=== PATIENT | female | born 1970 | race American Indian/Alaskan Native ===

== ENCOUNTER 2016-05-10 05:41 | Inpatient (IN) | payer BC ==
[2016-05-10 06:32] LABS: Basophils % (Auto) 1.1 % (0.0-1.8); Eosinophils % (Auto) 0.2 % (0.0-4.3); Hematocrit 36.2 % (30.3-42.9); Hemoglobin 11.8 gm/dl (10.1-14.3); Mean Corpuscular HGB Conc 33 % (30-34); Mean Corpuscular Hemoglobin 30 pg (28-32); Mean Corpuscular Volume 91 fl (79-97); Platelet Count 328 K/mm3 (140-440); Red Blood Count 3.96 M/mm3 (3.65-5.03); Red Cell Distribution Width 14.1 % (13.2-15.2); White Blood Count 15.3 K/mm3 (4.5-11.0)
[2016-05-10 06:40] LABS: Alanine Aminotransferase 16 units/L (7-56); Albumin 3.3 g/dL (3.9-5); Albumin/Globulin Ratio 0.8 %; Alkaline Phosphatase 87 units/L (35-129); Anion Gap 20 mmol/L; BUN/Creatinine Ratio 23.33; Bilirubin,Total 0.2 mg/dL (0.1-1.2); Blood Urea Nitrogen 21 mg/dL (7-17); Calcium 8.6 mg/dL (8.4-10.2); Carbon Dioxide 23 mmol/L (22-30); Chloride 92.2 mmol/L (98-107); Glucose 467 mg/dL (65-100); Lipase 83 units/L (13-60); Potassium 4.3 mmol/L (3.6-5.0); Sodium 131 mmol/L (137-145); Total Protein 7.2 g/dL (6.3-8.2)
[2016-05-10 07:43] LABS: Bilirubin,Urine NEG (Negative); Blood,Urine SM (Negative); Ketones,Urine NEG (Negative); Leukocyte Esterase,Urine TR (Negative); Nitrite,Urine NEG (Negative); Urobilinogen,Urine < 2.0 mg/dL (<2.0)
[2016-05-10 07:45] LABS: Protein,Urine >500 mg/dL (Negative)
[2016-05-10] MEDS ORDERED: ZOFRAN IV ONE ×2 (08:35→09:52)
[2016-05-10] MEDS ORDERED: NACL 0.9% 1000 ML 1,000 ML ONE (08:35)
[2016-05-10] MEDS ORDERED: NACL 0.9% 1000 ML 1,000 ML IV ONE ×2 (08:36→09:54)
[2016-05-10] MEDS ORDERED: ZOSYN/NS 3.375GM/50ML 3.375 GM/50 ML BAG IV ONE (09:52)
[2016-05-10] MEDS ORDERED: MORPHINE IV ONE ×2 (09:52→13:19)
[2016-05-10] MEDS ORDERED: FLAGYL 500 MG/100 ML 500 MG/100 ML BAG IV ONE (10:00)
[2016-05-10 10:13] LABS: Creatine Kinase MB 3.4 ng/mL (0.0-4.0)
[2016-05-10 10:14] LABS: Creatine Kinase 202 units/L (30-135); Magnesium 1.7 mg/dL (1.7-2.3)
[2016-05-10 10:16] LABS: INR 0.9 (0.87-1.13); Partial Thromboplastin Time 20.5 Sec. (24.2-36.6)
--- NOTE | 2016-05-10 10:41 | Cat Scan Report ---
CT OF THE ABDOMEN AND PELVIS WITHOUT CONTRAST HISTORY: Abdominal pain. TECHNIQUE: Helical CT without contrast. Sagittal and coronal reformatted images. FINDINGS: Compared to 06/30/12. The gallbladder has been surgically removed. No biliary dilatation. The liver, pancreas, spleen and adrenal glands are unremarkable. Mild bilateral perinephric stranding is identified. 3 mm calyceal stone in the mid left kidney is again noted. No right nephrolithiasis or ureteral stones identified. The bladder is unremarkable. There is a large simple appearing cyst in the left adnexa measuring up to 11.5 x 5.4 cm. This is presumably ovarian in origin. No inflammatory changes are appreciated. The uterus and adnexa are unremarkable. The bowel loops and appendix are within normal limits given no oral contrast was administered. The lung bases are clear. Normal heart size. No suspicious bony lesion. IMPRESSION: No acute inflammatory process. Left renal stone, nonobstructing. Large left adnexal cyst.
--- NOTE | 2016-05-10 11:58 | Emergency Department Report ---
ED General Adult HPI - General Chief complaint: Abdominal Pain Stated complaint: VOMITING,ABD PAIN, CHILLS Time Seen by Provider: 05/10/16 09:24 Source: patient Mode of arrival: Ambulatory Limitations: No Limitations - History of Present Illness Initial comments: The patient complained of frequent diarrhea for approximately one week. It's been watery and non-bloody. States he has no history of ongoing GI problems. She is status post cholecystectomy and . She states she is unaware of her fever today. She presented to the emergency department because of nausea and vomiting as well as diffuse abdominal discomfort this morning. He thinks he may have had some chills as well. The patient is compliant with her HIV regimen. She is recently started care with Dr. Garcia. She states her last 14 hours 800 and viral load 33. -: Gradual, week(s) Location: abdomen Radiation: non-radiation Quality: other (cramping) Consistency: intermittent Improves with: none Worsens with: none Associated Symptoms: denies other symptoms (except as above indicated) - Related Data Home Medications Medication Instructions Recorded Confirmed Last Taken Elviteg/Sumi/Emtric/Tenofo Ala 1 each PO QDAY 05/10/16 05/10/16 Unknown [Genvoya Tablet] Gabapentin [Neurontin] 800 mg PO TID 05/10/16 05/10/16 Unknown Hydrochlorothiazide [Hctz] 12.5 mg PO QDAY 05/10/16 05/10/16 Unknown Insulin Aspart Prot/Aspart 0 units SQ QACHS 05/10/16 05/10/16 Unknown [Novolog Mix 70/30] Insulin Glargine [Lantus] 30 units SQ QHS 05/10/16 05/10/16 Unknown metFORMIN [Glucophage] 500 mg PO BID 05/10/16 05/10/16 Unknown Allergies Allergy/AdvReac Type Severity Reaction Status Date / Time aspirin Allergy Swelling Verified 05/10/16 05:48 ED Review of Systems ROS: Stated complaint: VOMITING,ABD PAIN, CHILLS Other details as noted in HPI Constitutional: chills. denies: fever Eyes: denies: eye pain, eye discharge, vision change ENT: denies: ear pain, throat pain Respiratory: denies: cough, shortness of breath, wheezing Cardiovascular: denies: chest pain, palpitations Endocrine: no symptoms reported Gastrointestinal: abdominal pain, nausea, vomiting, diarrhea Genitourinary: denies: urgency, dysuria, discharge Musculoskeletal: denies: back pain, joint swelling, arthralgia Skin: denies: rash, lesions Neurological: denies: headache, weakness, paresthesias Psychiatric: denies: anxiety, depression Hematological/Lymphatic: denies: easy bleeding, easy bruising ED Past Medical Hx - Past Medical History Previous Medical History?: Yes Hx Hypertension: Yes Hx Diabetes: Yes Hx HIV: Yes - Surgical History Past Surgical History?: Yes Hx Cholecystectomy: Yes Additional Surgical History: C-Sec x 5 - Social History Smoking Status: Never Smoker Substance Use Type: None - Medications Home Medications: Home Medications Medication Instructions Recorded Confirmed Last Taken Type Elviteg/Sumi/Emtric/Tenofo Ala 1 each PO QDAY 05/10/16 05/10/16 Unknown History [Genvoya Tablet] Gabapentin [Neurontin] 800 mg PO TID 05/10/16 05/10/16 Unknown History Hydrochlorothiazide [Hctz] 12.5 mg PO QDAY 05/10/16 05/10/16 Unknown History Insulin Aspart Prot/Aspart 0 units SQ QACHS 05/10/16 05/10/16 Unknown History [Novolog Mix 70/30] Insulin Glargine [Lantus] 30 units SQ QHS 05/10/16 05/10/16 Unknown History metFORMIN [Glucophage] 500 mg PO BID 05/10/16 05/10/16 Unknown History ED Physical Exam - General Limitations: No Limitations General appearance: alert, in no apparent distress, other (appears dry) - Head Head exam: Present: atraumatic, normocephalic - Eye Eye exam: Present: normal appearance, PERRL, EOMI. Absent: scleral icterus - ENT ENT exam: Present: normal orophraynx, mucous membranes dry - Neck Neck exam: Present: normal inspection. Absent: tenderness, meningismus - Respiratory Respiratory exam: Present: normal lung sounds bilaterally. Absent: respiratory distress - Cardiovascular Cardiovascular Exam: Present: regular rate, normal rhythm. Absent: systolic murmur, diastolic murmur, rubs, gallop - GI/Abdominal GI/Abdominal exam: Present: soft, tenderness (mild diffuse tenderness but no guarding rebound or distention), normal bowel sounds. Absent: distended, guarding, rebound, rigid, organomegaly, mass, bruit, pulsatile mass, hernia - Extremities Exam Extremities exam: Present: normal inspection - Back Exam Back exam: Present: normal inspection - Neurological Exam Neurological exam: Present: alert, oriented X3, CN II-XII intact. Absent: motor sensory deficit - Psychiatric Psychiatric exam: Present: normal affect, normal mood - Skin Skin exam: Present: warm, dry, intact, normal color. Absent: rash ED Course Vital Signs 05/10/16 05/10/16 05/10/16 05:48 08:14 08:20 Temperature 101.1 F H Pulse Rate 124 H 111 H Respiratory 22 16 Rate Blood Pressure Blood Pressure 191/98 [Right] O2 Sat by Pulse 98 94 96 Oximetry 05/10/16 05/10/16 05/10/16 08:30 08:41 08:46 Temperature 99.1 F Pulse Rate 111 H 109 H 110 H Respiratory 17 16 17 Rate Blood Pressure 172/92 Blood Pressure 172/92 [Right] O2 Sat by Pulse 95 93 94 Oximetry 05/10/16 05/10/16 05/10/16 08:51 09:00 09:11 Temperature Pulse Rate 111 H 110 H 113 H Respiratory 15 13 16 Rate Blood Pressure 172/92 176/98 176/98 Blood Pressure [Right] O2 Sat by Pulse 90 94 97 Oximetry 05/10/16 05/10/16 05/10/16 09:26 09:31 09:35 Temperature Pulse Rate 115 H 111 H 113 H Respiratory 18 17 Rate Blood Pressure 176/98 164/92 Blood Pressure 164/82 [Right] O2 Sat by Pulse 97 96 96 Oximetry 05/10/16 05/10/16 05/10/16 09:41 09:51 10:00 Temperature Pulse Rate 113 H 116 H 112 H Respiratory 13 15 17 Rate Blood Pressure 164/92 164/92 170/98 Blood Pressure [Right] O2 Sat by Pulse 96 95 94 Oximetry 05/10/16 05/10/16 05/10/16 10:20 10:31 10:41 Temperature Pulse Rate 114 H 112 H 109 H Respiratory 15 14 Rate Blood Pressure 176/98 176/98 176/98 Blood Pressure [Right] O2 Sat by Pulse 96 96 96 Oximetry 05/10/16 05/10/16 05/10/16 10:51 11:00 11:11 Temperature Pulse Rate 107 H 113 H 110 H Respiratory 13 19 16 Rate Blood Pressure 176/98 138/84 170/98 Blood Pressure [Right] O2 Sat by Pulse 96 96 Oximetry - Reevaluation(s) Reevaluation #1: Patient's CT showed no acute inflammatory process. Her urine was negative. She had an incidental left adnexal cyst which was large and a left renal stone. She was given empiric antibiotics i.e. Zosyn and Flagyl. A C. difficile was sent. Report was given to Dr. Carmichael who has admitted the Patient further care and evaluation. 05/10/16 11:58 ED Medical Decision Making - Lab Data Result diagrams: 05/10/16 05:59 05/10/16 05:59 Laboratory Results - last 24 hr 05/10/16 05/10/16 05/10/16 05:59 05:59 05:59 WBC 15.3 H RBC 3.96 Hgb 11.8 Hct 36.2 MCV 91 MCH 30 MCHC 33 RDW 14.1 Plt Count 328 Lymph % (Auto) 11.5 L [place] % (Auto) 4.8 Eos % (Auto) 0.2 Baso % (Auto) 1.1 Lymph # 1.8 [place] # 0.7 Eos # 0.0 Baso # 0.2 H Seg Neutrophils % 82.4 H Seg Neutrophils # 12.6 H PT INR APTT VBG pH Sodium 131 L Potassium 4.3 Chloride 92.2 L Carbon Dioxide 23 Anion Gap 20 BUN 21 H Creatinine 0.9 Estimated GFR > 60 BUN/Creatinine Ratio 23.33 Glucose 467 H Lactic Acid Calcium 8.6 Magnesium Total Bilirubin 0.2 AST 15 ALT 16 Alkaline Phosphatase 87 Total Creatine Kinase CK-MB (CK-2) CK-MB (CK-2) Rel Index Troponin T Total Protein 7.2 Albumin 3.3 L Albumin/Globulin Ratio 0.8 Lipase 83 H HCG, Qual Negative Urine Color Urine Turbidity Urine pH Ur Specific [place] Urine Protein Urine Glucose (UA) Urine Ketones Urine Blood Urine Nitrite Urine Bilirubin Urine Urobilinogen Ur Leukocyte Esterase Urine WBC (Auto) Urine RBC (Auto) U Epithel Cells (Auto) Ketones 05/10/16 05/10/16 05/10/16 07:08 09:34 09:34 WBC RBC Hgb Hct MCV MCH MCHC RDW Plt Count Lymph % (Auto) [place] % (Auto) Eos % (Auto) Baso % (Auto) Lymph # [place] # Eos # Baso # Seg Neutrophils % Seg Neutrophils # PT 12.1 L INR 0.90 APTT 20.5 L VBG pH Sodium Potassium Chloride Carbon Dioxide Anion Gap BUN Creatinine Estimated GFR BUN/Creatinine Ratio Glucose Lactic Acid 1.4 Calcium Magnesium Total Bilirubin AST ALT Alkaline Phosphatase Total Creatine Kinase CK-MB (CK-2) CK-MB (CK-2) Rel Index Troponin T Total Protein Albumin Albumin/Globulin Ratio Lipase HCG, Qual Urine Color Yellow Urine Turbidity Slightly-cloudy Urine pH 5.0 Ur Specific [place] 1.026 Urine Protein >500 Urine Glucose (UA) >=500 Urine Ketones Neg Urine Blood Sm Urine Nitrite Neg Urine Bilirubin Neg Urine Urobilinogen < 2.0 Ur Leukocyte Esterase Tr Urine WBC (Auto) 7.0 H Urine RBC (Auto) 9.0 U Epithel Cells (Auto) 6.0 Ketones 05/10/16 05/10/16 05/10/16 09:34 09:34 09:34 WBC RBC Hgb Hct MCV MCH MCHC RDW Plt Count Lymph % (Auto) [place] % (Auto) Eos % (Auto) Baso % (Auto) Lymph # [place] # Eos # Baso # Seg Neutrophils % Seg Neutrophils # PT INR APTT VBG pH 7.367 Sodium Potassium Chloride Carbon Dioxide Anion Gap BUN Creatinine Estimated GFR BUN/Creatinine Ratio Glucose Lactic Acid Calcium Magnesium 1.7 Total Bilirubin AST ALT Alkaline Phosphatase Total Creatine Kinase 202 H CK-MB (CK-2) 3.4 CK-MB (CK-2) Rel Index 1.6 Troponin T < 0.010 Total Protein Albumin Albumin/Globulin Ratio Lipase HCG, Qual Urine Color Urine Turbidity Urine pH Ur Specific [place] Urine Protein Urine Glucose (UA) Urine Ketones Urine Blood Urine Nitrite Urine Bilirubin Urine Urobilinogen Ur Leukocyte Esterase Urine WBC (Auto) Urine RBC (Auto) U Epithel Cells (Auto) Ketones 11.1 H - EKG Data -: EKG Interpreted by Me EKG shows normal: sinus rhythm Rate: tachycardia - EKG Data Interpretation: other (diffuse but not deep T-wave inversions) - Radiology Data Radiology results: report reviewed Critical care attestation.: If time is entered above; I have spent that time in minutes in the direct care of this critically ill patient, excluding procedure time. ED Disposition Clinical Impression: Febrile illness, acute, Increased anion gap metabolic acidosis Diarrhea Qualifiers: Diarrhea type: infectious Qualified Code(s): A09 - Infectious gastroenteritis and colitis, unspecified Abdominal pain Qualifiers: Abdominal location: generalized Qualified Code(s): R10.84 - Generalized abdominal pain Uncontrolled diabetes mellitus with hyperglycemia Qualifiers: Diabetes mellitus type: type 2 Diabetes mellitus interactive art director insulin use: with usp use Qualified Code(s): E11.65 - Type 2 diabetes mellitus with hyperglycemia Disposition: OP ADMITTED IP TO THIS HOSP Is pt being admited?: Yes Does the pt Need Aspirin: No Condition: Stable Instructions: Diabetes Mellitus Type 2 in Adults (ED), Abdominal Pain (ED) Referrals: PRIMARY CARE, [Primary Care Provider] - 3-5 Days Time of Disposition: 12:02
[2016-05-10] MEDS ORDERED: MORPHINE ONE (13:01)
[2016-05-10] MEDS: DILAUDID IV PRN ×2 (14:36→20:30)
[2016-05-10] MEDS: ZOFRAN IV PRN (14:36)
--- NOTE | 2016-05-10 18:23 | History and Physical Report ---
History of Present Illness Date of examination: 05/10/16 Date of admission: 05/10/16 12:03 Chief complaint: Loose stools for one week.And fever off and one for one week. History of present illness: 46-year-old -[place] female comes in for fever and diarrhea for 1 week duration. Patient has history of HIV insulin-dependent diabetes peripheral neuropathy and hypertension. Patient had a cholecystectomy recently. The stools are watery 3-4 times a day. No nausea no vomiting. Slight periumbilical pain present. Pain is about 3 on a scale of 1-10. Nonradiating. Past History Past Medical History: No medical history, diabetes, HIV/AIDS (PN), hypertension , hyperlipidemia, other Past Surgical History: cholecystectomy, (x5) Social history: denies: smoking, alcohol abuse Family history: hypertension Medications and Allergies Allergies Allergy/AdvReac Type Severity Reaction Status Date / Time aspirin Allergy Swelling Verified 05/10/16 05:48 Home Medications Medication Instructions Recorded Confirmed Last Taken Type Elviteg/Sumi/Emtric/Tenofo Ala 1 each PO QDAY 05/10/16 05/10/16 Unknown History [Genvoya Tablet] Gabapentin [Neurontin] 800 mg PO TID 05/10/16 05/10/16 Unknown History Hydrochlorothiazide [Hctz] 12.5 mg PO QDAY 05/10/16 05/10/16 Unknown History Insulin Aspart Prot/Aspart 0 units SQ QACHS 05/10/16 05/10/16 Unknown History [Novolog Mix 70/30] Insulin Glargine [Lantus] 30 units SQ QHS 05/10/16 05/10/16 Unknown History metFORMIN [Glucophage] 500 mg PO BID 05/10/16 05/10/16 Unknown History Active Meds: Active Medications Hydromorphone HCl (Dilaudid) 1 mg IV Q3H PRN PRN Reason: Pain , Severe (7-10) Last Admin: 05/10/16 14:36 Dose: 1 mg Ondansetron HCl (Zofran) 4 mg IV Q3H PRN PRN Reason: Nausea And Vomiting Last Admin: 05/10/16 14:36 Dose: 4 mg Review of Systems All systems: negative Constitutional: fever, no weight loss, no weight gain Ears, nose, mouth and throat: sinus pain, no ear pain, no ear discharge, no epistaxis, no sore throat, no swelling in throat, no odynophagia, no voice changes, no post-nasal drip Breasts: deferred Cardiovascular: no chest pain, no orthopnea, no shortness of breath Respiratory: no cough, no cough with sputum, no dyspnea on exertion, no congestion, no wheezing Gastrointestinal: abdominal pain, diarrhea, no nausea, no vomiting, no constipation, no change in bowel habits Genitourinary Female: no flank pain, no dysuria, no urinary frequency Musculoskeletal: no neck pain, no shooting arm pain, no leg numbness/tingling, no redness of joints Integumentary: no rash, no pruritis, no redness, no sores Neurological: no seizures, no syncope Psychiatric: no anxiety, no paranoia, no depression Endocrine: no cold intolerance, no heat intolerance, no polydipsia, no polyuria , no nocturia Hematologic/Lymphatic: no easy bruising, no easy bleeding Allergic/Immunologic: no urticaria, no allergic rhinitis, no wheezing Exam - Constitutional Vitals: Temp Pulse Resp BP Pulse Ox 98.2 F 95 H 20 126/76 90 05/10/16 17:00 05/10/16 17:00 05/10/16 15:05 05/10/16 17:00 05/10/16 17:00 General appearance: Present: no acute distress, well-nourished - EENT Eyes: Present: PERRL ENT: hearing intact, clear oral mucosa - Neck Neck: Present: supple, normal ROM - Respiratory Respiratory effort: normal Respiratory: bilateral: CTA - Cardiovascular Heart Sounds: Present: S1 & S2. Absent: rub, click - Extremities Extremities: pulses symmetrical, No edema Peripheral Pulses: within normal limits - Abdominal General gastrointestinal: Present: soft, non-tender, non-distended, normal bowel sounds Female genitourinary: Present: normal - Integumentary Integumentary: Present: clear, warm, dry - Musculoskeletal Musculoskeletal: gait normal, strength equal bilaterally - Psychiatric Psychiatric: appropriate mood/affect, intact judgment & insight - Neurologic Neurologic: CNII-XII intact, moves all extremities Results - Labs CBC & Chem 7: 05/10/16 05:59 05/10/16 05:59 Labs: Laboratory Last Values WBC 15.3 K/mm3 (4.5-11.0) H 05/10/16 05:59 RBC 3.96 M/mm3 (3.65-5.03) 05/10/16 05:59 Hgb 11.8 gm/dl (10.1-14.3) 05/10/16 05:59 Hct 36.2 % (30.3-42.9) 05/10/16 05:59 MCV 91 fl (79-97) 05/10/16 05:59 MCH 30 pg (28-32) 05/10/16 05:59 MCHC 33 % (30-34) 05/10/16 05:59 RDW 14.1 % (13.2-15.2) 05/10/16 05:59 Plt Count 328 K/mm3 (140-440) 05/10/16 05:59 Lymph % (Auto) 11.5 % (13.4-35.0) L 05/10/16 05:59 [place] % (Auto) 4.8 % (0.0-7.3) 05/10/16 05:59 Eos % (Auto) 0.2 % (0.0-4.3) 05/10/16 05:59 Baso % (Auto) 1.1 % (0.0-1.8) 05/10/16 05:59 Lymph # 1.8 K/mm3 (1.2-5.4) 05/10/16 05:59 [place] # 0.7 K/mm3 (0.0-0.8) 05/10/16 05:59 Eos # 0.0 K/mm3 (0.0-0.4) 05/10/16 05:59 Baso # 0.2 K/mm3 (0.0-0.1) H 05/10/16 05:59 Seg Neutrophils % 82.4 % (40.0-70.0) H 05/10/16 05:59 Seg Neutrophils # 12.6 K/mm3 (1.8-7.7) H 05/10/16 05:59 PT 12.1 Sec. (12.2-14.9) L 05/10/16 09:34 INR 0.90 (0.87-1.13) 05/10/16 09:34 APTT 20.5 Sec. (24.2-36.6) L 05/10/16 09:34 VBG pH 7.367 (7.320-7.420) 05/10/16 09:34 Sodium 131 mmol/L (137-145) L 05/10/16 05:59 Potassium 4.3 mmol/L (3.6-5.0) 05/10/16 05:59 Chloride 92.2 mmol/L (98-107) L 05/10/16 05:59 Carbon Dioxide 23 mmol/L (22-30) 05/10/16 05:59 Anion Gap 20 mmol/L 05/10/16 05:59 BUN 21 mg/dL (7-17) H 05/10/16 05:59 Creatinine 0.9 mg/dL (0.7-1.2) 05/10/16 05:59 Estimated GFR > 60 ml/min 05/10/16 05:59 BUN/Creatinine Ratio 23.33 % 05/10/16 05:59 Glucose 467 mg/dL (65-100) H 05/10/16 05:59 Lactic Acid 1.4 mmol/L (0.7-2.0) 05/10/16 09:34 Calcium 8.6 mg/dL (8.4-10.2) 05/10/16 05:59 Magnesium 1.7 mg/dL (1.7-2.3) 05/10/16 09:34 Total Bilirubin 0.2 mg/dL (0.1-1.2) 05/10/16 05:59 AST 15 units/L (5-40) 05/10/16 05:59 ALT 16 units/L (7-56) 05/10/16 05:59 Alkaline Phosphatase 87 units/L (35-129) 05/10/16 05:59 Total Creatine Kinase 202 units/L (30-135) H 05/10/16 09:34 CK-MB (CK-2) 3.4 ng/mL (0.0-4.0) 05/10/16 09:34 CK-MB (CK-2) Rel Index 1.6 (0-4) 05/10/16 09:34 Troponin T < 0.010 ng/mL (0.00-0.029) 05/10/16 09:34 Total Protein 7.2 g/dL (6.3-8.2) 05/10/16 05:59 Albumin 3.3 g/dL (3.9-5) L 05/10/16 05:59 Albumin/Globulin Ratio 0.8 % 05/10/16 05:59 Lipase 83 units/L (13-60) H 05/10/16 05:59 HCG, Qual Negative (Negative) 05/10/16 05:59 Urine Color Yellow (Yellow) 05/10/16 07:08 Urine Turbidity Slightly-cloudy (Clear) 05/10/16 07:08 Urine pH 5.0 (5.0-7.0) 05/10/16 07:08 Ur Specific [place] 1.026 (1.003-1.030) 05/10/16 07:08 Urine Protein >500 mg/dL (Negative) 05/10/16 07:08 Urine Glucose (UA) >=500 mg/dL (Negative) 05/10/16 07:08 Urine Ketones Neg mg/dL (Negative) 05/10/16 07:08 Urine Blood Sm (Negative) 05/10/16 07:08 Urine Nitrite Neg (Negative) 05/10/16 07:08 Urine Bilirubin Neg (Negative) 05/10/16 07:08 Urine Urobilinogen < 2.0 mg/dL (<2.0) 05/10/16 07:08 Ur Leukocyte Esterase Tr (Negative) 05/10/16 07:08 Urine WBC (Auto) 7.0 /HPF (0.0-6.0) H 05/10/16 07:08 Urine RBC (Auto) 9.0 /HPF (0.0-6.0) 05/10/16 07:08 U Epithel Cells (Auto) 6.0 /HPF (0-13.0) 05/10/16 07:08 Ketones 11.1 mg/dL (0.2-2.8) H 05/10/16 09:34 Assessment and Plan Advance Directives: Yes (codeFull ) VTE prophylaxis?: Chemical Plan of care discussed with patient/family: Yes - Patient Problems (1) Febrile illness, acute Current Visit: Yes Status: Acute Plan to address problem: Zosyn for possible colitis No other source of infection seen (2) Uncontrolled diabetes mellitus with hyperglycemia Current Visit: Yes Status: Chronic Qualifiers: Diabetes mellitus type: type 2 Diabetes mellitus correction insulin use: with rodent exterminator use Qualified Code(s): E11.65 - Type 2 diabetes mellitus with hyperglycemia; Z79.4 - vermin exterminator (current) use of insulin Plan to address problem: Cont Insulin and coverage Check hemoglobin A1C moderate dose sliding scale protocol. (3) Diarrhea Current Visit: Yes Status: Acute Qualifiers: Diarrhea type: presumed infectious Qualified Code(s): A09 - Infectious gastroenteritis and colitis, unspecified Plan to address problem: Rule out clostridium difficile colitis. C. difficile assay ordered. Patient started on IV Flagyl 500 mg every 8 hours also patient started on IV Zosyn for possible colitis off infectious origin pending cultures stool. Stool cultures and C. difficile antigen ordered. (4) SIRS (systemic inflammatory response syndrome) Current Visit: Yes Status: Acute Plan to address problem: Patient qualifies for systemic inflammatory response syndrome. Patient has high white count and fever. Patient started on IV antibiotics Zosyn and IV Flagyl for possible C. difficile colitis (5) HTN (hypertension) Current Visit: Yes Status: Chronic Qualifiers: Hypertension type: essential hypertension Qualified Code(s): I10 - Essential (primary) hypertension Plan to address problem: Patient resume that on hydrochlorothiazide. Patient needs potassium along with hydrochlorothiazide. (6) DVT prophylaxis Current Visit: Yes Status: Acute Plan to address problem: Patient started on Lovenox 40 mg subcutaneous daily
[2016-05-10] MEDS ORDERED: NACL 0.9% 1000 ML 1,000 ML IV SCH (19:00)
[2016-05-10] MEDS: NOVOLOG SUB-Q SCH (22:23)
[2016-05-10] MEDS: FLAGYL 500 MG/100 ML 500 MG/100 ML BAG IV SCH (22:23)
[2016-05-11] MEDS: DILAUDID IV PRN ×7 (01:07→21:42)
[2016-05-11] MEDS: ZOFRAN IV PRN ×7 (01:08→21:47)
[2016-05-11 06:19] LABS: Basophils % (Auto) 1.3 % (0.0-1.8); Eosinophils % (Auto) 0.3 % (0.0-4.3); Hemoglobin 10.6 gm/dl (10.1-14.3); Mean Corpuscular HGB Conc 32 % (30-34); Mean Corpuscular Hemoglobin 30 pg (28-32); Mean Corpuscular Volume 94 fl (79-97); Red Blood Count 3.52 M/mm3 (3.65-5.03); Red Cell Distribution Width 14.2 % (13.2-15.2); White Blood Count 8.9 K/mm3 (4.5-11.0)
[2016-05-11 06:31] LABS: Alanine Aminotransferase 16 units/L (7-56); Alkaline Phosphatase 86 units/L (35-129); BUN/Creatinine Ratio 18.88; Bilirubin,Total 0.2 mg/dL (0.1-1.2); Blood Urea Nitrogen 17 mg/dL (7-17); Calcium 7.8 mg/dL (8.4-10.2); Carbon Dioxide 19 mmol/L (22-30); Glucose 380 mg/dL (65-100); Total Protein 6.9 g/dL (6.3-8.2)
[2016-05-11 06:32] LABS: Anion Gap 21 mmol/L; Chloride 100.2 mmol/L (98-107); Potassium 4.3 mmol/L (3.6-5.0); Sodium 136 mmol/L (137-145)
[2016-05-11] MEDS: FLAGYL 500 MG/100 ML 500 MG/100 ML BAG IV SCH (06:41)
[2016-05-11 06:44] LABS: Albumin 2.6 g/dL (3.9-5); Albumin/Globulin Ratio 0.6 %
[2016-05-11 07:01] LABS: Platelet Count 239 K/mm3 (140-440)
[2016-05-11] MEDS: APRESOLINE IV PRN (08:25)
[2016-05-11] MEDS: NOVOLOG SUB-Q SCH ×4 (08:31→23:54)
--- NOTE | 2016-05-11 10:11 | Admit Criteria Form ---
Admission Criteria Documentation: FEBRILE ILLNESS, WITHOUT FOCAL INFECTION Clinical Indications for Admission to Inpatient Care (Place 'X' for any and all applicable criteria): Admission is indicated for ANY ONE of the following (1)(2)(3): [ ] I. Bacteremia [ ]II. Suspected or identified specific infection requiring hospitalization (eg, meningitis, endocarditis) [ ]III. Hemodynamic instability [ ]IV. Altered mental status []V. Failure or unavailability of outpatient antimicrobial treatment [ ]. Hypoxemia [ ]VII. Seizures [ ]VIII. High-risk febrile neutropenia [ ]IX. Need for parenteral antibiotic in patient who is likely to abuse vascular access device (eg, injection drug user) [A](7) [ ]X. Temperature greater than 104.9 degrees F (40.5 degrees C) (oral) [X]XI. Inpatient admission required rather than observation care because of ANY ONE of the following: [ ]a) Specific infection identified that is too severe for outpatient treatment or observation care trial [X]b) Metabolic disorder (eg, hypoglycemia, hyperglycemia, metabolic acidosis) that is severe or persistent [ ]c) Temperature greater than 103.1 degrees F (39.5 degrees C) ( oral) that is not responsive to observation care treatment [ ]d) IV fluid to replace significant ongoing (eg, for over 24 hours) losses (> 3 L/m2 per day) [ ]e) Supplemental oxygen or respiratory treatments for over 24 hours that is performable only in acute inpatient setting [ ]f) Parenteral nutrition regimen need that must be implemented on inpatient basis [ ]g) Strict or protective (eg, laminar flow) isolation [ ]h) Other condition, treatment or monitoring requiring inpatient admission Extended stay beyond goal length of stay may be needed for(1)(3) [ ]a) Sepsis or septic shock(22) [ ]b) Positive blood cultures [ ]c) Insufficient oral intake [ ]d) High-risk febrile neutropenia(29)(30) [ ]e) Continued fever and clinical instability [ ]f) Clinically active comorbid illness (e.g,heart failure, renal failure , diabetes) The original [facility] content created by [facility] [employer] has been revised. The portions of the content which have been revised are identified through the use of italic text or in bold, and [facility] has neither reviewed nor approved the modified material. All other unmodified content is copyright [facility]. Please see references footnoted in the original [facility] edition 2016 Admission Criteria Met: Yes
[2016-05-11] MEDS: LOVENOX SUB-Q SCH (11:32)
[2016-05-11] MEDS: REGLAN IV PRN ×2 (11:33→18:28)
--- NOTE | 2016-05-11 20:14 | Progress Note ---
History Interval history: c/o nausea and vomiting; diarrhea has resolved Hospitalist Physical - Constitutional Vitals: Temp Pulse Resp BP Pulse Ox 98.3 F 100 H 20 150/89 98 05/11/16 15:00 05/11/16 15:00 05/11/16 15:00 05/11/16 15:00 05/11/16 07:07 General appearance: Present: no acute distress, well-nourished Results - Labs CBC & Chem 7: 05/11/16 05:29 05/11/16 05:29 Labs: Laboratory Last Values WBC 8.9 K/mm3 (4.5-11.0) 05/11/16 05:29 RBC 3.52 M/mm3 (3.65-5.03) L 05/11/16 05:29 Hgb 10.6 gm/dl (10.1-14.3) 05/11/16 05:29 Hct 33.0 % (30.3-42.9) 05/11/16 05:29 MCV 94 fl (79-97) D 05/11/16 05:29 MCH 30 pg (28-32) 05/11/16 05:29 MCHC 32 % (30-34) 05/11/16 05:29 RDW 14.2 % (13.2-15.2) 05/11/16 05:29 Plt Count 239 K/mm3 (140-440) 05/11/16 05:29 Lymph % (Auto) 23.3 % (13.4-35.0) 05/11/16 05:29 [place] % (Auto) 6.1 % (0.0-7.3) 05/11/16 05:29 Eos % (Auto) 0.3 % (0.0-4.3) 05/11/16 05:29 Baso % (Auto) 1.3 % (0.0-1.8) 05/11/16 05:29 Lymph # 2.1 K/mm3 (1.2-5.4) 05/11/16 05:29 [place] # 0.5 K/mm3 (0.0-0.8) 05/11/16 05:29 Eos # 0.0 K/mm3 (0.0-0.4) 05/11/16 05:29 Baso # 0.1 K/mm3 (0.0-0.1) 05/11/16 05:29 Seg Neutrophils % 69.0 % (40.0-70.0) 05/11/16 05:29 Seg Neutrophils # 6.1 K/mm3 (1.8-7.7) 05/11/16 05:29 PT 12.1 Sec. (12.2-14.9) L 05/10/16 09:34 INR 0.90 (0.87-1.13) 05/10/16 09:34 APTT 20.5 Sec. (24.2-36.6) L 05/10/16 09:34 VBG pH 7.367 (7.320-7.420) 05/10/16 09:34 Sodium 136 mmol/L (137-145) L 05/11/16 05:29 Potassium 4.3 mmol/L (3.6-5.0) 05/11/16 05:29 Chloride 100.2 mmol/L (98-107) 05/11/16 05:29 Carbon Dioxide 19 mmol/L (22-30) L 05/11/16 05:29 Anion Gap 21 mmol/L 05/11/16 05:29 BUN 17 mg/dL (7-17) 05/11/16 05:29 Creatinine 0.9 mg/dL (0.7-1.2) 05/11/16 05:29 Estimated GFR > 60 ml/min 05/11/16 05:29 BUN/Creatinine Ratio 18.88 % 05/11/16 05:29 Glucose 380 mg/dL (65-100) H 05/11/16 05:29 POC Glucose 242 (70-105) H 05/11/16 16:20 Hemoglobin A1c 13.3 % (4-6) H 05/11/16 05:29 Lactic Acid 1.4 mmol/L (0.7-2.0) 05/10/16 09:34 Calcium 7.8 mg/dL (8.4-10.2) L 05/11/16 05:29 Magnesium 1.7 mg/dL (1.7-2.3) 05/10/16 09:34 Total Bilirubin 0.2 mg/dL (0.1-1.2) 05/11/16 05:29 AST 18 units/L (5-40) 05/11/16 05:29 ALT 16 units/L (7-56) 05/11/16 05:29 Alkaline Phosphatase 86 units/L (35-129) 05/11/16 05:29 Total Creatine Kinase 202 units/L (30-135) H 05/10/16 09:34 CK-MB (CK-2) 3.4 ng/mL (0.0-4.0) 05/10/16 09:34 CK-MB (CK-2) Rel Index 1.6 (0-4) 05/10/16 09:34 Troponin T < 0.010 ng/mL (0.00-0.029) 05/10/16 09:34 Total Protein 6.9 g/dL (6.3-8.2) 05/11/16 05:29 Albumin 2.6 g/dL (3.9-5) L 05/11/16 05:29 Albumin/Globulin Ratio 0.6 % 05/11/16 05:29 Lipase 83 units/L (13-60) H 05/10/16 05:59 HCG, Qual Negative (Negative) 05/10/16 05:59 Urine Color Yellow (Yellow) 05/10/16 07:08 Urine Turbidity Slightly-cloudy (Clear) 05/10/16 07:08 Urine pH 5.0 (5.0-7.0) 05/10/16 07:08 Ur Specific [place] 1.026 (1.003-1.030) 05/10/16 07:08 Urine Protein >500 mg/dL (Negative) 05/10/16 07:08 Urine Glucose (UA) >=500 mg/dL (Negative) 05/10/16 07:08 Urine Ketones Neg mg/dL (Negative) 05/10/16 07:08 Urine Blood Sm (Negative) 05/10/16 07:08 Urine Nitrite Neg (Negative) 05/10/16 07:08 Urine Bilirubin Neg (Negative) 05/10/16 07:08 Urine Urobilinogen < 2.0 mg/dL (<2.0) 05/10/16 07:08 Ur Leukocyte Esterase Tr (Negative) 05/10/16 07:08 Urine WBC (Auto) 7.0 /HPF (0.0-6.0) H 05/10/16 07:08 Urine RBC (Auto) 9.0 /HPF (0.0-6.0) 05/10/16 07:08 U Epithel Cells (Auto) 6.0 /HPF (0-13.0) 05/10/16 07:08 Ketones 11.1 mg/dL (0.2-2.8) H 05/10/16 09:34
[2016-05-11] MEDS: LEVEMIR SUB-Q SCH (23:53)
[2016-05-12] MEDS: DILAUDID IV PRN ×7 (02:42→21:22)
[2016-05-12] MEDS: REGLAN IV PRN ×3 (02:43→17:16)
[2016-05-12] MEDS: ZOFRAN IV PRN ×7 (02:43→21:21)
[2016-05-12] MEDS: NOVOLOG SUB-Q SCH ×4 (08:17→22:52)
[2016-05-12] MEDS: LOVENOX SUB-Q SCH (09:22)
[2016-05-12] MEDS: APRESOLINE IV PRN (15:24)
[2016-05-12] MEDS ORDERED: PHENERGAN PR ONE (21:54)
--- NOTE | 2016-05-12 21:56 | Progress Note ---
History Interval history: c/o nausea and vomiting; no BM since admission, so stoool studies not obtained Hospitalist Physical - Constitutional Vitals: Temp Pulse Resp BP Pulse Ox 97.9 F 100 H 20 178/99 97 05/12/16 08:00 05/12/16 15:24 05/12/16 21:22 05/12/16 18:16 05/12/16 08:00 General appearance: Present: no acute distress, well-nourished Results - Labs CBC & Chem 7: 05/11/16 05:29 05/11/16 05:29 Labs: Laboratory Last Values WBC 8.9 K/mm3 (4.5-11.0) 05/11/16 05:29 RBC 3.52 M/mm3 (3.65-5.03) L 05/11/16 05:29 Hgb 10.6 gm/dl (10.1-14.3) 05/11/16 05:29 Hct 33.0 % (30.3-42.9) 05/11/16 05:29 MCV 94 fl (79-97) D 05/11/16 05:29 MCH 30 pg (28-32) 05/11/16 05:29 MCHC 32 % (30-34) 05/11/16 05:29 RDW 14.2 % (13.2-15.2) 05/11/16 05:29 Plt Count 239 K/mm3 (140-440) 05/11/16 05:29 Lymph % (Auto) 23.3 % (13.4-35.0) 05/11/16 05:29 [place] % (Auto) 6.1 % (0.0-7.3) 05/11/16 05:29 Eos % (Auto) 0.3 % (0.0-4.3) 05/11/16 05:29 Baso % (Auto) 1.3 % (0.0-1.8) 05/11/16 05:29 Lymph # 2.1 K/mm3 (1.2-5.4) 05/11/16 05:29 [place] # 0.5 K/mm3 (0.0-0.8) 05/11/16 05:29 Eos # 0.0 K/mm3 (0.0-0.4) 05/11/16 05:29 Baso # 0.1 K/mm3 (0.0-0.1) 05/11/16 05:29 Seg Neutrophils % 69.0 % (40.0-70.0) 05/11/16 05:29 Seg Neutrophils # 6.1 K/mm3 (1.8-7.7) 05/11/16 05:29 PT 12.1 Sec. (12.2-14.9) L 05/10/16 09:34 INR 0.90 (0.87-1.13) 05/10/16 09:34 APTT 20.5 Sec. (24.2-36.6) L 05/10/16 09:34 VBG pH 7.367 (7.320-7.420) 05/10/16 09:34 Sodium 136 mmol/L (137-145) L 05/11/16 05:29 Potassium 4.3 mmol/L (3.6-5.0) 05/11/16 05:29 Chloride 100.2 mmol/L (98-107) 05/11/16 05:29 Carbon Dioxide 19 mmol/L (22-30) L 05/11/16 05:29 Anion Gap 21 mmol/L 05/11/16 05:29 BUN 17 mg/dL (7-17) 05/11/16 05:29 Creatinine 0.9 mg/dL (0.7-1.2) 05/11/16 05:29 Estimated GFR > 60 ml/min 05/11/16 05:29 BUN/Creatinine Ratio 18.88 % 05/11/16 05:29 Glucose 380 mg/dL (65-100) H 05/11/16 05:29 POC Glucose 132 (70-105) H 05/12/16 17:09 Hemoglobin A1c 13.3 % (4-6) H 05/11/16 05:29 Lactic Acid 1.4 mmol/L (0.7-2.0) 05/10/16 09:34 Calcium 7.8 mg/dL (8.4-10.2) L 05/11/16 05:29 Magnesium 1.7 mg/dL (1.7-2.3) 05/10/16 09:34 Total Bilirubin 0.2 mg/dL (0.1-1.2) 05/11/16 05:29 AST 18 units/L (5-40) 05/11/16 05:29 ALT 16 units/L (7-56) 05/11/16 05:29 Alkaline Phosphatase 86 units/L (35-129) 05/11/16 05:29 Total Creatine Kinase 202 units/L (30-135) H 05/10/16 09:34 CK-MB (CK-2) 3.4 ng/mL (0.0-4.0) 05/10/16 09:34 CK-MB (CK-2) Rel Index 1.6 (0-4) 05/10/16 09:34 Troponin T < 0.010 ng/mL (0.00-0.029) 05/10/16 09:34 Total Protein 6.9 g/dL (6.3-8.2) 05/11/16 05:29 Albumin 2.6 g/dL (3.9-5) L 05/11/16 05:29 Albumin/Globulin Ratio 0.6 % 05/11/16 05:29 Lipase 83 units/L (13-60) H 05/10/16 05:59 HCG, Qual Negative (Negative) 05/10/16 05:59 Urine Color Yellow (Yellow) 05/10/16 07:08 Urine Turbidity Slightly-cloudy (Clear) 05/10/16 07:08 Urine pH 5.0 (5.0-7.0) 05/10/16 07:08 Ur Specific [place] 1.026 (1.003-1.030) 05/10/16 07:08 Urine Protein >500 mg/dL (Negative) 05/10/16 07:08 Urine Glucose (UA) >=500 mg/dL (Negative) 05/10/16 07:08 Urine Ketones Neg mg/dL (Negative) 05/10/16 07:08 Urine Blood Sm (Negative) 05/10/16 07:08 Urine Nitrite Neg (Negative) 05/10/16 07:08 Urine Bilirubin Neg (Negative) 05/10/16 07:08 Urine Urobilinogen < 2.0 mg/dL (<2.0) 05/10/16 07:08 Ur Leukocyte Esterase Tr (Negative) 05/10/16 07:08 Urine WBC (Auto) 7.0 /HPF (0.0-6.0) H 05/10/16 07:08 Urine RBC (Auto) 9.0 /HPF (0.0-6.0) 05/10/16 07:08 U Epithel Cells (Auto) 6.0 /HPF (0-13.0) 05/10/16 07:08 Ketones 11.1 mg/dL (0.2-2.8) H 05/10/16 09:34
[2016-05-12] MEDS: AMBIEN PO PRN (22:51)
[2016-05-12] MEDS: LEVEMIR SUB-Q SCH (22:52)
[2016-05-13] MEDS: APRESOLINE IV PRN ×3 (01:31→23:48)
[2016-05-13] MEDS: ZOFRAN IV PRN ×7 (01:31→23:44)
[2016-05-13] MEDS: DILAUDID IV PRN ×7 (01:32→23:44)
[2016-05-13 08:44] LABS: Anion Gap 17 mmol/L; Blood Urea Nitrogen 15 mg/dL (7-17); Calcium 8.5 mg/dL (8.4-10.2); Carbon Dioxide 24 mmol/L (22-30); Chloride 106.8 mmol/L (98-107); Glucose 106 mg/dL (65-100); Potassium 3.6 mmol/L (3.6-5.0); Sodium 144 mmol/L (137-145)
[2016-05-13] MEDS: NOVOLOG SUB-Q SCH ×3 (09:05→16:52)
[2016-05-13] MEDS: LOVENOX SUB-Q SCH (09:06)
[2016-05-13] MEDS: PHENERGAN PR SCH ×2 (17:02→23:48)
--- NOTE | 2016-05-13 19:21 | Progress Note ---
History Interval history: still trowing up, unable to eat or take any po medsications Hospitalist Physical - Constitutional Vitals: Temp Pulse Resp BP Pulse Ox 98.8 F 108 H 20 188/97 96 05/13/16 15:37 05/13/16 15:50 05/13/16 15:37 05/13/16 15:50 05/13/16 07:00 General appearance: Present: no acute distress, well-nourished Results - Labs CBC & Chem 7: 05/11/16 05:29 05/13/16 07:35 Labs: Laboratory Last Values WBC 8.9 K/mm3 (4.5-11.0) 05/11/16 05:29 RBC 3.52 M/mm3 (3.65-5.03) L 05/11/16 05:29 Hgb 10.6 gm/dl (10.1-14.3) 05/11/16 05:29 Hct 33.0 % (30.3-42.9) 05/11/16 05:29 MCV 94 fl (79-97) D 05/11/16 05:29 MCH 30 pg (28-32) 05/11/16 05:29 MCHC 32 % (30-34) 05/11/16 05:29 RDW 14.2 % (13.2-15.2) 05/11/16 05:29 Plt Count 239 K/mm3 (140-440) 05/11/16 05:29 Lymph % (Auto) 23.3 % (13.4-35.0) 05/11/16 05:29 [place] % (Auto) 6.1 % (0.0-7.3) 05/11/16 05:29 Eos % (Auto) 0.3 % (0.0-4.3) 05/11/16 05:29 Baso % (Auto) 1.3 % (0.0-1.8) 05/11/16 05:29 Lymph # 2.1 K/mm3 (1.2-5.4) 05/11/16 05:29 [place] # 0.5 K/mm3 (0.0-0.8) 05/11/16 05:29 Eos # 0.0 K/mm3 (0.0-0.4) 05/11/16 05:29 Baso # 0.1 K/mm3 (0.0-0.1) 05/11/16 05:29 Seg Neutrophils % 69.0 % (40.0-70.0) 05/11/16 05:29 Seg Neutrophils # 6.1 K/mm3 (1.8-7.7) 05/11/16 05:29 PT 12.1 Sec. (12.2-14.9) L 05/10/16 09:34 INR 0.90 (0.87-1.13) 05/10/16 09:34 APTT 20.5 Sec. (24.2-36.6) L 05/10/16 09:34 VBG pH 7.367 (7.320-7.420) 05/10/16 09:34 Sodium 144 mmol/L (137-145) D 05/13/16 07:35 Potassium 3.6 mmol/L (3.6-5.0) 05/13/16 07:35 Chloride 106.8 mmol/L (98-107) 05/13/16 07:35 Carbon Dioxide 24 mmol/L (22-30) 05/13/16 07:35 Anion Gap 17 mmol/L 05/13/16 07:35 BUN 15 mg/dL (7-17) 05/13/16 07:35 Creatinine 1.0 mg/dL (0.7-1.2) 05/13/16 07:35 Estimated GFR > 60 ml/min 05/13/16 07:35 BUN/Creatinine Ratio 15.00 % 05/13/16 07:35 Glucose 106 mg/dL (65-100) H 05/13/16 07:35 POC Glucose 187 (70-105) H 05/13/16 16:24 Hemoglobin A1c 13.3 % (4-6) H 05/11/16 05:29 Lactic Acid 1.4 mmol/L (0.7-2.0) 05/10/16 09:34 Calcium 8.5 mg/dL (8.4-10.2) 05/13/16 07:35 Magnesium 1.7 mg/dL (1.7-2.3) 05/10/16 09:34 Total Bilirubin 0.2 mg/dL (0.1-1.2) 05/11/16 05:29 AST 18 units/L (5-40) 05/11/16 05:29 ALT 16 units/L (7-56) 05/11/16 05:29 Alkaline Phosphatase 86 units/L (35-129) 05/11/16 05:29 Total Creatine Kinase 202 units/L (30-135) H 05/10/16 09:34 CK-MB (CK-2) 3.4 ng/mL (0.0-4.0) 05/10/16 09:34 CK-MB (CK-2) Rel Index 1.6 (0-4) 05/10/16 09:34 Troponin T < 0.010 ng/mL (0.00-0.029) 05/10/16 09:34 Total Protein 6.9 g/dL (6.3-8.2) 05/11/16 05:29 Albumin 2.6 g/dL (3.9-5) L 05/11/16 05:29 Albumin/Globulin Ratio 0.6 % 05/11/16 05:29 Lipase 83 units/L (13-60) H 05/10/16 05:59 HCG, Qual Negative (Negative) 05/10/16 05:59 Urine Color Yellow (Yellow) 05/10/16 07:08 Urine Turbidity Slightly-cloudy (Clear) 05/10/16 07:08 Urine pH 5.0 (5.0-7.0) 05/10/16 07:08 Ur Specific [place] 1.026 (1.003-1.030) 05/10/16 07:08 Urine Protein >500 mg/dL (Negative) 05/10/16 07:08 Urine Glucose (UA) >=500 mg/dL (Negative) 05/10/16 07:08 Urine Ketones Neg mg/dL (Negative) 05/10/16 07:08 Urine Blood Sm (Negative) 05/10/16 07:08 Urine Nitrite Neg (Negative) 05/10/16 07:08 Urine Bilirubin Neg (Negative) 05/10/16 07:08 Urine Urobilinogen < 2.0 mg/dL (<2.0) 05/10/16 07:08 Ur Leukocyte Esterase Tr (Negative) 05/10/16 07:08 Urine WBC (Auto) 7.0 /HPF (0.0-6.0) H 05/10/16 07:08 Urine RBC (Auto) 9.0 /HPF (0.0-6.0) 05/10/16 07:08 U Epithel Cells (Auto) 6.0 /HPF (0-13.0) 05/10/16 07:08 Ketones 11.1 mg/dL (0.2-2.8) H 05/10/16 09:34
[2016-05-13] MEDS: AMBIEN PO PRN (23:48)
[2016-05-14] MEDS: LEVEMIR SUB-Q SCH ×2 (00:08→22:27)
[2016-05-14] MEDS: NOVOLOG SUB-Q SCH ×5 (00:08→22:43)
[2016-05-14] MEDS: DILAUDID IV PRN ×5 (05:26→22:25)
[2016-05-14] MEDS: PHENERGAN PR SCH ×3 (05:26→18:10)
[2016-05-14] MEDS: LOVENOX SUB-Q SCH (09:39)
[2016-05-14] MEDS: ZOFRAN IV PRN ×2 (09:44→22:25)
[2016-05-14] MEDS: APRESOLINE IV PRN (13:27)
--- NOTE | 2016-05-14 20:19 | Progress Note ---
Assessment and Plan Assessment and plan: 1. Gastroparesis with nausea and vomiting 2. Uncontrolled DM 3. HTN 4. HIV History Interval history: still c/o nausea, retching, but no significant vomiting tearful, depressed Hospitalist Physical - Constitutional Vitals: Temp Pulse Resp BP Pulse Ox 98.7 F 125 H 18 187/99 98 05/14/16 16:30 05/14/16 16:30 05/14/16 16:30 05/14/16 16:30 05/14/16 16:30 General appearance: Present: no acute distress, well-nourished Results - Labs CBC & Chem 7: 05/11/16 05:29 05/13/16 07:35 Labs: Laboratory Last Values WBC 8.9 K/mm3 (4.5-11.0) 05/11/16 05:29 RBC 3.52 M/mm3 (3.65-5.03) L 05/11/16 05:29 Hgb 10.6 gm/dl (10.1-14.3) 05/11/16 05:29 Hct 33.0 % (30.3-42.9) 05/11/16 05:29 MCV 94 fl (79-97) D 05/11/16 05:29 MCH 30 pg (28-32) 05/11/16 05:29 MCHC 32 % (30-34) 05/11/16 05:29 RDW 14.2 % (13.2-15.2) 05/11/16 05:29 Plt Count 239 K/mm3 (140-440) 05/11/16 05:29 Lymph % (Auto) 23.3 % (13.4-35.0) 05/11/16 05:29 [place] % (Auto) 6.1 % (0.0-7.3) 05/11/16 05:29 Eos % (Auto) 0.3 % (0.0-4.3) 05/11/16 05:29 Baso % (Auto) 1.3 % (0.0-1.8) 05/11/16 05:29 Lymph # 2.1 K/mm3 (1.2-5.4) 05/11/16 05:29 [place] # 0.5 K/mm3 (0.0-0.8) 05/11/16 05:29 Eos # 0.0 K/mm3 (0.0-0.4) 05/11/16 05:29 Baso # 0.1 K/mm3 (0.0-0.1) 05/11/16 05:29 Seg Neutrophils % 69.0 % (40.0-70.0) 05/11/16 05:29 Seg Neutrophils # 6.1 K/mm3 (1.8-7.7) 05/11/16 05:29 PT 12.1 Sec. (12.2-14.9) L 05/10/16 09:34 INR 0.90 (0.87-1.13) 05/10/16 09:34 APTT 20.5 Sec. (24.2-36.6) L 05/10/16 09:34 VBG pH 7.367 (7.320-7.420) 05/10/16 09:34 Sodium 144 mmol/L (137-145) D 05/13/16 07:35 Potassium 3.6 mmol/L (3.6-5.0) 05/13/16 07:35 Chloride 106.8 mmol/L (98-107) 05/13/16 07:35 Carbon Dioxide 24 mmol/L (22-30) 05/13/16 07:35 Anion Gap 17 mmol/L 05/13/16 07:35 BUN 15 mg/dL (7-17) 05/13/16 07:35 Creatinine 1.0 mg/dL (0.7-1.2) 05/13/16 07:35 Estimated GFR > 60 ml/min 05/13/16 07:35 BUN/Creatinine Ratio 15.00 % 05/13/16 07:35 Glucose 106 mg/dL (65-100) H 05/13/16 07:35 POC Glucose 204 (70-105) H 05/14/16 16:56 Hemoglobin A1c 13.3 % (4-6) H 05/11/16 05:29 Lactic Acid 1.4 mmol/L (0.7-2.0) 05/10/16 09:34 Calcium 8.5 mg/dL (8.4-10.2) 05/13/16 07:35 Magnesium 1.7 mg/dL (1.7-2.3) 05/10/16 09:34 Total Bilirubin 0.2 mg/dL (0.1-1.2) 05/11/16 05:29 AST 18 units/L (5-40) 05/11/16 05:29 ALT 16 units/L (7-56) 05/11/16 05:29 Alkaline Phosphatase 86 units/L (35-129) 05/11/16 05:29 Total Creatine Kinase 202 units/L (30-135) H 05/10/16 09:34 CK-MB (CK-2) 3.4 ng/mL (0.0-4.0) 05/10/16 09:34 CK-MB (CK-2) Rel Index 1.6 (0-4) 05/10/16 09:34 Troponin T < 0.010 ng/mL (0.00-0.029) 05/10/16 09:34 Total Protein 6.9 g/dL (6.3-8.2) 05/11/16 05:29 Albumin 2.6 g/dL (3.9-5) L 05/11/16 05:29 Albumin/Globulin Ratio 0.6 % 05/11/16 05:29 Lipase 83 units/L (13-60) H 05/10/16 05:59 HCG, Qual Negative (Negative) 05/10/16 05:59 Urine Color Yellow (Yellow) 05/10/16 07:08 Urine Turbidity Slightly-cloudy (Clear) 05/10/16 07:08 Urine pH 5.0 (5.0-7.0) 05/10/16 07:08 Ur Specific [place] 1.026 (1.003-1.030) 05/10/16 07:08 Urine Protein >500 mg/dL (Negative) 05/10/16 07:08 Urine Glucose (UA) >=500 mg/dL (Negative) 05/10/16 07:08 Urine Ketones Neg mg/dL (Negative) 05/10/16 07:08 Urine Blood Sm (Negative) 05/10/16 07:08 Urine Nitrite Neg (Negative) 05/10/16 07:08 Urine Bilirubin Neg (Negative) 05/10/16 07:08 Urine Urobilinogen < 2.0 mg/dL (<2.0) 05/10/16 07:08 Ur Leukocyte Esterase Tr (Negative) 05/10/16 07:08 Urine WBC (Auto) 7.0 /HPF (0.0-6.0) H 05/10/16 07:08 Urine RBC (Auto) 9.0 /HPF (0.0-6.0) 05/10/16 07:08 U Epithel Cells (Auto) 6.0 /HPF (0-13.0) 05/10/16 07:08 Ketones 11.1 mg/dL (0.2-2.8) H 05/10/16 09:34
--- NOTE | 2016-05-14 23:59 | Consultation ---
History of Present Illness - Reason for Consult Consult date: 05/14/16 Reason for consult: depression - Chief Complaint Chief complaint: vomiting - History of Present Psychiatric Illness This is a 46 year-old, female with a prior diagnosis of: DM, HIV, Gastroparesis. There is no formal PPH noted by the patient. Today patient presents in the context of, nausea and vomiting related to gastroparesis. Psychiatry was consulted to comment on possibility of drug abuse and depression. Patient denies abusing substance outside of the hospital. Denies benzo, opiate or stimulant abuse. Denies etoh or tobacco product abuse. Recent reports an addiction to Xanax and opiates. Today patient reports mood is not good. Patient denies any suicidality or homicidality or further desire to harm him/herself or others. She does endorse an overdose on her medications about 1 montha ago. Patient reports sleep is, not good. Energy levels are, poor. Appetite is, poor. Some feelings of guilt and feelings of worthlessness. Some anhedonia. No psychomotor retardation or agitation. Patient does not report four days or longer of euphoric, expansive, elevated, irritable, hypomanic or manic episodes currently or in the past. Some anxiety is noted with panic attacks weekly. No auditory or visual hallucinations, including hearing things that others cannot hear and seeing things that others cannot see. Denies delusions and paranoia. Medications and Allergies Allergies Allergy/AdvReac Type Severity Reaction Status Date / Time aspirin Allergy Swelling Verified 05/10/16 05:48 Home Medications Medication Instructions Recorded Confirmed Last Taken Type Elviteg/Sumi/Emtric/Tenofo Ala 1 each PO QDAY 05/10/16 05/10/16 Unknown History [Genvoya Tablet] Gabapentin [Neurontin] 800 mg PO TID 05/10/16 05/10/16 Unknown History Hydrochlorothiazide [Hctz] 12.5 mg PO QDAY 05/10/16 05/10/16 Unknown History Insulin Aspart Prot/Aspart 0 units SQ QACHS 05/10/16 05/10/16 Unknown History [Novolog Mix 70/30] Insulin Glargine [Lantus] 30 units SQ QHS 05/10/16 05/10/16 Unknown History metFORMIN [Glucophage] 500 mg PO BID 05/10/16 05/10/16 Unknown History Active Meds: Active Medications Enoxaparin Sodium (Lovenox) 40 mg SUB-Q QDAY [facility] Last Admin: 05/14/16 09:39 Dose: 40 mg Hydralazine HCl (Apresoline) 10 mg IV Q4H PRN PRN Reason: Hypertension Last Admin: 05/14/16 13:27 Dose: 10 mg Hydromorphone HCl (Dilaudid) 1 mg IV Q3H PRN PRN Reason: Pain , Severe (7-10) Last Admin: 05/14/16 22:25 Dose: 1 mg Insulin Aspart (Novolog) 0 units SUB-Q ACHS [facility] PRN Reason: Protocol Last Admin: 05/14/16 22:43 Dose: 3 units Insulin Detemir (Levemir) 30 units SUB-Q QHS [facility] Last Admin: 05/14/16 22:27 Dose: 30 units Ondansetron HCl (Zofran) 4 mg IV Q3H PRN PRN Reason: Nausea And Vomiting Last Admin: 05/14/16 22:25 Dose: 4 mg Promethazine HCl (Phenergan) 25 mg [place] Q6HR [facility] Last Admin: 05/14/16 18:10 Dose: 25 mg Zolpidem Tartrate (Ambien) 5 mg PO QHS PRN PRN Reason: Sleep Last Admin: 05/13/16 23:48 Dose: 5 mg Mental Status Exam - Vital signs Last Vital Signs Temp 98.7 F 05/14/16 16:30 Pulse 72 05/14/16 22:00 Resp 20 05/14/16 22:25 BP 187/99 05/14/16 16:30 Pulse Ox 98 05/14/16 16:30 - Exam Narrative exam: Appearance: Patient appears older than stated age Behavior: +PMR Cooperation: fair Insight/Judgment: limited Level of cognition: reduced Level of consciousness: alert Knowledge: unable to assess Speech: soft and slow Thought processes: perseverative Thought content: obsessive thoughts about her illness Perceptions: denies Results Result Diagrams: 05/11/16 05:29 05/13/16 07:35 Abnormal lab results 05/14/16 05/14/16 05/14/16 Range/Units 05:50 11:31 16:56 POC Glucose 143 H 150 H 204 H (70-105) 05/14/16 Range/Units 22:09 POC Glucose 217 H (70-105) All other labs normal. Assessment and Plan Assessment and plan: This is a 46 year-old, female with a prior diagnosis of: DM, HIV, Gastroparesis. There is no formal PPH noted by the patient. Today patient presents in the context of, nausea and vomiting related to gastroparesis. Impression: Gastroparesis Depression 2/2 [facility] [place] (likely combination of DM, HIV and Gastroparesis) Anxiety Disorder Recommendations: - Engage patient in outpatient psychiatric services, ie Partial Hospitalization Program upon discharge - I would not start a SSRI at the current moment due to severe nausea and vomiting - If peripheral anti-emetics are not reducing the nausea and vomiting, consider using a medication that acts centrally on the D2 receptors in the chemoreceptor trigger zone, like haloperidol 0.5 - 1 mg po, IM or IV q8H
[2016-05-15] MEDS: PHENERGAN PR SCH ×5 (00:14→23:24)
[2016-05-15] MEDS: AMBIEN PO PRN ×2 (00:19→23:24)
[2016-05-15] MEDS: APRESOLINE IV PRN ×3 (01:04→19:55)
[2016-05-15] MEDS: DILAUDID IV PRN ×6 (04:54→21:20)
[2016-05-15] MEDS: ZOFRAN IV PRN ×3 (04:54→21:20)
[2016-05-15] MEDS: NOVOLOG SUB-Q SCH ×4 (07:52→23:24)
[2016-05-15] MEDS: LOVENOX SUB-Q SCH (10:58)
--- NOTE | 2016-05-15 19:29 | Progress Note ---
Assessment and Plan Assessment and plan: 1. Gastroparesis with nausea and vomiting 2. Uncontrolled DM 3. HTN 4. HIV Hospitalist Physical - Constitutional Vitals: Temp Pulse Resp BP Pulse Ox 99.1 F 111 H 20 191/100 98 05/15/16 15:41 05/15/16 15:41 05/15/16 15:41 05/15/16 15:41 05/15/16 07:30 General appearance: Present: no acute distress, well-nourished Results - Labs CBC & Chem 7: 05/11/16 05:29 05/13/16 07:35 Labs: Laboratory Last Values WBC 8.9 K/mm3 (4.5-11.0) 05/11/16 05:29 RBC 3.52 M/mm3 (3.65-5.03) L 05/11/16 05:29 Hgb 10.6 gm/dl (10.1-14.3) 05/11/16 05:29 Hct 33.0 % (30.3-42.9) 05/11/16 05:29 MCV 94 fl (79-97) D 05/11/16 05:29 MCH 30 pg (28-32) 05/11/16 05:29 MCHC 32 % (30-34) 05/11/16 05:29 RDW 14.2 % (13.2-15.2) 05/11/16 05:29 Plt Count 239 K/mm3 (140-440) 05/11/16 05:29 Lymph % (Auto) 23.3 % (13.4-35.0) 05/11/16 05:29 [place] % (Auto) 6.1 % (0.0-7.3) 05/11/16 05:29 Eos % (Auto) 0.3 % (0.0-4.3) 05/11/16 05:29 Baso % (Auto) 1.3 % (0.0-1.8) 05/11/16 05:29 Lymph # 2.1 K/mm3 (1.2-5.4) 05/11/16 05:29 [place] # 0.5 K/mm3 (0.0-0.8) 05/11/16 05:29 Eos # 0.0 K/mm3 (0.0-0.4) 05/11/16 05:29 Baso # 0.1 K/mm3 (0.0-0.1) 05/11/16 05:29 Seg Neutrophils % 69.0 % (40.0-70.0) 05/11/16 05:29 Seg Neutrophils # 6.1 K/mm3 (1.8-7.7) 05/11/16 05:29 PT 12.1 Sec. (12.2-14.9) L 05/10/16 09:34 INR 0.90 (0.87-1.13) 05/10/16 09:34 APTT 20.5 Sec. (24.2-36.6) L 05/10/16 09:34 VBG pH 7.367 (7.320-7.420) 05/10/16 09:34 Sodium 144 mmol/L (137-145) D 05/13/16 07:35 Potassium 3.6 mmol/L (3.6-5.0) 05/13/16 07:35 Chloride 106.8 mmol/L (98-107) 05/13/16 07:35 Carbon Dioxide 24 mmol/L (22-30) 05/13/16 07:35 Anion Gap 17 mmol/L 05/13/16 07:35 BUN 15 mg/dL (7-17) 05/13/16 07:35 Creatinine 1.0 mg/dL (0.7-1.2) 05/13/16 07:35 Estimated GFR > 60 ml/min 05/13/16 07:35 BUN/Creatinine Ratio 15.00 % 05/13/16 07:35 Glucose 106 mg/dL (65-100) H 05/13/16 07:35 POC Glucose 167 (70-105) H 05/15/16 18:29 Hemoglobin A1c 13.3 % (4-6) H 05/11/16 05:29 Lactic Acid 1.4 mmol/L (0.7-2.0) 05/10/16 09:34 Calcium 8.5 mg/dL (8.4-10.2) 05/13/16 07:35 Magnesium 1.7 mg/dL (1.7-2.3) 05/10/16 09:34 Total Bilirubin 0.2 mg/dL (0.1-1.2) 05/11/16 05:29 AST 18 units/L (5-40) 05/11/16 05:29 ALT 16 units/L (7-56) 05/11/16 05:29 Alkaline Phosphatase 86 units/L (35-129) 05/11/16 05:29 Total Creatine Kinase 202 units/L (30-135) H 05/10/16 09:34 CK-MB (CK-2) 3.4 ng/mL (0.0-4.0) 05/10/16 09:34 CK-MB (CK-2) Rel Index 1.6 (0-4) 05/10/16 09:34 Troponin T < 0.010 ng/mL (0.00-0.029) 05/10/16 09:34 Total Protein 6.9 g/dL (6.3-8.2) 05/11/16 05:29 Albumin 2.6 g/dL (3.9-5) L 05/11/16 05:29 Albumin/Globulin Ratio 0.6 % 05/11/16 05:29 Lipase 83 units/L (13-60) H 05/10/16 05:59 HCG, Qual Negative (Negative) 05/10/16 05:59 Urine Color Yellow (Yellow) 05/10/16 07:08 Urine Turbidity Slightly-cloudy (Clear) 05/10/16 07:08 Urine pH 5.0 (5.0-7.0) 05/10/16 07:08 Ur Specific [place] 1.026 (1.003-1.030) 05/10/16 07:08 Urine Protein >500 mg/dL (Negative) 05/10/16 07:08 Urine Glucose (UA) >=500 mg/dL (Negative) 05/10/16 07:08 Urine Ketones Neg mg/dL (Negative) 05/10/16 07:08 Urine Blood Sm (Negative) 05/10/16 07:08 Urine Nitrite Neg (Negative) 05/10/16 07:08 Urine Bilirubin Neg (Negative) 05/10/16 07:08 Urine Urobilinogen < 2.0 mg/dL (<2.0) 05/10/16 07:08 Ur Leukocyte Esterase Tr (Negative) 05/10/16 07:08 Urine WBC (Auto) 7.0 /HPF (0.0-6.0) H 05/10/16 07:08 Urine RBC (Auto) 9.0 /HPF (0.0-6.0) 05/10/16 07:08 U Epithel Cells (Auto) 6.0 /HPF (0-13.0) 05/10/16 07:08 Ketones 11.1 mg/dL (0.2-2.8) H 05/10/16 09:34
--- NOTE | 2016-05-15 21:11 | Progress Note ---
Subjective - Reason for Consult Consult date: 05/15/16 Reason for consult: nausea and depression - Chief Complaint Chief complaint: vomiting Mental Status Exam - Vital signs Last Vital Signs Temp 99.1 F 05/15/16 15:41 Pulse 111 H 05/15/16 15:41 Resp 20 05/15/16 15:41 BP 191/100 05/15/16 19:55 Pulse Ox 98 05/15/16 07:30 Assessment and Plan This is a 46 year-old, female with a prior diagnosis of: DM, HIV, Gastroparesis. There is no formal PPH noted by the patient. Today patient presents in the context of, nausea and vomiting related to gastroparesis. She was started on haloperidol 1 mg IM q8h to address nausea and vomiting. Impression: Gastroparesis Depression 2/2 [facility] (likely combination of DM, HIV and Gastroparesis) Anxiety Disorder Recommendations: - Engage patient in outpatient psychiatric services, ie Partial Hospitalization Program upon discharge - I would not start a SSRI at the current moment due to severe nausea and vomiting - If peripheral anti-emetics are not reducing the nausea and vomiting, consider using a medication that acts centrally on the D2 receptors in the chemoreceptor trigger zone, like haloperidol 0.5 - 1 mg po, IM or IV q8H
[2016-05-15] MEDS: HALDOL IM SCH (21:19)
[2016-05-15] MEDS: LEVEMIR SUB-Q SCH (23:25)
[2016-05-16] MEDS: HALDOL IM SCH ×3 (03:13→20:22)
[2016-05-16] MEDS: DILAUDID IV PRN (03:14)
[2016-05-16] MEDS: PHENERGAN PR SCH ×3 (06:59→17:46)
[2016-05-16] MEDS: NOVOLOG SUB-Q SCH ×4 (07:30→21:29)
[2016-05-16] MEDS: COZAAR PO SCH (10:12)
[2016-05-16] MEDS: LOVENOX SUB-Q SCH (10:12)
[2016-05-16] MEDS: HCTZ PO SCH (10:12)
--- NOTE | 2016-05-16 11:23 | Progress Note ---
Subjective - Reason for Consult Consult date: 05/16/16 Reason for consult: nausea, depression - Chief Complaint Chief complaint: vomiting Mental Status Exam - Vital signs Last Vital Signs Temp 98.1 F 05/16/16 08:20 Pulse 101 H 05/16/16 08:20 Resp 20 05/16/16 08:20 BP 166/86 05/16/16 08:20 Pulse Ox 98 05/16/16 08:20 Assessment and Plan This is a 46 year-old, female with a prior diagnosis of: DM, HIV, Gastroparesis. There is no formal PPH noted by the patient. Today patient presents in the context of, nausea and vomiting related to gastroparesis. She was started on haloperidol 1 mg IM q8h to address nausea and vomiting. The patient notes that their mood is: sad. Affect is labile. Patient relates sleep is: inconsistent. 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 If EPS present, reduce dose of haloperidol or start cogentin 1 mg PO or IM qhs
[2016-05-16] MEDS: PERCOCET 5/325 PO PRN ×2 (13:57→20:19)
--- NOTE | 2016-05-16 15:56 | Progress Note ---
Assessment and Plan Assessment and plan: 1. Gastroparesis with nausea and vomiting 2. Uncontrolled DM 3. HTN 4. HIV Hospitalist Physical - Constitutional Vitals: Temp Pulse Resp BP Pulse Ox 98.4 F 98 H 2 L 197/107 98 05/16/16 12:54 05/16/16 12:54 05/16/16 12:54 05/16/16 12:54 05/16/16 12:54 General appearance: Present: no acute distress, well-nourished Results - Labs CBC & Chem 7: 05/11/16 05:29 05/13/16 07:35 Labs: Laboratory Last Values WBC 8.9 K/mm3 (4.5-11.0) 05/11/16 05:29 RBC 3.52 M/mm3 (3.65-5.03) L 05/11/16 05:29 Hgb 10.6 gm/dl (10.1-14.3) 05/11/16 05:29 Hct 33.0 % (30.3-42.9) 05/11/16 05:29 MCV 94 fl (79-97) D 05/11/16 05:29 MCH 30 pg (28-32) 05/11/16 05:29 MCHC 32 % (30-34) 05/11/16 05:29 RDW 14.2 % (13.2-15.2) 05/11/16 05:29 Plt Count 239 K/mm3 (140-440) 05/11/16 05:29 Lymph % (Auto) 23.3 % (13.4-35.0) 05/11/16 05:29 [place] % (Auto) 6.1 % (0.0-7.3) 05/11/16 05:29 Eos % (Auto) 0.3 % (0.0-4.3) 05/11/16 05:29 Baso % (Auto) 1.3 % (0.0-1.8) 05/11/16 05:29 Lymph # 2.1 K/mm3 (1.2-5.4) 05/11/16 05:29 [place] # 0.5 K/mm3 (0.0-0.8) 05/11/16 05:29 Eos # 0.0 K/mm3 (0.0-0.4) 05/11/16 05:29 Baso # 0.1 K/mm3 (0.0-0.1) 05/11/16 05:29 Seg Neutrophils % 69.0 % (40.0-70.0) 05/11/16 05:29 Seg Neutrophils # 6.1 K/mm3 (1.8-7.7) 05/11/16 05:29 PT 12.1 Sec. (12.2-14.9) L 05/10/16 09:34 INR 0.90 (0.87-1.13) 05/10/16 09:34 APTT 20.5 Sec. (24.2-36.6) L 05/10/16 09:34 VBG pH 7.367 (7.320-7.420) 05/10/16 09:34 Sodium 144 mmol/L (137-145) D 05/13/16 07:35 Potassium 3.6 mmol/L (3.6-5.0) 05/13/16 07:35 Chloride 106.8 mmol/L (98-107) 05/13/16 07:35 Carbon Dioxide 24 mmol/L (22-30) 05/13/16 07:35 Anion Gap 17 mmol/L 05/13/16 07:35 BUN 15 mg/dL (7-17) 05/13/16 07:35 Creatinine 1.0 mg/dL (0.7-1.2) 05/13/16 07:35 Estimated GFR > 60 ml/min 05/13/16 07:35 BUN/Creatinine Ratio 15.00 % 05/13/16 07:35 Glucose 106 mg/dL (65-100) H 05/13/16 07:35 POC Glucose 159 (70-105) H 05/16/16 12:45 Hemoglobin A1c 13.3 % (4-6) H 05/11/16 05:29 Lactic Acid 1.4 mmol/L (0.7-2.0) 05/10/16 09:34 Calcium 8.5 mg/dL (8.4-10.2) 05/13/16 07:35 Magnesium 1.7 mg/dL (1.7-2.3) 05/10/16 09:34 Total Bilirubin 0.2 mg/dL (0.1-1.2) 05/11/16 05:29 AST 18 units/L (5-40) 05/11/16 05:29 ALT 16 units/L (7-56) 05/11/16 05:29 Alkaline Phosphatase 86 units/L (35-129) 05/11/16 05:29 Total Creatine Kinase 202 units/L (30-135) H 05/10/16 09:34 CK-MB (CK-2) 3.4 ng/mL (0.0-4.0) 05/10/16 09:34 CK-MB (CK-2) Rel Index 1.6 (0-4) 05/10/16 09:34 Troponin T < 0.010 ng/mL (0.00-0.029) 05/10/16 09:34 Total Protein 6.9 g/dL (6.3-8.2) 05/11/16 05:29 Albumin 2.6 g/dL (3.9-5) L 05/11/16 05:29 Albumin/Globulin Ratio 0.6 % 05/11/16 05:29 Lipase 83 units/L (13-60) H 05/10/16 05:59 HCG, Qual Negative (Negative) 05/10/16 05:59 Urine Color Yellow (Yellow) 05/10/16 07:08 Urine Turbidity Slightly-cloudy (Clear) 05/10/16 07:08 Urine pH 5.0 (5.0-7.0) 05/10/16 07:08 Ur Specific [place] 1.026 (1.003-1.030) 05/10/16 07:08 Urine Protein >500 mg/dL (Negative) 05/10/16 07:08 Urine Glucose (UA) >=500 mg/dL (Negative) 05/10/16 07:08 Urine Ketones Neg mg/dL (Negative) 05/10/16 07:08 Urine Blood Sm (Negative) 05/10/16 07:08 Urine Nitrite Neg (Negative) 05/10/16 07:08 Urine Bilirubin Neg (Negative) 05/10/16 07:08 Urine Urobilinogen < 2.0 mg/dL (<2.0) 05/10/16 07:08 Ur Leukocyte Esterase Tr (Negative) 05/10/16 07:08 Urine WBC (Auto) 7.0 /HPF (0.0-6.0) H 05/10/16 07:08 Urine RBC (Auto) 9.0 /HPF (0.0-6.0) 05/10/16 07:08 U Epithel Cells (Auto) 6.0 /HPF (0-13.0) 05/10/16 07:08 Ketones 11.1 mg/dL (0.2-2.8) H 05/10/16 09:34
[2016-05-16] MEDS: APRESOLINE IV PRN (17:45)
[2016-05-16] MEDS: AMBIEN PO PRN (21:29)
[2016-05-17] MEDS: PERCOCET 5/325 PO PRN ×2 (00:32→05:51)
[2016-05-17] MEDS: PHENERGAN PR SCH ×3 (00:32→12:21)
[2016-05-17] MEDS: LEVEMIR SUB-Q SCH (00:32)
[2016-05-17] MEDS: HALDOL IM SCH ×2 (04:29→13:32)
[2016-05-17] MEDS: APRESOLINE IV PRN (04:30)
[2016-05-17] MEDS: NOVOLOG SUB-Q SCH ×2 (08:33→12:18)
[2016-05-17] MEDS: LOVENOX SUB-Q SCH (09:45)
[2016-05-17] MEDS: HCTZ PO SCH (09:46)
[2016-05-17] MEDS: COZAAR PO SCH (09:46)
--- NOTE | 2016-05-17 12:34 | Discharge Summary ---
Providers - Providers Date of Admission: 05/10/16 12:03 Date of discharge: 05/17/16 Attending physician: BERNARDO CHILDERS CONSULTS: Psychiatry Primary care physician: CAR TOP BOLTER Hospitalization Condition: Stable Disposition: DISCHARGED TO HOME OR SELFCARE Time spent for discharge: 35 min Core Measure Documentation - Palliative Care Palliative Care/ Comfort Measures: Not Applicable - Core Measures Any of the following diagnoses?: none Exam - Constitutional Vitals: Temp Pulse Resp BP Pulse Ox 98.3 F 103 H 16 144/78 95 05/17/16 08:54 05/17/16 08:54 05/17/16 08:54 05/17/16 09:46 05/17/16 08:54 Plan Activity: advance as tolerated Diet: low cholesterol, low salt, diabetic Additional Instructions: Follow up with psychiatry (information for outpatient program given) Follow up with: PRIMARY CARE,MD [Primary Care Provider] - 3-5 Days Prescriptions: Insulin Glargine [Lantus VIAL] 30 units SQ QHS 30 Days Gabapentin [Neurontin] 800 mg PO TID #90 tablet Hydrochlorothiazide [HCTZ] 12.5 mg PO QDAY #30 capsule Insulin Aspart Prot/Aspart [NovoLOG Mix 70/30 VIAL] 0 units SQ QACHS #1 units Losartan [Cozaar] 25 mg PO QDAY #30 tablet metFORMIN [Glucophage] 500 mg PO BID #60 tablet oxyCODONE /ACETAMINOPHEN [Percocet 5/325 mg] 1 tab PO Q4H PRN #20 tablet PRN Reason: Pain, Moderate (4-6) Promethazine [Phenergan SUPPOS] 25 mg VA Q6HR PRN #30 supp.rect PRN Reason: Nausea And Vomiting
--- NOTE | 2016-05-17 13:55 | Progress Note ---
Subjective - Reason for Consult Reason for consult: psych management - Chief Complaint Chief complaint: 46 year old BF who presented to [facility] for episodes of vomiting. We have been asked to evaluate the patient's depression. Since last being seen the patient continues to note feeling depressed- however she attributes this to being in the hospital and wanting to go home. She denies any SI/HI/AH/VH. She denies any acute risk of harm to self or others. She denies any paranoia. she' s sleeping and eating fine. she notes that she has the support of her children and they can pick her up from the hospital. Mental Status Exam - Vital signs Last Vital Signs Temp 98.4 F 05/17/16 12:01 Pulse 106 H 05/17/16 12:01 Resp 16 05/17/16 12:01 BP 149/82 05/17/16 12:01 Pulse Ox 95 05/17/16 08:54 - Exam Orientation: time, place, person Affect: other (constricted) Mood: sad Thought Process: Intact Perceptions: none Speech: normal rate and pattern Concentration: focused Motor activity: normal Level of consciousness: alert Memory: Intact Interaction: cooperative Mini mental status exam(if necessary): 24-30 Assessment and Plan 46 year old BF who presented to [facility] for episodes of vomiting. We have been asked to evaluate the patient's depression. currently the patient does remain with some depression, much of it psychosocial in nature. She isn't to the point where she has any SI/HI. She's in no acute risk of harm to self or others. -depression- discontinue haldol as it serves minimal benefit at this time- follow up with outpatient care whether in [facility] or outpatient psychiatrist/ therapist. Depression meds can be discussed on outpatient basis. Discharge to care of children. No current further mental health follow up required by us.
[2016-05-17 14:19] VITALS: BP 153/78
== END 2016-05-17 15:05 | disposition home or self-care (01) | DRG 637 ==
LOC: ED 05:41 → 3A 12:03
PROVIDERS: ADMIT Internal Medicine; ATTEND Internal Medicine
DX: E11.65 Type 2 diabetes mellitus with hyperglycemia (principal); B20 Human immunodeficiency virus [HIV] disease; R65.10 Systemic inflammatory response syndrome (SIRS) of non-infectious origin without acute organ dysfunction; Z68.42 Body mass index [BMI] 45.0-49.9, adult; E11.43 Type 2 diabetes mellitus with diabetic autonomic (poly)neuropathy; K31.84 Gastroparesis; E66.01 Morbid (severe) obesity due to excess calories; I10 Essential (primary) hypertension; F32.9 Major depressive disorder, single episode, unspecified; F41.9 Anxiety disorder, unspecified; F19.10 Other psychoactive substance abuse, uncomplicated; Z90.49 Acquired absence of other specified parts of digestive tract; Z98.891 History of uterine scar from previous surgery; Z88.6 Allergy status to analgesic agent; Z82.49 Family history of ischemic heart disease and other diseases of the circulatory system; Z79.4 Long term (current) use of insulin
CPT/HCPCS: 36415; 74176; 80048; 80053; 81001; 82010; 82140; 82550; 82553; 82805; 82962; 83036; 83690; 83735; 84484; 84703; 85025; 85610; 85730; 87040; 87086; 93005; 93010; 96361; 96365; 96367; 96375; 96376; J0360; J1170; J1630; J1650; J1815; J1818; J2270; J2405; J2543; J2765; J7030

== ENCOUNTER 2016-06-02 00:47 | Inpatient (IN) | payer BC ==
[2016-06-02 03:21] LABS: Eosinophils % (Auto) 1.2 % (0.0-4.3); Hematocrit 34.8 % (30.3-42.9); Hemoglobin 11.2 gm/dl (10.1-14.3); Mean Corpuscular HGB Conc 32 % (30-34); Mean Corpuscular Hemoglobin 30 pg (28-32); Mean Corpuscular Volume 92 fl (79-97); Red Blood Count 3.78 M/mm3 (3.65-5.03); Red Cell Distribution Width 14.9 % (13.2-15.2); White Blood Count 13.3 K/mm3 (4.5-11.0)
[2016-06-02 03:23] LABS: Bilirubin,Urine NEG (Negative); Blood,Urine SM (Negative); Ketones,Urine NEG (Negative); Leukocyte Esterase,Urine NEG (Negative); Mucus,Urine FEW /HPF; Nitrite,Urine NEG (Negative); Urobilinogen,Urine < 2.0 mg/dL (<2.0)
[2016-06-02 03:24] LABS: Protein,Urine >500 mg/dL (Negative)
[2016-06-02 03:46] LABS: Alanine Aminotransferase 67 units/L (7-56); Albumin 2.8 g/dL (3.9-5); Albumin/Globulin Ratio 0.6 %; Alkaline Phosphatase 135 units/L (35-129); Anion Gap 18 mmol/L; BUN/Creatinine Ratio 22.22; Bilirubin,Total 0.2 mg/dL (0.1-1.2); Blood Urea Nitrogen 20 mg/dL (7-17); Calcium 9.1 mg/dL (8.4-10.2); Carbon Dioxide 21 mmol/L (22-30); Chloride 104.1 mmol/L (98-107); Glucose 170 mg/dL (65-100); Lipase 35 units/L (13-60); Potassium 4.6 mmol/L (3.6-5.0); Sodium 138 mmol/L (137-145); Total Protein 7.6 g/dL (6.3-8.2)
[2016-06-02 03:57] LABS: Platelet Count 275 K/mm3 (140-440)
[2016-06-02] MEDS ORDERED: MORPHINE IV ONE (06:56)
--- NOTE | 2016-06-02 06:56 | Emergency Department Report ---
<ERIKA OLIVO R - Last Filed: 06/02/16 10:26> ED General Adult HPI - General Chief complaint: Abdominal Pain Stated complaint: ABD PAIN/KYLEE Time Seen by Provider: 06/02/16 06:47 - Related Data Home Medications Medication Instructions Recorded Confirmed Last Taken Elviteg/Sumi/Emtric/Tenofo Ala 1 each PO QDAY 05/10/16 06/02/16 Unknown [Genvoally (Nf)] Previous Rx's Medication Instructions Recorded Last Taken Type Gabapentin [Neurontin] 800 mg PO TID #90 tablet 05/17/16 Unknown Rx Hydrochlorothiazide [HCTZ] 12.5 mg PO QDAY #30 capsule 05/17/16 Unknown Rx Insulin Aspart Prot/Aspart 0 units SQ QACHS #1 units 05/17/16 Unknown Rx [NovoLOG Mix 70/30 VIAL] Insulin Glargine [Lantus VIAL] 30 units SQ QHS 30 Days 05/17/16 Unknown Rx Losartan [Cozaar] 25 mg PO QDAY #30 tablet 05/17/16 Unknown Rx Promethazine [Phenergan SUPPOS] 25 mg HI Q6HR PRN #30 supp.rect 05/17/16 Unknown Rx metFORMIN [Glucophage] 500 mg PO BID #60 tablet 05/17/16 Unknown Rx oxyCODONE /ACETAMINOPHEN [Percocet 1 tab PO Q4H PRN #20 tablet 05/17/16 Unknown Rx 5/325 mg] Allergies Allergy/AdvReac Type Severity Reaction Status Date / Time aspirin Allergy Swelling Verified 05/10/16 05:48 ED Review of Systems ROS: Stated complaint: ABD PAIN/KYLEE Other details as noted in HPI ED Past Medical Hx - Medications Home Medications: Home Medications Medication Instructions Recorded Confirmed Last Taken Type Elviteg/Sumi/Emtric/Tenofo [place] 1 each PO QDAY 05/10/16 06/02/16 Unknown History [voally (Nf)] Gabapentin [Neurontin] 800 mg PO TID #90 tablet 05/17/16 06/02/16 Unknown Rx Hydrochlorothiazide [HCTZ] 12.5 mg PO QDAY #30 capsule 05/17/16 06/02/16 Unknown Rx Insulin Aspart Prot/Aspart 0 units SQ QACHS #1 units 05/17/16 06/02/16 Unknown Rx [NovoLOG Mix 70/30 VIAL] Insulin Glargine [Lantus VIAL] 30 units SQ QHS 30 Days 05/17/16 06/02/16 Unknown Rx Losartan [Cozaar] 25 mg PO QDAY #30 tablet 05/17/16 06/02/16 Unknown Rx Promethazine [Phenergan SUPPOS] 25 mg HI Q6HR PRN #30 supp.rect 05/17/16 Unknown Rx metFORMIN [Glucophage] 500 mg PO BID #60 tablet 05/17/16 06/02/16 Unknown Rx oxyCODONE /ACETAMINOPHEN [Percocet 1 tab PO Q4H PRN #20 tablet 05/17/16 Unknown Rx 5/325 mg] ED Course Vital Signs 06/02/16 06/02/16 06/02/16 01:40 07:00 07:28 Temperature 97.6 F Pulse Rate 108 H 104 H Respiratory 22 13 22 Rate Blood Pressure 174/104 174/99 [Right] O2 Sat by Pulse 95 96 100 Oximetry 06/02/16 06/02/16 06/02/16 08:42 11:55 13:34 Temperature 98.3 F Pulse Rate 107 H 94 H Respiratory 10 L 12 Rate Blood Pressure 148/86 141/85 [Right] O2 Sat by Pulse 97 96 99 Oximetry ED Medical Decision Making - Lab Data Result diagrams: 06/02/16 03:12 06/02/16 03:12 Critical care attestation.: If time is entered above; I have spent that time in minutes in the direct care of this critically ill patient, excluding procedure time. ED Disposition Clinical Impression: Acute CHF (congestive heart failure) Qualifiers: Congestive heart failure type: unspecified congestive heart failure type Qualified Code(s): I50.9 - Heart failure, unspecified Disposition: OP ADMITTED IP TO THIS HOSP Condition: Stable <BOUBACAR SHEETS - Last Filed: 06/05/16 09:46> ED General Adult HPI - General Source: patient, RN notes reviewed, old records reviewed Mode of arrival: Ambulatory Limitations: No Limitations - History of Present Illness Initial comments: This is a 46-year-old female. She is previously unknown to me. She has a past medical history of HIV, currently in highly active antiretroviral therapy. Also has a past medical history of neuropathic pain, diabetes. She reports her infectious disease doctors Dr. Garcia, and reports that her viral load is in the 30s, and has a CD4 count in the 700s. Surgical history includes cholecystectomy and 5. Past medical history also includes hypertension and high cholesterol. The patient presents to the ER complaining of abdominal pain, abdominal swelling , and bilateral swelling of the feet. These symptoms hemiarthroplasty days. She denies dietary indiscretions, and denies unintentional weight gain. The abdominal distention is also painful. The pain is sharp, and decreases when she lays on her right side. It is all over, and does not radiate anywhere. She does not have chest pain. She has chronic shortness of breath with exertion , she reports the abdominal distention has made her shortness of breath worse. No irritative or obstructive urinary symptoms. No nausea, vomiting or diarrhea. -: Gradual Location: abdomen, left, right, lower extremity Severity scale (0 -10): 10 Quality: aching Consistency: constant Improves with: rest Worsens with: movement Associated Symptoms: shortness of breath. denies: chest pain, cough ED Review of Systems Constitutional: no symptoms reported Eyes: as per HPI ENT: as per HPI Respiratory: see HPI Cardiovascular: as per HPI Gastrointestinal: abdominal pain Genitourinary: as per HPI Musculoskeletal: joint swelling, myalgia Skin: as per HPI Neurological: as per HPI Psychiatric: as per HPI Hematological/Lymphatic: as per HPI ED Past Medical Hx - Past Medical History Previous Medical History?: Yes Hx Hypertension: Yes Hx Diabetes: Yes Hx HIV: Yes - Surgical History Past Surgical History?: Yes Hx Cholecystectomy: Yes Additional Surgical History: C-Sec x 5 - Social History Smoking Status: Never Smoker Substance Use Type: None ED Physical Exam - General Limitations: No Limitations, Physical Limitation General appearance: alert, in distress, obese - Head Head exam: Present: atraumatic, normocephalic - Eye Eye exam: Present: normal appearance - ENT ENT exam: Present: normal exam, normal orophraynx, mucous membranes moist, normal external ear exam - Neck Neck exam: Present: normal inspection, full ROM. Absent: tenderness, meningismus - Respiratory Respiratory exam: Present: decreased breath sounds. Absent: respiratory distress, wheezes, rales, rhonchi - Cardiovascular Cardiovascular Exam: Present: normal rhythm, tachycardia, normal heart sounds. Absent: systolic murmur, diastolic murmur, rubs, gallop - GI/Abdominal GI/Abdominal exam: Present: soft, distended, tenderness, normal bowel sounds, other (there is mild diffuse abdominal tenderness. There is no rebound, guarding or peritoneal signs.). Absent: guarding, rebound, rigid, pulsatile mass - Extremities Exam Extremities exam: Present: normal inspection, full ROM, tenderness, normal capillary refill, pedal edema, calf tenderness - Back Exam Back exam: Present: normal inspection, full ROM. Absent: tenderness, CVA tenderness (R), CVA tenderness (L), muscle spasm, paraspinal tenderness, vertebral tenderness - Neurological Exam Neurological exam: Present: alert, oriented X3, other (Extraocular movements intact. Tongue midline. No facial droop. Facial sensation intact to light touch in the V1, V2, V3 distribution bilaterally. 5 and 5 strength in 4 extremities.. Sensation is intact to light touch in 4 extremities.). Absent: motor sensory deficit - Psychiatric Psychiatric exam: Present: normal affect, normal mood - Skin Skin exam: Present: warm, dry, intact, normal color. Absent: rash ED Course - Reevaluation(s) Reevaluation #1: 06/02/16 07:26 Differential diagnosis: Renal insufficiency, DVT, congestive heart failure, pulmonary embolus, IVC thrombosis, SVC thrombosis, iliac vein thrombosis, dependent edema, anasarca Assessment and plan: 46-year-old female with abdominal pain, abdominal distention, bilateral lower extremity swelling, 3+ edema in the lower extremities, all of which she reports is new. Appears to have a component of volume overload. We will change her pain aggressively. Not having chest pain. Bilateral lower extremity DVT study is ordered to exclude DVT, CT scan of the chest, abdomen and pelvis is ordered to exclude thromboembolic disease. Laboratory studies reviewed and are appreciated. not Consistent with renal insufficiency, or hepatic insufficiency. Reevaluation #2: 06/02/16 10:49 CT scan of the chest demonstrates no pulmonary embolus. Large bilateral pleural effusions are noted. Clinical picture consistent with congestive heart failure. Lasix ordered Case is discussed with cardiology on-call, Carina Ponce, who will see patient. Dr Olivo accepts patient to his service ED Medical Decision Making - Lab Data Result diagrams: 06/03/16 05:53 06/05/16 08:56 Vital Signs 06/02/16 01:40 Temperature 97.6 F Pulse Rate 108 H Respiratory 22 Rate Blood Pressure 174/104 [Right] O2 Sat by Pulse 95 Oximetry Labs 06/02/16 06/02/16 06/02/16 03:06 03:12 03:12 WBC 13.3 H RBC 3.78 Hgb 11.2 Hct 34.8 MCV 92 MCH 30 MCHC 32 RDW 14.9 Plt Count 275 Lymph % (Auto) 24.8 [place] % (Auto) 4.1 Eos % (Auto) 1.2 Baso % (Auto) 1.0 Lymph # 3.3 [place] # 0.5 Eos # 0.2 Baso # 0.1 Seg Neutrophils % 68.9 Seg Neutrophils # 9.1 H Sodium 138 Potassium 4.6 Chloride 104.1 Carbon Dioxide 21 L Anion Gap 18 BUN 20 H Creatinine 0.9 Estimated GFR > 60 BUN/Creatinine Ratio 22.22 Glucose 170 H Calcium 9.1 Total Bilirubin 0.2 AST 35 ALT 67 H Alkaline Phosphatase 135 H Troponin T 0.020 Total Protein 7.6 Albumin 2.8 L Albumin/Globulin Ratio 0.6 Lipase 35 HCG, Qual Negative Urine Color Urine Turbidity Urine pH Ur Specific [place] Urine Protein Urine Glucose (UA) Urine Ketones Urine Blood Urine Nitrite Urine Bilirubin Urine Urobilinogen Ur Leukocyte Esterase Urine WBC (Auto) Urine RBC (Auto) U Epithel Cells (Auto) Urine Mucus 06/02/16 Unknown WBC RBC Hgb Hct MCV MCH MCHC RDW Plt Count Lymph % (Auto) [place] % (Auto) Eos % (Auto) Baso % (Auto) Lymph # [place] # Eos # Baso # Seg Neutrophils % Seg Neutrophils # Sodium Potassium Chloride Carbon Dioxide Anion Gap BUN Creatinine Estimated GFR BUN/Creatinine Ratio Glucose Calcium Total Bilirubin AST ALT Alkaline Phosphatase Troponin T Total Protein Albumin Albumin/Globulin Ratio Lipase HCG, Qual Urine Color Straw Urine Turbidity Clear Urine pH 6.0 Ur Specific [place] 1.012 Urine Protein >500 Urine Glucose (UA) 50 Urine Ketones Neg Urine Blood Sm Urine Nitrite Neg Urine Bilirubin Neg Urine Urobilinogen < 2.0 Ur Leukocyte Esterase Neg Urine WBC (Auto) 1.0 Urine RBC (Auto) 3.0 U Epithel Cells (Auto) 3.0 Urine Mucus Few - EKG Data 06/02/16 07:28 Sinus tachycardia, 106 bpm, normal axis, prolonged QTC at 480 ms, poor R wave progression, nonspecific T-wave abnormality, morphologically consistent with STEMI, appears unchanged when compared to prior EKG from 05/10/2016. - Radiology Data Radiology results: report reviewed, image reviewed interpreted by me: X-ray of the chest negative for acute disease. LIVE [facility] DOMINIK STONER Female : 1970 [facility]# [id number] 06/02/16 08:39 - Radiology Dept. Note by LEXUS CORRIGAN [facility] Num: [id number] : 1970 Patient Age: 46 VASCULAR LAB.PRELIMINARYREPORT.BLE VENOUS DUPLEX DONE. NO EVIDENCE OF DVT/SVT IN VESSELS VISUALIZED.TECHNICALLY LIMITED DUE TO HABITUS. Initialized on 06/02/16 08:39 - END OF NOTE Critical Care Time: Yes Critical care time in (mins) excluding proc time.: 35 Critical Care Time: Critical care time includes multiple bedside evaluations, interpretation of laboratory studies, radiology studies, time spent managing a patient with new onset congestive heart failure, requiring high-dose Diuretics, consultation with hospital medicine and cardiology. This does not include procedure time. ED Disposition Is pt being admited?: Yes Does the pt Need Aspirin: Yes
[2016-06-02] MEDS ORDERED: NACL ONE (07:14)
--- NOTE | 2016-06-02 07:49 | XRay Report ---
ROUTINE CHEST, TWO VIEWS: HISTORY: Shortness of breath. Compared to 06/22/12. There is poor inspiration. Mild central pulmonary venous congestion and trace left pleural effusion are suspected. Heart size is within normal limits. There is minor segmental atelectasis or scarring at the left lung base. No convincing pneumonia or pneumothorax. IMPRESSION: Mild vascular congestion and trace left pleural effusion.
[2016-06-02 07:59] LABS: INR 0.96 (0.87-1.13); Partial Thromboplastin Time 25.6 Sec. (24.2-36.6)
--- NOTE | 2016-06-02 09:55 | Cat Scan Report ---
CTA CHEST CT ABDOMEN AND PELVIS WITH CONTRAST INDICATION: Abdominal swelling. CHF versus pulmonary embolism versus SVC thrombosis. COMPARISON: 06/22/2012 chest CTA and 05/10/[address] FINDINGS: Chest CTA performed following intravenous administration of 100 cc of Omnipaque 350. Rotational MIP's also obtained. Abdomen and pelvis CT also performed. CHEST: Stable, top normal heart size. No pericardial effusion. Patent SVC. No aortic aneurysm or dissection. Mild pulmonary arterial hypertension may again be present. No focal suspicious pulmonary arterial filling defects. Patent central airway. No size significant hilar lymphadenopathy. Few small superior mediastinal lymph nodes may again be present with the largest pretracheal/right paratracheal lymph node approximately 1 cm in the short axis, axial image 62, series 2. Few small bilateral axillary lymph nodes again noted, overall smaller/less prominent since June 2012 with the largest on the right now approximately 1.3 cm, axial image 83, series 2, previously 1.6 cm. Unremarkable partially imaged thyroid. Small to moderate bilateral pleural effusions, left greater than right and again reaching the apices, though overall smaller since June 2012 while new since 05/10/2016. Maximum AP pleural fluid thickness of approximately 1.7 cm on the right and 2.6 cm on the left, axial image 139, series 2. Mild underlying atelectasis within both lower lobes also noted. Mild interlobular septal thickening may be present towards the apices with subtle airspace opacities not excluded developing, more so in the right lung. Minimal fluid or thickening along the major fissures may also be present. Slight nonspecific distal esophageal prominence. Right hemidiaphragm slightly elevated. ABDOMEN: Stable cholecystectomy clips and mild bilateral perinephric stranding. Known 3 mm nonobstructing left renal calculus inferiorly may again be present, axial image 262, series 2. Left hepatic lobe tip again extends into the left upper quadrant. Right hepatic lobe also estimated at 20 cm in midclavicular length, previously approximately 23 cm. Otherwise grossly unremarkable liver, spleen, pancreas, adrenals, nonaneurysmal abdominal aorta, IVC and non-hydronephrotic kidneys. At least 2 left renal cortical hypodensities/cysts, the larger approximately 1.3 cm, axial image 27, series 4. Few small, subcentimeter mesenteric and retroperitoneal lymph nodes again noted. No ascites. Nonopacified GI tract evaluation limited, though grossly nonobstructive. Normal appendix. Mild colonic stool. PELVIS: Urinary bladder, uterus, right adnexa and the rectosigmoid again within normal limits. A large ovoid left adnexal/likely ovarian simple cyst again noted, approximately 10.5 x 6.2 x 8.3 cm in maximum dimensions with stable lobulated contour anterolaterally or a small peripheral septation/adjacent smaller cystic component as on axial image 372, series 2, amongst others. No free fluid or size significant adenopathy. Mild to moderate diffuse abdominal subcutaneous fat stranding may be noted, some extending into the pannus. Transitional lumbosacral vertebra. Multilevel thoracic spondylosis, including predominantly right-sided osteophytes along few mid to lower thoracic levels. CONCLUSION: 1. Small to moderate pleural effusions, left slightly greater than right, and new since 05/10/2016. Additional chest CT appearance also suggestive of developing congestion/CHF in an appropriate clinical setting with no definite CT evidence of pulmonary embolism. 2. Various other incidental findings, including mild increased diffuse abdominal subcutaneous stranding/edema, prominent/enlarged liver, bilateral perinephric stranding, stable cholecystectomy clips, small nonobstructing left renal calculus and a large left adnexal/ovarian cyst, amongst others, as described. Please correlate. Thank you for the opportunity to participate in this patient's care.
[2016-06-02] MEDS ORDERED: LASIX IV ONE (10:00)
[2016-06-02] MEDS ORDERED: TORADOL ONE (10:07)
[2016-06-02] MEDS ORDERED: TORADOL IV ONE (10:15)
--- NOTE | 2016-06-02 10:27 | History and Physical Report ---
History of Present Illness Date of examination: 06/02/16 Date of admission: 06/02/16 Chief complaint: sob History of present illness: 46-year-old female with past medical history of HIV, diabetes with neuropathy, hypertension and hypercholesterolemia who presents with complaints of abdominal pain, abdominal swelling, and bilateral swelling of the feet. The patient states the symptoms have lasted for a few days. The abdominal distention is also painful. The pain is sharp, and decreases when she lays on her right side. It is all over, and does not radiate anywhere. She does not have chest pain. She has chronic shortness of breath with exertion, she reports the abdominal distention has made her shortness of breath worse. No nausea, vomiting or diarrhea. Patient also reports PND and orthopnea. Past History Past Medical History: HIV/AIDS, hypertension, hyperlipidemia Past Surgical History: No surgical history Social history: no significant social history Family history: no significant family history Medications and Allergies Allergies Allergy/AdvReac Type Severity Reaction Status Date / Time aspirin Allergy Swelling Verified 05/10/16 05:48 Home Medications Medication Instructions Recorded Confirmed Last Taken Type Elviteg/Sumi/Emtric/Tenofo Ala 1 each PO QDAY 05/10/16 05/10/16 Unknown History [Genvoya Tablet] Gabapentin [Neurontin] 800 mg PO TID #90 tablet 05/17/16 Unknown Rx Hydrochlorothiazide [HCTZ] 12.5 mg PO QDAY #30 capsule 05/17/16 Unknown Rx Insulin Aspart Prot/Aspart 0 units SQ QACHS #1 units 05/17/16 Unknown Rx [NovoLOG Mix 70/30 VIAL] Insulin Glargine [Lantus VIAL] 30 units SQ QHS 30 Days 05/17/16 Unknown Rx Losartan [Cozaar] 25 mg PO QDAY #30 tablet 05/17/16 Unknown Rx Promethazine [Phenergan SUPPOS] 25 mg [place] Q6HR PRN #30 supp.rect 05/17/16 Unknown Rx metFORMIN [Glucophage] 500 mg PO BID #60 tablet 05/17/16 Unknown Rx oxyCODONE /ACETAMINOPHEN [Percocet 1 tab PO Q4H PRN #20 tablet 05/17/16 Unknown Rx 5/325 mg] Review of Systems All systems: negative Exam - Constitutional Vitals: Temp Pulse Resp BP Pulse Ox 97.6 F 107 H 10 L 148/86 97 03/28/17 01:40 06/02/16 08:42 06/02/16 08:42 06/02/16 08:42 06/02/16 08:42 General appearance: Present: no acute distress, well-nourished, obese - EENT Eyes: Present: PERRL ENT: hearing intact, clear oral mucosa - Neck Neck: Present: supple, normal ROM - Respiratory Respiratory effort: normal Respiratory: bilateral: diminished, rales - Cardiovascular Heart Sounds: Present: S1 & S2. Absent: rub, click - Extremities Extremities: pulses symmetrical Extremity abnormal: edema (2+) Peripheral Pulses: within normal limits - Abdominal General gastrointestinal: Present: soft, non-tender, non-distended, normal bowel sounds Female genitourinary: Present: normal - Integumentary Integumentary: Present: clear, warm, dry - Musculoskeletal Musculoskeletal: gait normal, strength equal bilaterally - Psychiatric Psychiatric: appropriate mood/affect, intact judgment & insight - Neurologic Neurologic: CNII-XII intact, moves all extremities Results - Labs CBC & Chem 7: 06/02/16 03:12 06/02/16 03:12 Labs: Laboratory Last Values WBC 13.3 K/mm3 (4.5-11.0) H 06/02/16 03:12 RBC 3.78 M/mm3 (3.65-5.03) 06/02/16 03:12 Hgb 11.2 gm/dl (10.1-14.3) 06/02/16 03:12 Hct 34.8 % (30.3-42.9) 06/02/16 03:12 MCV 92 fl (79-97) 06/02/16 03:12 MCH 30 pg (28-32) 06/02/16 03:12 MCHC 32 % (30-34) 06/02/16 03:12 RDW 14.9 % (13.2-15.2) 06/02/16 03:12 Plt Count 275 K/mm3 (140-440) 06/02/16 03:12 Lymph % (Auto) 24.8 % (13.4-35.0) 06/02/16 03:12 [place] % (Auto) 4.1 % (0.0-7.3) 06/02/16 03:12 Eos % (Auto) 1.2 % (0.0-4.3) 06/02/16 03:12 Baso % (Auto) 1.0 % (0.0-1.8) 06/02/16 03:12 Lymph # 3.3 K/mm3 (1.2-5.4) 06/02/16 03:12 [place] # 0.5 K/mm3 (0.0-0.8) 06/02/16 03:12 Eos # 0.2 K/mm3 (0.0-0.4) 06/02/16 03:12 Baso # 0.1 K/mm3 (0.0-0.1) 06/02/16 03:12 Seg Neutrophils % 68.9 % (40.0-70.0) 06/02/16 03:12 Seg Neutrophils # 9.1 K/mm3 (1.8-7.7) H 06/02/16 03:12 PT 12.7 Sec. (12.2-14.9) 06/02/16 07:07 INR 0.96 (0.87-1.13) 06/02/16 07:07 APTT 25.6 Sec. (24.2-36.6) 06/02/16 07:07 Sodium 138 mmol/L (137-145) 06/02/16 03:12 Potassium 4.6 mmol/L (3.6-5.0) 06/02/16 03:12 Chloride 104.1 mmol/L (98-107) 06/02/16 03:12 Carbon Dioxide 21 mmol/L (22-30) L 06/02/16 03:12 Anion Gap 18 mmol/L 06/02/16 03:12 BUN 20 mg/dL (7-17) H 06/02/16 03:12 Creatinine 0.9 mg/dL (0.7-1.2) 06/02/16 03:12 Estimated GFR > 60 ml/min 06/02/16 03:12 BUN/Creatinine Ratio 22.22 % 06/02/16 03:12 Glucose 170 mg/dL (65-100) H 06/02/16 03:12 Calcium 9.1 mg/dL (8.4-10.2) 06/02/16 03:12 Total Bilirubin 0.2 mg/dL (0.1-1.2) 06/02/16 03:12 AST 35 units/L (5-40) 06/02/16 03:12 ALT 67 units/L (7-56) H 06/02/16 03:12 Alkaline Phosphatase 135 units/L (35-129) H 06/02/16 03:12 Troponin T 0.020 ng/mL (0.00-0.029) 06/02/16 03:12 NT-Pro-B Natriuret Pep 716.6 pg/mL (0-450) H 06/02/16 07:07 Total Protein 7.6 g/dL (6.3-8.2) 06/02/16 03:12 Albumin 2.8 g/dL (3.9-5) L 06/02/16 03:12 Albumin/Globulin Ratio 0.6 % 06/02/16 03:12 Lipase 35 units/L (13-60) 06/02/16 03:12 HCG, Qual Negative (Negative) 06/02/16 03:06 Urine Color Straw (Yellow) 06/02/16 Unknown Urine Turbidity Clear (Clear) 06/02/16 Unknown Urine pH 6.0 (5.0-7.0) 06/02/16 Unknown Ur Specific [place] 1.012 (1.003-1.030) 06/02/16 Unknown Urine Protein >500 mg/dL (Negative) 06/02/16 Unknown Urine Glucose (UA) 50 mg/dL (Negative) 06/02/16 Unknown Urine Ketones Neg mg/dL (Negative) 06/02/16 Unknown Urine Blood Sm (Negative) 06/02/16 Unknown Urine Nitrite Neg (Negative) 06/02/16 Unknown Urine Bilirubin Neg (Negative) 06/02/16 Unknown Urine Urobilinogen < 2.0 mg/dL (<2.0) 06/02/16 Unknown Ur Leukocyte Esterase Neg (Negative) 06/02/16 Unknown Urine WBC (Auto) 1.0 /HPF (0.0-6.0) 06/02/16 Unknown Urine RBC (Auto) 3.0 /HPF (0.0-6.0) 06/02/16 Unknown U Epithel Cells (Auto) 3.0 /HPF (0-13.0) 06/02/16 Unknown Urine Mucus Few /HPF 06/02/16 Unknown Assessment and Plan Assessment and plan: 1. New onset CHF. Etiology of diastolic versus systolic unknown. Obtain echocardiogram. Cardiology consultation pending. Patient will be placed on CHF pathway and started on IV diuresis. 2. Hypertension. Resume antihypertensive medications. 3. Hyperlipidemia. Resume medications. 4. HIV. Continue medications. 5. Dm II. Continue Accu-Cheks, SSRI and lantus
[2016-06-02] MEDS ORDERED: D50W (25GM) IV PRN (10:32)
[2016-06-02] MEDS ORDERED: MILK OF MAGNESIA PO PRN (10:32)
[2016-06-02] MEDS ORDERED: TYLENOL PO PRN (10:32)
[2016-06-02] MEDS ORDERED: DULCOLAX PR PRN (10:32)
--- NOTE | 2016-06-02 10:40 | Admit Criteria Form ---
Admission Criteria Documentation: HEART FAILURE: COMMON COMPLICATIONS Clinical Indications for Inpatient Care (Place 'X' for any and all applicable criteria): Ongoing inpatient care may be indicated for heart failure with ANY ONE of the following (1)(2)(3)(4)(5): [ ]I. Ongoing need for care for primary condition requiring frequent therapy adjustments because of changes in cardiac function (eg, drug dosage changes for drugs that are renally metabolized) [X]II. New-onset heart failure [ ]III. Heart failure with decreased urine output not responsive to attempts to optimize volume status [ ]IV. Acute cardiac ischemia causing or associated with failure [ ]V. Complications of heart failure, including ANY ONE of the following: [ ]a) Pericardial effusion [ ]b) Symptomatic pleural effusion [ ]c) O2 saturation <90% or PO2 < 60 mm Hg (8.0 kPa) on room air or require baseline supplemental O2 [ ]d) Tachypnea [ ]e) Dyspnea [ ]f) Syncope [ ]g) Change in mental status [ ]h) Acute renal insufficiency that is severe (reduction of more than 50% in estimated glomerular filtration rate from baseline) or progressive reduction of more than 25% in estimated glomerular filtration rate from baseline, with creatinine continuing to rise) [ ]i) Hemodynamic instability [ ]j) Anasarca [ ]k) Clinically significant metabolic abnormalities due to heart failure (eg, new-onset metabolic acidosis) Extended stay beyond goal length of stay for primary condition may be needed until ALL of the following are present(1)(3): [ ]a) Stable and effective diuretic regimen established (or patient on stable dialysis regimen if in chronic renal failure) [ ]b) Breathing comfortably at rest [ ]c) Saturation of arterial oxygen greater than 90% or at acceptable baseline [ ]d) Pulmonary edema absent or improved [ ]e) Hemodynamic stability [ ]f) Volume status acceptable on oral medication [ ]g) Peripheral or sacral edema absent or improved [ ]h) Renal function stable and manageable at a lower level of care [ ]i) Complications (eg, pleural effusion) resolved or manageable at a lower level of care [ ]j) Patient or caregiver has received written discharge instructions or educational material addressing activity level, diet, discharge medications, follow-up appointment, weight monitoring, and what to do if symptoms worsen The original [employer] [facility] content created by [employer] has been revised. The portions of the content which have been revised are identified through the use of italic text or in bold, and [facility] has neither reviewed nor approved the modified material.All other unmodified content is copyright [facility]. Please see references footnoted in the original [facility] edition 2016 Admission Criteria Met: Yes
--- NOTE | 2016-06-02 11:45 | Consultation ---
History of Present Illness Consult date: 06/02/16 Consult reason: congestive heart failure History of present illness: This is a 46yr old woman who presents to the ED with complaints of abdominal pain, shortness of breath and bilateral lower extremity edema. Patient denies prior cardiac history. There is no prior cardiac workup. Her ECG shows a mild sinus tachycardia with nonspecific [place] abnormality. Chest x-ray reports mild pulmonary vascular congestion. Cardiac consultation requested for CHF evaluation. Past History Past Medical History: HIV/AIDS, hypertension, hyperlipidemia Past Surgical History: No surgical history Social history: no significant social history Family history: no significant family history Medications and Allergies Allergies Allergy/AdvReac Type Severity Reaction Status Date / Time aspirin Allergy Swelling Verified 05/10/16 05:48 Home Medications Medication Instructions Recorded Confirmed Last Taken Type Elviteg/Sumi/Emtric/Tenofo Ala 1 each PO QDAY 05/10/16 05/10/16 Unknown History [Genvoya Tablet] Gabapentin [Neurontin] 800 mg PO TID #90 tablet 05/17/16 Unknown Rx Hydrochlorothiazide [HCTZ] 12.5 mg PO QDAY #30 capsule 05/17/16 Unknown Rx Insulin Aspart Prot/Aspart 0 units SQ QACHS #1 units 05/17/16 Unknown Rx [NovoLOG Mix 70/30 VIAL] Insulin Glargine [Lantus VIAL] 30 units SQ QHS 30 Days 05/17/16 Unknown Rx Losartan [Cozaar] 25 mg PO QDAY #30 tablet 05/17/16 Unknown Rx Promethazine [Phenergan SUPPOS] 25 mg [place] Q6HR PRN #30 supp.rect 05/17/16 Unknown Rx metFORMIN [Glucophage] 500 mg PO BID #60 tablet 05/17/16 Unknown Rx oxyCODONE /ACETAMINOPHEN [Percocet 1 tab PO Q4H PRN #20 tablet 05/17/16 Unknown Rx 5/325 mg] Active Meds: Active Medications Acetaminophen (Tylenol) 650 mg PO Q4H PRN PRN Reason: Pain MILD(1-3)/Fever >100.5/EDWARD Bisacodyl (Dulcolax) 10 mg [place] QDAY PRN PRN Reason: Constipation unrelieved by MOM Dextrose (D50w (25gm)) 50 ml IV PRN PRN PRN Reason: Hypoglycemia Enoxaparin Sodium (Lovenox) 40 mg SUB-Q QDAY VINCENT Furosemide (Lasix) 40 mg IV QDAY VINCENT Hydrochlorothiazide (Hctz) 12.5 mg PO QDAY VINCENT Insulin Detemir (Levemir) 30 units SUB-Q QHS VINCENT Insulin Human Regular (Novolin R) 0 units SUB-Q ACHS VINCENT PRN Reason: Protocol Last Admin: 06/02/16 11:25 Dose: 4 units Losartan Potassium (Cozaar) 25 mg PO QDAY VINCENT Magnesium Hydroxide (Milk Of Magnesia) 30 ml PO Q4H PRN PRN Reason: Constipation Miscellaneous Medication (Elviteg/Sumi/Emtric/Tenofo Ala [Genvoya Tablet]) 1 each PO QDAY VINCENT Miscellaneous Medication (Gabapentin [Neurontin]) 800 mg PO TID VINCENT Ondansetron HCl (Zofran) 4 mg IV Q8H PRN PRN Reason: N/V unrelieved by Reglan Physical Examination Vital Signs Temp Pulse Resp BP Pulse Ox 97.6 F 108 H 22 174/104 95 06/02/16 01:40 06/02/16 01:40 06/02/16 01:40 06/02/16 01:40 06/02/16 01:40 General appearance: no acute distress HEENT: Positive: PERRL Neck: Positive: trachea midline Cardiac: Positive: Tachycardia Lungs: Positive: Decreased Breath Sounds Neuro: Positive: Grossly Intact Extremities: Present: +1 Edema Results 06/02/16 03:12 06/02/16 03:12 Assessment and Plan Abdominal pain CHF HIV disease Hypertension Diabetes Echocardiogram for LVEF assessment.
[2016-06-02] MEDS: ZOFRAN IV PRN (12:54)
[2016-06-02] MEDS: MORPHINE IV PRN ×3 (13:07→21:42)
[2016-06-02] MEDS ORDERED: NON-FORMULARY (Gabapentin [Neurontin] 800 MG) PO SCH (14:00)
[2016-06-02] MEDS: NEURONTIN PO SCH ×2 (14:21→21:42)
[2016-06-02] MEDS ORDERED: NON-FORMULARY (Insulin Glargine 30 UNITS) SQ SCH (22:00)
[2016-06-02] MEDS: LEVEMIR SUB-Q SCH (23:32)
[2016-06-03] MEDS: MORPHINE IV PRN ×4 (04:11→22:53)
[2016-06-03 07:06] LABS: Basophils % (Auto) 0.9 % (0.0-1.8); Eosinophils % (Auto) 1.9 % (0.0-4.3); Hematocrit 27.8 % (30.3-42.9); Mean Corpuscular HGB Conc 33 % (30-34); Mean Corpuscular Hemoglobin 30 pg (28-32); Mean Corpuscular Volume 94 fl (79-97); Platelet Count 348 K/mm3 (140-440); Red Blood Count 2.96 M/mm3 (3.65-5.03); Red Cell Distribution Width 14.7 % (13.2-15.2)
[2016-06-03 07:37] LABS: Blood Urea Nitrogen 22 mg/dL (7-17); Calcium 8.5 mg/dL (8.4-10.2); Carbon Dioxide 28 mmol/L (22-30); Chloride 103.7 mmol/L (98-107); Glucose 76 mg/dL (65-100); Potassium 4.2 mmol/L (3.6-5.0); Sodium 139 mmol/L (137-145)
[2016-06-03 07:38] LABS: Anion Gap 12 mmol/L
--- NOTE | 2016-06-03 08:00 | Vascular Lab Report ---
LOWER EXTREMITY VENOUS DUPLEX: REASON FOR EXAM: Swelling of the lower extremities. COMMENTS ON THE RIGHT: All veins visualized are freely compressible without evidence of internal echogenicity. Flow is spontaneous and phasic throughout. COMMENTS ON THE LEFT: All veins visualized are freely compressible without evidence of internal echogenicity. Flow is spontaneous and phasic throughout. IMPRESSION: No evidence of acute or chronic deep venous thrombosis in either lower extremity.
[2016-06-03] MEDS: NEURONTIN PO SCH ×3 (08:29→21:09)
[2016-06-03] MEDS: ZOFRAN IV PRN (08:53)
[2016-06-03] MEDS ORDERED: [UNRECOGNIZED DRUG - OTHER] PO SCH (10:00)
[2016-06-03] MEDS ORDERED: HCTZ PO SCH (10:00)
[2016-06-03] MEDS: COZAAR PO SCH (10:03)
[2016-06-03] MEDS: LASIX IV SCH (10:04)
[2016-06-03] MEDS: LOVENOX SUB-Q SCH (10:04)
--- NOTE | 2016-06-03 10:21 | Progress Note ---
Assessment and Plan Assessment and plan: 1. New onset CHF. Etiology is unknown. Patient will need further evaluation for obstructive sleep apnea and an ischemic cardiac workup with a Persantine thallium per cardiology. Echocardiogram reveals preserved ejection fraction of 55-60%. Cardiology following. Continue on CHF pathway and IV diuresis. 2. Hypertension. Continue antihypertensive medications. 3. Hyperlipidemia. 4. HIV. Continue medications. 5. DM II. Continue Accu-Cheks, SSRI and lantus History Interval history: Patient complains of 2 episodes of nausea and vomiting. Patient vomited last evening and this morning of gastric contents. No hematemesis Hospitalist Physical - Constitutional Vitals: Temp Pulse Resp BP Pulse Ox 97.8 F 90 20 118/78 98 06/03/16 07:35 06/03/16 07:35 06/03/16 07:35 06/03/16 07:35 06/03/16 07:35 General appearance: Present: no acute distress - EENT Eyes: Present: PERRL, EOM intact ENT: hearing intact, clear oral mucosa, dentition normal - Neck Neck: Present: supple, normal ROM - Respiratory Respiratory effort: normal Respiratory: bilateral: CTA - Cardiovascular Rhythm: regular Heart Sounds: Present: S1 & S2. Absent: gallop, rub - Extremities Extremities: no ischemia, No edema, Full ROM - Abdominal General gastrointestinal: soft, non-tender, non-distended, normal bowel sounds - Integumentary Integumentary: Present: clear, warm, dry - Neurologic Neurologic: CNII-XII intact, moves all extremities Results - Labs CBC & Chem 7: 06/03/16 05:53 06/03/16 05:53 Labs: Laboratory Last Values WBC 8.0 K/mm3 (4.5-11.0) 06/03/16 05:53 RBC 2.96 M/mm3 (3.65-5.03) L 06/03/16 05:53 Hgb 9.0 gm/dl (10.1-14.3) L 06/03/16 05:53 Hct 27.8 % (30.3-42.9) L D 06/03/16 05:53 MCV 94 fl (79-97) 06/03/16 05:53 MCH 30 pg (28-32) 06/03/16 05:53 MCHC 33 % (30-34) 06/03/16 05:53 RDW 14.7 % (13.2-15.2) 06/03/16 05:53 Plt Count 348 K/mm3 (140-440) 06/03/16 05:53 Lymph % (Auto) 25.8 % (13.4-35.0) 06/03/16 05:53 [place] % (Auto) 5.9 % (0.0-7.3) 06/03/16 05:53 Eos % (Auto) 1.9 % (0.0-4.3) 06/03/16 05:53 Baso % (Auto) 0.9 % (0.0-1.8) 06/03/16 05:53 Lymph # 2.1 K/mm3 (1.2-5.4) 06/03/16 05:53 [place] # 0.5 K/mm3 (0.0-0.8) 06/03/16 05:53 Eos # 0.2 K/mm3 (0.0-0.4) 06/03/16 05:53 Baso # 0.1 K/mm3 (0.0-0.1) 06/03/16 05:53 Seg Neutrophils % 65.5 % (40.0-70.0) 06/03/16 05:53 Seg Neutrophils # 5.2 K/mm3 (1.8-7.7) 06/03/16 05:53 PT 12.7 Sec. (12.2-14.9) 06/02/16 07:07 INR 0.96 (0.87-1.13) 06/02/16 07:07 APTT 25.6 Sec. (24.2-36.6) 06/02/16 07:07 Sodium 139 mmol/L (137-145) 06/03/16 05:53 Potassium 4.2 mmol/L (3.6-5.0) 06/03/16 05:53 Chloride 103.7 mmol/L (98-107) 06/03/16 05:53 Carbon Dioxide 28 mmol/L (22-30) D 06/03/16 05:53 Anion Gap 12 mmol/L 06/03/16 05:53 BUN 22 mg/dL (7-17) H 06/03/16 05:53 Creatinine 1.1 mg/dL (0.7-1.2) 06/03/16 05:53 Estimated GFR > 60 ml/min 06/03/16 05:53 BUN/Creatinine Ratio 20.00 % 06/03/16 05:53 Glucose 76 mg/dL (65-100) 06/03/16 05:53 POC Glucose 120 (70-105) H 06/03/16 09:01 Calcium 8.5 mg/dL (8.4-10.2) 06/03/16 05:53 Total Bilirubin 0.2 mg/dL (0.1-1.2) 06/02/16 03:12 AST 35 units/L (5-40) 06/02/16 03:12 ALT 67 units/L (7-56) H 06/02/16 03:12 Alkaline Phosphatase 135 units/L (35-129) H 06/02/16 03:12 Troponin T 0.020 ng/mL (0.00-0.029) 06/02/16 03:12 NT-Pro-B Natriuret Pep 716.6 pg/mL (0-450) H 06/02/16 07:07 Total Protein 7.6 g/dL (6.3-8.2) 06/02/16 03:12 Albumin 2.8 g/dL (3.9-5) L 06/02/16 03:12 Albumin/Globulin Ratio 0.6 % 06/02/16 03:12 Lipase 35 units/L (13-60) 06/02/16 03:12 HCG, Qual Negative (Negative) 06/02/16 03:06 Urine Color Straw (Yellow) 06/02/16 Unknown Urine Turbidity Clear (Clear) 06/02/16 Unknown Urine pH 6.0 (5.0-7.0) 06/02/16 Unknown Ur Specific [place] 1.012 (1.003-1.030) 06/02/16 Unknown Urine Protein >500 mg/dL (Negative) 06/02/16 Unknown Urine Glucose (UA) 50 mg/dL (Negative) 06/02/16 Unknown Urine Ketones Neg mg/dL (Negative) 06/02/16 Unknown Urine Blood Sm (Negative) 06/02/16 Unknown Urine Nitrite Neg (Negative) 06/02/16 Unknown Urine Bilirubin Neg (Negative) 06/02/16 Unknown Urine Urobilinogen < 2.0 mg/dL (<2.0) 06/02/16 Unknown Ur Leukocyte Esterase Neg (Negative) 06/02/16 Unknown Urine WBC (Auto) 1.0 /HPF (0.0-6.0) 06/02/16 Unknown Urine RBC (Auto) 3.0 /HPF (0.0-6.0) 06/02/16 Unknown U Epithel Cells (Auto) 3.0 /HPF (0-13.0) 06/02/16 Unknown Urine Mucus Few /HPF 06/02/16 Unknown
[2016-06-03] MEDS: GENVOYA (NF) PO SCH (10:51)
--- NOTE | 2016-06-03 10:59 | Progress Note ---
Assessment and Plan Abdominal pain CHF -diastolic etiology uncertain HIV disease Hypertension Diabetes Hx of Gastroparesis Obese An echocardiogram done reveals normal left ventricle systolic function with ejection fraction 55-60%. Recommendations: Continue medical therapy for heart failure with preserved ejection fraction. Etiology of the heart failure is uncertain, recommend further evaluation for obstructive sleep apnea. After optimal treatment of fluid overload, will consider ischemic cardiac workup with a Persantin thallium stress test. Subjective Date of service: 06/03/16 Interval history: Edema slowly improving. Objective Vital Signs Temp Pulse Pulse Pulse Resp BP BP 06/03/16 07:35 97.8 F 90 20 118/78 06/03/16 05:37 98.1 F 92 H 18 115/73 06/03/16 00:10 98.4 F 96 H 18 137/81 06/02/16 21:09 98.1 F 96 H 18 115/77 06/02/16 15:43 97.7 F 96 H 18 151/96 06/02/16 13:34 98.3 F 94 H 12 141/85 06/02/16 11:55 Pulse Ox 06/03/16 07:35 98 06/03/16 05:37 97 06/03/16 00:10 98 06/02/16 21:09 98 06/02/16 15:43 97 06/02/16 13:34 99 06/02/16 11:55 96 - Physical Examination General: No Apparent Distress HEENT: Positive: PERRL Neck: Positive: trachea midline Cardiac: Positive: Reg Rate and Rhythm Lungs: Positive: Decreased Breath Sounds Neuro: Positive: Grossly Intact Extremities: Present: +1 Edema - Labs and Meds CBC 06/03/16 Range/Units 05:53 WBC 8.0 (4.5-11.0) K/mm3 RBC 2.96 L (3.65-5.03) M/mm3 Hgb 9.0 L (10.1-14.3) gm/dl Hct 27.8 L D (30.3-42.9) % Plt Count 348 (140-440) K/mm3 Lymph # 2.1 (1.2-5.4) K/mm3 [place] # 0.5 (0.0-0.8) K/mm3 Eos # 0.2 (0.0-0.4) K/mm3 Baso # 0.1 (0.0-0.1) K/mm3 Comprehensive Metabolic Panel 06/03/16 Range/Units 05:53 Sodium 139 (137-145) mmol/L Potassium 4.2 (3.6-5.0) mmol/L Chloride 103.7 (98-107) mmol/L Carbon Dioxide 28 D (22-30) mmol/L BUN 22 H (7-17) mg/dL Creatinine 1.1 (0.7-1.2) mg/dL Glucose 76 (65-100) mg/dL Calcium 8.5 (8.4-10.2) mg/dL
[2016-06-03] MEDS ORDERED: REGLAN IV PRN (11:00)
[2016-06-03] MEDS: ZAROXOLYN PO SCH (13:39)
[2016-06-03] MEDS: K-DUR PO SCH (13:40)
[2016-06-03] MEDS: LEVEMIR SUB-Q SCH (23:15)
[2016-06-04] MEDS: MORPHINE IV PRN ×3 (07:20→21:36)
[2016-06-04] MEDS: GENVOYA (NF) PO SCH (10:20)
[2016-06-04] MEDS: COZAAR PO SCH (10:20)
[2016-06-04] MEDS: LASIX IV SCH (10:20)
[2016-06-04] MEDS: K-DUR PO SCH (10:20)
[2016-06-04] MEDS: ZAROXOLYN PO SCH (10:20)
[2016-06-04] MEDS: LOVENOX SUB-Q SCH (10:21)
[2016-06-04] MEDS: NEURONTIN PO SCH ×3 (10:23→21:37)
--- NOTE | 2016-06-04 11:25 | Progress Note ---
<ARNOLD MUJICA - Last Filed: 06/04/16 11:24> Assessment and Plan Abdominal pain with nausea vomiting Acute CHF -diastolic etiology uncertain HIV disease Hypertension Diabetes Hx of Gastroparesis Obese An echocardiogram done reveals normal left ventricle systolic function with ejection fraction 55-60%. Recommendations: Continue medical therapy for heart failure with preserved ejection fraction. After optimal treatment of fluid overload, will consider ischemic cardiac workup with a Persantine thallium stress test. Subjective Date of service: 06/04/16 Interval history: Abdominal pain with nausea vomiting overnight. Lower extremity edema slowly improving. Objective Vital Signs Temp Pulse Pulse Pulse Pulse Resp BP 06/04/16 08:53 98.6 F 102 H 12 134/82 06/04/16 08:00 99 H 06/04/16 05:37 97.6 F 93 H 20 96/57 06/04/16 00:34 98.2 F 68 18 101/63 06/03/16 20:51 98.2 F 98 H 18 146/91 06/03/16 16:40 98.6 F 92 H 20 117/71 06/03/16 11:55 98.0 F 92 H 18 118/80 Pulse Ox 06/04/16 08:53 96 06/04/16 08:00 06/04/16 05:37 94 06/04/16 00:34 98 06/03/16 20:51 99 06/03/16 16:40 99 06/03/16 11:55 98 - Physical Examination General: No Apparent Distress HEENT: Positive: PERRL Neck: Positive: trachea midline Cardiac: Positive: Reg Rate and Rhythm Lungs: Positive: Decreased Breath Sounds Neuro: Positive: Grossly Intact Extremities: Present: +2 Edema <JUAN MANUEL MCMILLAN - Last Filed: 06/04/16 14:52> Assessment and Plan - Patient Problems (1) Fluid overload Current Visit: Yes Status: Acute Qualifiers: Hypervolemia type: H Plan to address problem: The patient has fluid overload and heart failure with preserved ejection fraction. There is evidence of significant proteinuria, suggesting a noncardiac etiology for fluid overload. Recommend further evaluation with nephrology consultation. Objective Vital Signs Temp Pulse Pulse Pulse Pulse Resp BP 06/04/16 08:53 98.6 F 102 H 12 134/82 06/04/16 08:00 99 H 06/04/16 05:37 97.6 F 93 H 20 96/57 06/04/16 00:34 98.2 F 68 18 101/63 06/03/16 20:51 98.2 F 98 H 18 146/91 06/03/16 16:40 98.6 F 92 H 20 117/71 Pulse Ox 06/04/16 08:53 96 06/04/16 08:00 06/04/16 05:37 94 06/04/16 00:34 98 06/03/16 20:51 99 06/03/16 16:40 99
--- NOTE | 2016-06-04 15:44 | Progress Note ---
Assessment and Plan Assessment and plan: 46-year-old female with past medical history of HIV, diabetes with neuropathy, hypertension and hypercholesterolemia who presents with complaints of abdominal pain, abdominal swelling, and bilateral swelling of the feet. The patient states the symptoms have lasted for a few days. The abdominal distention is also painful. The pain is sharp, and decreases when she lays on her right side. It is all over, and does not radiate anywhere. She does not have chest pain. She has chronic shortness of breath with exertion, she reports the abdominal distention has made her shortness of breath worse. No nausea, vomiting or diarrhea. Patient also reports PND and orthopnea. * New-onset congestive heart failure likely diastolic * Abdominal pain with nausea and vomiting * HIV * Hypertension * Diabetes mellitus * Hyperlipidemia * Diabetic gastroparesis * Morbid obesity with BMI of 48.4 Plan * Continue IV diuresis, continue CHF pathway, cardiology input appreciated plan for stress test was improved. * Patient was started on metolazone for better diuresis. * We'll follow O's inserted. 24-hour urine collection should DC the Nunez catheter in a.m. once completed * Continue diabetic control with Lantus and Accu-Cheks * Continue HAART * Ejection fraction is 55-60% * Patient started on Reglan and will continue * No further evidence of nausea with vomiting. We'll continue to monitor * DVT GI prophylaxis * Plan of care discussed with the patient in detail History Interval history: Follow up shortness of breath Patient seen and examined this morning sitting up oxygen in place no overt distress. But reports orthopnea. Denies any chest pain, nausea, vomiting, diarrhea No fever noted blood pressure controlled No adverse events reported to me by nursing staff Hospitalist Physical - Physical exam Narrative exam: VITAL SIGNS: Reviewed. GENERAL: The patient appeared well nourished and normally developed, obese. Vital signs as documented. HEAD: No signs of head trauma. EYES: Pupils are equal. Extraocular motions intact. EARS: Hearing grossly intact. MOUTH: Oropharynx is normal. NECK: No adenopathy, no JVD. CHEST: Chest with clear breath sounds bilaterally. No wheezes, rales, or rhonchi. CARDIAC: Regular rate and rhythm. S1 and S2, without murmurs, gallops, or rubs. VASCULAR: Plus pitting Edema. Peripheral pulses normal and equal in all extremities. ABDOMEN: Soft, without detectable tenderness. No sign of distention. No rebound or guarding, and no masses palpated. Bowel Sounds normal. MUSCULOSKELETAL: Good range of motion of all major joints. Extremities without clubbing, cyanosis and 1+ pitting edema. NEUROLOGIC EXAM: Alert and oriented x 3. No focal sensory or strength deficits. Speech normal. Follows commands. PSYCHIATRIC: Mood normal. SKIN: No rash or lesions. - Constitutional Vitals: Temp Pulse Resp BP Pulse Ox 98.6 F 103 H 22 105/67 96 06/04/16 15:34 06/04/16 15:34 06/04/16 15:34 06/04/16 15:34 06/04/16 15:34 General appearance: Present: no acute distress Results - Labs CBC & Chem 7: 06/03/16 05:53 06/03/16 05:53 Labs: Laboratory Last Values WBC 8.0 K/mm3 (4.5-11.0) 06/03/16 05:53 RBC 2.96 M/mm3 (3.65-5.03) L 06/03/16 05:53 Hgb 9.0 gm/dl (10.1-14.3) L 06/03/16 05:53 Hct 27.8 % (30.3-42.9) L D 06/03/16 05:53 MCV 94 fl (79-97) 06/03/16 05:53 MCH 30 pg (28-32) 06/03/16 05:53 MCHC 33 % (30-34) 06/03/16 05:53 RDW 14.7 % (13.2-15.2) 06/03/16 05:53 Plt Count 348 K/mm3 (140-440) 06/03/16 05:53 Lymph % (Auto) 25.8 % (13.4-35.0) 06/03/16 05:53 [place] % (Auto) 5.9 % (0.0-7.3) 06/03/16 05:53 Eos % (Auto) 1.9 % (0.0-4.3) 06/03/16 05:53 Baso % (Auto) 0.9 % (0.0-1.8) 06/03/16 05:53 Lymph # 2.1 K/mm3 (1.2-5.4) 06/03/16 05:53 [place] # 0.5 K/mm3 (0.0-0.8) 06/03/16 05:53 Eos # 0.2 K/mm3 (0.0-0.4) 06/03/16 05:53 Baso # 0.1 K/mm3 (0.0-0.1) 06/03/16 05:53 Seg Neutrophils % 65.5 % (40.0-70.0) 06/03/16 05:53 Seg Neutrophils # 5.2 K/mm3 (1.8-7.7) 06/03/16 05:53 PT 12.7 Sec. (12.2-14.9) 06/02/16 07:07 INR 0.96 (0.87-1.13) 06/02/16 07:07 APTT 25.6 Sec. (24.2-36.6) 06/02/16 07:07 Sodium 139 mmol/L (137-145) 06/03/16 05:53 Potassium 4.2 mmol/L (3.6-5.0) 06/03/16 05:53 Chloride 103.7 mmol/L (98-107) 06/03/16 05:53 Carbon Dioxide 28 mmol/L (22-30) D 06/03/16 05:53 Anion Gap 12 mmol/L 06/03/16 05:53 BUN 22 mg/dL (7-17) H 06/03/16 05:53 Creatinine 1.1 mg/dL (0.7-1.2) 06/03/16 05:53 Estimated GFR > 60 ml/min 06/03/16 05:53 BUN/Creatinine Ratio 20.00 % 06/03/16 05:53 Glucose 76 mg/dL (65-100) 06/03/16 05:53 POC Glucose 168 (70-105) H 06/04/16 07:19 Calcium 8.5 mg/dL (8.4-10.2) 06/03/16 05:53 Total Bilirubin 0.2 mg/dL (0.1-1.2) 06/02/16 03:12 AST 35 units/L (5-40) 06/02/16 03:12 ALT 67 units/L (7-56) H 06/02/16 03:12 Alkaline Phosphatase 135 units/L (35-129) H 06/02/16 03:12 Troponin T 0.020 ng/mL (0.00-0.029) 06/02/16 03:12 NT-Pro-B Natriuret Pep 716.6 pg/mL (0-450) H 06/02/16 07:07 Total Protein 7.6 g/dL (6.3-8.2) 06/02/16 03:12 Albumin 2.8 g/dL (3.9-5) L 06/02/16 03:12 Albumin/Globulin Ratio 0.6 % 06/02/16 03:12 Lipase 35 units/L (13-60) 06/02/16 03:12 HCG, Qual Negative (Negative) 06/02/16 03:06 Urine Color Straw (Yellow) 06/02/16 Unknown Urine Turbidity Clear (Clear) 06/02/16 Unknown Urine pH 6.0 (5.0-7.0) 06/02/16 Unknown Ur Specific [place] 1.012 (1.003-1.030) 06/02/16 Unknown Urine Protein >500 mg/dL (Negative) 06/02/16 Unknown Urine Glucose (UA) 50 mg/dL (Negative) 06/02/16 Unknown Urine Ketones Neg mg/dL (Negative) 06/02/16 Unknown Urine Blood Sm (Negative) 06/02/16 Unknown Urine Nitrite Neg (Negative) 06/02/16 Unknown Urine Bilirubin Neg (Negative) 06/02/16 Unknown Urine Urobilinogen < 2.0 mg/dL (<2.0) 06/02/16 Unknown Ur Leukocyte Esterase Neg (Negative) 06/02/16 Unknown Urine WBC (Auto) 1.0 /HPF (0.0-6.0) 06/02/16 Unknown Urine RBC (Auto) 3.0 /HPF (0.0-6.0) 06/02/16 Unknown U Epithel Cells (Auto) 3.0 /HPF (0-13.0) 06/02/16 Unknown Urine Mucus Few /HPF 06/02/16 Unknown Urine Total Volume 1600 06/04/16 12:27 Ur Total Protein 24 Hr 1888.00 (2-200) H 06/04/16 12:27 Urine Total Protein 118 mg/dL (5-11.8) H 06/04/16 12:27 - Imaging and Cardiology Chest x-ray: image reviewed (vascular congestion)
[2016-06-04] MEDS: LEVEMIR SUB-Q SCH (21:37)
[2016-06-05] MEDS: MORPHINE IV PRN ×3 (04:14→20:30)
--- NOTE | 2016-06-05 08:02 | Progress Note ---
Assessment and Plan Assessment and plan: 46-year-old female with past medical history of HIV, diabetes with neuropathy, hypertension and hypercholesterolemia who presents with complaints of abdominal pain, abdominal swelling, and bilateral swelling of the feet. The patient states the symptoms have lasted for a few days. The abdominal distention is also painful. The pain is sharp, and decreases when she lays on her right side. It is all over, and does not radiate anywhere. She does not have chest pain. She has chronic shortness of breath with exertion, she reports the abdominal distention has made her shortness of breath worse. No nausea, vomiting or diarrhea. Patient also reports PND and orthopnea. * New-onset congestive heart failure likely diastolic * Abdominal pain with nausea and vomiting * HIV * Hypertension * Diabetes mellitus * Hyperlipidemia * Diabetic gastroparesis * Morbid obesity with BMI of 48.4 Plan * Continue IV diuresis, continue CHF pathway, cardiology input appreciated plan for stress test was improved. * Intermittent labs * increase levemir to 35 units * Patient was started on metolazone for better diuresis. * We'll follow O's inserted. 24-hour urine collection should DC the Nunez catheter in a.m. once completed * Continue diabetic control Accu-Cheks * Continue HAART * Ejection fraction is 55-60% * Patient started on Reglan and will continue * No further evidence of nausea with vomiting. We'll continue to monitor * DVT GI prophylaxis * Plan of care discussed with the patient in detail Hospitalist Physical - Constitutional Vitals: Temp Pulse Resp BP Pulse Ox 98.6 F 97 H 18 115/68 99 06/05/16 05:22 06/05/16 05:22 06/05/16 05:22 06/05/16 05:22 06/05/16 05:22 General appearance: Present: no acute distress Results - Labs CBC & Chem 7: 06/03/16 05:53 06/03/16 05:53 Labs: Laboratory Last Values WBC 8.0 K/mm3 (4.5-11.0) 06/03/16 05:53 RBC 2.96 M/mm3 (3.65-5.03) L 06/03/16 05:53 Hgb 9.0 gm/dl (10.1-14.3) L 06/03/16 05:53 Hct 27.8 % (30.3-42.9) L D 06/03/16 05:53 MCV 94 fl (79-97) 06/03/16 05:53 MCH 30 pg (28-32) 06/03/16 05:53 MCHC 33 % (30-34) 06/03/16 05:53 RDW 14.7 % (13.2-15.2) 06/03/16 05:53 Plt Count 348 K/mm3 (140-440) 06/03/16 05:53 Lymph % (Auto) 25.8 % (13.4-35.0) 06/03/16 05:53 [place] % (Auto) 5.9 % (0.0-7.3) 06/03/16 05:53 Eos % (Auto) 1.9 % (0.0-4.3) 06/03/16 05:53 Baso % (Auto) 0.9 % (0.0-1.8) 06/03/16 05:53 Lymph # 2.1 K/mm3 (1.2-5.4) 06/03/16 05:53 [place] # 0.5 K/mm3 (0.0-0.8) 06/03/16 05:53 Eos # 0.2 K/mm3 (0.0-0.4) 06/03/16 05:53 Baso # 0.1 K/mm3 (0.0-0.1) 06/03/16 05:53 Seg Neutrophils % 65.5 % (40.0-70.0) 06/03/16 05:53 Seg Neutrophils # 5.2 K/mm3 (1.8-7.7) 06/03/16 05:53 PT 12.7 Sec. (12.2-14.9) 06/02/16 07:07 INR 0.96 (0.87-1.13) 06/02/16 07:07 APTT 25.6 Sec. (24.2-36.6) 06/02/16 07:07 Sodium 139 mmol/L (137-145) 06/03/16 05:53 Potassium 4.2 mmol/L (3.6-5.0) 06/03/16 05:53 Chloride 103.7 mmol/L (98-107) 06/03/16 05:53 Carbon Dioxide 28 mmol/L (22-30) D 06/03/16 05:53 Anion Gap 12 mmol/L 06/03/16 05:53 BUN 22 mg/dL (7-17) H 06/03/16 05:53 Creatinine 1.1 mg/dL (0.7-1.2) 06/03/16 05:53 Estimated GFR > 60 ml/min 06/03/16 05:53 BUN/Creatinine Ratio 20.00 % 06/03/16 05:53 Glucose 76 mg/dL (65-100) 06/03/16 05:53 POC Glucose 229 (70-105) H 06/04/16 22:33 Calcium 8.5 mg/dL (8.4-10.2) 06/03/16 05:53 Total Bilirubin 0.2 mg/dL (0.1-1.2) 06/02/16 03:12 AST 35 units/L (5-40) 06/02/16 03:12 ALT 67 units/L (7-56) H 06/02/16 03:12 Alkaline Phosphatase 135 units/L (35-129) H 06/02/16 03:12 Troponin T 0.020 ng/mL (0.00-0.029) 06/02/16 03:12 NT-Pro-B Natriuret Pep 716.6 pg/mL (0-450) H 06/02/16 07:07 Total Protein 7.6 g/dL (6.3-8.2) 06/02/16 03:12 Albumin 2.8 g/dL (3.9-5) L 06/02/16 03:12 Albumin/Globulin Ratio 0.6 % 06/02/16 03:12 Lipase 35 units/L (13-60) 06/02/16 03:12 HCG, Qual Negative (Negative) 06/02/16 03:06 Urine Color Straw (Yellow) 06/02/16 Unknown Urine Turbidity Clear (Clear) 06/02/16 Unknown Urine pH 6.0 (5.0-7.0) 06/02/16 Unknown Ur Specific [place] 1.012 (1.003-1.030) 06/02/16 Unknown Urine Protein >500 mg/dL (Negative) 06/02/16 Unknown Urine Glucose (UA) 50 mg/dL (Negative) 06/02/16 Unknown Urine Ketones Neg mg/dL (Negative) 06/02/16 Unknown Urine Blood Sm (Negative) 06/02/16 Unknown Urine Nitrite Neg (Negative) 06/02/16 Unknown Urine Bilirubin Neg (Negative) 06/02/16 Unknown Urine Urobilinogen < 2.0 mg/dL (<2.0) 06/02/16 Unknown Ur Leukocyte Esterase Neg (Negative) 06/02/16 Unknown Urine WBC (Auto) 1.0 /HPF (0.0-6.0) 06/02/16 Unknown Urine RBC (Auto) 3.0 /HPF (0.0-6.0) 06/02/16 Unknown U Epithel Cells (Auto) 3.0 /HPF (0-13.0) 06/02/16 Unknown Urine Mucus Few /HPF 06/02/16 Unknown Urine Total Volume 1600 06/04/16 12:27 Ur Total Protein 24 Hr 1888.00 (2-200) H 06/04/16 12:27 Urine Total Protein 118 mg/dL (5-11.8) H 06/04/16 12:27
--- NOTE | 2016-06-05 08:32 | Progress Note ---
Assessment and Plan Abdominal pain - resolved Acute diastolic heart failure Proteinuria with a 24 hour urine protein 1.8 g HIV disease Hypertension Diabetes - uncontrolled Hx of Gastroparesis Obese An echocardiogram done reveals normal left ventricle systolic function with ejection fraction 55-60%. Recommendations: Continue IV diuresis and afterload reduction Patient needs aggressive renal management for her proteinuria also Her anasarca is not solely due to diastolic heart failure. 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 Continue losartan Start aldactone 25 mg po daily Discontinue potassium Check labs Ischemic evaluation with a lexiscan MPI in am tomorrow Subjective Date of service: 06/05/16 Principal diagnosis: CHF Interval history: No cardiac events overnight Objective Vital Signs Temp Pulse Pulse Pulse Pulse Resp BP 06/05/16 05:22 98.6 F 97 H 18 06/04/16 23:58 98.9 F 104 H 18 06/04/16 20:00 98.1 F 96 H 105 H 20 06/04/16 15:34 98.6 F 103 H 22 06/04/16 08:53 98.6 F 102 H 12 134/82 BP Pulse Ox 06/05/16 05:22 115/68 99 06/04/16 23:58 133/71 97 06/04/16 20:00 166/90 96 06/04/16 15:34 105/67 96 06/04/16 08:53 96 - Physical Examination General: No Apparent Distress HEENT: Positive: PERRL Neck: Positive: trachea midline Cardiac: Positive: Reg Rate and Rhythm Lungs: Positive: Normal Exam Neuro: Positive: Grossly Intact Extremities: Present: +2 Edema
[2016-06-05 09:45] LABS: Albumin 2.7 g/dL (3.9-5); Albumin/Globulin Ratio 0.7 %; BUN/Creatinine Ratio 23.84; Bilirubin,Total 0.2 mg/dL (0.1-1.2); Calcium 8.7 mg/dL (8.4-10.2); Chloride 101.8 mmol/L (98-107); Potassium 5.4 mmol/L (3.6-5.0); Total Protein 6.7 g/dL (6.3-8.2)
[2016-06-05] MEDS ORDERED: ALDACTONE PO SCH (10:00)
[2016-06-05] MEDS: COZAAR PO SCH (10:55)
[2016-06-05] MEDS: LOVENOX SUB-Q SCH (10:55)
[2016-06-05] MEDS: NEURONTIN PO SCH ×4 (10:55→23:12)
[2016-06-05] MEDS: LASIX IV SCH (10:55)
[2016-06-05] MEDS: GENVOYA (NF) PO SCH (10:56)
[2016-06-05] MEDS ORDERED: KIONEX PO ONE (16:00)
--- NOTE | 2016-06-05 16:02 | Progress Note ---
Assessment and Plan Assessment and plan: 46-year-old female with past medical history of HIV, diabetes with neuropathy, hypertension and hypercholesterolemia who presents with complaints of abdominal pain, abdominal swelling, and bilateral swelling of the feet. The patient states the symptoms have lasted for a few days. The abdominal distention is also painful. The pain is sharp, and decreases when she lays on her right side. It is all over, and does not radiate anywhere. She does not have chest pain. She has chronic shortness of breath with exertion, she reports the abdominal distention has made her shortness of breath worse. No nausea, vomiting or diarrhea. Patient also reports PND and orthopnea. * New-onset congestive heart failure likely diastolic * Abdominal pain with nausea and vomiting-resolved * HIV * Hypertension * Anemia * Bacteremia * Moderate proteinuria * Diabetes mellitus * Hyperlipidemia * Diabetic gastroparesis * Morbid obesity with BMI of 48.4 Plan * Continue IV diuresis, continue CHF pathway, cardiology input appreciated plan for stress test was improved. * Intermittent labs * We'll give a dose of Kayexalate * Obtain nephrology consultation for proteinuria * increase levemir to 35 units * Potassium discontinued but she started ductal * Patient was started on metolazone for better diuresis. * Levemir increased to 35 units * Continue HAART * Ejection fraction is 55-60% * Patient started on Reglan and will continue * No further evidence of nausea with vomiting. We'll continue to monitor * DVT GI prophylaxis * Plan of care discussed with the patient in detail History Interval history: Follow up shortness of breath Patient seen and examined this morning sitting up oxygen in place no overt distress. Still with orthopnea Denies any chest pain, nausea, vomiting, diarrhea No fever noted blood pressure controlled No adverse events reported to me by nursing staff Hospitalist Physical - Physical exam Narrative exam: VITAL SIGNS: Reviewed. GENERAL: The patient appeared well nourished and normally developed, obese. Vital signs as documented. HEAD: No signs of head trauma. EYES: Pupils are equal. Extraocular motions intact. EARS: Hearing grossly intact. MOUTH: Oropharynx is normal. NECK: No adenopathy, no JVD. CHEST: Chest with clear breath sounds bilaterally. No wheezes, rales, or rhonchi. CARDIAC: Regular rate and rhythm. S1 and S2, without murmurs, gallops, or rubs. VASCULAR: +1pitting Edema. Peripheral pulses normal and equal in all extremities. ABDOMEN: Soft, without detectable tenderness. No sign of distention. No rebound or guarding, and no masses palpated. Bowel Sounds normal. MUSCULOSKELETAL: Good range of motion of all major joints. Extremities without clubbing, cyanosis and 1+ pitting edema. NEUROLOGIC EXAM: Alert and oriented x 3. No focal sensory or strength deficits. Speech normal. Follows commands. PSYCHIATRIC: Mood normal. SKIN: No rash or lesions. - Constitutional Vitals: Temp Pulse Resp BP Pulse Ox 98 F 94 H 22 149/94 94 06/05/16 12:00 06/05/16 12:00 06/05/16 12:32 06/05/16 12:00 06/05/16 12:00 General appearance: Present: no acute distress Results - Labs CBC & Chem 7: 06/03/16 05:53 06/05/16 08:56 Labs: Laboratory Last Values WBC 8.0 K/mm3 (4.5-11.0) 06/03/16 05:53 RBC 2.96 M/mm3 (3.65-5.03) L 06/03/16 05:53 Hgb 9.0 gm/dl (10.1-14.3) L 06/03/16 05:53 Hct 27.8 % (30.3-42.9) L D 06/03/16 05:53 MCV 94 fl (79-97) 06/03/16 05:53 MCH 30 pg (28-32) 06/03/16 05:53 MCHC 33 % (30-34) 06/03/16 05:53 RDW 14.7 % (13.2-15.2) 06/03/16 05:53 Plt Count 348 K/mm3 (140-440) 06/03/16 05:53 Lymph % (Auto) 25.8 % (13.4-35.0) 06/03/16 05:53 [place] % (Auto) 5.9 % (0.0-7.3) 06/03/16 05:53 Eos % (Auto) 1.9 % (0.0-4.3) 06/03/16 05:53 Baso % (Auto) 0.9 % (0.0-1.8) 06/03/16 05:53 Lymph # 2.1 K/mm3 (1.2-5.4) 06/03/16 05:53 [place] # 0.5 K/mm3 (0.0-0.8) 06/03/16 05:53 Eos # 0.2 K/mm3 (0.0-0.4) 06/03/16 05:53 Baso # 0.1 K/mm3 (0.0-0.1) 06/03/16 05:53 Seg Neutrophils % 65.5 % (40.0-70.0) 06/03/16 05:53 Seg Neutrophils # 5.2 K/mm3 (1.8-7.7) 06/03/16 05:53 PT 12.7 Sec. (12.2-14.9) 06/02/16 07:07 INR 0.96 (0.87-1.13) 06/02/16 07:07 APTT 25.6 Sec. (24.2-36.6) 06/02/16 07:07 Sodium 138 mmol/L (137-145) 06/05/16 08:56 Potassium 5.4 mmol/L (3.6-5.0) H D 06/05/16 08:56 Chloride 101.8 mmol/L (98-107) 06/05/16 08:56 Carbon Dioxide 26 mmol/L (22-30) 06/05/16 08:56 Anion Gap 16 mmol/L 06/05/16 08:56 BUN 31 mg/dL (7-17) H 06/05/16 08:56 Creatinine 1.3 mg/dL (0.7-1.2) H 06/05/16 08:56 Estimated GFR 53 ml/min 06/05/16 08:56 BUN/Creatinine Ratio 23.84 % 06/05/16 08:56 Glucose 192 mg/dL (65-100) H 06/05/16 08:56 POC Glucose 229 (70-105) H 06/04/16 22:33 Calcium 8.7 mg/dL (8.4-10.2) 06/05/16 08:56 Total Bilirubin 0.2 mg/dL (0.1-1.2) 06/05/16 08:56 AST 14 units/L (5-40) 06/05/16 08:56 ALT 25 units/L (7-56) 06/05/16 08:56 Alkaline Phosphatase 99 units/L (35-129) 06/05/16 08:56 Troponin T 0.020 ng/mL (0.00-0.029) 06/02/16 03:12 NT-Pro-B Natriuret Pep 716.6 pg/mL (0-450) H 06/02/16 07:07 Total Protein 6.7 g/dL (6.3-8.2) 06/05/16 08:56 Albumin 2.7 g/dL (3.9-5) L 06/05/16 08:56 Albumin/Globulin Ratio 0.7 % 06/05/16 08:56 Lipase 35 units/L (13-60) 06/02/16 03:12 HCG, Qual Negative (Negative) 06/02/16 03:06 Urine Color Straw (Yellow) 06/02/16 Unknown Urine Turbidity Clear (Clear) 06/02/16 Unknown Urine pH 6.0 (5.0-7.0) 06/02/16 Unknown Ur Specific [place] 1.012 (1.003-1.030) 06/02/16 Unknown Urine Protein >500 mg/dL (Negative) 06/02/16 Unknown Urine Glucose (UA) 50 mg/dL (Negative) 06/02/16 Unknown Urine Ketones Neg mg/dL (Negative) 06/02/16 Unknown Urine Blood Sm (Negative) 06/02/16 Unknown Urine Nitrite Neg (Negative) 06/02/16 Unknown Urine Bilirubin Neg (Negative) 06/02/16 Unknown Urine Urobilinogen < 2.0 mg/dL (<2.0) 06/02/16 Unknown Ur Leukocyte Esterase Neg (Negative) 06/02/16 Unknown Urine WBC (Auto) 1.0 /HPF (0.0-6.0) 06/02/16 Unknown Urine RBC (Auto) 3.0 /HPF (0.0-6.0) 06/02/16 Unknown U Epithel Cells (Auto) 3.0 /HPF (0-13.0) 06/02/16 Unknown Urine Mucus Few /HPF 06/02/16 Unknown Urine Total Volume 1600 06/04/16 12:27 Ur Total Protein 24 Hr 1888.00 (2-200) H 06/04/16 12:27 Urine Total Protein 118 mg/dL (5-11.8) H 06/04/16 12:27
[2016-06-05] MEDS: LEVEMIR SUB-Q SCH (23:15)
[2016-06-06] MEDS: MORPHINE IV PRN ×3 (03:42→19:56)
[2016-06-06 05:07] LABS: Hematocrit 28.9 % (30.3-42.9); Hemoglobin 9.4 gm/dl (10.1-14.3); Mean Corpuscular HGB Conc 33 % (30-34); Mean Corpuscular Hemoglobin 31 pg (28-32); Mean Corpuscular Volume 94 fl (79-97); Platelet Count 325 K/mm3 (140-440); Red Blood Count 3.07 M/mm3 (3.65-5.03); Red Cell Distribution Width 14.6 % (13.2-15.2); White Blood Count 6.7 K/mm3 (4.5-11.0)
[2016-06-06 05:32] LABS: Anion Gap 17 mmol/L; Blood Urea Nitrogen 27 mg/dL (7-17); Calcium 8.5 mg/dL (8.4-10.2); Carbon Dioxide 27 mmol/L (22-30); Chloride 99.8 mmol/L (98-107); Glucose 216 mg/dL (65-100); Potassium 4.9 mmol/L (3.6-5.0); Sodium 139 mmol/L (137-145)
--- NOTE | 2016-06-06 07:02 | Consultation ---
History of Present Illness - Reason for Consult Consult date: 06/06/16 acute renal failure, hyperkalemia, other (proteinuria) - History of Present Illness Patient is a 46-year-old AAF with history significant for HIV, Type Diabetes mellitus with neuropathy, Hypertension, Hypercholesterolemia and morbid obesity who presents with complaints of abdominal pain, abdominal distention and swelling of both legs. The patient states the symptoms started about 2 weeks ago and progressively getting worse. The abd. pain is diffuse, sharp, decreases when she lays on her right side and does not radiate. Patient has chronic exertional shortness of breath, that has gotten worse with abdominal distention. Her symptoms are much better since she came to the hospital. Her creatinine was 1.3 with potassium of 5.4, improved to 1 and 4.9 respectively today. Patient denies any prior kidney problem, kidney stone or recurrent UTIs. Her echo showed normal EF. Past History Past Medical History: diabetes, HIV/AIDS, hypertension, hyperlipidemia Past Surgical History: No surgical history Social history: no significant social history Family history: no significant family history Medications and Allergies Allergies Allergy/AdvReac Type Severity Reaction Status Date / Time aspirin Allergy Swelling Verified 05/10/16 05:48 Home Medications Medication Instructions Recorded Confirmed Last Taken Type Elviteg/Sumi/Emtric/Tenofo Ala 1 each PO QDAY 05/10/16 06/02/16 Unknown History [Genvoya (Nf)] Gabapentin [Neurontin] 800 mg PO TID #90 tablet 05/17/16 06/02/16 Unknown Rx Insulin Aspart Prot/Aspart 0 units SQ QACHS #1 units 05/17/16 06/02/16 Unknown Rx [NovoLOG Mix 70/30 VIAL] Insulin Glargine [Lantus VIAL] 30 units SQ QHS 30 Days 05/17/16 06/02/16 Unknown Rx Promethazine [Phenergan SUPPOS] 25 mg RI Q6HR PRN #30 supp.rect 05/17/16 Unknown Rx metFORMIN [Glucophage] 500 mg PO BID #60 tablet 05/17/16 06/02/16 Unknown Rx Furosemide [Lasix TAB] 40 mg PO QDAY #30 tablet 06/07/16 Unknown Rx Losartan [Cozaar] 25 mg PO QDAY #30 tablet 06/07/16 Unknown Rx oxyCODONE /ACETAMINOPHEN [Percocet 1 tab PO Q6HR PRN #14 tablet 06/07/16 Unknown Rx 5/325 mg] Active Meds: Active Medications Acetaminophen (Tylenol) 650 mg PO Q4H PRN PRN Reason: Pain MILD(1-3)/Fever >100.5/EDWARD Bisacodyl (Dulcolax) 10 mg RI QDAY PRN PRN Reason: Constipation unrelieved by MOM Dextrose (D50w (25gm)) 50 ml IV PRN PRN PRN Reason: Hypoglycemia Enoxaparin Sodium (Lovenox) 40 mg SUB-Q QDAY [facility] Last Admin: 06/05/16 10:55 Dose: 40 mg Furosemide (Lasix) 40 mg IV QDAY [facility] Last Admin: 06/05/16 10:55 Dose: 40 mg Gabapentin (Neurontin) 800 mg PO TID [facility] Last Admin: 06/05/16 23:12 Dose: 800 mg Insulin Detemir (Levemir) 35 units SUB-Q QHS [facility] Last Admin: 06/05/16 23:15 Dose: 35 units Insulin Human Regular (Novolin R) 0 units SUB-Q ACHS [facility] PRN Reason: Protocol Last Admin: 06/05/16 23:13 Dose: 4 units Losartan Potassium (Cozaar) 25 mg PO QDAY [facility] Last Admin: 06/05/16 10:55 Dose: 25 mg Magnesium Hydroxide (Milk Of Magnesia) 30 ml PO Q4H PRN PRN Reason: Constipation Metoclopramide HCl (Reglan) 10 mg IV Q6H PRN PRN Reason: Nausea And Vomiting Morphine Sulfate (Morphine) 1 mg IV Q4H PRN PRN Reason: Pain, Moderate (4-6) Last Admin: 06/06/16 03:42 Dose: 1 mg Ondansetron HCl (Zofran) 4 mg IV Q8H PRN PRN Reason: N/V unrelieved by Reglan Last Admin: 06/03/16 08:53 Dose: 4 mg Review of Systems Constitutional: weight gain, no weight loss, no fever, no chills, no anorexia, no weakness Ears, nose, mouth and throat: no sinus pressure, no sinus pain, no epistaxis Breasts: deferred Cardiovascular: orthopnea, edema, shortness of breath, dyspnea on exertion, high blood pressure, leg edema, decreased exercise tolerance, no chest pain, no syncope, no lightheadedness Respiratory: shortness of breath, dyspnea on exertion, no cough, no hemoptysis Gastrointestinal: abdominal pain, no nausea, no vomiting, no diarrhea, no melena Genitourinary Female: no dysuria, no hematuria Rectal: no bleeding Musculoskeletal: no neck pain Integumentary: no rash, no jaundice Neurological: no paralysis, no weakness, no seizures, no syncope, no vertigo Psychiatric: no anxiety Endocrine: weight change Hematologic/Lymphatic: no easy bleeding Allergic/Immunologic: no anaphylaxis, no angioedema Exam - Vital Signs Vital signs: Vital Signs Temp Pulse Resp BP Pulse Ox 97.6 F 108 H 22 174/104 95 06/02/16 01:40 06/02/16 01:40 06/02/16 01:40 06/02/16 01:40 06/02/16 01:40 - General Appearance General appearance: well-developed, well-nourished, appears stated age, obese, other (no distress) EENT: PERRL, mucous membranes moist, hearing intact, vision intact Neck: Absent: neck supple, trachea midline Respiratory: Clear to Ascultation Heart: regular, S1S2, no murmurs Gastrointestinal: Present: normoactive bowel sounds. Absent: distended Integumentary: no rash, warm and dry Neurologic: no focal deficit, no asterixis, alert and oriented x3, CN 3-12 intact Musculoskeletal: Present: other (1+ pitting edema of both LEs noted) Psychiatric: mood/affect appropriate, cooperative Results - Lab Results 06/06/16 04:07 06/07/16 07:34 Most recent lab results Calcium 8.5 mg/dL (8.4-10.2) 06/06/16 04:07 Ur Total Protein 24 Hr 1888.00 (2-200) H 06/04/16 12:27 Urine Total Protein 118 mg/dL (5-11.8) H 06/04/16 12:27 Assessment and Plan - Patient Problems (1) ANDREWS (acute kidney injury) Status: Acute Plan to address problem: Acute kidney Injury likely secondary to fluctution in the BP. Renal function has improved. (2) Hyperkalemia Status: Acute Plan to address problem: Likely secondary to ANDREWS. Improved now. Will hold Spironolactone. (3) Proteinuria Status: Chronic Plan to address problem: Likely secondary to Diabetic Nephropathy with or without HIV associated Nephropathy. Patient is on ARB. (4) Acute CHF (congestive heart failure) Status: Acute Qualifiers: Congestive heart failure type: unspecified congestive heart failure type Qualified Code(s): I50.9 - Heart failure, unspecified Plan to address problem: Diastolic CHF. Followed by Cards. (5) HTN (hypertension) Status: Chronic Qualifiers: Hypertension type: essential hypertension Qualified Code(s): I10 - Essential (primary) hypertension Plan to address problem: BP well controlled. (6) Fluid overload Status: Acute Qualifiers: Hypervolemia type: H Plan to address problem: Improving with lasix. Counseled to reduce salt intake.
[2016-06-06] MEDS ORDERED: LEXISCAN IV ONE ×2 (08:00→08:58)
[2016-06-06] MEDS: COZAAR PO SCH (10:02)
[2016-06-06] MEDS: LASIX IV SCH (10:02)
[2016-06-06] MEDS: NEURONTIN PO SCH ×3 (10:02→19:56)
[2016-06-06] MEDS: LOVENOX SUB-Q SCH (10:02)
[2016-06-06] MEDS: GENVOYA (NF) PO SCH (10:02)
--- NOTE | 2016-06-06 12:00 | Progress Note ---
Subjective Date of service: 06/06/16 Principal diagnosis: CHF Interval history: Abdominal pain - resolved Acute diastolic heart failure Proteinuria with a 24 hour urine protein 1.8 g HIV disease Hypertension Diabetes - uncontrolled Hx of Gastroparesis Obese An echocardiogram done reveals normal left ventricle systolic function with ejection fraction 55-60%. Recommendations: Continue IV diuresis and afterload reduction Patient needs aggressive renal management for her proteinuria also Her anasarca is not solely due to diastolic heart failure. 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 Ischemic evaluation with a lexiscan MPI today Objective Vital Signs Temp Pulse Pulse Pulse Resp BP BP 06/06/16 11:34 87 06/06/16 09:19 107 H 152/84 06/06/16 09:18 106 H 150/77 06/06/16 09:17 107 H 136/77 06/06/16 09:16 106 H 110/86 06/06/16 09:15 106 H 154/97 06/06/16 08:38 89 161/101 06/06/16 05:34 98.3 F 89 18 116/63 06/06/16 03:42 18 06/06/16 00:00 98.1 F 104 H 18 119/73 06/05/16 20:45 98 H 06/05/16 20:00 98.3 F 98 H 18 131/74 06/05/16 16:00 98.2 F 91 H 20 139/84 06/05/16 12:32 22 06/05/16 12:00 98 F 94 H 20 149/94 Pulse Ox 06/06/16 11:34 06/06/16 09:19 06/06/16 09:18 06/06/16 09:17 06/06/16 09:16 06/06/16 09:15 06/06/16 08:38 06/06/16 05:34 98 06/06/16 03:42 06/06/16 00:00 98 06/05/16 20:45 06/05/16 20:00 97 06/05/16 16:00 06/05/16 12:32 06/05/16 12:00 94 - Physical Examination General: No Apparent Distress HEENT: Positive: PERRL Neck: Positive: trachea midline Cardiac: Positive: Reg Rate and Rhythm, S1/S2 Lungs: Positive: Normal Exam Neuro: Positive: Grossly Intact Extremities: Present: +2 Edema - Labs and Meds CBC 06/06/16 Range/Units 04:07 WBC 6.7 (4.5-11.0) K/mm3 RBC 3.07 L (3.65-5.03) M/mm3 Hgb 9.4 L (10.1-14.3) gm/dl Hct 28.9 L (30.3-42.9) % Plt Count 325 (140-440) K/mm3 Comprehensive Metabolic Panel 06/06/16 Range/Units 04:07 Sodium 139 (137-145) mmol/L Potassium 4.9 (3.6-5.0) mmol/L Chloride 99.8 (98-107) mmol/L Carbon Dioxide 27 (22-30) mmol/L BUN 27 H (7-17) mg/dL Creatinine 1.0 (0.7-1.2) mg/dL Glucose 216 H (65-100) mg/dL Calcium 8.5 (8.4-10.2) mg/dL
--- NOTE | 2016-06-06 16:19 | Progress Note ---
Assessment and Plan Assessment and plan: 46-year-old female with past medical history of HIV, diabetes with neuropathy, hypertension and hypercholesterolemia who presents with complaints of abdominal pain, abdominal swelling, and bilateral swelling of the feet. The patient states the symptoms have lasted for a few days. The abdominal distention is also painful. The pain is sharp, and decreases when she lays on her right side. It is all over, and does not radiate anywhere. She does not have chest pain. She has chronic shortness of breath with exertion, she reports the abdominal distention has made her shortness of breath worse. No nausea, vomiting or diarrhea. Patient also reports PND and orthopnea. * New-onset congestive heart failure likely diastolic * Abdominal pain with nausea and vomiting-resolved * HIV * Hypertension * Anemia * Bacteremia * Moderate proteinuria * Diabetes mellitus * Hyperlipidemia * Diabetic gastroparesis * Morbid obesity with BMI of 48.4 Plan * Continue IV diuresis, continue CHF pathway, cardiology input appreciated plan for stress test was improved. * Intermittent labs * Potassium improved * Obtain nephrology consultation for proteinuria * Continue levemir at 35 units * Potassium discontinued but she started ductal * Patient was started on metolazone for better diuresis. * Levemir increased to 35 units * Continue HAART * Ejection fraction is 55-60% * Patient started on Reglan and will continue * No further evidence of nausea with vomiting. We'll continue to monitor * Anticipate discharge in a day or 2 if okay with cardiology and nephrology * DVT GI prophylaxis * Plan of care discussed with the patient in detail History Interval history: Follow up shortness of breath Patient seen and examined this morning sitting up oxygen in place no overt distress. reports improvement in orthopnea Denies any chest pain, nausea, vomiting, diarrhea No fever noted blood pressure controlled No adverse events reported to me by nursing staff Hospitalist Physical - Physical exam Narrative exam: VITAL SIGNS: Reviewed. GENERAL: The patient appeared well nourished and normally developed, obese.lying in bed with oxygen in place. Vital signs as documented. HEAD: No signs of head trauma. EYES: Pupils are equal. Extraocular motions intact. EARS: Hearing grossly intact. MOUTH: Oropharynx is normal. NECK: No adenopathy, no JVD. CHEST: Chest with clear breath sounds bilaterally. No wheezes, rales, or rhonchi. CARDIAC: Regular rate and rhythm. S1 and S2, without murmurs, gallops, or rubs. VASCULAR: +1pitting Edema. Peripheral pulses normal and equal in all extremities. ABDOMEN: Soft, without detectable tenderness. No sign of distention. No rebound or guarding, and no masses palpated. Bowel Sounds normal. MUSCULOSKELETAL: Good range of motion of all major joints. Extremities without clubbing, cyanosis and 1+ pitting edema. NEUROLOGIC EXAM: Alert and oriented x 3. No focal sensory or strength deficits. Speech normal. Follows commands. PSYCHIATRIC: Mood normal. SKIN: No rash or lesions. - Constitutional Vitals: Temp Pulse Resp BP Pulse Ox 98.3 F 87 18 152/84 98 06/06/16 05:34 06/06/16 11:34 06/06/16 05:34 06/06/16 09:19 06/06/16 05:34 General appearance: Present: no acute distress Results - Labs CBC & Chem 7: 06/06/16 04:07 06/06/16 04:07 Labs: Laboratory Last Values WBC 6.7 K/mm3 (4.5-11.0) 06/06/16 04:07 RBC 3.07 M/mm3 (3.65-5.03) L 06/06/16 04:07 Hgb 9.4 gm/dl (10.1-14.3) L 06/06/16 04:07 Hct 28.9 % (30.3-42.9) L 06/06/16 04:07 MCV 94 fl (79-97) 06/06/16 04:07 MCH 31 pg (28-32) 06/06/16 04:07 MCHC 33 % (30-34) 06/06/16 04:07 RDW 14.6 % (13.2-15.2) 06/06/16 04:07 Plt Count 325 K/mm3 (140-440) 06/06/16 04:07 Lymph % (Auto) 25.8 % (13.4-35.0) 06/03/16 05:53 [place] % (Auto) 5.9 % (0.0-7.3) 06/03/16 05:53 Eos % (Auto) 1.9 % (0.0-4.3) 06/03/16 05:53 Baso % (Auto) 0.9 % (0.0-1.8) 06/03/16 05:53 Lymph # 2.1 K/mm3 (1.2-5.4) 06/03/16 05:53 [place] # 0.5 K/mm3 (0.0-0.8) 06/03/16 05:53 Eos # 0.2 K/mm3 (0.0-0.4) 06/03/16 05:53 Baso # 0.1 K/mm3 (0.0-0.1) 06/03/16 05:53 Seg Neutrophils % 65.5 % (40.0-70.0) 06/03/16 05:53 Seg Neutrophils # 5.2 K/mm3 (1.8-7.7) 06/03/16 05:53 PT 12.7 Sec. (12.2-14.9) 06/02/16 07:07 INR 0.96 (0.87-1.13) 06/02/16 07:07 APTT 25.6 Sec. (24.2-36.6) 06/02/16 07:07 Sodium 139 mmol/L (137-145) 06/06/16 04:07 Potassium 4.9 mmol/L (3.6-5.0) 06/06/16 04:07 Chloride 99.8 mmol/L (98-107) 06/06/16 04:07 Carbon Dioxide 27 mmol/L (22-30) 06/06/16 04:07 Anion Gap 17 mmol/L 06/06/16 04:07 BUN 27 mg/dL (7-17) H 06/06/16 04:07 Creatinine 1.0 mg/dL (0.7-1.2) 06/06/16 04:07 Estimated GFR > 60 ml/min 06/06/16 04:07 BUN/Creatinine Ratio 27.00 % 06/06/16 04:07 Glucose 216 mg/dL (65-100) H 06/06/16 04:07 POC Glucose 144 (70-105) H 06/06/16 11:38 Calcium 8.5 mg/dL (8.4-10.2) 06/06/16 04:07 Total Bilirubin 0.2 mg/dL (0.1-1.2) 06/05/16 08:56 AST 14 units/L (5-40) 06/05/16 08:56 ALT 25 units/L (7-56) 06/05/16 08:56 Alkaline Phosphatase 99 units/L (35-129) 06/05/16 08:56 Troponin T 0.020 ng/mL (0.00-0.029) 06/02/16 03:12 NT-Pro-B Natriuret Pep 716.6 pg/mL (0-450) H 06/02/16 07:07 Total Protein 6.7 g/dL (6.3-8.2) 06/05/16 08:56 Albumin 2.7 g/dL (3.9-5) L 06/05/16 08:56 Albumin/Globulin Ratio 0.7 % 06/05/16 08:56 Lipase 35 units/L (13-60) 06/02/16 03:12 HCG, Qual Negative (Negative) 06/02/16 03:06 Urine Color Straw (Yellow) 06/02/16 Unknown Urine Turbidity Clear (Clear) 06/02/16 Unknown Urine pH 6.0 (5.0-7.0) 06/02/16 Unknown Ur Specific [place] 1.012 (1.003-1.030) 06/02/16 Unknown Urine Protein >500 mg/dL (Negative) 06/02/16 Unknown Urine Glucose (UA) 50 mg/dL (Negative) 06/02/16 Unknown Urine Ketones Neg mg/dL (Negative) 06/02/16 Unknown Urine Blood Sm (Negative) 06/02/16 Unknown Urine Nitrite Neg (Negative) 06/02/16 Unknown Urine Bilirubin Neg (Negative) 06/02/16 Unknown Urine Urobilinogen < 2.0 mg/dL (<2.0) 06/02/16 Unknown Ur Leukocyte Esterase Neg (Negative) 06/02/16 Unknown Urine WBC (Auto) 1.0 /HPF (0.0-6.0) 06/02/16 Unknown Urine RBC (Auto) 3.0 /HPF (0.0-6.0) 06/02/16 Unknown U Epithel Cells (Auto) 3.0 /HPF (0-13.0) 06/02/16 Unknown Urine Mucus Few /HPF 06/02/16 Unknown Urine Total Volume 1600 06/04/16 12:27 Ur Total Protein 24 Hr 1888.00 (2-200) H 06/04/16 12:27 Urine Total Protein 118 mg/dL (5-11.8) H 06/04/16 12:27
[2016-06-06] MEDS: LEVEMIR SUB-Q SCH (22:28)
[2016-06-07] MEDS: MORPHINE IV PRN (07:51)
[2016-06-07] MEDS: NEURONTIN PO SCH (07:51)
[2016-06-07 08:57] LABS: Anion Gap 17 mmol/L; Blood Urea Nitrogen 24 mg/dL (7-17); Calcium 8.8 mg/dL (8.4-10.2); Carbon Dioxide 28 mmol/L (22-30); Chloride 98.7 mmol/L (98-107); Glucose 130 mg/dL (65-100); Potassium 4.5 mmol/L (3.6-5.0); Sodium 139 mmol/L (137-145)
[2016-06-07] MEDS: LASIX IV SCH (09:37)
[2016-06-07] MEDS: COZAAR PO SCH (09:37)
[2016-06-07] MEDS: GENVOYA (NF) PO SCH (09:37)
[2016-06-07] MEDS: LOVENOX SUB-Q SCH (09:37)
--- NOTE | 2016-06-07 10:06 | Progress Note ---
Assessment and Plan - Patient Problems (1) ANDREWS (acute kidney injury) Status: Acute Plan to address problem: Acute kidney Injury likely secondary to fluctution in the BP. Renal function has improved. (2) Hyperkalemia Status: Acute Plan to address problem: Likely secondary to ANDREWS. Improved now. Will hold Spironolactone. (3) Proteinuria Status: Chronic Plan to address problem: Likely secondary to Diabetic Nephropathy with or without HIV associated Nephropathy. Patient is on ARB. (4) Acute CHF (congestive heart failure) Status: Acute Qualifiers: Congestive heart failure type: unspecified congestive heart failure type Qualified Code(s): I50.9 - Heart failure, unspecified Plan to address problem: Diastolic CHF. Followed by Cards. (5) Fluid overload Status: Acute Qualifiers: Hypervolemia type: H Plan to address problem: Improving with lasix. Counseled to reduce salt intake. Subjective Date of service: 06/07/16 Principal diagnosis: CHF Interval history: Patient is feeling better. Objective - Vital Signs Vital signs: Vital Signs - 12hr 06/07/16 06/07/16 06/07/16 00:00 05:56 07:38 Temperature 98.1 F 98.1 F Pulse Rate 85 Pulse Rate [ 89 85 Right Radial] Respiratory 20 19 Rate Blood Pressure 129/81 128/67 [Right Arm] O2 Sat by Pulse 97 95 Oximetry - General Appearance General appearance: well-developed, well-nourished, appears stated age, obese, other (no distress) EENT: PERRL, mucous membranes moist, hearing intact, vision intact Neck: no carotid bruit, supple Respiratory: Present: Clear to Ascultation Cardiology: regular, S1S2, no murmurs Gastrointestinal: normoactive bowel sounds, no tenderness, no distended, obese Integumentary: no rash, warm and dry Neurologic: no focal deficit, no asterixis, alert and oriented x3, CN 3-12 intact Musculoskeletal: other (1+ pitting edema of both LEs noted) Psychiatric: mood/affect appropriate, cooperative - Lab 06/06/16 04:07 06/07/16 07:34 Most recent lab results Calcium 8.8 mg/dL (8.4-10.2) 06/07/16 07:34 Ur Total Protein 24 Hr 1888.00 (2-200) H 06/04/16 12:27 Urine Total Protein 118 mg/dL (5-11.8) H 06/04/16 12:27
[2016-06-07 10:57] VITALS: BP 127/77
--- NOTE | 2016-06-07 11:06 | Progress Note ---
Subjective Date of service: 06/07/16 Principal diagnosis: CHF Interval history: Abdominal pain - resolved Acute diastolic heart failure Proteinuria with a 24 hour urine protein 1.8 g HIV disease Hypertension Diabetes - uncontrolled Hx of Gastroparesis Obese An echocardiogram done reveals normal left ventricle systolic function with ejection fraction 55-60%. Lexiscan MPI normal no ischemia EF 58%. Recommendations: continue diuretics as tolerated Patient needs aggressive renal management for her proteinuria also Her anasarca is not solely due to diastolic heart failure. 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 Objective Vital Signs Temp Pulse Pulse Resp BP Pulse Ox 06/07/16 08:45 98.0 F 86 18 127/77 98 06/07/16 07:38 85 06/07/16 05:56 98.1 F 85 19 128/67 95 06/07/16 00:00 98.1 F 89 20 129/81 97 06/06/16 20:15 82 06/06/16 19:56 18 06/06/16 19:55 98.4 F 95 H 20 136/87 97 06/06/16 16:50 97.9 F 90 20 123/81 99 06/06/16 11:34 87 - Physical Examination General: No Apparent Distress HEENT: Positive: PERRL Neck: Negative: neck supple, trachea midline Cardiac: Positive: Reg Rate and Rhythm, S1/S2 Lungs: Positive: Normal Exam Neuro: Positive: Grossly Intact Extremities: Present: +2 Edema - Labs and Meds Comprehensive Metabolic Panel 06/07/16 Range/Units 07:34 Sodium 139 (137-145) mmol/L Potassium 4.5 (3.6-5.0) mmol/L Chloride 98.7 (98-107) mmol/L Carbon Dioxide 28 (22-30) mmol/L BUN 24 H (7-17) mg/dL Creatinine 1.0 (0.7-1.2) mg/dL Glucose 130 H (65-100) mg/dL Calcium 8.8 (8.4-10.2) mg/dL
--- NOTE | 2016-06-07 11:59 | Discharge Summary ---
Providers - Providers Date of Admission: 06/02/16 10:32 Date of discharge: 06/07/16 Attending physician: MARILU BEATTY MD 06/05/16 15:58 Consult to Physician [CONS] Routine Consulting Provider: HAJA LOW Reason For Exam: protinuria Place consult to:: HAJA LOW Notified:: Bela from answering service Phone number called:: [phone] Was contact made?: Yes Time called:: 20:45 Primary care physician: SENIOR WATER/WASTEWATER ENGINEER Hospitalization Reason for admission: anascar Condition: Stable Hospital course: 46-year-old female with past medical history of HIV, diabetes with neuropathy, hypertension and hypercholesterolemia who presents with complaints of abdominal pain, abdominal swelling, and bilateral swelling of the feet. The patient states the symptoms have lasted for a few days. The abdominal distention is also painful. The pain is sharp, and decreases when she lays on her right side. It is all over, and does not radiate anywhere. She does not have chest pain. She has chronic shortness of breath with exertion, she reports the abdominal distention has made her shortness of breath worse. No nausea, vomiting or diarrhea. Patient also reports PND and orthopnea. She proceeded to have stress test which was negative. Echocardiogram did reveal ejection fraction of 55-60%. Patient was treated with IV Lasix and subsequently changed to by mouth. She did have a urinalysis which shows significant proteinuria for which nephrology was consulted. Her renal function remained stable. She is to follow with supply chain technician and coagulator outpatient. She was examined for home O2 but was satting 93% on room air and is clinically stable at this point for discharge. I did discuss the Lasix on treatments with her side effects discussed patient verbalized understanding. Consider initial tachycardia with a discuss initiation of beta barb but patient refused this point states that she would like to reevaluate this after visiting with her primary care doctor. She understands the risk associated. * acute diastolic congestive heart failure * Abdominal pain with nausea and vomiting-resolved * HIV * Hypertension * Anemia * Bacteremia * Moderate proteinuria * Diabetes mellitus * Hyperlipidemia * Diabetic gastroparesis * Morbid obesity with BMI of 48.4 Disposition: DISCHARGED TO HOME OR SELFCARE Time spent for discharge: 35 mins Core Measure Documentation - Palliative Care Palliative Care/ Comfort Measures: Not Applicable - Core Measures Any of the following diagnoses?: heart failure - VTE Discharge Requirements Deep Vein Thrombosis/Pulmonary Embolism Present on Admission: No - Heart Failure Discharge Requirements MATEO/ARB for LVSD if EF <40%: Yes Beta barb at discharge: No Reason for no beta barb on DC: Patient refusal Exam - Physical Exam Narrative exam: VITAL SIGNS: Reviewed. GENERAL: The patient appeared well nourished and normally developed, obese.lying in bed with oxygen in place. Vital signs as documented. HEAD: No signs of head trauma. EYES: Pupils are equal. Extraocular motions intact. EARS: Hearing grossly intact. MOUTH: Oropharynx is normal. NECK: No adenopathy, no JVD. CHEST: Chest with clear breath sounds bilaterally. No wheezes, rales, or rhonchi. CARDIAC: Regular rate and rhythm. S1 and S2, without murmurs, gallops, or rubs. VASCULAR: trace pitting Edema. Peripheral pulses normal and equal in all extremities. ABDOMEN: Soft, without detectable tenderness. No sign of distention. No rebound or guarding, and no masses palpated. Bowel Sounds normal. MUSCULOSKELETAL: Good range of motion of all major joints. Extremities without clubbing, cyanosis and trace pitting edema. NEUROLOGIC EXAM: Alert and oriented x 3. No focal sensory or strength deficits. Speech normal. Follows commands. PSYCHIATRIC: Mood normal. SKIN: No rash or lesions. - Constitutional Vitals: Temp Pulse Resp BP Pulse Ox 98.0 F 86 18 127/77 98 06/07/16 08:45 06/07/16 08:45 06/07/16 08:45 06/07/16 08:45 06/07/16 08:45 Plan Activity: advance as tolerated, fall precautions Diet: low salt Special Instructions: restrict fluid intake to (1500cc/day), record daily weights, record daily BP diary, record blood sugar diary Follow up with: PRIMARY CAREMD [Primary Care Provider] - 3-5 Days CORA BANERJEE MD [Staff Physician] - 7 Days DEON RIVERA MD [Staff Physician] - 14 Days Forms: Work/School Release Form Prescriptions: Furosemide [Lasix TAB] 40 mg PO QDAY #30 tablet Losartan [Cozaar] 25 mg PO QDAY #30 tablet oxyCODONE /ACETAMINOPHEN [Percocet 5/325 mg] 1 tab PO Q6HR PRN #14 tablet PRN Reason: Pain, Moderate (4-6)
== END 2016-06-07 13:14 | disposition home or self-care (01) | DRG 291 ==
LOC: ED 00:47 → 4A 10:32
PROVIDERS: ADMIT Hospitalist; ATTEND Internal Medicine
DX: I11.0 Hypertensive heart disease with heart failure (principal); B20 Human immunodeficiency virus [HIV] disease; Z68.42 Body mass index [BMI] 45.0-49.9, adult; R78.81 Bacteremia; N17.9 Acute kidney failure, unspecified; E11.40 Type 2 diabetes mellitus with diabetic neuropathy, unspecified; I50.31 Acute diastolic (congestive) heart failure; K31.84 Gastroparesis; E11.43 Type 2 diabetes mellitus with diabetic autonomic (poly)neuropathy; E78.5 Hyperlipidemia, unspecified; F41.9 Anxiety disorder, unspecified; F32.9 Major depressive disorder, single episode, unspecified; I08.0 Rheumatic disorders of both mitral and aortic valves; R11.2 Nausea with vomiting, unspecified; E66.01 Morbid (severe) obesity due to excess calories; E11.65 Type 2 diabetes mellitus with hyperglycemia; E11.21 Type 2 diabetes mellitus with diabetic nephropathy; D64.9 Anemia, unspecified; E87.5 Hyperkalemia; Z79.4 Long term (current) use of insulin; Z88.6 Allergy status to analgesic agent; Z90.49 Acquired absence of other specified parts of digestive tract
CPT/HCPCS: 36415; 71020; 71275; 74177; 78452; 80048; 80053; 81001; 82962; 83690; 83880; 84156; 84484; 84703; 85025; 85027; 85610; 85730; 93005; 93010; 93017; 93306; 93970; 96374; 96375; A9502; J1650; J1815; J1818; J1885; J1940; J2270; J2405; J2785; Q9967

== ENCOUNTER 2016-11-03 15:34 | Emergency (ER) | payer BC, OTHER ==
[2016-11-03 16:38] LABS: Basophils % (Auto) 0.9 % (0.0-1.8); Eosinophils % (Auto) 1.5 % (0.0-4.3); Hematocrit 33.2 % (30.3-42.9); Hemoglobin 10.8 gm/dl (10.1-14.3); Mean Corpuscular HGB Conc 33 % (30-34); Mean Corpuscular Hemoglobin 29 pg (28-32); Mean Corpuscular Volume 90 fl (79-97); Platelet Count 385 K/mm3 (140-440); Red Blood Count 3.68 M/mm3 (3.65-5.03); Red Cell Distribution Width 15.4 % (13.2-15.2); White Blood Count 9.9 K/mm3 (4.5-11.0)
[2016-11-03 16:47] LABS: INR 0.85 (0.87-1.13)
[2016-11-03 16:48] LABS: Partial Thromboplastin Time 25.9 Sec. (24.2-36.6)
[2016-11-03 17:03] LABS: Alanine Aminotransferase 28 units/L (7-56); Albumin 3.7 g/dL (3.9-5); Albumin/Globulin Ratio 0.9 %; Alkaline Phosphatase 125 units/L (35-129); Anion Gap 22 mmol/L; Bilirubin,Total < 0.20 mg/dL (0.1-1.2); Blood Urea Nitrogen 27 mg/dL (7-17); Calcium 9.3 mg/dL (8.4-10.2); Carbon Dioxide 22 mmol/L (22-30); Chloride 90.9 mmol/L (98-107); Glucose 353 mg/dL (65-100); Lipase 33 units/L (13-60); Potassium 5.1 mmol/L (3.6-5.0); Sodium 130 mmol/L (137-145); Total Protein 7.9 g/dL (6.3-8.2)
[2016-11-03 17:08] LABS: Bilirubin,Direct < 0.2 mg/dL (0-0.2)
[2016-11-03] MEDS ORDERED: ZOFRAN IV ONE (17:25)
[2016-11-03] MEDS ORDERED: MORPHINE IV ONE ×2 (17:25→20:27)
--- NOTE | 2016-11-03 17:30 | Emergency Department Report ---
ED Abdominal Pain HPI - General Chief Complaint: Abdominal Pain Stated Complaint: ABD SWELLING Time Seen by Provider: 11/03/16 17:20 Source: patient, EMS Mode of arrival: Stretcher Limitations: No Limitations - History of Present Illness Initial Comments: 46-year-old history of congestive heart failure presented today with left flank pain that started yesterday associated with nausea and vomiting denied any diarrhea denied any urinary symptoms or fever. Patient does have history of gastroparesis stated that her symptom is different this time from previous. MD Complaint: abdominal pain -: days(s) (two) Location: L flank Quality: stabbing Associated Symptoms: nausea, vomiting. denies: diarrhea, fever - Related Data Home Medications Medication Instructions Recorded Confirmed Last Taken Elviteg/Sumi/Emtric/Tenofo Ala 1 each PO QDAY 05/10/16 11/03/16 11/03/16 [Genvoya (Nf)] Bumetanide [Bumex 1 mg tab] 1 mg PO BID 11/03/16 11/03/16 11/03/16 Dicyclomine [Bentyl] 20 mg PO QID 11/03/16 11/03/16 11/03/16 Duloxetine HCl [Irenka] 40 mg PO DAILY 11/03/16 11/03/16 11/03/16 Gabapentin [Neurontin] 600 mg PO Q8H 11/03/16 11/03/16 11/03/16 Insulin Detemir [Levemir] 40 unit SQ QHS 11/03/16 11/03/16 11/02/16 Insulin Lispro [Humalog 100 15 units SQ AC 11/03/16 11/03/16 11/03/16 UNITS/ML Kwikpen] Metoclopramide [Reglan] 10 mg PO TID 11/03/16 11/03/16 11/03/16 Previous Rx's Medication Instructions Recorded Last Taken Type Ondansetron [Zofran Odt] 4 mg PO Q8HR PRN #14 tab.rapdis 11/04/16 Unknown Rx oxyCODONE /ACETAMINOPHEN [Percocet 1 tab PO Q6HR PRN #14 tablet 11/04/16 Unknown Rx 5/325] Allergies Allergy/AdvReac Type Severity Reaction Status Date / Time aspirin Allergy Swelling Verified 05/10/16 05:48 ED Review of Systems ROS: Stated complaint: ABD SWELLING Other details as noted in HPI Comment: All other systems reviewed and negative Constitutional: denies: chills, fever Respiratory: denies: cough, orthopnea, shortness of breath Cardiovascular: orthopnea. denies: chest pain, palpitations Gastrointestinal: abdominal pain, nausea, vomiting Genitourinary: denies: urgency, dysuria Musculoskeletal: back pain ED Past Medical Hx - Past Medical History Previous Medical History?: Yes Hx Hypertension: Yes Hx Congestive Heart Failure: Yes Hx Diabetes: Yes Hx HIV: Yes - Surgical History Hx Cholecystectomy: Yes Additional Surgical History: C-Sec x 5 - Social History Smoking Status: Never Smoker Substance Use Type: None - Medications Home Medications: Home Medications Medication Instructions Recorded Confirmed Last Taken Type Elviteg/Sumi/Emtric/Tenofo Ala 1 each PO QDAY 05/10/16 11/03/16 11/03/16 History [Genvoya (Nf)] Bumetanide [Bumex 1 mg tab] 1 mg PO BID 11/03/16 11/03/16 11/03/16 History Dicyclomine [Bentyl] 20 mg PO QID 11/03/16 11/03/16 11/03/16 History Duloxetine HCl [Irenka] 40 mg PO DAILY 11/03/16 11/03/16 11/03/16 History Gabapentin [Neurontin] 600 mg PO Q8H 11/03/16 11/03/16 11/03/16 History Insulin Detemir [Levemir] 40 unit SQ QHS 11/03/16 11/03/16 11/02/16 History Insulin Lispro [Humalog 100 15 units SQ AC 11/03/16 11/03/16 11/03/16 History UNITS/ML Kwikpen] Metoclopramide [Reglan] 10 mg PO TID 11/03/16 11/03/16 11/03/16 History Ondansetron [Zofran Odt] 4 mg PO Q8HR PRN #14 tab.rapdis 11/04/16 Unknown Rx oxyCODONE /ACETAMINOPHEN [Percocet 1 tab PO Q6HR PRN #14 tablet 11/04/16 Unknown Rx 5/325] ED Physical Exam - General Limitations: No Limitations General appearance: alert, in no apparent distress - Head Head exam: Present: normocephalic - Eye Eye exam: Present: normal appearance - ENT ENT exam: Present: normal exam - Neck Neck exam: Present: normal inspection, full ROM. Absent: tenderness, meningismus - Respiratory Respiratory exam: Present: normal lung sounds bilaterally. Absent: wheezes, rales, rhonchi - Cardiovascular Cardiovascular Exam: Present: regular rate, normal rhythm, normal heart sounds - GI/Abdominal GI/Abdominal exam: Present: soft. Absent: tenderness, guarding, rebound, normal bowel sounds, mass, bruit, pulsatile mass - Extremities Exam Extremities exam: Present: normal inspection - Back Exam Back exam: Present: normal inspection, CVA tenderness (L). Absent: tenderness, CVA tenderness (R), muscle spasm, paraspinal tenderness - Neurological Exam Neurological exam: Present: alert, oriented X3, CN II-XII intact - Skin Skin exam: Present: warm, normal color ED Course Vital Signs 11/03/16 11/03/16 11/03/16 15:46 16:02 16:30 Temperature 98.7 F Pulse Rate 97 H Respiratory 18 Rate Blood Pressure 152/89 O2 Sat by Pulse 98 98 97 Oximetry 11/03/16 11/03/16 11/03/16 17:21 17:31 18:01 Temperature Pulse Rate 92 H 93 H 93 H Respiratory 18 17 14 Rate Blood Pressure 167/100 167/100 O2 Sat by Pulse 97 97 97 Oximetry 11/03/16 11/03/16 11/03/16 18:31 19:00 19:20 Temperature Pulse Rate 92 H 93 H Respiratory 12 12 Rate Blood Pressure 157/91 155/91 O2 Sat by Pulse 99 98 99 Oximetry 11/03/16 11/03/16 11/03/16 19:31 20:00 20:31 Temperature Pulse Rate 93 H 88 87 Respiratory 12 11 L 10 L Rate Blood Pressure 155/91 141/83 141/83 O2 Sat by Pulse 100 98 99 Oximetry 11/03/16 11/03/16 11/03/16 21:00 22:45 23:00 Temperature Pulse Rate 93 H 85 88 Respiratory 12 12 10 L Rate Blood Pressure 136/89 136/89 147/87 O2 Sat by Pulse 98 99 100 Oximetry 11/03/16 23:31 Temperature Pulse Rate 85 Respiratory 10 L Rate Blood Pressure 136/89 O2 Sat by Pulse 100 Oximetry - Reevaluation(s) Reevaluation #1: 11/03/16 20:04 Patient stated that she is feeling better. The CT results and I ordered an ultrasound as directed by the radiologist Reevaluation #2: 11/03/16 23:51 Patient stated that she is feeling better her pain is subsided, informed about her CT abdomen and pelvis results also her ultrasound in the fighting off a large ovarian cystic mass. I discuss her with Dr. Ruby who stated that the patient can be discharged home and to follow-up with her in the office tomorrow at 2:15 PM for further management. 11/04/16 00:00 11/04/16 00:07 ED Medical Decision Making - Lab Data Result diagrams: 11/03/16 16:19 11/03/16 16:19 Critical care attestation.: If time is entered above; I have spent that time in minutes in the direct care of this critically ill patient, excluding procedure time. ED Disposition Clinical Impression: Abdominal pain, Ovarian cyst Disposition: DC-01 TO HOME OR SELFCARE Is pt being admited?: No Does the pt Need Aspirin: No Condition: Stable Instructions: Abdominal Pain (ED), Ovarian Cyst (ED) Additional Instructions: Follow-up with Dr. Ruby at 2:15 PM Referrals: PRIMARY CAREMD [Primary Care Provider] - 3-5 Days TRESSA RUBY MD [Staff Physician] - 3-5 Days
[2016-11-03] MEDS ORDERED: NACL ONE (17:35)
[2016-11-03 17:53] LABS: Bilirubin,Urine NEG (Negative); Blood,Urine SM (Negative); Ketones,Urine NEG (Negative); Leukocyte Esterase,Urine NEG (Negative); Nitrite,Urine NEG (Negative); Urobilinogen,Urine < 2.0 mg/dL (<2.0); WBC,Urine < 1.0 /HPF (0.0-6.0)
--- NOTE | 2016-11-03 19:54 | Cat Scan Report ---
FINAL REPORT PROCEDURE: CT ABDOMEN PELVIS W CON TECHNIQUE: Computerized axial tomography of the abdomen and pelvis was performed after the IV injection of iodinated nonionic contrast. HISTORY: abdominal pain COMPARISON: No prior studies are available for comparison. FINDINGS: Probable CHF is seen and there may be mild pulmonary edema. Mild ground-glass lung densities may just be hypoventilatory changes, though. Spleen appears normal. There is a hepatomegaly without focal hepatic abnormality. Patient has had prior cholecystectomy. Pancreas appears normal. The adrenal glands and abdominal aorta are normal in size. There is likely a 1.2 cm cyst in the lower pole of the left kidney. Increased perinephric streaky densities are seen bilaterally which could be due to poor renal function. No obvious changes of pyelonephritis are seen. 5 millimeter hypodensity in the superior pole of the right kidney may be a cyst but is too small to characterize. No hydronephrosis or ureterectasis is seen. Bladder appears normal. 11.9 x 6.3 cm cyst is seen in the left adnexal region. This is probably of ovarian origin. Confirmation with ultrasound is recommended given its large size. Right ovary appears normal. Normal appendix is seen. No free pelvic fluid is seen. Shotty lymph nodes are seen in the abdomen, pelvis, and groins. There may be mild constipation. IMPRESSION: 11.9 x 6.3 cm cyst in the left adnexa is probably of ovarian origin. Confirmation with ultrasound is recommended. There are increased perinephric streaky densities that may be from poor renal function. Correlation with serum labs is recommended. Probable small cysts are seen in the kidneys. There is CHF and possible mild pulmonary edema.
--- NOTE | 2016-11-03 23:36 | Ultrasound Report ---
FINAL REPORT PROCEDURE: US TRANSVAGINAL TECHNIQUE: Real-time transabdominal sonography in multiple planes of the pelvis was performed. The pelvic structures, especially the ovaries were not optimally visualized. Transvaginal sonography was then performed to better evaluate the structures and/or abnormalities described below with image documentation. CPT 33958 and 29681 HISTORY: ABDOMINAL PAIN COMPARISON: CT exam from same day FINDINGS: Uterus measures 11.2 cm in length. Endometrial thickness is 1 cm. No uterine mass is identified. Ovaries cannot be identified due to patient body habitus and bowel gas. There is a large cystic structure in the left adnexa measuring 11.2 x 5.8 x 6.6 cm. It may be an ovarian cyst but cannot be confirmed on this study. No associated soft tissue mass is identified. No free pelvic fluid is seen. IMPRESSION: Large cyst is seen in the left adnexa and appears to be a simple cyst. Ovaries cannot be identified to confirm origin of the cyst or assess for ovarian torsion. No free pelvic fluid is seen.
--- NOTE | 2016-11-03 23:37 | Ultrasound Report ---
FINAL REPORT PROCEDURE: US PELVIC COMPLETE TECHNIQUE: Real-time transabdominal sonography in multiple planes of the pelvis was performed. The pelvic structures, especially the ovaries were not optimally visualized. Transvaginal sonography was then performed to better evaluate the structures and/or abnormalities described below with image documentation. CPT 16074 and 70081 HISTORY: abdominal pain, r/o Ovarian torsion COMPARISON: No prior studies are available for comparison. FINDINGS: Uterus measures 11.2 cm in length. Endometrial thickness is 1 cm. No uterine mass is identified. Ovaries cannot be identified due to patient body habitus and bowel gas. There is a large cystic structure in the left adnexa measuring 11.2 x 5.8 x 6.6 cm. It may be an ovarian cyst but cannot be confirmed on this study. No associated soft tissue mass is identified. No free pelvic fluid is seen. IMPRESSION: Large cyst is seen in the left adnexa and appears to be a simple cyst. Ovaries cannot be identified to confirm origin of the cyst or assess for ovarian torsion. No free pelvic fluid is seen.
[2016-11-04 00:29] VITALS: BP 142/80
== END 2016-11-04 00:29 | disposition home or self-care (01) ==
LOC: ED 15:34
DX: N83.202 Unspecified ovarian cyst, left side (principal); I10 Essential (primary) hypertension; I50.9 Heart failure, unspecified; E11.9 Type 2 diabetes mellitus without complications; Z90.49 Acquired absence of other specified parts of digestive tract; Z88.6 Allergy status to analgesic agent
CPT/HCPCS: 36415; 74177; 76830; 76856; 80048; 80074; 81001; 82962; 83690; 83880; 84484; 85025; 85610; 85730; 93005; 93010; 96374; 96375; 96376; 99285; J2270; J2405; Q9967; J1815

== ENCOUNTER 2016-11-14 10:27 | Emergency (ER) | payer SELFPAY ==
[2016-11-14 11:12] VITALS: BP 160/96
[2016-11-14 12:18] LABS: Bilirubin,Urine NEG (Negative); Blood,Urine SM (Negative); Ketones,Urine NEG (Negative); Leukocyte Esterase,Urine NEG (Negative); Mucus,Urine FEW /HPF; Nitrite,Urine NEG (Negative); Urobilinogen,Urine < 2.0 mg/dL (<2.0)
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
== END 2016-11-14 13:38 | disposition home or self-care (01) ==
LOC: ED 10:27
DX: Z11.3 Encounter for screening for infections with a predominantly sexual mode of transmission (principal)
CPT/HCPCS: 81001; 81025; 99282

== ENCOUNTER 2017-02-14 12:02 | Emergency (ER) | payer MEDICAID ==
[2017-02-14 12:43] VITALS: BP 176/102
--- NOTE | 2017-02-14 13:23 | XRay Report ---
ROUTINE CHEST, TWO VIEWS: HISTORY: Shortness of breath. The trachea, heart, mediastinal contour, lung regan and bony thorax are unremarkable. IMPRESSION: Unremarkable chest x-ray.
[2017-02-14 14:13] LABS: Basophils % (Auto) 0.9 % (0.0-1.8); Eosinophils % (Auto) 0.7 % (0.0-4.3); Hematocrit 34.5 % (30.3-42.9); Hemoglobin 11.5 gm/dl (10.1-14.3); Mean Corpuscular HGB Conc 33 % (30-34); Mean Corpuscular Hemoglobin 32 pg (28-32); Mean Corpuscular Volume 96 fl (79-97); Platelet Count 330 K/mm3 (140-440); Red Cell Distribution Width 14.5 % (13.2-15.2)
[2017-02-14 14:32] LABS: BUN/Creatinine Ratio 33; Blood Urea Nitrogen 36 mg/dL (7-17); Calcium 9.1 mg/dL (8.4-10.2); Carbon Dioxide 20 mmol/L (22-30); Chloride 89.2 mmol/L (98-107); Sodium 125 mmol/L (137-145)
[2017-02-14 14:33] LABS: Glucose 520 mg/dL (65-100)
[2017-02-14 14:35] LABS: Anion Gap 21 mmol/L; Potassium 5.4 mmol/L (3.6-5.0)
== END 2017-02-14 14:00 | disposition left against medical advice (07) ==
LOC: ED 12:02
DX: R19.00 Intra-abdominal and pelvic swelling, mass and lump, unspecified site (principal); Z53.21 Procedure and treatment not carried out due to patient leaving prior to being seen by health care provider
CPT/HCPCS: 36415; 71020; 80048; 82805; 82962; 83880; 84484; 85025; 93005; 93010

== ENCOUNTER 2017-11-27 16:51 | Inpatient (IN) | payer MEDICAID ==
[2017-11-27] MEDS ORDERED: NITRO-BID 2% TP ONE (18:02)
[2017-11-27] MEDS ORDERED: LASIX IV ONE (18:02)
[2017-11-27] MEDS ORDERED: SUBLIMAZE IV ONE (18:02)
[2017-11-27] MEDS ORDERED: ZOFRAN IV ONE (18:02)
--- NOTE | 2017-11-27 18:08 | Emergency Department Report ---
HPI - General Chief Complaint: Dyspnea/Respdistress Time Seen by Provider: 11/27/17 17:52 - HPI HPI: Room 24 The patient is a 47-year-old female presenting with a chief complaint of edema and chest pain. The patient states for the past 4 days she has noticed diffuse edema. The patient states she is also exhibited dyspnea on exertion for the past 4 days. The patient has a history of CHF and states she's been taking her diuretic as prescribed. The patient states she developed substernal chest pain described as a pressure this morning and it has been constant associated with shortness of breath and nausea. Patient denies vomiting or diaphoresis. The patient states she's never had a cardiac catheterization her last stress test occurred last year Location: [See above] Duration: 4 days Quality: Pain, pressure Severity: Moderate Modifying factors: [see above] Context: [see above] Mode of transportation: [not driving] ED Past Medical Hx - Past Medical History Hx Hypertension: Yes Hx Congestive Heart Failure: Yes Hx Diabetes: Yes Hx Renal Disease: Yes (chronic renal insufficiency) Hx HIV: Yes Additional medical history: Gastroparesis, neuropathy - Surgical History Hx Cholecystectomy: Yes Additional Surgical History: C-Sec x 5 - Family History Family history: no significant - Social History Smoking Status: Never Smoker Substance Use Type: None (denies illicit drug use) - Medications Home Medications: Home Medications Medication Instructions Recorded Confirmed Last Taken Type Elviteg/Sumi/Emtric/Tenofo Ala 1 each PO QDAY 05/10/16 11/03/16 11/03/16 History [Genvoya (Nf)] Bumetanide [Bumex 1 mg tab] 1 mg PO BID 11/03/16 11/03/16 11/03/16 History Detemir (Nf) [Levemir] 40 unit SQ QHS 11/03/16 11/03/16 11/02/16 History Dicyclomine [Bentyl] 20 mg PO QID 11/03/16 11/03/16 11/03/16 History Duloxetine HCl [Irenka] 40 mg PO DAILY 11/03/16 11/03/16 11/03/16 History Gabapentin [Neurontin] 600 mg PO Q8H 11/03/16 11/03/16 11/03/16 History Insulin Lispro [Humalog 100 15 units SQ AC 11/03/16 11/03/16 11/03/16 History UNITS/ML Kwikpen] Metoclopramide [Reglan] 10 mg PO TID 11/03/16 11/03/16 11/03/16 History Ondansetron [Zofran Odt] 4 mg PO Q8HR PRN #14 tab.rapdis 11/04/16 Unknown Rx oxyCODONE /ACETAMINOPHEN [Percocet 1 tab PO Q6HR PRN #14 tablet 11/04/16 Unknown Rx 5/325] ED Review of Systems ROS: Stated complaint: KYLEE EDEMA Other details as noted in HPI Constitutional: denies: diaphoresis Eyes: denies: eye pain ENT: denies: throat pain Respiratory: shortness of breath Cardiovascular: chest pain, dyspnea on exertion Endocrine: no symptoms reported Gastrointestinal: nausea. denies: abdominal pain, vomiting Genitourinary: denies: dysuria Musculoskeletal: denies: back pain Neurological: denies: headache Physical Exam - Physical Exam Vital Signs: Vital Signs 11/27/17 17:52 Pulse Rate 88 Respiratory 24 Rate Blood Pressure 150/83 O2 Sat by Pulse 94 Oximetry Physical Exam: GENERAL: The patient is well-developed well-nourished female lying in stretcher not appearing to be in acute distress. [] HEENT: Normocephalic. Atraumatic. Extraocular motions are intact. Patient has moist mucous membranes. NECK: Supple. Trachea midline CHEST/LUNGS: Trace crackles left base. There is no respiratory distress noted. HEART/CARDIOVASCULAR: Regular. There is no tachycardia. There is no gallop rub or murmur. ABDOMEN: Abdomen is soft, nontender. Patient has normal bowel sounds. There is no abdominal distention. SKIN: There is no rash. There is 2+ bilateral lower extremity pitting edema. There is no diaphoresis. NEURO: The patient is awake, alert, and oriented. The patient is cooperative. The patient has normal speech MUSCULOSKELETAL: There is no evidence of acute injury. ED Course Vital Signs 11/27/17 17:52 Pulse Rate 88 Respiratory 24 Rate Blood Pressure 150/83 O2 Sat by Pulse 94 Oximetry ED Medical Decision Making - Lab Data Result diagrams: 11/27/17 18:07 11/27/17 18:07 Laboratory Tests 11/27/17 11/27/17 11/27/17 18:07 18:07 18:07 WBC 14.9 H RBC 3.59 L Hgb 11.8 Hct 35.3 MCV 99 H MCH 33 H MCHC 34 RDW 14.8 Plt Count 318 Lymph % (Auto) 11.6 L [place] % (Auto) 4.0 Eos % (Auto) 0.6 Baso % (Auto) 1.0 Lymph # 1.7 [place] # 0.6 Eos # 0.1 Baso # 0.1 Seg Neutrophils % 82.8 H Seg Neutrophils # 12.4 H PT 12.4 INR 0.88 APTT < 20.0 L Sodium 130 L Potassium 4.5 Chloride 96.5 L Carbon Dioxide 20 L Anion Gap 18 BUN 43 H Creatinine 1.9 H Estimated GFR 34 BUN/Creatinine Ratio 23 Glucose 432 H Calcium 9.1 Total Bilirubin 0.40 AST 23 ALT 16 Alkaline Phosphatase 116 Total Creatine Kinase 112 CK-MB (CK-2) 3.2 CK-MB (CK-2) Rel Index 2.8 Troponin T 0.040 H NT-Pro-B Natriuret Pep 3782 H Total Protein 8.0 Albumin 3.3 L Albumin/Globulin Ratio 0.7 Triglycerides 429 H Cholesterol 257 H LDL Cholesterol Direct TNR HDL Cholesterol 50 Cholesterol/HDL Ratio 5.14 - EKG Data -: EKG Interpreted by Me EKG shows normal: sinus rhythm Rate: normal - EKG Data When compared to previous EKG there are: previous EKG unavailable Interpretation: nonspecific ST-T wave jessica (T-wave inversion in leads 1, aVL) - Radiology Data Radiology results: image reviewed (chest x-ray) interpreted by me: Chest x-ray-CHF. No pneumothorax - Differential Diagnosis CHF exacerbation, ACS, pericarditis, GERD Critical care attestation.: If time is entered above; I have spent that time in minutes in the direct care of this critically ill patient, excluding procedure time. ED Disposition Clinical Impression: Chest pain, CHF exacerbation, Shortness of breath Disposition: OP ADMIT IP TO THIS HOSP Is pt being admited?: Yes Condition: Fair Instructions: Chest Pain (ED) Time of Disposition: 19:44
[2017-11-27 18:13] LABS: Basophils # (Auto) 0.1 K/mm3 (0.0-0.1); Eosinophils # (Auto) 0.1 K/mm3 (0.0-0.4); Eosinophils % (Auto) 0.6 % (0.0-4.3); Hematocrit 35.3 % (30.3-42.9); Hemoglobin 11.8 gm/dl (10.1-14.3); Lymphocytes # (Auto) 1.7 K/mm3 (1.2-5.4); Lymphocytes % (Auto) 11.6 % (13.4-35.0); Mean Corpuscular HGB Conc 34 % (30-34); Mean Corpuscular Hemoglobin 33 pg (28-32); Mean Corpuscular Volume 99 fl (79-97); Monocytes # (Auto) 0.6 K/mm3 (0.0-0.8); Platelet Count 318 K/mm3 (140-440); Red Blood Count 3.59 M/mm3 (3.65-5.03); Red Cell Distribution Width 14.8 % (13.2-15.2)
[2017-11-27 18:29] LABS: INR 0.88 (0.87-1.13)
[2017-11-27 18:40] LABS: Creatine Kinase MB 3.2 ng/mL (0.0-4.0)
[2017-11-27 18:42] LABS: Alanine Aminotransferase 16 units/L (7-56); Albumin 3.3 g/dL (3.9-5); BUN/Creatinine Ratio 23; Blood Urea Nitrogen 43 mg/dL (7-17); Calcium 9.1 mg/dL (8.4-10.2); Hemolysis Index 36
[2017-11-27 18:55] LABS: Chol/HDL Ratio 5.14 %; HDL Cholesterol 50 mg/dL (40-59); LDL Cholesterol,Direct TNR mg/dL (50-130)
[2017-11-27 18:56] LABS: Partial Thromboplastin Time < 20.0 Sec. (24.2-36.6)
[2017-11-27] MEDS ORDERED: MORPHINE ONE ×2 (18:56)
[2017-11-27] MEDS ORDERED: PLAVIX PO ONE (18:58)
[2017-11-27] MEDS ORDERED: MORPHINE IV ONE (19:17)
--- NOTE | 2017-11-27 19:34 | History and Physical Report ---
History of Present Illness Chief complaint: My chest hurts, and its hard to breathe, and i feel swollen History of present illness: 47 YO Female with HTN, CHF, DM complicated by Gastroparesis and Neuropathy, HIV , CKD presents to ED for evaluation. Pt states that she has experienced pain in her chest over the past 4 days with worsening symptoms over the same time frame. Pt states that pain is 5/10, substernal, nonradiating, substernal, constant, associated with shortness of breath, Orthopnea/PND, Bilateral leg swelling, nausea. Pt denies fever, medication noncompliance, chills, productive cough, hemoptysis, BRBPR, skin rash, diaphoresis, unilateral leg swelling, calf pain, recent ill contacts. EMS notified, and upon arrival the patient was found to bed in respiratory failure. Pt transported to [facility] for further care and evaluation. Pt seen and evaluated in ED and found to have ACS, CHF Decompensation, Respiratory Failure, SIRS, Acidosis. Pt admitted to telemetry. Cardiology team consulted in ED. Past History Past Medical History: diabetes, heart failure, HIV/AIDS, hypertension, renal failure Past Surgical History: cholecystectomy, Social history: single, lives with family. denies: smoking, alcohol abuse, prescription drug abuse Family history: hypertension Medications and Allergies Allergies Allergy/AdvReac Type Severity Reaction Status Date / Time aspirin Allergy Swelling Verified 05/10/16 05:48 Home Medications Medication Instructions Recorded Confirmed Last Taken Type Elviteg/Sumi/Emtric/Tenofo Ala 1 each PO QDAY 05/10/16 11/03/16 11/03/16 History [Genvoya (Nf)] Bumetanide [Bumex 1 mg tab] 1 mg PO BID 11/03/16 11/03/16 11/03/16 History Detemir (Nf) [Levemir] 40 unit SQ QHS 11/03/16 11/03/16 11/02/16 History Dicyclomine [Bentyl] 20 mg PO QID 11/03/16 11/03/16 11/03/16 History Duloxetine HCl [Irenka] 40 mg PO DAILY 11/03/16 11/03/16 11/03/16 History Gabapentin [Neurontin] 600 mg PO Q8H 11/03/16 11/03/16 11/03/16 History Insulin Lispro [Humalog 100 15 units SQ AC 11/03/16 11/03/16 11/03/16 History UNITS/ML Kwikpen] Metoclopramide [Reglan] 10 mg PO TID 11/03/16 11/03/16 11/03/16 History Ondansetron [Zofran Odt] 4 mg PO Q8HR PRN #14 tab.rapdis 11/04/16 Unknown Rx oxyCODONE /ACETAMINOPHEN [Percocet 1 tab PO Q6HR PRN #14 tablet 11/04/16 Unknown Rx 5/325] Review of Systems Constitutional: no weight loss, no weight gain, no fever, no chills Ears, nose, mouth and throat: no ear pain, no ear discharge, no tinnitis, no decreased hearing, no nose pain Breasts: no change in shape, no swelling, no mass Cardiovascular: chest pain, orthopnea, shortness of breath, dyspnea on exertion , paroxysmal nocturnal dyspnea, decreased exercise tolerance Respiratory: no excessive sputum, no hemoptysis Gastrointestinal: no nausea, no vomiting, no diarrhea, no constipation Genitourinary Female: no pelvic pain, no flank pain, no menorrhagia, no dysuria , no urinary frequency, no urgency Rectal: no pain, no incontinence, no bleeding Musculoskeletal: no neck stiffness, no neck pain, no shooting arm pain, no arm numbness/tingling, no low back pain, no shooting leg pain Integumentary: no rash, no pruritis, no redness, no sores, no wounds Neurological: no head injury, no transient paralysis, no paralysis, no weakness , no parathesias, no numbness, no tingling Psychiatric: no anxiety, no memory loss, no change in sleep habits, no sleep disturbances, no insomnia, no hypersomnia, no change in appetite Endocrine: no cold intolerance, no heat intolerance, no polyphagia, no excessive thirst, no polydipsia, no polyuria, no nocturia Hematologic/Lymphatic: no easy bruising, no easy bleeding, no lymphadenopathy, no lymphedema Allergic/Immunologic: no urticaria, no allergic rhinitis, no wheezing, no persistent infections, no anaphylaxis, no angioedema Exam - Constitutional Vitals: Temp Pulse Resp BP Pulse Ox 88 24 150/83 94 11/27/17 17:52 11/27/17 17:52 11/27/17 17:52 11/27/17 17:52 General appearance: Present: mild distress - EENT Eyes: Present: PERRL ENT: hearing intact, clear oral mucosa - Neck Neck: Present: supple, normal ROM - Respiratory Respiratory effort: normal Respiratory: bilateral: diminished, rhonchi - Cardiovascular Heart Sounds: Present: S1 & S2. Absent: rub, click - Extremities Extremities: pulses symmetrical, No edema Extremity abnormal: edema Peripheral Pulses: within normal limits - Abdominal General gastrointestinal: Present: soft, non-tender, non-distended, normal bowel sounds Female genitourinary: Present: normal - Integumentary Integumentary: Present: clear, warm, dry - Musculoskeletal Musculoskeletal: gait normal, strength equal bilaterally - Psychiatric Psychiatric: appropriate mood/affect, intact judgment & insight - Neurologic Neurologic: CNII-XII intact, moves all extremities Results - Labs CBC & Chem 7: 11/27/17 18:07 11/27/17 18:07 Labs: Abnormal lab results 11/27/17 11/27/17 11/27/17 Range/Units 18:07 18:07 18:07 WBC 14.9 H (4.5-11.0) K/mm3 RBC 3.59 L (3.65-5.03) M/mm3 MCV 99 H (79-97) fl MCH 33 H (28-32) pg Lymph % (Auto) 11.6 L (13.4-35.0) % Seg Neutrophils % 82.8 H (40.0-70.0) % Seg Neutrophils # 12.4 H (1.8-7.7) K/mm3 APTT < 20.0 L (24.2-36.6) Sec. Sodium 130 L (137-145) mmol/L Chloride 96.5 L (98-107) mmol/L Carbon Dioxide 20 L (22-30) mmol/L BUN 43 H (7-17) mg/dL Creatinine 1.9 H (0.7-1.2) mg/dL Glucose 432 H (65-100) mg/dL Troponin T 0.040 H (0.00-0.029) ng/mL NT-Pro-B Natriuret Pep 3782 H (0-450) pg/mL Albumin 3.3 L (3.9-5) g/dL Triglycerides 429 H (2-149) mg/dL Cholesterol 257 H (50-199) mg/dL Assessment and Plan - Patient Problems (1) ACS (acute coronary syndrome) Current Visit: Yes Status: Acute Plan to address problem: Admit to telemetry, cardiology consulted, serial cardiac enzymes, ekg,telemetry , supportive care, morphine, supplemental oxygen, nitro, aspirin, (2) Acute CHF (congestive heart failure) Current Visit: No Status: Acute Plan to address problem: Cardiology consulted in ED, Echo, afterload reduction, strict I/O, monitor uop q shift, daily weight, chest x ray, bnp, d dimer (3) ANDREWS (acute kidney injury) Current Visit: No Status: Acute Plan to address problem: monitor uop q shift, avoid nephrotoxic agents, urine electrolytes. (4) SIRS (systemic inflammatory response syndrome) Current Visit: No Status: Acute Plan to address problem: Empiric IV antibiotic therapy, lactic acid level, cbc, urinalysis, chest x ray (5) HTN (hypertension) Current Visit: No Status: Chronic Qualifiers: Hypertension type: essential hypertension Qualified Code(s): I10 - Essential (primary) hypertension Plan to address problem: Monitor bp q shift, resume prehospital medication. (6) Acidosis Current Visit: Yes Status: Acute Plan to address problem: IVF resuscitation therapy, lactic acid level, (7) Hyponatremia syndrome Current Visit: Yes Status: Acute Plan to address problem: IVF resuscitation therapy, repeat bmp, (8) HIV (human immunodeficiency virus infection) Current Visit: Yes Status: Acute Plan to address problem: Continue antiretroviral therapy, outpatient ID f/u care. (9) Respiratory failure Current Visit: Yes Status: Acute Qualifiers: Chronicity: acute Respiratory failure complication: hypoxia Qualified Code(s): J96.01 - Acute respiratory failure with hypoxia Plan to address problem: Supplemental oxygen, nebulizer therapy, chest x ray, NIPPV as clinically indicated. (10) DVT prophylaxis Current Visit: No Status: Acute Plan to address problem: SCD to BLE while in bed.
[2017-11-27] MEDS ORDERED: BABY ASPIRIN PO STA (19:50)
[2017-11-27] MEDS ORDERED: NITROSTAT SL PRN (19:50)
[2017-11-27] MEDS ORDERED: SODIUM CHLORIDE FLUSH SYRINGE 10 ML IV PRN ×2 (19:50)
[2017-11-27] MEDS ORDERED: ZOFRAN IV PRN (19:50)
[2017-11-27] MEDS ORDERED: PROVENTIL IH PRN (19:50)
[2017-11-27] MEDS ORDERED: TYLENOL PO PRN (19:50)
[2017-11-27] MEDS ORDERED: ZOFRAN ODT PO PRN (19:54)
[2017-11-27] MEDS ORDERED: NON-FORMULARY (Gabapentin [Neurontin] 600 MG) PO SCH (20:00)
--- NOTE | 2017-11-27 20:16 | XRay Report ---
FINAL REPORT PROCEDURE: XR CHEST 1V AP TECHNIQUE: Chest radiograph anteroposterior view. CPT 76481 HISTORY: chest pain COMPARISON: No prior studies are available for comparison. FINDINGS: The heart is magnified due to portable AP projection although I suspect is mildly enlarged. The pulmonary vasculature is significantly distended. There is mild peribronchial cuffing. There patchy alveolar densities in both bases. There is mild blunting of the left lateral costophrenic angle suggesting small left effusion. No acute bony abnormalities are seen per IMPRESSION: Cardiomegaly with pulmonary venous hypertension changes. I cannot exclude mild pulmonary edema and possibly small left effusion. No other abnormalities are identified..
[2017-11-27] MEDS ORDERED: DILAUDID IV ONE (21:07)
[2017-11-27 21:19] LABS: Bilirubin,Urine NEG (Negative); Blood,Urine SM (Negative); Color,Urine Yellow (Yellow); Mucus,Urine FEW /HPF; Urobilinogen,Urine < 2.0 mg/dL (<2.0)
[2017-11-27] MEDS ORDERED: DILAUDID ONE (21:22)
[2017-11-27] MEDS ORDERED: BABY ASPIRIN ONE (21:24)
[2017-11-27] MEDS ORDERED: PLAVIX ONE (21:24)
[2017-11-27] MEDS ORDERED: NEURONTIN ONE (21:24)
[2017-11-27] MEDS ORDERED: REGLAN ONE (21:24)
[2017-11-27] MEDS: REGLAN PO SCH (21:30)
[2017-11-27] MEDS ORDERED: BUMEX PO SCH (22:00)
[2017-11-27] MEDS ORDERED: DETEMIR SQ SCH (22:00)
[2017-11-27 22:47] LABS: Creatinine,Urine 40.6 mg/dL (0.1-20.0)
[2017-11-27] MEDS: SODIUM CHLORIDE FLUSH SYRINGE 10 ML IV SCH (22:59)
[2017-11-27] MEDS: NEURONTIN PO SCH (22:59)
[2017-11-27] MEDS ORDERED: PERCOCET 5/325 ONE (23:29)
[2017-11-27] MEDS: LANTUS SUB-Q SCH (23:39)
[2017-11-27] MEDS: BENTYL PO SCH (23:39)
[2017-11-28] MEDS: NEURONTIN PO SCH ×3 (05:23→21:02)
[2017-11-28] MEDS: PERCOCET 5/325 PO PRN ×3 (05:23→18:10)
[2017-11-28] MEDS ORDERED: INSULIN LISPRO 15 UNIT SQ SCH (07:30)
--- NOTE | 2017-11-28 07:47 | Progress Note ---
Assessment and Plan Assessment and plan: My chest hurts, and its hard to breathe, and i feel swollen History of present illness: 47 YO Female with HTN, CHF, DM complicated by Gastroparesis and Neuropathy, HIV , CKD presents with CP Past History Past Medical History: diabetes, heart failure, HIV/AIDS, hypertension, renal failure (1) ACS (acute coronary syndrome) Current Visit: Yes Status: Acute Plan to address problem: Admit to telemetry, cardiology consulted, serial cardiac enzymes, ekg,telemetry , supportive care, morphine, supplemental oxygen, nitro, aspirin, (2) Acute CHF (congestive heart failure) Current Visit: No Status: Acute Plan to address problem: Cardiology consulted in ED, Echo, afterload reduction, strict I/O, monitor uop q shift, daily weight, chest x ray, bnp, d dimer (3) ANDREWS (acute kidney injury) Current Visit: No Status: Acute Plan to address problem: monitor uop q shift, avoid nephrotoxic agents, urine electrolytes. (4) SIRS (systemic inflammatory response syndrome) Current Visit: No Status: Acute Plan to address problem: Empiric IV antibiotic therapy, lactic acid level, cbc, urinalysis, chest x ray (5) HTN (hypertension) Current Visit: No Status: Chronic Qualifiers: Hypertension type: essential hypertension Qualified Code(s): I10 - Essential (primary) hypertension Plan to address problem: Monitor bp q shift, resume prehospital medication. (6) Acidosis Current Visit: Yes Status: Acute Plan to address problem: IVF resuscitation therapy, lactic acid level, (7) Hyponatremia syndrome Current Visit: Yes Status: Acute Plan to address problem: IVF resuscitation therapy, repeat bmp, (8) HIV (human immunodeficiency virus infection) Current Visit: Yes Status: Acute Plan to address problem: Continue antiretroviral therapy, outpatient ID f/u care. (9) Respiratory failure Current Visit: Yes Status: Acute Qualifiers: Chronicity: acute Respiratory failure complication: hypoxia Qualified Code(s): J96.01 - Acute respiratory failure with hypoxia Plan to address problem: Supplemental oxygen, nebulizer therapy, chest x ray, NIPPV as clinically indicated. (10) DVT prophylaxis Current Visit: No Status: Acute Plan to address problem: SCD to BLE while in bed. Hospitalist Physical - Constitutional Vitals: Temp Pulse Resp BP Pulse Ox 98.3 F 77 17 105/61 96 11/28/17 04:56 11/28/17 04:56 11/28/17 04:56 11/28/17 04:56 11/28/17 04:56 General appearance: Present: mild distress Results - Labs CBC & Chem 7: 11/27/17 18:07 11/27/17 18:07 Labs: Laboratory Last Values WBC 14.9 K/mm3 (4.5-11.0) H 11/27/17 18:07 RBC 3.59 M/mm3 (3.65-5.03) L 11/27/17 18:07 Hgb 11.8 gm/dl (10.1-14.3) 11/27/17 18:07 Hct 35.3 % (30.3-42.9) 11/27/17 18:07 MCV 99 fl (79-97) H 11/27/17 18:07 MCH 33 pg (28-32) H 11/27/17 18:07 MCHC 34 % (30-34) 11/27/17 18:07 RDW 14.8 % (13.2-15.2) 11/27/17 18:07 Plt Count 318 K/mm3 (140-440) 11/27/17 18:07 Lymph % (Auto) 11.6 % (13.4-35.0) L 11/27/17 18:07 Amador % (Auto) 4.0 % (0.0-7.3) 11/27/17 18:07 Eos % (Auto) 0.6 % (0.0-4.3) 11/27/17 18:07 Baso % (Auto) 1.0 % (0.0-1.8) 11/27/17 18:07 Lymph # 1.7 K/mm3 (1.2-5.4) 11/27/17 18:07 Amador # 0.6 K/mm3 (0.0-0.8) 11/27/17 18:07 Eos # 0.1 K/mm3 (0.0-0.4) 11/27/17 18:07 Baso # 0.1 K/mm3 (0.0-0.1) 11/27/17 18:07 Seg Neutrophils % 82.8 % (40.0-70.0) H 11/27/17 18:07 Seg Neutrophils # 12.4 K/mm3 (1.8-7.7) H 11/27/17 18:07 PT 12.4 Sec. (12.2-14.9) 11/27/17 18:07 INR 0.88 (0.87-1.13) 11/27/17 18:07 APTT < 20.0 Sec. (24.2-36.6) L 11/27/17 18:07 D-Dimer 2773.38 ng/mlDDU (0-234) H 11/27/17 18:07 Sodium 130 mmol/L (137-145) L 11/27/17 18:07 Potassium 4.5 mmol/L (3.6-5.0) 11/27/17 18:07 Chloride 96.5 mmol/L (98-107) L 11/27/17 18:07 Carbon Dioxide 20 mmol/L (22-30) L 11/27/17 18:07 Anion Gap 18 mmol/L 11/27/17 18:07 BUN 43 mg/dL (7-17) H 11/27/17 18:07 Creatinine 1.9 mg/dL (0.7-1.2) H 11/27/17 18:07 Estimated GFR 34 ml/min 11/27/17 18:07 BUN/Creatinine Ratio 23 % 11/27/17 18:07 Glucose 432 mg/dL (65-100) H 11/27/17 18:07 POC Glucose 413 (70-105) H 11/28/17 06:23 Lactic Acid 1.80 mmol/L (0.7-2.0) 11/28/17 01:17 Calcium 9.1 mg/dL (8.4-10.2) 11/27/17 18:07 Total Bilirubin 0.40 mg/dL (0.1-1.2) 11/27/17 18:07 AST 23 units/L (5-40) 11/27/17 18:07 ALT 16 units/L (7-56) 11/27/17 18:07 Alkaline Phosphatase 116 units/L (35-129) 11/27/17 18:07 Total Creatine Kinase 112 units/L (30-135) 11/27/17 18:07 CK-MB (CK-2) 3.2 ng/mL (0.0-4.0) 11/27/17 18:07 CK-MB (CK-2) Rel Index 2.8 (0-4) 11/27/17 18:07 Troponin T 0.043 ng/mL (0.00-0.029) H 11/28/17 01:17 NT-Pro-B Natriuret Pep 3782 pg/mL (0-450) H 11/27/17 18:07 Total Protein 8.0 g/dL (6.3-8.2) 11/27/17 18:07 Albumin 3.3 g/dL (3.9-5) L 11/27/17 18:07 Albumin/Globulin Ratio 0.7 % 11/27/17 18:07 Triglycerides 429 mg/dL (2-149) H 11/27/17 18:07 Cholesterol 257 mg/dL (50-199) H 11/27/17 18:07 LDL Cholesterol Direct TNR 11/27/17 18:07 HDL Cholesterol 50 mg/dL (40-59) 11/27/17 18:07 Cholesterol/HDL Ratio 5.14 % 11/27/17 18:07 Urine Color Yellow (Yellow) 11/27/17 21:05 Urine Turbidity Slightly-cloudy (Clear) 11/27/17 21:05 Urine pH 5.0 (5.0-7.0) 11/27/17 21:05 Ur Specific [place] 1.012 (1.003-1.030) 11/27/17 21:05 Urine Protein 100 mg/dl mg/dL (Negative) 11/27/17 21:05 Urine Glucose (UA) >=500 mg/dL (Negative) 11/27/17 21:05 Urine Ketones Neg mg/dL (Negative) 11/27/17 21:05 Urine Blood Sm (Negative) 11/27/17 21:05 Urine Nitrite Neg (Negative) 11/27/17 21:05 Urine Bilirubin Neg (Negative) 11/27/17 21:05 Urine Urobilinogen < 2.0 mg/dL (<2.0) 11/27/17 21:05 Ur Leukocyte Esterase Sm (Negative) 11/27/17 21:05 Urine WBC (Auto) 16.0 /HPF (0.0-6.0) H 11/27/17 21:05 Urine RBC (Auto) 2.0 /HPF (0.0-6.0) 11/27/17 21:05 U Epithel Cells (Auto) 2.0 /HPF (0-13.0) 11/27/17 21:05 Urine Mucus Few /HPF 11/27/17 21:05 Urine Creatinine 40.6 mg/dL (0.1-20.0) H 11/27/17 21:14 Urine Sodium 51 mmol/L 11/27/17 21:14
[2017-11-28] MEDS: REGLAN PO SCH ×3 (07:52→20:22)
[2017-11-28] MEDS: HumaLOG SUB-Q SCH ×3 (07:53→17:48)
[2017-11-28] MEDS ORDERED: LEXISCAN IV ONE (08:16)
--- NOTE | 2017-11-28 09:14 | Consultation ---
History of Present Illness - Reason for Consult acute renal failure - History of Present Illness Pleasant 47 y/o [place] female with h/o CHF, DM, HTN, HIV, and morbid obesity , who presented to the ER secondary worsening edema/anasarca and dyspnea which per patient has been going on since the past 2 weeks. She states that she has been compliant with her torsemide 20 mg daily, and has been compliant with her low salt diet and fluid restrictions. She was shown to have an ANDREWS during initial lab studies prompting a nephrology consult. She states that she does also take occasional NSAID for chronic low back pain. She has never been told of any history or renal disease. She is not well aware of her family PMHx in regards to renal disease. She denies any h/o nephrolithiasis. To note she did have a NM stress test last year, and she is not aware of abnormalities. Past History Past Medical History: diabetes, heart failure, HIV/AIDS, hypertension, renal failure Past Surgical History: cholecystectomy, Social history: single, lives with family. denies: smoking, alcohol abuse, prescription drug abuse Family history: hypertension Medications and Allergies Allergies Allergy/AdvReac Type Severity Reaction Status Date / Time aspirin Allergy Swelling Verified 05/10/16 05:48 Home Medications Medication Instructions Recorded Confirmed Last Taken Type Abacavir [Ziagen TAB] 600 mg PO DAILY 11/28/17 11/28/17 11/27/17 History Gabapentin [Neurontin] 600 mg PO Q8H 11/28/17 11/28/17 11/27/17 History Insulin Detemir [Levemir VIAL] 45 unit SQ QHS 11/28/17 11/28/17 Unknown History Metoprolol [Lopressor] 100 mg PO DAILY 11/28/17 11/28/17 11/27/17 History Sertraline [Zoloft] 100 mg PO QDAY 11/28/17 11/28/17 11/27/17 History Torsemide [Demadex] 20 mg PO DAILY 11/28/17 11/28/17 11/26/17 History amLODIPine [Norvasc] 10 mg PO DAILY 11/28/17 11/28/17 11/26/17 History hydrALAZINE [Apresoline] 50 mg PO Q8HR 11/28/17 11/28/17 Unknown History lamiVUDine [Lamivudine] 150 mg PO DAILY 11/28/17 11/28/17 11/27/17 History traZODone [Desyrel] 150 mg PO QHS 11/28/17 11/28/17 11/27/17 History Active Meds: Active Medications Acetaminophen (Tylenol) 650 mg PO Q4H PRN PRN Reason: Pain MILD(1-3)/Fever >100.5/EDWARD Albuterol (Proventil) 2.5 mg IH Q4HRT PRN PRN Reason: Shortness Of Breath Bumetanide (Bumex) 1 mg PO BID [facility] Last Admin: 11/27/17 23:39 Dose: 1 mg Dicyclomine HCl (Bentyl) 20 mg PO QID [facility] Last Admin: 11/27/17 23:39 Dose: 20 mg Gabapentin (Neurontin) 600 mg PO Q8HR [facility] Last Admin: 11/28/17 05:23 Dose: 600 mg Ceftriaxone Sodium (Rocephin/Ns 1 Gm/50 Ml) 1 gm in 50 mls @ 100 mls/hr IV Q24HR [facility]; Protocol Insulin Glargine (Lantus) 40 units SUB-Q QHS [facility] Last Admin: 11/27/17 23:39 Dose: 40 units Insulin Human Lispro (Humalog) 15 unit SUB-Q AC [facility] Last Admin: 11/28/17 07:53 Dose: 15 unit Metoclopramide HCl (Reglan) 10 mg PO TID [facility] Last Admin: 11/28/17 07:52 Dose: 10 mg Miscellaneous Medication (Duloxetine Hcl [Irenka]) 40 mg PO DAILY [facility] Miscellaneous Medication (Elviteg/Sumi/Emtric/Tenofo Ala) 1 each PO QDAY [facility] Nitroglycerin (Nitrostat) 0.4 mg SL Q5M PRN PRN Reason: Chest Pain Ondansetron HCl (Zofran) 4 mg IV Q8H PRN PRN Reason: Nausea And Vomiting Ondansetron HCl (Zofran Odt) 4 mg PO Q8HR PRN PRN Reason: Nausea And Vomiting Oxycodone/Acetaminophen (Percocet 5/325) 1 tab PO Q6HR PRN PRN Reason: Pain Last Admin: 11/28/17 05:23 Dose: 1 tab Sodium Chloride (Sodium Chloride Flush Syringe 10 Ml) 10 ml IV BID [facility] Last Admin: 11/27/17 22:59 Dose: 10 ml Sodium Chloride (Sodium Chloride Flush Syringe 10 Ml) 10 ml IV PRN PRN PRN Reason: LINE FLUSH Sodium Chloride (Sodium Chloride Flush Syringe 10 Ml) 10 ml IV PRN PRN PRN Reason: LINE FLUSH Review of Systems All systems: negative Constitutional: weight gain, weakness Cardiovascular: edema, dyspnea on exertion Respiratory: shortness of breath Exam - Vital Signs Vital signs: Vital Signs Pulse Resp BP Pulse Ox 88 24 150/83 94 11/27/17 17:52 11/27/17 17:52 11/27/17 17:52 11/27/17 17:52 - General Appearance General appearance: well-developed, well-nourished, obese EENT: ATNC, PERRL Neck: Present: neck supple, trachea midline Respiratory: Decreased Breath Sounds Heart: regular, S1S2 Gastrointestinal: Present: normal, normoactive bowel sounds, obese Integumentary: no rash, warm and dry Neurologic: no focal deficit, no asterixis Musculoskeletal: Present: other (+edema ) Psychiatric: mood/affect appropriate, cooperative Results - Lab Results 11/27/17 18:07 11/27/17 18:07 Most recent lab results Calcium 9.1 mg/dL (8.4-10.2) 11/27/17 18:07 Urine Creatinine 40.6 mg/dL (0.1-20.0) H 11/27/17 21:14 Urine Sodium 51 mmol/L 11/27/17 21:14 Assessment and Plan - Patient Problems (1) ANDREWS (acute kidney injury) Current Visit: No Status: Acute Plan to address problem: Likely in the setting of acute cardiorenal syndrome and CHF exacerbation. Would continue with current diureis. She is actually on torsemide 20 mg daily at home and will switch her to this regimen and monitor. Needs to be on strict I/O, appropriate fluid restrictions, and she should have daily weights. Please avoid any nephrotoxins, maintain MAP > 65 mmHg Will obtain renal US. (2) Acute CHF (congestive heart failure) Current Visit: No Status: Acute Plan to address problem: Would favor to diurese patient. Will switch to torsemide 20 mg daily. Strict I/O, daily weights. Appreciate cardiology recommendations. (3) Hyponatremia syndrome Current Visit: Yes Status: Acute Plan to address problem: Hypervolemic Hyponatremia. Would avoid IVF hydration, continue with diuretic regimen. Would obtain urine electrolytes, urine osmolarity and serum osmolarity. (4) Proteinuria Current Visit: No Status: Chronic Plan to address problem: Raises concern that patient likely has baseline CKD, in the setting of uncontrolled diabetes, HTN, and HIV, UPC is pending at present time. Will monitor. (5) Uncontrolled diabetes mellitus with hyperglycemia Current Visit: No Status: Chronic Qualifiers: Diabetes mellitus type: type 2 Qualified Code(s): E11.65 - Type 2 diabetes mellitus with hyperglycemia; Z79.4 - emt intermediate (current) use of insulin Plan to address problem: Diabetes management per primary team. (6) HIV (human immunodeficiency virus infection) Current Visit: Yes Status: Acute
[2017-11-28] MEDS ORDERED: DULOXETINE HCL 40 MG PO SCH (10:00)
[2017-11-28] MEDS ORDERED: NON-FORMULARY (Elviteg/Cobi/Emtric/Tenofo Ala 1 EACH) PO SCH (10:00)
--- NOTE | 2017-11-28 10:29 | Consultation ---
History of Present Illness Consult date: 11/28/17 Consult reason: congestive heart failure History of present illness: 47 year old female presenting with shortness of breath, edema. She has a history of HFpEF and is compliant with diuretics at home (torsemide 20 mg po daily). She describes early satiety. She has a history of CKD, proteinuria, HTN, uncontrolled DM and HIV. She was hospitalized at [place] for 2 and a half month earlier this year. Troponin is non-specific and CXR is showing cardiomegaly. Past History Past Medical History: diabetes, heart failure, HIV/AIDS, hypertension, renal failure Past Surgical History: cholecystectomy, Social history: single, lives with family. denies: smoking, alcohol abuse, prescription drug abuse Family history: hypertension Medications and Allergies Allergies Allergy/AdvReac Type Severity Reaction Status Date / Time aspirin Allergy Swelling Verified 05/10/16 05:48 Home Medications Medication Instructions Recorded Confirmed Last Taken Type Abacavir [Ziagen TAB] 600 mg PO DAILY 11/28/17 11/28/17 11/27/17 History Gabapentin [Neurontin] 600 mg PO Q8H 11/28/17 11/28/17 11/27/17 History Insulin Detemir [Levemir VIAL] 45 unit SQ QHS 11/28/17 11/28/17 Unknown History Metoprolol [Lopressor] 100 mg PO DAILY 11/28/17 11/28/17 11/27/17 History Sertraline [Zoloft] 100 mg PO QDAY 11/28/17 11/28/17 11/27/17 History Torsemide [Demadex] 20 mg PO DAILY 11/28/17 11/28/17 11/26/17 History amLODIPine [Norvasc] 10 mg PO DAILY 11/28/17 11/28/17 11/26/17 History hydrALAZINE [Apresoline] 50 mg PO Q8HR 11/28/17 11/28/17 Unknown History lamiVUDine [Lamivudine] 150 mg PO DAILY 11/28/17 11/28/17 11/27/17 History traZODone [Desyrel] 150 mg PO QHS 11/28/17 11/28/17 11/27/17 History Active Meds: Active Medications Acetaminophen (Tylenol) 650 mg PO Q4H PRN PRN Reason: Pain MILD(1-3)/Fever >100.5/EDWARD Albuterol (Proventil) 2.5 mg IH Q4HRT PRN PRN Reason: Shortness Of Breath Dicyclomine HCl (Bentyl) 20 mg PO QID [facility] Last Admin: 11/27/17 23:39 Dose: 20 mg Gabapentin (Neurontin) 600 mg PO Q8HR [facility] Last Admin: 11/28/17 05:23 Dose: 600 mg Ceftriaxone Sodium (Rocephin/Ns 1 Gm/50 Ml) 1 gm in 50 mls @ 100 mls/hr IV Q24HR [facility]; Protocol Insulin Glargine (Lantus) 40 units SUB-Q QHS [facility] Last Admin: 11/27/17 23:39 Dose: 40 units Insulin Human Lispro (Humalog) 15 unit SUB-Q AC [facility] Last Admin: 11/28/17 07:53 Dose: 15 unit Metoclopramide HCl (Reglan) 10 mg PO TID [facility] Last Admin: 11/28/17 07:52 Dose: 10 mg Miscellaneous Medication (Duloxetine Hcl [Irenka]) 40 mg PO DAILY [facility] Miscellaneous Medication (Elviteg/Sumi/Emtric/Tenofo Ala) 1 each PO QDAY [facility] Nitroglycerin (Nitrostat) 0.4 mg SL Q5M PRN PRN Reason: Chest Pain Ondansetron HCl (Zofran) 4 mg IV Q8H PRN PRN Reason: Nausea And Vomiting Ondansetron HCl (Zofran Odt) 4 mg PO Q8HR PRN PRN Reason: Nausea And Vomiting Oxycodone/Acetaminophen (Percocet 5/325) 1 tab PO Q6HR PRN PRN Reason: Pain Last Admin: 11/28/17 05:23 Dose: 1 tab Sodium Chloride (Sodium Chloride Flush Syringe 10 Ml) 10 ml IV BID [facility] Last Admin: 11/27/17 22:59 Dose: 10 ml Sodium Chloride (Sodium Chloride Flush Syringe 10 Ml) 10 ml IV PRN PRN PRN Reason: LINE FLUSH Sodium Chloride (Sodium Chloride Flush Syringe 10 Ml) 10 ml IV PRN PRN PRN Reason: LINE FLUSH Review of Systems All systems: negative Physical Examination Vital Signs Pulse Resp BP Pulse Ox 88 24 150/83 94 11/27/17 17:52 11/27/17 17:52 11/27/17 17:52 11/27/17 17:52 General appearance: mild distress Neck: Positive: neck supple Cardiac: Positive: Reg Rate and Rhythm Lungs: Positive: Normal Breath Sounds Abdomen: Positive: Soft Extremities: Present: +2 Edema Results 11/27/17 18:07 11/27/17 18:07 Cardiac Enzymes 11/27/17 11/27/17 11/27/17 Range/Units 18:07 18:07 18:07 WBC 14.9 H (4.5-11.0) K/mm3 RBC 3.59 L (3.65-5.03) M/mm3 Hgb 11.8 (10.1-14.3) gm/dl Hct 35.3 (30.3-42.9) % MCV 99 H (79-97) fl MCH 33 H (28-32) pg MCHC 34 (30-34) % RDW 14.8 (13.2-15.2) % Plt Count 318 (140-440) K/mm3 Lymph % (Auto) 11.6 L (13.4-35.0) % [place] % (Auto) 4.0 (0.0-7.3) % Eos % (Auto) 0.6 (0.0-4.3) % Baso % (Auto) 1.0 (0.0-1.8) % Lymph # 1.7 (1.2-5.4) K/mm3 [place] # 0.6 (0.0-0.8) K/mm3 Eos # 0.1 (0.0-0.4) K/mm3 Baso # 0.1 (0.0-0.1) K/mm3 Seg Neutrophils % 82.8 H (40.0-70.0) % Seg Neutrophils # 12.4 H (1.8-7.7) K/mm3 PT 12.4 (12.2-14.9) Sec. INR 0.88 (0.87-1.13) APTT < 20.0 L (24.2-36.6) Sec. D-Dimer (0-234) ng/mlDDU Sodium 130 L (137-145) mmol/L Potassium 4.5 (3.6-5.0) mmol/L Chloride 96.5 L (98-107) mmol/L Carbon Dioxide 20 L (22-30) mmol/L Anion Gap 18 mmol/L BUN 43 H (7-17) mg/dL Creatinine 1.9 H (0.7-1.2) mg/dL Estimated GFR 34 ml/min BUN/Creatinine Ratio 23 % Glucose 432 H (65-100) mg/dL POC Glucose (70-105) Lactic Acid (0.7-2.0) mmol/L Calcium 9.1 (8.4-10.2) mg/dL Total Bilirubin 0.40 (0.1-1.2) mg/dL AST 23 (5-40) units/L ALT 16 (7-56) units/L Alkaline Phosphatase 116 (35-129) units/L Total Creatine Kinase 112 (30-135) units/L CK-MB (CK-2) 3.2 (0.0-4.0) ng/mL CK-MB (CK-2) Rel Index 2.8 (0-4) Troponin T 0.040 H (0.00-0.029) ng/mL NT-Pro-B Natriuret Pep 3782 H (0-450) pg/mL Total Protein 8.0 (6.3-8.2) g/dL Albumin 3.3 L (3.9-5) g/dL Albumin/Globulin Ratio 0.7 % Triglycerides 429 H (2-149) mg/dL Cholesterol 257 H (50-199) mg/dL LDL Cholesterol Direct TNR HDL Cholesterol 50 (40-59) mg/dL Cholesterol/HDL Ratio 5.14 % Urine Color (Yellow) Urine Turbidity (Clear) Urine pH (5.0-7.0) Ur Specific [place] (1.003-1.030) Urine Protein (Negative) mg/dL Urine Glucose (UA) (Negative) mg/dL Urine Ketones (Negative) mg/dL Urine Blood (Negative) Urine Nitrite (Negative) Urine Bilirubin (Negative) Urine Urobilinogen (<2.0) mg/dL Ur Leukocyte Esterase (Negative) Urine WBC (Auto) (0.0-6.0) /HPF Urine RBC (Auto) (0.0-6.0) /HPF U Epithel Cells (Auto) (0-13.0) /HPF Urine Mucus /HPF Urine Creatinine (0.1-20.0) mg/dL Urine Sodium mmol/L 11/27/17 11/27/1718 Range/Units 18:07 20:32 21:05 WBC (4.5-11.0) K/mm3 RBC (3.65-5.03) M/mm3 Hgb (10.1-14.3) gm/dl Hct (30.3-42.9) % MCV (79-97) fl MCH (28-32) pg MCHC (30-34) % RDW (13.2-15.2) % Plt Count (140-440) K/mm3 Lymph % (Auto) (13.4-35.0) % [place] % (Auto) (0.0-7.3) % Eos % (Auto) (0.0-4.3) % Baso % (Auto) (0.0-1.8) % Lymph # (1.2-5.4) K/mm3 [place] # (0.0-0.8) K/mm3 Eos # (0.0-0.4) K/mm3 Baso # (0.0-0.1) K/mm3 Seg Neutrophils % (40.0-70.0) % Seg Neutrophils # (1.8-7.7) K/mm3 PT (12.2-14.9) Sec. INR (0.87-1.13) APTT (24.2-36.6) Sec. D-Dimer 2773.38 H (0-234) ng/mlDDU Sodium (137-145) mmol/L Potassium (3.6-5.0) mmol/L Chloride (98-107) mmol/L Carbon Dioxide (22-30) mmol/L Anion Gap mmol/L BUN (7-17) mg/dL Creatinine (0.7-1.2) mg/dL Estimated GFR ml/min BUN/Creatinine Ratio % Glucose (65-100) mg/dL POC Glucose (70-105) Lactic Acid 2.10 H* (0.7-2.0) mmol/L Calcium (8.4-10.2) mg/dL Total Bilirubin (0.1-1.2) mg/dL AST (5-40) units/L ALT (7-56) units/L Alkaline Phosphatase (35-129) units/L Total Creatine Kinase (30-135) units/L CK-MB (CK-2) (0.0-4.0) ng/mL CK-MB (CK-2) Rel Index (0-4) Troponin T (0.00-0.029) ng/mL NT-Pro-B Natriuret Pep (0-450) pg/mL Total Protein (6.3-8.2) g/dL Albumin (3.9-5) g/dL Albumin/Globulin Ratio % Triglycerides (2-149) mg/dL Cholesterol (50-199) mg/dL LDL Cholesterol Direct HDL Cholesterol (40-59) mg/dL Cholesterol/HDL Ratio % Urine Color Yellow (Yellow) Urine Turbidity Slightly-cloudy (Clear) Urine pH 5.0 (5.0-7.0) Ur Specific [place] 1.012 (1.003-1.030) Urine Protein 100 mg/dl (Negative) mg/dL Urine Glucose (UA) >=500 (Negative) mg/dL Urine Ketones Neg (Negative) mg/dL Urine Blood Sm (Negative) Urine Nitrite Neg (Negative) Urine Bilirubin Neg (Negative) Urine Urobilinogen < 2.0 (<2.0) mg/dL Ur Leukocyte Esterase Sm (Negative) Urine WBC (Auto) 16.0 H (0.0-6.0) /HPF Urine RBC (Auto) 2.0 (0.0-6.0) /HPF U Epithel Cells (Auto) 2.0 (0-13.0) /HPF Urine Mucus Few /HPF Urine Creatinine (0.1-20.0) mg/dL Urine Sodium mmol/L 11/27/17 11/28/17 11/28/17 Range/Units 21:14 01:17 01:17 WBC (4.5-11.0) K/mm3 RBC (3.65-5.03) M/mm3 Hgb (10.1-14.3) gm/dl Hct (30.3-42.9) % MCV (79-97) fl MCH (28-32) pg MCHC (30-34) % RDW (13.2-15.2) % Plt Count (140-440) K/mm3 Lymph % (Auto) (13.4-35.0) % [place] % (Auto) (0.0-7.3) % Eos % (Auto) (0.0-4.3) % Baso % (Auto) (0.0-1.8) % Lymph # (1.2-5.4) K/mm3 [place] # (0.0-0.8) K/mm3 Eos # (0.0-0.4) K/mm3 Baso # (0.0-0.1) K/mm3 Seg Neutrophils % (40.0-70.0) % Seg Neutrophils # (1.8-7.7) K/mm3 PT (12.2-14.9) Sec. INR (0.87-1.13) APTT (24.2-36.6) Sec. D-Dimer (0-234) ng/mlDDU Sodium (137-145) mmol/L Potassium (3.6-5.0) mmol/L Chloride (98-107) mmol/L Carbon Dioxide (22-30) mmol/L Anion Gap mmol/L BUN (7-17) mg/dL Creatinine (0.7-1.2) mg/dL Estimated GFR ml/min BUN/Creatinine Ratio % Glucose (65-100) mg/dL POC Glucose (70-105) Lactic Acid 1.80 (0.7-2.0) mmol/L Calcium (8.4-10.2) mg/dL Total Bilirubin (0.1-1.2) mg/dL AST (5-40) units/L ALT (7-56) units/L Alkaline Phosphatase (35-129) units/L Total Creatine Kinase (30-135) units/L CK-MB (CK-2) (0.0-4.0) ng/mL CK-MB (CK-2) Rel Index (0-4) Troponin T 0.043 H (0.00-0.029) ng/mL NT-Pro-B Natriuret Pep (0-450) pg/mL Total Protein (6.3-8.2) g/dL Albumin (3.9-5) g/dL Albumin/Globulin Ratio % Triglycerides (2-149) mg/dL Cholesterol (50-199) mg/dL LDL Cholesterol Direct HDL Cholesterol (40-59) mg/dL Cholesterol/HDL Ratio % Urine Color (Yellow) Urine Turbidity (Clear) Urine pH (5.0-7.0) Ur Specific [place] (1.003-1.030) Urine Protein (Negative) mg/dL Urine Glucose (UA) (Negative) mg/dL Urine Ketones (Negative) mg/dL Urine Blood (Negative) Urine Nitrite (Negative) Urine Bilirubin (Negative) Urine Urobilinogen (<2.0) mg/dL Ur Leukocyte Esterase (Negative) Urine WBC (Auto) (0.0-6.0) /HPF Urine RBC (Auto) (0.0-6.0) /HPF U Epithel Cells (Auto) (0-13.0) /HPF Urine Mucus /HPF Urine Creatinine 40.6 H (0.1-20.0) mg/dL Urine Sodium 51 mmol/L 11/28/17 Range/Units 06:23 WBC (4.5-11.0) K/mm3 RBC (3.65-5.03) M/mm3 Hgb (10.1-14.3) gm/dl Hct (30.3-42.9) % MCV (79-97) fl MCH (28-32) pg MCHC (30-34) % RDW (13.2-15.2) % Plt Count (140-440) K/mm3 Lymph % (Auto) (13.4-35.0) % [place] % (Auto) (0.0-7.3) % Eos % (Auto) (0.0-4.3) % Baso % (Auto) (0.0-1.8) % Lymph # (1.2-5.4) K/mm3 [place] # (0.0-0.8) K/mm3 Eos # (0.0-0.4) K/mm3 Baso # (0.0-0.1) K/mm3 Seg Neutrophils % (40.0-70.0) % Seg Neutrophils # (1.8-7.7) K/mm3 PT (12.2-14.9) Sec. INR (0.87-1.13) APTT (24.2-36.6) Sec. D-Dimer (0-234) ng/mlDDU Sodium (137-145) mmol/L Potassium (3.6-5.0) mmol/L Chloride (98-107) mmol/L Carbon Dioxide (22-30) mmol/L Anion Gap mmol/L BUN (7-17) mg/dL Creatinine (0.7-1.2) mg/dL Estimated GFR ml/min BUN/Creatinine Ratio % Glucose (65-100) mg/dL POC Glucose 413 H (70-105) Lactic Acid (0.7-2.0) mmol/L Calcium (8.4-10.2) mg/dL Total Bilirubin (0.1-1.2) mg/dL AST (5-40) units/L ALT (7-56) units/L Alkaline Phosphatase (35-129) units/L Total Creatine Kinase (30-135) units/L CK-MB (CK-2) (0.0-4.0) ng/mL CK-MB (CK-2) Rel Index (0-4) Troponin T (0.00-0.029) ng/mL NT-Pro-B Natriuret Pep (0-450) pg/mL Total Protein (6.3-8.2) g/dL Albumin (3.9-5) g/dL Albumin/Globulin Ratio % Triglycerides (2-149) mg/dL Cholesterol (50-199) mg/dL LDL Cholesterol Direct HDL Cholesterol (40-59) mg/dL Cholesterol/HDL Ratio % Urine Color (Yellow) Urine Turbidity (Clear) Urine pH (5.0-7.0) Ur Specific [place] (1.003-1.030) Urine Protein (Negative) mg/dL Urine Glucose (UA) (Negative) mg/dL Urine Ketones (Negative) mg/dL Urine Blood (Negative) Urine Nitrite (Negative) Urine Bilirubin (Negative) Urine Urobilinogen (<2.0) mg/dL Ur Leukocyte Esterase (Negative) Urine WBC (Auto) (0.0-6.0) /HPF Urine RBC (Auto) (0.0-6.0) /HPF U Epithel Cells (Auto) (0-13.0) /HPF Urine Mucus /HPF Urine Creatinine (0.1-20.0) mg/dL Urine Sodium mmol/L Coagulation 11/27/17 Range/Units 18:07 PT 12.4 (12.2-14.9) Sec. INR 0.88 (0.87-1.13) APTT < 20.0 L (24.2-36.6) Sec. Lipids 11/27/17 Range/Units 18:07 Triglycerides 429 H (2-149) mg/dL Cholesterol 257 H (50-199) mg/dL HDL Cholesterol 50 (40-59) mg/dL Cholesterol/HDL Ratio 5.14 % CBC 11/27/17 Range/Units 18:07 WBC 14.9 H (4.5-11.0) K/mm3 RBC 3.59 L (3.65-5.03) M/mm3 Hgb 11.8 (10.1-14.3) gm/dl Hct 35.3 (30.3-42.9) % Plt Count 318 (140-440) K/mm3 Lymph # 1.7 (1.2-5.4) K/mm3 [place] # 0.6 (0.0-0.8) K/mm3 Eos # 0.1 (0.0-0.4) K/mm3 Baso # 0.1 (0.0-0.1) K/mm3 Comprehensive Metabolic Panel 11/27/17 Range/Units 18:07 Sodium 130 L (137-145) mmol/L Potassium 4.5 (3.6-5.0) mmol/L Chloride 96.5 L (98-107) mmol/L Carbon Dioxide 20 L (22-30) mmol/L BUN 43 H (7-17) mg/dL Creatinine 1.9 H (0.7-1.2) mg/dL Glucose 432 H (65-100) mg/dL Calcium 9.1 (8.4-10.2) mg/dL AST 23 (5-40) units/L ALT 16 (7-56) units/L Alkaline Phosphatase 116 (35-129) units/L Total Protein 8.0 (6.3-8.2) g/dL Albumin 3.3 L (3.9-5) g/dL EKG interpretations - Telemetry EKG Rhythm: Sinus Rhythm Assessment and Plan Acute on chronic diastolic heart failure Mild pulmonary edema on CXR Normal LVEF 06/2016 Normal MPI 06/2016 Acute renal failure History of proteinuria HIV Systemic Hypertension Uncontrolled type II DM Non-specific troponin Hyperlipidemia Recommendations: Resume afterload reducing agents Patient is allergic to asa Renal on board in terms of acute renal failure and proteinuria Obtain records from [facility]
[2017-11-28] MEDS: BENTYL PO SCH ×4 (10:58→21:02)
[2017-11-28] MEDS: SODIUM CHLORIDE FLUSH SYRINGE 10 ML IV SCH ×2 (10:59→21:02)
[2017-11-28 11:02] LABS: Hematocrit 30.1 % (30.3-42.9); Hemoglobin 9.8 gm/dl (10.1-14.3); Mean Corpuscular HGB Conc 33 % (30-34); Mean Corpuscular Hemoglobin 32 pg (28-32); Mean Corpuscular Volume 98 fl (79-97); Red Blood Count 3.08 M/mm3 (3.65-5.03); Red Cell Distribution Width 14.7 % (13.2-15.2)
[2017-11-28] MEDS: DEMADEX PO SCH (11:02)
[2017-11-28 11:34] LABS: Calcium 8.4 mg/dL (8.4-10.2)
[2017-11-28 11:54] LABS: Anisocytosis 1+; Basophils % (Manual) 0 % (0.0-1.8); Macrocytosis 1+; Platelet Estimate Cons; Total Cells Counted 100
[2017-11-28 11:56] LABS: Platelet Count 223 K/mm3 (140-440)
--- NOTE | 2017-11-28 14:46 | Nuclear Medicine Report ---
FINAL REPORT EXAM: NM LUNG SCAN PERF/VENT HISTORY: Chest Pain TECHNIQUE: 30.3 mCi Xenon-133 was used for ventilation. 4.77 mCi of technetium 99m MAA was used for perfusion. Multiple planar images were obtained. PRIORS: Chest x-ray November 27, 2017. FINDINGS: Ventilation: Uniform. Perfusion: No perfusion defects. Prominent cardiac silhouette. IMPRESSION: Based on the PIOPED study, findings represent normal study for PE. Cardiomegaly.
--- NOTE | 2017-11-28 15:26 | Ultrasound Report ---
FINAL REPORT EXAM: US RENAL BILAT HISTORY: acute kidney injury TECHNIQUE: Longitudinal and transverse grayscale sonographic images were performed Comparison: CT 11/03/2016 FINDINGS: Right kidney measures 12.4 centimeters. There is a right midpole 1.1 centimeter cyst. Left kidney measures 11.8 centimeters. There is a left midpole 1.8 centimeter echogenic cortical focus. Incidentally identified 14.6 x 6.1 x 11.5 centimeter left adnexal mass. IMPRESSION: Left renal cortical non obstructive stone. Right upper pole simple intra cortical cyst. Otherwise, normal sonographic appearance of the kidneys. Incidental identified large left adnexal mass which is not simple cystic.
[2017-11-28] MEDS: ROCEPHIN/NS 1 GM/50 ML 1 GM/50 ML BAG IV SCH (20:22)
[2017-11-28] MEDS: LANTUS SUB-Q SCH (21:02)
[2017-11-29] MEDS: PERCOCET 5/325 PO PRN ×4 (02:53→23:48)
[2017-11-29] MEDS: NEURONTIN PO SCH ×3 (06:38→23:47)
--- NOTE | 2017-11-29 07:08 | Progress Note ---
Assessment and Plan - Patient Problems (1) ANDREWS (acute kidney injury) Current Visit: No Status: Acute Plan to address problem: Likely in the setting of acute cardiorenal syndrome and CHF exacerbation. Would continue with current diureis. Was restarted on torsemide 20 mg daily per her outpatient regimen. Needs to be on strict I/O, appropriate fluid restrictions, and she should have daily weights. Please avoid any nephrotoxins, maintain MAP > 65 mmHg Labs pending this am. (2) Acute CHF (congestive heart failure) Current Visit: No Status: Acute Plan to address problem: Plan to diurese with torsemide 20 mg daily. Strict I/O, daily weights. Appreciate further cardiology recommendations. (3) Hyponatremia syndrome Current Visit: Yes Status: Acute Plan to address problem: Hypervolemic Hyponatremia. Would avoid IVF hydration, continue with diuretic regimen. Improving with diuresis. Will continue to monitor. (4) Proteinuria Current Visit: No Status: Chronic Plan to address problem: Raises concern that patient likely has baseline CKD, in the setting of uncontrolled diabetes, HTN, and HIV, UPC is pending at present time. Will monitor. (5) Uncontrolled diabetes mellitus with hyperglycemia Current Visit: No Status: Chronic Qualifiers: Diabetes mellitus type: type 2 Qualified Code(s): E11.65 - Type 2 diabetes mellitus with hyperglycemia; Z79.4 - nursing home (current) use of insulin Plan to address problem: Diabetes management per primary team. Subjective Date of service: 11/29/17 Interval history: Her I/O and UO have not been monitored. Discussed with the nurse that this needs to be carefully documented as we are diuresing this patient. Her am labs are pending. She has been restarted on her home regimen of the torsemide. Her renal US did not show acute abnormalities in the kidneys but did incidentally show an adnexal mass. Will defer this to the primary team. Objective - Vital Signs Vital signs: Vital Signs - 12hr 11/28/17 11/28/17 11/29/17 19:44 22:00 01:45 Temperature 97.8 F Pulse Rate 90 79 Respiratory 18 Rate Blood Pressure 129/71 [Left] O2 Sat by Pulse 92 98 Oximetry 11/29/17 06:16 Temperature 98.6 F Pulse Rate 81 Respiratory 18 Rate Blood Pressure 125/74 [Left] O2 Sat by Pulse 96 Oximetry - General Appearance General appearance: well-developed, appears stated age, obese EENT: ATNC, PERRL Neck: no JVD, supple Cardiology: irregularly irregular Gastrointestinal: normal Integumentary: no rash, warm and dry Neurologic: no focal deficit, no asterixis Musculoskeletal: other (+edema in B/L LE ) Psychiatric: cooperative - Lab 11/28/17 09:48 11/28/17 09:48 Most recent lab results Calcium 8.4 mg/dL (8.4-10.2) 11/28/17 09:48 Urine Creatinine 40.6 mg/dL (0.1-20.0) H 11/27/17 21:14 Urine Sodium 51 mmol/L 11/27/17 21:14 - Allied health notes Allied health notes reviewed: nursing
[2017-11-29] MEDS: REGLAN PO SCH ×3 (08:19→23:47)
[2017-11-29] MEDS: HumaLOG SUB-Q SCH ×3 (08:26→18:26)
[2017-11-29] MEDS: DEMADEX PO SCH (10:41)
[2017-11-29] MEDS: BENTYL PO SCH ×4 (10:41→23:50)
[2017-11-29] MEDS: ROCEPHIN/NS 1 GM/50 ML 1 GM/50 ML BAG IV SCH (10:42)
--- NOTE | 2017-11-29 13:42 | Progress Note ---
Assessment and Plan Acute on chronic diastolic heart failure Mild pulmonary edema on CXR Normal LVEF 06/2016 Normal MPI 06/2016 Acute renal failure History of proteinuria HIV Hypertension Uncontrolled type II DM Non-specific troponin Hyperlipidemia Recommend: Resume afterload reducing agents. Subjective Date of service: 11/29/17 Interval history: Patient reports her shortness of breath is less. Objective Vital Signs Temp Pulse Resp BP Pulse Ox 11/29/17 06:16 98.6 F 81 18 125/74 96 11/29/17 01:45 79 11/28/17 22:00 98 11/28/17 19:44 97.8 F 90 18 129/71 92 11/28/17 17:55 98.8 F 84 20 125/67 98 11/28/17 17:14 98 - Physical Examination General: No Apparent Distress HEENT: Positive: PERRL Cardiac: Positive: Reg Rate and Rhythm Neuro: Positive: Grossly Intact Extremities: Present: +1 Edema - Allied health notes Allied health notes reviewed: nursing
[2017-11-29] MEDS ORDERED: LASIX IV ONE (16:24)
[2017-11-29] MEDS: COZAAR PO SCH (17:30)
[2017-11-29 21:49] LABS: Protein/Creatinine Ratio,Urine 4.33
[2017-11-29] MEDS ORDERED: DESYREL PO SCH ×2 (22:00)
[2017-11-29] MEDS: SODIUM CHLORIDE FLUSH SYRINGE 10 ML IV SCH (22:08)
[2017-11-29] MEDS: LANTUS SUB-Q SCH (23:52)
[2017-11-30] MEDS: SODIUM CHLORIDE FLUSH SYRINGE 10 ML IV SCH ×2 (04:38→09:56)
[2017-11-30] MEDS: NEURONTIN PO SCH ×2 (06:43→14:18)
--- NOTE | 2017-11-30 08:03 | Progress Note ---
Assessment and Plan - Patient Problems (1) ANDREWS (acute kidney injury) Current Visit: No Status: Acute Plan to address problem: Likely in the setting of acute cardiorenal syndrome and CHF exacerbation. Would continue with current diureis. Was restarted on torsemide 20 mg daily per her outpatient regimen. Needs to be on strict I/O, appropriate fluid restrictions, and she should have daily weights. Please avoid any nephrotoxins, maintain MAP > 65 mmHg Labs pending this am. (2) Acute CHF (congestive heart failure) Current Visit: No Status: Acute Plan to address problem: Plan to diurese with torsemide 20 mg daily. Strict I/O, daily weights. Plan for stress test this am. (3) Hyponatremia syndrome Current Visit: Yes Status: Acute Plan to address problem: Hypervolemic Hyponatremia. Would avoid IVF hydration, continue with diuretic regimen. Improving with diuresis. Will continue to monitor. (4) Proteinuria Current Visit: No Status: Chronic Plan to address problem: Raises concern that patient likely has baseline CKD, in the setting of uncontrolled diabetes, HTN, and HIV, UPC noted indicating 4 g of protein. May be secondary to her underlying diabetes. Will need close workup of nephrotic syndrome as she is also hypoalbuminemic and edematous. Will order repeat renal function panel this am as well as studies for evaluation of proteinuria. 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 Subjective Date of service: 11/30/17 Interval history: Patient is currently NPO at present time, pending a stress test this am. Objective - Vital Signs Vital signs: Vital Signs - 12hr 11/29/17 11/29/17 11/30/17 21:59 23:55 00:30 Temperature 97.9 F Pulse Rate 98 H Pulse Rate [ 70 Left Radial] Pulse Rate [ 70 Right Radial] Respiratory 18 Rate Blood Pressure 134/75 O2 Sat by Pulse 99 100 Oximetry 11/30/17 11/30/17 01:00 05:47 Temperature 98.4 F Pulse Rate 90 88 Pulse Rate [ Left Radial] Pulse Rate [ Right Radial] Respiratory 18 Rate Blood Pressure 113/69 O2 Sat by Pulse 99 Oximetry - General Appearance General appearance: well-developed EENT: ATNC, PERRL Neck: no JVD, no thyromegaly, supple Respiratory: Present: Decreased Breath Sounds Cardiology: regular Gastrointestinal: normal, normoactive bowel sounds Integumentary: no rash, warm and dry Neurologic: no focal deficit, no asterixis Musculoskeletal: other (-edema) Psychiatric: cooperative - Lab 11/28/17 09:48 11/28/17 09:48 Most recent lab results Calcium 8.4 mg/dL (8.4-10.2) 11/28/17 09:48 Urine Creatinine 40.6 mg/dL (0.1-20.0) H 11/27/17 21:14 Urine Sodium 51 mmol/L 11/27/17 21:14 Urine Total Protein 175.82 mg/dL (5-11.8) H 11/27/17 21:14 - Allied health notes Allied health notes reviewed: nursing
[2017-11-30 09:45] LABS: Alanine Aminotransferase 18 units/L (7-56); Albumin 2.6 g/dL (3.9-5); BUN/Creatinine Ratio 22; Blood Urea Nitrogen 59 mg/dL (7-17); Calcium 8.5 mg/dL (8.4-10.2); Hemolysis Index 38
[2017-11-30] MEDS: PERCOCET 5/325 PO PRN (09:54)
[2017-11-30] MEDS: BENTYL PO SCH ×3 (09:54→17:38)
[2017-11-30] MEDS: COZAAR PO SCH (09:54)
[2017-11-30] MEDS: DEMADEX PO SCH (09:55)
[2017-11-30] MEDS: REGLAN PO SCH ×2 (09:55→14:18)
[2017-11-30] MEDS: HumaLOG SUB-Q SCH ×3 (09:55→17:37)
[2017-11-30] MEDS: ROCEPHIN/NS 1 GM/50 ML 1 GM/50 ML BAG IV SCH (09:56)
[2017-11-30] MEDS ORDERED: ZOLOFT PO SCH (10:00)
[2017-11-30] MEDS ORDERED: ZIAGEN PO SCH (10:00)
[2017-11-30] MEDS ORDERED: CYMBALTA PO SCH (10:00)
[2017-11-30] MEDS ORDERED: EPIVIR PO SCH (10:00)
--- NOTE | 2017-11-30 10:39 | Progress Note ---
Assessment and Plan Acute on chronic diastolic heart failure Mild pulmonary edema on CXR Normal LVEF 06/2016 Normal MPI 06/2016 Acute renal failure HIV Hypertension DM -uncontrolled Non-specific troponin Hyperlipidemia Conservative cardiac management. Subjective Date of service: 11/30/17 Interval history: No reported cardiac events overnight. Objective Vital Signs Temp Pulse Pulse Pulse Resp BP Pulse Ox 11/30/17 08:59 98.0 F 96 H 20 122/70 100 11/30/17 05:47 98.4 F 88 18 113/69 99 11/30/17 01:00 90 11/30/17 00:30 70 70 11/29/17 23:55 97.9 F 98 H 18 134/75 100 11/29/17 21:59 99 11/29/17 19:48 98.1 F 90 18 144/72 99 11/29/17 17:30 20 11/29/17 17:00 83 11/29/17 12:23 97.9 F 83 20 101/62 99 - Physical Examination General: No Apparent Distress HEENT: Positive: PERRL Cardiac: Positive: Reg Rate and Rhythm Neuro: Positive: Grossly Intact - Labs and Meds Cardiac Enzymes 11/30/17 Range/Units 08:59 AST 17 (5-40) units/L Comprehensive Metabolic Panel 11/30/17 Range/Units 08:59 Sodium 134 L (137-145) mmol/L Potassium 4.5 (3.6-5.0) mmol/L Chloride 100.8 (98-107) mmol/L Carbon Dioxide 20 L (22-30) mmol/L BUN 59 H (7-17) mg/dL Creatinine 2.7 H (0.7-1.2) mg/dL Glucose 240 H (65-100) mg/dL Calcium 8.5 (8.4-10.2) mg/dL AST 17 (5-40) units/L ALT 18 (7-56) units/L Alkaline Phosphatase 121 (35-129) units/L Total Protein 7.3 (6.3-8.2) g/dL Albumin 2.6 L (3.9-5) g/dL - Allied health notes Allied health notes reviewed: nursing
[2017-11-30 17:15] VITALS: BP 123/65
[2017-12-02 21:54] LABS: ANA Screen, IFA Positive (Negative)
[2017-12-02 23:00] LABS: Albumin 2.5 g/dL (3.8-4.8); Gamma Globulin 1.2 g/dL (0.8-1.7)
== END 2017-11-30 18:40 | disposition home or self-care (01) | DRG 682 ==
LOC: ED 16:51 → 4A 19:50
PROVIDERS: ADMIT Internal Medicine; ATTEND Internal Medicine
DX: N17.9 Acute kidney failure, unspecified (principal); I50.33 Acute on chronic diastolic (congestive) heart failure; J96.01 Acute respiratory failure with hypoxia; B20 Human immunodeficiency virus [HIV] disease; I24.9 Acute ischemic heart disease, unspecified; E87.1 Hypo-osmolality and hyponatremia; R65.10 Systemic inflammatory response syndrome (SIRS) of non-infectious origin without acute organ dysfunction; E87.2 Acidosis; E66.01 Morbid (severe) obesity due to excess calories; E11.43 Type 2 diabetes mellitus with diabetic autonomic (poly)neuropathy; G89.29 Other chronic pain; M54.5 Low back pain; E11.65 Type 2 diabetes mellitus with hyperglycemia; R80.9 Proteinuria, unspecified; K31.84 Gastroparesis; E11.40 Type 2 diabetes mellitus with diabetic neuropathy, unspecified; I13.0 Hypertensive heart and chronic kidney disease with heart failure and stage 1 through stage 4 chronic kidney disease, or unspecified chronic kidney disease; N18.9 Chronic kidney disease, unspecified; Z90.49 Acquired absence of other specified parts of digestive tract; Z82.49 Family history of ischemic heart disease and other diseases of the circulatory system; Z88.6 Allergy status to analgesic agent; Z79.899 Other long term (current) drug therapy; Z79.4 Long term (current) use of insulin; Z68.43 Body mass index [BMI] 50.0-59.9, adult
CPT/HCPCS: 36415; 71045; 76770; 78582; 80048; 80053; 80061; 81001; 82140; 82550; 82553; 82570; 82962; 83880; 84156; 84165; 84300; 84484; 85007; 85025; 85379; 85610; 85730; 86038; 86160; 86225; 86706; 86803; 93005; 93010; 93306; 94760; A9540; A9558; J0696; J1170; J1815; J1940; J2270; J2405; J2785; J3010

== ENCOUNTER 2018-04-21 21:33 | Inpatient (IN) | payer MEDICAID, OTHER ==
--- NOTE | 2018-04-21 23:09 | XRay Report ---
FINAL REPORT PROCEDURE: XR CHEST 1V AP TECHNIQUE: Chest radiograph anteroposterior view. CPT 13955 HISTORY: Shortness of breath COMPARISON: November 27, 2017 FINDINGS: Heart: Normal. Mediastinum/Vessels: Normal. Lungs/Pleural space: Normal. Bony thorax: No acute osseous abnormality. Life support devices: There are monitoring devices. There is artifact from clothing. IMPRESSION: No acute cardiopulmonary abnormality.
[2018-04-21 23:10] LABS: Hemoglobin 11.3 gm/dl (10.1-14.3); Mean Corpuscular HGB Conc 32 % (30-34); Mean Corpuscular Volume 99 fl (79-97); Platelet Count 306 K/mm3 (140-440); Red Blood Count 3.53 M/mm3 (3.65-5.03); Red Cell Distribution Width 13.9 % (13.2-15.2)
[2018-04-21 23:15] LABS: Basophils # (Auto) 0.1 K/mm3 (0.0-0.1); Eosinophils # (Auto) 0.2 K/mm3 (0.0-0.4); Eosinophils % (Auto) 1.8 % (0.0-4.3); Lymphocytes # (Auto) 2.6 K/mm3 (1.2-5.4); Lymphocytes % (Auto) 28.7 % (13.4-35.0); Monocytes # (Auto) 0.6 K/mm3 (0.0-0.8); Monocytes % (Auto) 6.3 % (0.0-7.3)
[2018-04-21 23:21] LABS: INR 0.87 (0.87-1.13)
[2018-04-21 23:23] LABS: Alanine Aminotransferase 14 units/L (7-56); Albumin 2.8 g/dL (3.9-5); BUN/Creatinine Ratio 15; Blood Urea Nitrogen 22 mg/dL (7-17); Hemolysis Index 21
[2018-04-21 23:35] LABS: Chol/HDL Ratio 7.42 %; HDL Cholesterol 35 mg/dL (40-59); LDL Cholesterol,Direct TNR mg/dL (50-130)
[2018-04-21] MEDS ORDERED: HumuLIN R IV ONE (23:42)
--- NOTE | 2018-04-21 23:48 | Emergency Department Report ---
ED General Adult HPI - General Chief complaint: Dyspnea/Respdistress Stated complaint: KYLEE Time Seen by Provider: 04/21/18 22:16 Source: patient, RN notes reviewed, old records reviewed Mode of arrival: Stretcher Limitations: Physical Limitation - History of Present Illness Initial comments: This is a 48-year-old female. The patient is not known to this provider previously. Patient has a history of HIV, undetectable viral load, CD4 count in the 800s. Also has a history of obesity, congestive heart failure, renal insufficiency, cardial renal syndrome Patient presents to the emergency room today with a complaint of nontraumatic abdominal wall swelling, lower extremity swelling, shortness of breath, generalized weakness. Patient reports falling onto her left side last week and has achy crampy pain there, which increases with palpation and decreases with rest. Subjective fevers at home. Symptoms cost, present for the past few days, getting worse, or sweats physical exertion, decreased with rest. Abdominal pain does not radiate anywhere. The patient reports that she is not . -: Gradual Location: back, abdomen, left, right, lower extremity Radiation: non-radiation Consistency: constant Improves with: rest Worsens with: movement Associated Symptoms: cough, fever/chills, loss of appetite, malaise, shortness of breath, weakness. denies: confusion, chest pain, diaphoresis, headaches, nausea/vomiting, rash, seizure, syncope - Related Data Home Medications Medication Instructions Recorded Confirmed Last Taken Abacavir [Ziagen TAB] 600 mg PO DAILY 11/28/17 11/28/17 11/27/17 Gabapentin [Neurontin] 600 mg PO Q8H 11/28/17 11/28/17 11/27/17 Insulin Detemir [Levemir VIAL] 45 unit SQ QHS 11/28/17 11/28/17 Unknown Metoprolol [Lopressor TAB] 100 mg PO DAILY 11/28/17 11/28/17 11/27/17 Sertraline [Zoloft] 100 mg PO QDAY 11/28/17 11/28/17 11/27/17 hydrALAZINE [Apresoline TAB] 50 mg PO Q8HR 11/28/17 11/28/17 Unknown lamiVUDine [Lamivudine] 150 mg PO DAILY 11/28/17 11/28/17 11/27/17 traZODone [Desyrel] 150 mg PO QHS 11/28/17 11/28/17 11/27/17 Previous Rx's Medication Instructions Recorded Last Taken Type Losartan [Cozaar] 12.5 mg PO QDAY #30 tablet 11/30/17 Unknown Rx Torsemide [Demadex] 20 mg PO DAILY #30 tablet 11/30/17 Unknown Rx oxyCODONE /ACETAMINOPHEN [Percocet 1 tab PO Q6HR PRN #20 tablet 11/30/17 Unknown Rx 5/325 mg] Allergies Allergy/AdvReac Type Severity Reaction Status Date / Time aspirin Allergy Swelling Verified 05/10/16 05:48 ED Review of Systems ROS: Stated complaint: KYLEE Other details as noted in HPI Constitutional: fever, malaise Eyes: denies: vision change ENT: congestion. denies: epistaxis Respiratory: cough, shortness of breath, wheezing Cardiovascular: dyspnea on exertion, orthopnea. denies: chest pain Gastrointestinal: abdominal pain Genitourinary: denies: dysuria Musculoskeletal: back pain, arthralgia, myalgia Skin: denies: lesions Neurological: weakness Psychiatric: anxiety ED Past Medical Hx - Past Medical History Previous Medical History?: Yes Hx Hypertension: Yes Hx Congestive Heart Failure: Yes Hx Diabetes: Yes Hx Renal Disease: Yes (chronic renal insufficiency/renal failure) Hx HIV: Yes Additional medical history: Gastroparesis, neuropathy. dialysis d/c'd x1 yr- "numbers got better" - Surgical History Past Surgical History?: Yes Hx Cholecystectomy: Yes Additional Surgical History: C-Sec x 5 - Social History Smoking Status: Never Smoker Substance Use Type: None - Medications Home Medications: Home Medications Medication Instructions Recorded Confirmed Last Taken Type Abacavir [Ziagen TAB] 600 mg PO DAILY 11/28/17 11/28/17 11/27/17 History Gabapentin [Neurontin] 600 mg PO Q8H 11/28/17 11/28/17 11/27/17 History Insulin Detemir [Levemir VIAL] 45 unit SQ QHS 11/28/17 11/28/17 Unknown History Metoprolol [Lopressor TAB] 100 mg PO DAILY 11/28/17 11/28/17 11/27/17 History Sertraline [Zoloft] 100 mg PO QDAY 11/28/17 11/28/17 11/27/17 History hydrALAZINE [Apresoline TAB] 50 mg PO Q8HR 11/28/17 11/28/17 Unknown History lamiVUDine [Lamivudine] 150 mg PO DAILY 11/28/17 11/28/17 11/27/17 History traZODone [Desyrel] 150 mg PO QHS 11/28/17 11/28/17 11/27/17 History Losartan [Cozaar] 12.5 mg PO QDAY #30 tablet 11/30/17 Unknown Rx Torsemide [Demadex] 20 mg PO DAILY #30 tablet 11/30/17 Unknown Rx oxyCODONE /ACETAMINOPHEN [Percocet 1 tab PO Q6HR PRN #20 tablet 11/30/17 Unknown Rx 5/325 mg] ED Physical Exam - General Limitations: No Limitations General appearance: alert, in distress, obese - Head Head exam: Present: atraumatic, normocephalic - Eye Eye exam: Present: normal appearance, EOMI. Absent: nystagmus - ENT ENT exam: Present: normal exam, normal orophraynx, mucous membranes moist, normal external ear exam - Neck Neck exam: Present: normal inspection, full ROM. Absent: tenderness, meningismus - Respiratory Respiratory exam: Present: respiratory distress, rales, rhonchi, chest wall tenderness - Cardiovascular Cardiovascular Exam: Present: regular rate, normal rhythm, normal heart sounds. Absent: bradycardia, tachycardia, irregular rhythm, systolic murmur, diastolic murmur, rubs, gallop - GI/Abdominal GI/Abdominal exam: Present: soft, distended (anasarca is appreciated), tenderness (there is left flank tenderness.). Absent: guarding, rebound, rigid - Extremities Exam Extremities exam: Present: normal inspection, full ROM, pedal edema (2+ edema in the lower extremities.), other (2+ pulses noted in the bilateral upper, lower extremities. Compartments soft. No long bony tenderness. The pelvis is stable.). Absent: calf tenderness - Back Exam Back exam: Present: normal inspection, full ROM. Absent: tenderness, CVA tende rness (R), paraspinal tenderness, vertebral tenderness - Neurological Exam Neurological exam: Present: alert, other (Extraocular movements intact. Tongue midline. No facial droop. Facial sensation intact to light touch in the V1, V2, V3 distribution bilaterally. 5 and 5 strength in 4 extremities.. Sensation is intact to light touch in 4 extremities.). Absent: motor sensory deficit - Psychiatric Psychiatric exam: Present: normal affect, normal mood, anxious - Skin Skin exam: Present: warm. Absent: rash ED Course Vital Signs 04/21/18 04/21/18 04/21/18 21:48 21:54 22:00 Temperature 99 F Pulse Rate 104 H Respiratory 24 15 Rate Blood Pressure O2 Sat by Pulse 100 100 100 Oximetry 04/21/18 04/21/18 04/21/18 22:12 22:16 22:30 Temperature Pulse Rate 96 H 97 H Respiratory 18 15 21 Rate Blood Pressure 192/104 206/107 O2 Sat by Pulse 100 100 100 Oximetry 04/21/18 04/21/18 22:46 23:00 Temperature 98.2 F Pulse Rate 94 H 95 H Respiratory 17 18 Rate Blood Pressure 170/91 170/91 O2 Sat by Pulse 100 100 Oximetry - Reevaluation(s) Reevaluation #1: 04/21/18 23:46 Differential diagnosis, including not limited to: Abdominal contusion, cardiorenal syndrome, high output heart failure, hypervolemic hyponatremia Assessment and plan: 48-year-old female well-known history of high output heart failure, renal insufficiency, with hypertension, crackles, rales on chest x-ray, abdominal wall distention, lower extremity edema, most likely manifesting symptoms of high output heart failure. Patient appears to be volume overloaded, up. Simultaneously found to have hyperglycemia without significant anion gap, and hyponatremia, which I most likely suspect is a hypervolemic hyponatremia. We will treat the patient's pain. A CT scan of the abdomen and pelvis without IV contrast will be obtained given her history of fall one week ago. Appreciate x-ray of the chest pain interpreted as negative, but her history and physical, clinical exam suggests high-output heart failure, cardiorenal syndrome. We will discuss with nephrology on-call to determine optimal diuresis and fluid management strategy. ProBNP pending. Elevated troponin reviewed and appreciated, likely secondary to renal insufficiency, and underlying cardiac demand. Elevated lactic acid reviewed and appreciated, at this point in time, based off of the objective information, do not suspect bacteremia, or invasive bacterial infection, but rather decompensated cardiorenal syndrome. Currently, it is my opinion that the patient does not require systemic antibiotic therapy, unless she spikes a fever, or advanced imaging demonstrates infectious etiology. 04/21/18 23:53 Reevaluation #2: 04/21/18 23:52 Discussed with nephrology, Dr. Nunez, recommends 80 mg of Lasix, urinalysis, urine sodium, uric acid, and serum, urine osmolality. Indicates his group can follow in consultation. Reevaluation #3: 04/21/18 23:55 Dr. Nunez specifically recommended against Kayexalate Reevaluation #4: 04/22/18 02:14 Lactic acid improving. Albuterol, Atrovent ordered. CT scan of the abdomen and pelvis negative for acute disease. Hospital physician has accepted the patient to the medical service. Dr. Leon to the patient to the medical service. ED Medical Decision Making - Lab Data Result diagrams: 04/21/18 22:37 04/21/18 22:37 Vital Signs 04/21/18 04/21/18 04/21/18 21:48 21:54 22:00 Temperature 99 F Pulse Rate 104 H Respiratory 24 15 Rate Blood Pressure O2 Sat by Pulse 100 100 100 Oximetry 04/21/18 04/21/18 04/21/18 22:12 22:16 22:30 Temperature Pulse Rate 96 H 97 H Respiratory 18 15 21 Rate Blood Pressure 192/104 206/107 O2 Sat by Pulse 100 100 100 Oximetry 04/21/18 04/21/18 22:46 23:00 Temperature 98.2 F Pulse Rate 94 H 95 H Respiratory 17 18 Rate Blood Pressure 170/91 170/91 O2 Sat by Pulse 100 100 Oximetry Lab Results 04/21/18 04/21/18 04/21/18 Range/Units 22:05 22:37 22:37 WBC 8.7 (4.5-11.0) K/mm3 RBC 3.53 L (3.65-5.03) M/mm3 Hgb 11.3 (10.1-14.3) gm/dl Hct 35.0 (30.3-42.9) % MCV 99 H (79-97) fl MCH 32 (28-32) pg MCHC 32 (30-34) % RDW 13.9 (13.2-15.2) % Plt Count 306 (140-440) K/mm3 Lymph % (Auto) 28.7 (13.4-35.0) % [place] % (Auto) 6.3 (0.0-7.3) % Eos % (Auto) 1.8 (0.0-4.3) % Baso % (Auto) 1.0 (0.0-1.8) % Lymph # 2.6 (1.2-5.4) K/mm3 [place] # 0.6 (0.0-0.8) K/mm3 Eos # 0.2 (0.0-0.4) K/mm3 Baso # 0.1 (0.0-0.1) K/mm3 Total Counted Cancelled Seg Neutrophils % 62.2 (40.0-70.0) % Seg Neuts % (Manual) Cancelled Band Neutrophils % Cancelled Lymphocytes % (Manual) Cancelled Reactive Lymphs % (Man) Cancelled Monocytes % (Manual) Cancelled Eosinophils % (Manual) Cancelled Basophils % (Manual) Cancelled Metamyelocytes % Cancelled Myelocytes % Cancelled Promyelocytes % Cancelled Blast Cells % Cancelled Nucleated RBC % Cancelled Seg Neutrophils # 5.6 (1.8-7.7) K/mm3 Seg Neutrophils # Man Cancelled Band Neutrophils # Cancelled Lymphocytes # (Manual) Cancelled Abs React Lymphs (Man) Cancelled Monocytes # (Manual) Cancelled Eosinophils # (Manual) Cancelled Basophils # (Manual) Cancelled Metamyelocytes # Cancelled Myelocytes # Cancelled Promyelocytes # Cancelled Blast Cells # Cancelled WBC Morphology Cancelled Hypersegmented Neuts Cancelled Hyposegmented Neuts Cancelled Hypogranular Neuts Cancelled Hypersegmented Polys Cancelled Smudge Cells Cancelled Toxic Granulation Cancelled Toxic Vacuolation Cancelled Dohle Bodies Cancelled Pelger-Huet Anomaly Cancelled Kennedi Rods Cancelled Platelet Estimate Cancelled Clumped Platelets Cancelled Plt Clumps, EDTA Cancelled Large Platelets Cancelled Giant Platelets Cancelled Platelet Satelliting Cancelled Plt Morphology Comment Cancelled RBC Morphology Cancelled Dimorphic RBCs Cancelled Polychromasia Cancelled Hypochromasia Cancelled Poikilocytosis Cancelled Basophilic Stippling Cancelled Anisocytosis Cancelled Microcytosis Cancelled Macrocytosis Cancelled Spherocytes Cancelled Pappenheimer Bodies Cancelled Sickle Cells Cancelled Target Cells Cancelled Tear Drop Cells Cancelled Ovalocytes Cancelled Stomatocytes Cancelled Helmet Cells Cancelled [place]man-[place] Bodies Cancelled [place] Rings Cancelled Jamie Cells Cancelled Bite Cells Cancelled Crenated Cell Cancelled Elliptocytes Cancelled Acanthocytes (Spur) Cancelled Rouleaux Cancelled Hemoglobin C Crystals Cancelled Schistocytes Cancelled Malaria parasites Cancelled Ezequiel Bodies Cancelled Hem Pathologist Commnt Cancelled PT (12.2-14.9) Sec. INR (0.87-1.13) VBG pH (7.320-7.420) Sodium (137-145) mmol/L Potassium (3.6-5.0) mmol/L Chloride (98-107) mmol/L Carbon Dioxide (22-30) mmol/L Anion Gap mmol/L BUN (7-17) mg/dL Creatinine (0.7-1.2) mg/dL Estimated GFR ml/min BUN/Creatinine Ratio % Glucose (65-100) mg/dL POC Glucose 403 H (70-105) Lactic Acid (0.7-2.0) mmol/L Calcium (8.4-10.2) mg/dL Magnesium (1.7-2.3) mg/dL Total Bilirubin (0.1-1.2) mg/dL AST (5-40) units/L ALT (7-56) units/L Alkaline Phosphatase (35-129) units/L Lactate Dehydrogenase (91-180) units/L Troponin T (0.00-0.029) ng/mL Total Protein (6.3-8.2) g/dL Albumin (3.9-5) g/dL Albumin/Globulin Ratio % Triglycerides (2-149) mg/dL Cholesterol (50-199) mg/dL LDL Cholesterol Direct HDL Cholesterol (40-59) mg/dL Cholesterol/HDL Ratio % HCG, Qual Negative (Negative) 04/21/18 04/21/18 04/21/18 Range/Units 22:37 22:37 22:37 WBC (4.5-11.0) K/mm3 RBC (3.65-5.03) M/mm3 Hgb (10.1-14.3) gm/dl Hct (30.3-42.9) % MCV (79-97) fl MCH (28-32) pg MCHC (30-34) % RDW (13.2-15.2) % Plt Count (140-440) K/mm3 Lymph % (Auto) (13.4-35.0) % [place] % (Auto) (0.0-7.3) % Eos % (Auto) (0.0-4.3) % Baso % (Auto) (0.0-1.8) % Lymph # (1.2-5.4) K/mm3 [place] # (0.0-0.8) K/mm3 Eos # (0.0-0.4) K/mm3 Baso # (0.0-0.1) K/mm3 Total Counted Seg Neutrophils % (40.0-70.0) % Seg Neuts % (Manual) Band Neutrophils % Lymphocytes % (Manual) Reactive Lymphs % (Man) Monocytes % (Manual) Eosinophils % (Manual) Basophils % (Manual) Metamyelocytes % Myelocytes % Promyelocytes % Blast Cells % Nucleated RBC % Seg Neutrophils # (1.8-7.7) K/mm3 Seg Neutrophils # Man Band Neutrophils # Lymphocytes # (Manual) Abs React Lymphs (Man) Monocytes # (Manual) Eosinophils # (Manual) Basophils # (Manual) Metamyelocytes # Myelocytes # Promyelocytes # Blast Cells # WBC Morphology Hypersegmented Neuts Hyposegmented Neuts Hypogranular Neuts Hypersegmented Polys Smudge Cells Toxic Granulation Toxic Vacuolation Dohle Bodies Pelger-Huet Anomaly Kenn[place] Rods Platelet Estimate Clumped Platelets Plt Clumps, EDTA Large Platelets Giant Platelets Platelet Satelliting Plt Morphology Comment RBC Morphology Dimorphic RBCs Polychromasia Hypochromasia Poikilocytosis Basophilic Stippling Anisocytosis Microcytosis Macrocytosis Spherocytes Pappenheimer Bodies Sickle Cells Target Cells Tear Drop Cells Ovalocytes Stomatocytes Helmet Cells Grossman-[place] Bodies [place] Rings Bangs Cells Bite Cells Crenated Cell Elliptocytes Acanthocytes (Spur) Rouleaux Hemoglobin C Crystals Schistocytes Malaria parasites Ezequiel Bodies Hem Pathologist Commnt PT 12.4 (12.2-14.9) Sec. INR 0.87 (0.87-1.13) VBG pH (7.320-7.420) Sodium 125 L (137-145) mmol/L Potassium 5.5 H (3.6-5.0) mmol/L Chloride 89.9 L (98-107) mmol/L Carbon Dioxide 25 (22-30) mmol/L Anion Gap 16 mmol/L BUN 22 H (7-17) mg/dL Creatinine 1.5 H (0.7-1.2) mg/dL Estimated GFR 45 ml/min BUN/Creatinine Ratio 15 % Glucose 530 H* (65-100) mg/dL POC Glucose (70-105) Lactic Acid 2.10 H* (0.7-2.0) mmol/L Calcium 9.0 (8.4-10.2) mg/dL Magnesium 2.20 (1.7-2.3) mg/dL Total Bilirubin < 0.20 (0.1-1.2) mg/dL AST 11 (5-40) units/L ALT 14 (7-56) units/L Alkaline Phosphatase 128 (35-129) units/L Lactate Dehydrogenase 238 H (91-180) units/L Troponin T 0.032 H (0.00-0.029) ng/mL Total Protein 7.2 (6.3-8.2) g/dL Albumin 2.8 L (3.9-5) g/dL Albumin/Globulin Ratio 0.6 % Triglycerides 637 H (2-149) mg/dL Cholesterol 260 H (50-199) mg/dL LDL Cholesterol Direct TNR HDL Cholesterol 35 L (40-59) mg/dL Cholesterol/HDL Ratio 7.42 % HCG, Qual (Negative) 04/21/18 Range/Units 22:37 WBC (4.5-11.0) K/mm3 RBC (3.65-5.03) M/mm3 Hgb (10.1-14.3) gm/dl Hct (30.3-42.9) % MCV (79-97) fl MCH (28-32) pg MCHC (30-34) % RDW (13.2-15.2) % Plt Count (140-440) K/mm3 Lymph % (Auto) (13.4-35.0) % [place] % (Auto) (0.0-7.3) % Eos % (Auto) (0.0-4.3) % Baso % (Auto) (0.0-1.8) % Lymph # (1.2-5.4) K/mm3 [place] # (0.0-0.8) K/mm3 Eos # (0.0-0.4) K/mm3 Baso # (0.0-0.1) K/mm3 Total Counted Seg Neutrophils % (40.0-70.0) % Seg Neuts % (Manual) Band Neutrophils % Lymphocytes % (Manual) Reactive Lymphs % (Man) Monocytes % (Manual) Eosinophils % (Manual) Basophils % (Manual) Metamyelocytes % Myelocytes % Promyelocytes % Blast Cells % Nucleated RBC % Seg Neutrophils # (1.8-7.7) K/mm3 Seg Neutrophils # Man Band Neutrophils # Lymphocytes # (Manual) Abs React Lymphs (Man) Monocytes # (Manual) Eosinophils # (Manual) Basophils # (Manual) Metamyelocytes # Myelocytes # Promyelocytes # Blast Cells # WBC Morphology Hypersegmented Neuts Hyposegmented Neuts Hypogranular Neuts Hypersegmented Polys Smudge Cells Toxic Granulation Toxic Vacuolation Dohle Bodies Pelger-Huet Anomaly Kennedi Rods Platelet Estimate Clumped Platelets Plt Clumps, EDTA Large Platelets Giant Platelets Platelet Satelliting Plt Morphology Comment RBC Morphology Dimorphic RBCs Polychromasia Hypochromasia Poikilocytosis Basophilic Stippling Anisocytosis Microcytosis Macrocytosis Spherocytes Pappenheimer Bodies Sickle Cells Target Cells Tear Drop Cells Ovalocytes Stomatocytes Helmet Cells Grossman-[place] Bodies [place] Rings Jamie Cells Bite Cells Crenated Cell Elliptocytes Acanthocytes (Spur) Rouleaux Hemoglobin C Crystals Schistocytes Malaria parasites Ezequiel Bodies Hem Pathologist Commnt PT (12.2-14.9) Sec. INR (0.87-1.13) VBG pH 7.361 (7.320-7.420) Sodium (137-145) mmol/L Potassium (3.6-5.0) mmol/L Chloride (98-107) mmol/L Carbon Dioxide (22-30) mmol/L Anion Gap mmol/L BUN (7-17) mg/dL Creatinine (0.7-1.2) mg/dL Estimated GFR ml/min BUN/Creatinine Ratio % Glucose (65-100) mg/dL POC Glucose (70-105) Lactic Acid (0.7-2.0) mmol/L Calcium (8.4-10.2) mg/dL Magnesium (1.7-2.3) mg/dL Total Bilirubin (0.1-1.2) mg/dL AST (5-40) units/L ALT (7-56) units/L Alkaline Phosphatase (35-129) units/L Lactate Dehydrogenase (91-180) units/L Troponin T (0.00-0.029) ng/mL Total Protein (6.3-8.2) g/dL Albumin (3.9-5) g/dL Albumin/Globulin Ratio % Triglycerides (2-149) mg/dL Cholesterol (50-199) mg/dL LDL Cholesterol Direct HDL Cholesterol (40-59) mg/dL Cholesterol/HDL Ratio % HCG, Qual (Negative) - EKG Data 04/21/18 23:54 Sinus, 94 bpm, left axis deviation, QTC prolonged, poor R wave progression, Q waves noted in the inferior leads, borderline left ventricular hypertrophy, abnormal EKG, not an ST elevation myocardial infarction, appears to have no nspecific changes with comparison to prior EKG. - Radiology Data Radiology results: report reviewed, image reviewed X-ray of the chest is negative for acute disease. Critical Care Time: Yes Critical care time in (mins) excluding proc time.: 45 Critical care attestation.: If time is entered above; I have spent that time in minutes in the direct care of this critically ill patient, excluding procedure time. ED Disposition Clinical Impression: Abdominal pain, Hyponatremia syndrome, Cardiorenal syndrome with renal failure, Hyperglycemia Disposition: [id number] OP ADMIT IP TO THIS HOSP Is pt being admited?: Yes Condition: Fair Referrals: ALEXANDER MACKEY MD [Primary Care Provider] - 3-5 Days
[2018-04-21] MEDS ORDERED: LASIX 80 MG in NACL 0.9% 50 ML IV ONE (23:52)
[2018-04-21] MEDS ORDERED: TYLENOL PO ONE (23:56)
--- NOTE | 2018-04-22 01:01 | Cat Scan Report ---
FINAL REPORT EXAM: CT ABDOMEN PELVIS WO CON HISTORY: left flank pain fall TECHNIQUE: Routine axial imaging was obtained of the abdomen and pelvis without oral or IV contrast. Sagittal and coronal reconstructions were reviewed. Comparison is made to the study of 11/03/2016. FINDINGS: The lung bases are negative for infiltrates or effusions. There is no evidence of rib fracture. The gallbladder has been removed. The liver and biliary tree appear normal. The pancreas, spleen, and adrenal glands appear normal. The kidneys reveal stable perinephric stranding bilaterally possibly r elated to remote infection. There are nonobstructing punctate calcifications in left kidney with kaley ral cortical cysts. There is no evidence of hydronephrosis. The bowel loops are normal in caliber and course. The appendix appears normal. There is no evidence of free fluid or adenopathy. In the pelvis there is a stable left adnexal cyst measuring 11.1 cm x 6.7 cm x 6.5 cm. This may be ov ida in origin. The uterus and bladder appear normal. There no evidence of adenopathy. The bones and soft tissues otherwise reveal obesity along with mild arthritic changes lumbar spine. IMPRESSION: Cholecystectomy. No acute process in the abdomen and pelvis. Bilateral perinephric stranding unchanged from the previous study. This may be related to remote infl ammatory process. Several punctate nonobstructing calcifications and cortical cyst in left kidney. No evidence of hydro nephrosis. Stable left adnexal cyst with measurements. This may be ovarian in origin. Normal appendix.
[2018-04-22 01:26] LABS: Uric Acid 7.1 mg/dL (3.5-7.6)
[2018-04-22] MEDS ORDERED: HumuLIN R ONE (02:01)
[2018-04-22] MEDS ORDERED: ATROVENT IH ONE (02:14)
[2018-04-22] MEDS ORDERED: PROVENTIL IH ONE (02:14)
[2018-04-22] MEDS ORDERED: PLAVIX PO ONE (02:14)
--- NOTE | 2018-04-22 04:41 | History and Physical Report ---
History of Present Illness Date of examination: 04/22/18 History of present illness: 48-year-old woman with a history of hypertension, chronic kidney disease, diabetes, HIV with CD4 count over 800, CHF comes emergency room with swelling all over as started yesterday. She has difficulty walking because her legs are still swollen. Status post fall, no injury to the head. Complains of cough productive of dark phlegm, fever, chills shortness of breath. Also complaining of chest pain in the epigastric area which she described as a pressure currently intermittent every 10 minutes, intensity 5/10, no radiation, cannot identify exacerbating factors Review of systems Constitutional: no weight loss, chills, fever Ears, eyes, nose, mouth and throat: no nasal congestion, no nasal discharge, no sinus pressure, no vision change, no red eye. Neck: No neck pain or rigidity. Cardiovascular: no palpitations, chest pain Respiratory:+ cough, shortness of breath Gastrointestinal: no hematochezia, abdominal pain Genitourinary : no frequency , no hematuria Musculoskeletal: no joint swelling or muscle ache Integumentary: no rash, no pruritis Neurological: no parathesias, no focal weakness Endocrine: no cold or heat intolerance, no polyuria or polydipsia Hematologic/Lymphatic: no easy bruising, no easy bleeding, no gland swelling Allergic/Immunologic: no urticaria, no angioedema. PAST MEDICAL HISTORY: hypertension, chronic kidney disease, diabetes, HIV, CHF PAST SURGICAL HISTORY: Cholecystectomy, SOCIAL HISTORY: Denies alcohol, drugs, tobacco FAMILY HISTORY: Hypertension Medications and Allergies Allergies Allergy/AdvReac Type Severity Reaction Status Date / Time aspirin Allergy Swelling Verified 05/10/16 05:48 Home Medications Medication Instructions Recorded Confirmed Last Taken Type Abacavir [Ziagen TAB] 600 mg PO DAILY 11/28/17 11/28/17 11/27/17 History Gabapentin [Neurontin] 600 mg PO Q8H 11/28/17 11/28/17 11/27/17 History Insulin Detemir [Levemir VIAL] 45 unit SQ QHS 11/28/17 11/28/17 Unknown History Metoprolol [Lopressor TAB] 100 mg PO DAILY 11/28/17 11/28/17 11/27/17 History Sertraline [Zoloft] 100 mg PO QDAY 11/28/17 11/28/17 11/27/17 History hydrALAZINE [Apresoline TAB] 50 mg PO Q8HR 11/28/17 11/28/17 Unknown History lamiVUDine [Lamivudine] 150 mg PO DAILY 11/28/17 11/28/17 11/27/17 History traZODone [Desyrel] 150 mg PO QHS 11/28/17 11/28/17 11/27/17 History Losartan [Cozaar] 12.5 mg PO QDAY #30 tablet 11/30/17 Unknown Rx Torsemide [Demadex] 20 mg PO DAILY #30 tablet 11/30/17 Unknown Rx oxyCODONE /ACETAMINOPHEN [Percocet 1 tab PO Q6HR PRN #20 tablet 11/30/17 Unknown Rx 5/325 mg] Exam - Physical Exam Narrative exam: General Apperance: The patient lying in bed, breathing comfortable HEENT: Normocephalic, atraumatic. Pupils equally round and reactive to light, EOMI, no sclericterus or JVD or thyromegaly or nodule. , no carotid bruit, mucous membranes moist, no exudate or erythema Heart: S1-S2, regular is rhythm Lungs: Decreased breath sounds bilaterally, breathing comfortable Abdomen: Positive bowel sounds, soft, nontender, nondistended, no organomegaly Extremities:+ edema cyanosis clubbing Skin: no rash, nodule, warm and dry Neuro: cranial nerves 2-12 intact, speech is fluent, motor/sensory intact - Constitutional Vitals: Temp Pulse Resp BP Pulse Ox 98.2 F 110 H 15 145/77 98 04/21/18 23:00 04/22/18 03:15 04/22/18 03:15 04/22/18 03:15 04/22/18 03:15 Results - Labs CBC & Chem 7: 04/21/18 22:37 04/21/18 22:37 Labs: Abnormal lab results 04/21/18 04/21/18 04/21/18 Range/Units 22:05 22:37 22:37 RBC 3.53 L (3.65-5.03) M/mm3 MCV 99 H (79-97) fl Sodium 125 L (137-145) mmol/L Potassium 5.5 H (3.6-5.0) mmol/L Chloride 89.9 L (98-107) mmol/L BUN 22 H (7-17) mg/dL Creatinine 1.5 H (0.7-1.2) mg/dL Glucose 530 H* (65-100) mg/dL POC Glucose 403 H (70-105) Lactic Acid (0.7-2.0) mmol/L Lactate Dehydrogenase 238 H (91-180) units/L Troponin T 0.032 H (0.00-0.029) ng/mL NT-Pro-B Natriuret Pep (0-450) pg/mL Albumin 2.8 L (3.9-5) g/dL Triglycerides 637 H (2-149) mg/dL Cholesterol 260 H (50-199) mg/dL HDL Cholesterol 35 L (40-59) mg/dL 04/21/18 04/22/18 Range/Units 22:37 00:03 RBC (3.65-5.03) M/mm3 MCV (79-97) fl Sodium (137-145) mmol/L Potassium (3.6-5.0) mmol/L Chloride (98-107) mmol/L BUN (7-17) mg/dL Creatinine (0.7-1.2) mg/dL Glucose (65-100) mg/dL POC Glucose (70-105) Lactic Acid 2.10 H* (0.7-2.0) mmol/L Lactate Dehydrogenase (91-180) units/L Troponin T (0.00-0.029) ng/mL NT-Pro-B Natriuret Pep 3037 H (0-450) pg/mL Albumin (3.9-5) g/dL Triglycerides (2-149) mg/dL Cholesterol (50-199) mg/dL HDL Cholesterol (40-59) mg/dL - Imaging and Cardiology EKG: image reviewed Chest x-ray: report reviewed CT scan - abdomen: report reviewed CT scan - pelvis: report reviewed Assessment and Plan Assessment Fluid overload/CHF Hyponatremia Chest pain hypertension chronic kidney disease diabetes, uncontrolled HIV Plan Admit medicine Continue IV Lasix Monitor I's and O's, daily weights, consult cardiology Renal was consulted to see the patient [place] 6 initiate insulin sliding scale DVT prophylaxis
[2018-04-22] MEDS ORDERED: PLAVIX ONE (04:52)
[2018-04-22] MEDS ORDERED: SODIUM CHLORIDE FLUSH SYRINGE 10 ML IV PRN (05:06)
[2018-04-22] MEDS ORDERED: TYLENOL PO PRN (05:06)
[2018-04-22] MEDS ORDERED: D50W (25GM) Syringe IV PRN (05:07)
[2018-04-22] MEDS: HumaLOG SUB-Q SCH ×6 (07:40→22:26)
[2018-04-22] MEDS: ZOFRAN IV PRN (08:20)
[2018-04-22] MEDS: PERCOCET 5/325 PO PRN ×2 (08:20→16:37)
[2018-04-22] MEDS ORDERED: TORADOL IV SCH (09:00)
[2018-04-22 09:26] LABS: Calcium 8.9 mg/dL (8.4-10.2)
[2018-04-22] MEDS ORDERED: COZAAR PO SCH (10:00)
--- NOTE | 2018-04-22 10:13 | Consultation ---
Addendum entered and electronically signed by CORA BANERJEE MD 04/22/18 11:58: Shortness of breath - reason for admission and consultation CXR - NAP Anasarca secondary to renal failure and nephrotic range proteinuria (documented by 24 hour urine protein 05/2016) Acute in chronic renal failure Creatinine was 1.0 in 2017 Chronically elevated non-specific troponin Chronic diastolic heart failure with no evidence of acute exacerbation Hyperkalemia Hypertriglyceridemia Uncontrolled blood sugar Lactic acidosis on admisison Hyponatremia History of HIV Recommendations: Obtain renal consultation for acute on chronic renal failure, hyperkalemia and proteinuria Given risk factors, coronary angiography is warranted once renal function has recovered and electrolyte abnormalities have been corrected Will continue to follow Original Note: History of Present Illness Consult date: 04/22/18 Consult reason: congestive heart failure History of present illness: Patient was brought in with abdominal pain and uncontrolled diabetes. In addition, she complained of shortness of breath and lower extremity edema thus this cardiac consultation. Patient has a history of heart failure with a preserved ejection fraction. She also has CKD, proteinuria HTN, DM and HIV. Chest x-ray reports no acute cardiopulmonary process. Labs noted with multiple metabolic abnormalities including a sodium of 125, potassium of 5.5 and glucose greater than 500. ECG is sinus rhythm, no acute ischemic changes. Medications and Allergies Allergies Allergy/AdvReac Type Severity Reaction Status Date / Time aspirin Allergy Swelling Verified 05/10/16 05:48 Home Medications Medication Instructions Recorded Confirmed Last Taken Type Abacavir [Ziagen TAB] 600 mg PO DAILY 11/28/17 04/22/18 11/27/17 History Gabapentin [Neurontin] 600 mg PO Q8H 11/28/17 04/22/18 11/27/17 History Insulin Detemir [Levemir VIAL] 45 unit SQ QHS 11/28/17 11/28/17 Unknown History Metoprolol [Lopressor TAB] 100 mg PO DAILY 11/28/17 11/28/17 11/27/17 History Sertraline [Zoloft] 100 mg PO QDAY 11/28/17 04/22/18 11/27/17 History hydrALAZINE [Apresoline TAB] 50 mg PO Q8HR 11/28/17 11/28/17 Unknown History lamiVUDine [Lamivudine] 150 mg PO DAILY 11/28/17 04/22/18 11/27/17 History traZODone [Desyrel] 150 mg PO QHS 11/28/17 04/22/18 11/27/17 History Losartan [Cozaar] 12.5 mg PO QDAY #30 tablet 11/30/17 Unknown Rx Torsemide [Demadex] 20 mg PO DAILY #30 tablet 11/30/17 Unknown Rx oxyCODONE /ACETAMINOPHEN [Percocet 1 tab PO Q6HR PRN #20 tablet 11/30/17 9 Unknown Rx 5/325 mg] Active Meds: Active Medications Abacavir Sulfate (Ziagen) 600 mg PO DAILY [facility] Acetaminophen (Tylenol) 650 mg PO Q4H PRN PRN Reason: Pain MILD(1-3)/Fever >100.5/EDWARD Dextrose (D50w (25gm) Syringe) 50 ml IV PRN PRN PRN Reason: Hypoglycemia Furosemide (Lasix) 40 mg IV BID@0600,1800 [facility] Gabapentin (Neurontin) 600 mg PO Q8HR [facility] Hydralazine HCl (Apresoline) 50 mg PO Q8HR [facility] Insulin Glargine (Lantus) 45 units SUB-Q QHS [facility] Insulin Human Lispro (Humalog) 0 unit SUB-Q ACHS [facility]; Protocol Insulin Human Lispro (Humalog) 10 unit SUB-Q AC [facility] Ketorolac Tromethamine (Toradol) 15 mg IV Q8H [facility] Stop: 04/27/18 08:59 Lamivudine (Epivir) 150 mg PO DAILY [facility] Losartan Potassium (Cozaar) 12.5 mg PO QDAY [facility] Metoprolol Tartrate (Lopressor) 100 mg PO DAILY [facility] Ondansetron HCl (Zofran) 4 mg IV Q8H PRN PRN Reason: Nausea And Vomiting Last Admin: 04/22/18 08:20 Dose: 4 mg Documented by: Oxycodone/Acetaminophen (Percocet 5/325) 1 tab PO Q6HR PRN PRN Reason: Pain, Moderate (4-6) Last Admin: 04/22/18 08:20 Dose: 1 tab Documented by: Sertraline HCl (Zoloft) 100 mg PO QDAY [facility] Sodium Chloride (Sodium Chloride Flush Syringe 10 Ml) 10 ml IV BID [facility] Sodium Chloride (Sodium Chloride Flush Syringe 10 Ml) 10 ml IV PRN PRN PRN Reason: LINE FLUSH Trazodone HCl (Desyrel) 150 mg PO QHS [facility] Physical Examination Vital Signs Pulse Ox 100 04/21/18 21:48 General appearance: no acute distress HEENT: Positive: PERRL Cardiac: Positive: Reg Rate and Rhythm Lungs: Positive: Decreased Breath Sounds Neuro: Positive: Grossly Intact Extremities: Absent: edema Results 04/21/18 22:37 04/22/18 08:51 Cardiac Enzymes 04/21/18 04/22/18 Range/Units 22:37 05:22 AST 11 (5-40) units/L Lactate Dehydrogenase 238 H (91-180) units/L CK-MB (CK-2) 3.0 (0.0-4.0) ng/mL Coagulation 04/21/18 Range/Units 22:37 PT 12.4 (12.2-14.9) Sec. INR 0.87 (0.87-1.13) Lipids 04/21/18 Range/Units 22:37 Triglycerides 637 H (2-149) mg/dL Cholesterol 260 H (50-199) mg/dL HDL Cholesterol 35 L (40-59) mg/dL Cholesterol/HDL Ratio 7.42 % CBC 04/21/18 Range/Units 22:37 WBC 8.7 (4.5-11.0) K/mm3 RBC 3.53 L (3.65-5.03) M/mm3 Hgb 11.3 (10.1-14.3) gm/dl Hct 35.0 (30.3-42.9) % Plt Count 306 (140-440) K/mm3 Lymph # 2.6 (1.2-5.4) K/mm3 [place] # 0.6 (0.0-0.8) K/mm3 Eos # 0.2 (0.0-0.4) K/mm3 Baso # 0.1 (0.0-0.1) K/mm3 Comprehensive Metabolic Panel 04/21/18 04/22/18 Range/Units 22:37 08:51 Sodium 125 L 127 L (137-145) mmol/L Potassium 5.5 H 6.1 H* (3.6-5.0) mmol/L Chloride 89.9 L 90.9 L (98-107) mmol/L Carbon Dioxide 25 23 (22-30) mmol/L BUN 22 H 21 H (7-17) mg/dL Creatinine 1.5 H 1.7 H (0.7-1.2) mg/dL Glucose 530 H* 543 H* (65-100) mg/dL Calcium 9.0 8.9 (8.4-10.2) mg/dL AST 11 (5-40) units/L ALT 14 (7-56) units/L Alkaline Phosphatase 128 (35-129) units/L Total Protein 7.2 (6.3-8.2) g/dL Albumin 2.8 L (3.9-5) g/dL Assessment and Plan Shortness of breath Diabetes, uncontrolled Abdominal pain Hyperkalemia Hyponatremia Lactic acidosis CKD HIV Hypertension Normal MPI 06/2016 Normal LVEF 55-60% by echo 11/2017
[2018-04-22] MEDS ORDERED: CALCIUM GLUCONATE 1,000 MG in NACL 0.9% 100 ML IV ONE (10:23)
[2018-04-22] MEDS ORDERED: KIONEX PO ONE (10:23)
[2018-04-22] MEDS: LOPRESSOR PO SCH (10:51)
--- NOTE | 2018-04-22 11:07 | Event Note ---
Date: 04/22/18 48-year-old female patient with multiple medical problems including HIV Was admitted through emergency room with worsening shortness of breath and generalized weakness productive cough as well as chest pain, Medical records reviewed, agree with the current plan Follow cardiology evaluation and recommendations --Atypical chest pain --Positive cardiac enzymes/non-ST elevation [place] --Hyperkalemia --Acute kidney injury --Uncontrolled diabetes mellitus --Dyslipidemia --Hyponatremia --Hypertension --Neuropathy --Depression Continue current management Follow-up cardiology evaluation and recommendations
[2018-04-22 11:11] LABS: Creatine Kinase MB 2.9 ng/mL (0.0-4.0)
[2018-04-22] MEDS: APRESOLINE PO SCH ×3 (14:00→21:18)
[2018-04-22] MEDS: MORPHINE IV SCH ×2 (14:09→19:45)
[2018-04-22] MEDS: NEURONTIN PO SCH ×3 (14:09→21:18)
[2018-04-22] MEDS: LASIX IV SCH ×2 (16:36→19:35)
[2018-04-22] MEDS: ZIAGEN PO SCH (18:50)
[2018-04-22] MEDS: EPIVIR PO SCH (18:50)
[2018-04-22] MEDS: SODIUM CHLORIDE FLUSH SYRINGE 10 ML IV SCH ×2 (18:51→23:05)
[2018-04-22] MEDS: ZOLOFT PO SCH (18:55)
[2018-04-22] MEDS ORDERED: HumaLOG SUB-Q ONE (20:35)
[2018-04-22] MEDS: DESYREL PO SCH (21:17)
[2018-04-22] MEDS: MORPHINE IV PRN (21:19)
[2018-04-22] MEDS ORDERED: INSULIN DETEMIR 45 UNIT SQ SCH (22:00)
[2018-04-22] MEDS ORDERED: LANTUS SUB-Q SCH (22:00)
[2018-04-23] MEDS: NEURONTIN PO SCH ×3 (05:43→22:00)
[2018-04-23] MEDS: APRESOLINE PO SCH ×3 (05:43→21:59)
[2018-04-23] MEDS: LASIX IV SCH ×2 (05:43→21:55)
--- NOTE | 2018-04-23 08:40 | Progress Note ---
Assessment and Plan Assessment and plan: 48-year-old female patient morbidly obese with history of HIV who was admitted through emergency room with worsening shortness of breath Generalized weakness productive cough as well as chest pain , patient was evaluated by cardiology medications were optimized Today patient's blood sugars are uncontrolled as patient refused her medications Lantus last night --Uncontrolled diabetes mellitus; secondary to noncompliance Change regimen to Lantus 20 subcutaneous twice a day, Accu-Chek sliding scale coverage [place] diet diabetic education and nutrition consult Patient is counseled on the importance of adhering to this treatment plan --Atypical chest pain; probably noncardiac [employer] following, possible stress test to rule out reversible ischemia --Non-ST elevation [place]; possible stress test versus, cardiology following --Hyperkalemia; managed with calcium gluconate and Kayexalate Potassium levels normal range today --Acute kidney injury; vasomotor nephropathy, worsening renal function Nephrology following, avoid nephrotoxins and closely monitor renal function --History of cyst; has been having this for the last 4 years, patient advised to see DRYERMAN/WOMAN as an outpatient For further evaluation and management --hypertension; moderate control, continue current antihypertensives and when n ecessary medications --Dyslipidemia; stable on statin --Hyponatremia; probably pseudohyponatremia due to elevated sugars Closely monitor electrolytes --History of diabetic neuropathy; continue gabapentin --History of depression; on antidepression medications Consider psych evaluation if no improvement --DVT prophylaxis; Lovenox History Interval history: Patient seen and examined medical records reviewed Patient's blood sugars are uncontrolled as patient refused her 45 units of Lantus last night However patient reports that she did not refuse the medication, she only said that the dose was very high Patient complains of mild nausea Alert awake oriented 3 vital signs noted Hospitalist Physical - Constitutional Vitals: Temp Pulse Resp BP Pulse Ox 97.6 F 91 H 17 116/63 98 04/23/18 05:30 04/23/18 05:30 04/23/18 05:30 04/23/18 05:30 04/23/18 05:30 General appearance: Present: no acute distress, well-nourished, obese (morbidly obese) - EENT Eyes: Present: PERRL, EOM intact - Neck Neck: Present: supple, normal ROM - Respiratory Respiratory effort: normal Respiratory: bilateral: diminished, negative: rales, rhonchi, wheezing - Cardiovascular Rhythm: regular Heart Sounds: Present: S1 & S2 - Extremities Extremities: no ischemia, No edema - Abdominal General gastrointestinal: soft, non-tender, non-distended, normal bowel sounds - Integumentary Integumentary: Present: clear, warm - Psychiatric Psychiatric: appropriate mood/affect, cooperative - Neurologic Neurologic: CNII-XII intact, moves all extremities Results - Labs CBC & Chem 7: 04/21/18 22:37 04/23/18 08:59 Labs: Laboratory Last Values WBC 8.7 K/mm3 (4.5-11.0) 04/21/18 22:37 RBC 3.53 M/mm3 (3.65-5.03) L 04/21/18 22:37 Hgb 11.3 gm/dl (10.1-14.3) 04/21/18 22:37 Hct 35.0 % (30.3-42.9) 04/21/18 22:37 MCV 99 fl (79-97) H 04/21/18 22:37 MCH 32 pg (28-32) 04/21/18 22:37 MCHC 32 % (30-34) 04/21/18 22:37 RDW 13.9 % (13.2-15.2) 04/21/18 22:37 Plt Count 306 K/mm3 (140-440) 04/21/18 22:37 Lymph % (Auto) 28.7 % (13.4-35.0) 04/21/18 22:37 [place] % (Auto) 6.3 % (0.0-7.3) 04/21/18 22:37 Eos % (Auto) 1.8 % (0.0-4.3) 04/21/18 22:37 Baso % (Auto) 1.0 % (0.0-1.8) 04/21/18 22:37 Lymph # 2.6 K/mm3 (1.2-5.4) 04/21/18 22:37 [place] # 0.6 K/mm3 (0.0-0.8) 04/21/18 22:37 Eos # 0.2 K/mm3 (0.0-0.4) 04/21/18 22:37 Baso # 0.1 K/mm3 (0.0-0.1) 04/21/18 22:37 Total Counted Cancelled 04/21/18 22:37 Seg Neutrophils % 62.2 % (40.0-70.0) 04/21/18 22:37 Seg Neuts % (Manual) Cancelled 04/21/18 22:37 Band Neutrophils % Cancelled 04/21/18 22:37 Lymphocytes % (Manual) Cancelled 04/21/18 22:37 Reactive Lymphs % (Man) Cancelled 04/21/18 22:37 Monocytes % (Manual) Cancelled 04/21/18 22:37 Eosinophils % (Manual) Cancelled 04/21/18 22:37 Basophils % (Manual) Cancelled 04/21/18 22:37 Metamyelocytes % Cancelled 04/21/18 22:37 Myelocytes % Cancelled 04/21/18 22:37 Promyelocytes % Cancelled 04/21/18 22:37 Blast Cells % Cancelled 04/21/18 22:37 Nucleated RBC % Cancelled 04/21/18 22:37 Seg Neutrophils # 5.6 K/mm3 (1.8-7.7) 04/21/18 22:37 Seg Neutrophils # Man Cancelled 04/21/18 22:37 Band Neutrophils # Cancelled 04/21/18 22:37 Lymphocytes # (Manual) Cancelled 04/21/18 22:37 Abs React Lymphs (Man) Cancelled 04/21/18 22:37 Monocytes # (Manual) Cancelled 04/21/18 22:37 Eosinophils # (Manual) Cancelled 04/21/18 22:37 Basophils # (Manual) Cancelled 04/21/18 22:37 Metamyelocytes # Cancelled 04/21/18 22:37 Myelocytes # Cancelled 04/21/18 22:37 Promyelocytes # Cancelled 04/21/18 22:37 Blast Cells # Cancelled 04/21/18 22:37 WBC Morphology Cancelled 04/21/18 22:37 Hypersegmented Neuts Cancelled 04/21/18 22:37 Hyposegmented Neuts Cancelled 04/21/18 22:37 Hypogranular Neuts Cancelled 04/21/18 22:37 Hypersegmented Polys Cancelled 04/21/18 22:37 Smudge Cells Cancelled 04/21/18 22:37 Toxic Granulation Cancelled 04/21/18 22:37 Toxic Vacuolation Cancelled 04/21/18 22:37 Dohle Bodies Cancelled 04/21/18 22:37 Pelger-Huet Anomaly Cancelled 04/21/18 22:37 Kennedi Rods Cancelled 04/21/18 22:37 Platelet Estimate Cancelled 04/21/18 22:37 Clumped Platelets Cancelled 04/21/18 22:37 Plt Clumps, EDTA Cancelled 04/21/18 22:37 Large Platelets Cancelled 04/21/18 22:37 Giant Platelets Cancelled 04/21/18 22:37 Platelet Satelliting Cancelled 04/21/18 22:37 Plt Morphology Comment Cancelled 04/21/18 22:37 RBC Morphology Cancelled 04/21/18 22:37 Dimorphic RBCs Cancelled 04/21/18 22:37 Polychromasia Cancelled 04/21/18 22:37 Hypochromasia Cancelled 04/21/18 22:37 Poikilocytosis Cancelled 04/21/18 22:37 Basophilic Stippling Cancelled 04/21/18 22:37 Anisocytosis Cancelled 04/21/18 22:37 Microcytosis Cancelled 04/21/18 22:37 Macrocytosis Cancelled 04/21/18 22:37 Spherocytes Cancelled 04/21/18 22:37 Pappenheimer Bodies Cancelled 04/21/18 22:37 Sickle Cells Cancelled 04/21/18 22:37 Target Cells Cancelled 04/21/18 22:37 Tear Drop Cells Cancelled 04/21/18 22:37 Ovalocytes Cancelled 04/21/18 22:37 Stomatocytes Cancelled 04/21/18 22:37 Helmet Cells Cancelled 04/21/18 22:37 [place] Bodies Cancelled 04/21/18 22:37 [place] Rings Cancelled 04/21/18 22:37 Jamie Cells Cancelled 04/21/18 22:37 Bite Cells Cancelled 04/21/18 22:37 Crenated Cell Cancelled 04/21/18 22:37 Elliptocytes Cancelled 04/21/18 22:37 Acanthocytes (Spur) Cancelled 04/21/18 22:37 Rouleaux Cancelled 04/21/18 22:37 Hemoglobin C Crystals Cancelled 04/21/18 22:37 Schistocytes Cancelled 04/21/18 22:37 Malaria parasites Cancelled 04/21/18 22:37 Ezequiel Bodies Cancelled 04/21/18 22:37 Hem Pathologist Commnt Cancelled 04/21/18 22:37 PT 12.4 Sec. (12.2-14.9) 04/21/18 22:37 INR 0.87 (0.87-1.13) 04/21/18 22:37 VBG pH 7.361 (7.320-7.420) 04/21/18 22:37 Sodium 131 mmol/L (137-145) L 04/22/18 19:32 Potassium 5.0 mmol/L (3.6-5.0) 04/22/18 19:32 Chloride 94.1 mmol/L (98-107) L 04/22/18 19:32 Carbon Dioxide 25 mmol/L (22-30) 04/22/18 19:32 Anion Gap 17 mmol/L 04/22/18 19:32 BUN 21 mg/dL (7-17) H 04/22/18 19:32 Creatinine 1.8 mg/dL (0.7-1.2) H 04/22/18 19:32 Estimated GFR 36 ml/min 04/22/18 19:32 BUN/Creatinine Ratio 12 % 04/22/18 19:32 Glucose 503 mg/dL (65-100) H* 04/22/18 19:32 POC Glucose 365 (70-105) H 04/23/18 08:10 Osmolality 309 Mosm/kg 04/22/18 00:03 Lactic Acid 1.80 mmol/L (0.7-2.0) 04/22/18 00:03 Uric Acid 7.1 mg/dL (3.5-7.6) 04/22/18 00:03 Calcium 9.0 mg/dL (8.4-10.2) 04/22/18 19:32 Magnesium 2.20 mg/dL (1.7-2.3) 04/21/18 22:37 Total Bilirubin < 0.20 mg/dL (0.1-1.2) 04/21/18 22:37 AST 11 units/L (5-40) 04/21/18 22:37 ALT 14 units/L (7-56) 04/21/18 22:37 Alkaline Phosphatase 128 units/L (35-129) 04/21/18 22:37 Lactate Dehydrogenase 238 units/L (91-180) H 04/21/18 22:37 Total Creatine Kinase 134 units/L (30-135) 04/22/18 10:41 CK-MB (CK-2) 2.9 ng/mL (0.0-4.0) 04/22/18 10:41 CK-MB (CK-2) Rel Index 2.1 (0-4) 04/22/18 10:41 Troponin T 0.034 ng/mL (0.00-0.029) H 04/22/18 10:41 NT-Pro-B Natriuret Pep 3037 pg/mL (0-450) H 04/22/18 00:03 Total Protein 7.2 g/dL (6.3-8.2) 04/21/18 22:37 Albumin 2.8 g/dL (3.9-5) L 04/21/18 22:37 Albumin/Globulin Ratio 0.6 % 04/21/18 22:37 Triglycerides 637 mg/dL (2-149) H 04/21/18 22:37 Cholesterol 260 mg/dL (50-199) H 04/21/18 22:37 LDL Cholesterol Direct TNR 04/21/18 22:37 HDL Cholesterol 35 mg/dL (40-59) L 04/21/18 22:37 Cholesterol/HDL Ratio 7.42 % 04/21/18 22:37 HCG, Qual Negative (Negative) 04/21/18 22:37
[2018-04-23 10:13] LABS: Calcium 8.8 mg/dL (8.4-10.2)
[2018-04-23] MEDS: ZOLOFT PO SCH (10:34)
[2018-04-23] MEDS: LOPRESSOR PO SCH (10:34)
[2018-04-23] MEDS: EPIVIR PO SCH (10:35)
[2018-04-23] MEDS: ZIAGEN PO SCH (10:35)
[2018-04-23] MEDS: HumaLOG SUB-Q SCH ×7 (10:36→22:01)
[2018-04-23] MEDS: SODIUM CHLORIDE FLUSH SYRINGE 10 ML IV SCH ×2 (10:37→22:01)
[2018-04-23] MEDS: MORPHINE IV PRN ×2 (10:40→19:52)
--- NOTE | 2018-04-23 10:45 | Progress Note ---
Assessment and Plan Shortness of breath - reason for admission and consultation CXR - NAP Anasarca secondary to renal failure and nephrotic range proteinuria (documented by 24 hour urine protein 05/2016) Acute on chronic renal failure Creatinine was 1.0 in 2017 Chronically elevated non-specific troponin Chronic diastolic heart failure with no evidence of acute exacerbation Hyperkalemia Hypertriglyceridemia Uncontrolled blood sugar Lactic acidosis on admisison Hyponatremia History of HIV Recommendations: Obtain renal consultation for acute on chronic renal failure, hyperkalemia and proteinuria Given risk factors, coronary angiography is warranted once renal function has recovered and electrolyte abnormalities have been corrected. This is not urgent and can be performed electively as outpatient Will continue to follow Subjective Date of service: 04/23/18 Principal diagnosis: Shortness of breath Interval history: Patient is feeling better this morning Shortness of breath has improved Objective Vital Signs Temp Pulse Resp BP Pulse Ox 04/23/18 09:24 97.8 F 94 H 16 152/77 97 04/23/18 05:30 97.6 F 91 H 17 116/63 98 04/23/18 05:00 88 04/22/18 23:12 98.6 F 92 H 18 109/70 98 04/22/18 22:00 20 04/22/18 21:00 103 H 04/22/18 20:16 98.0 F 102 H 17 167/100 96 04/22/18 20:02 98 04/22/18 19:11 98.5 F 80 20 128/79 95 04/22/18 19:05 98.5 F 102 H 20 144/93 98 - Physical Examination HEENT: Positive: PERRL Neck: Positive: neck supple Cardiac: Positive: Reg Rate and Rhythm Lungs: Positive: Normal Exam Neuro: Positive: Grossly Intact Extremities: Absent: edema - Labs and Meds Cardiac Enzymes 04/22/18 Range/Units 10:41 CK-MB (CK-2) 2.9 (0.0-4.0) ng/mL Comprehensive Metabolic Panel 04/22/18 04/23/18 Range/Units 19:32 08:59 Sodium 131 L 133 L (137-145) mmol/L Potassium 5.0 4.7 (3.6-5.0) mmol/L Chloride 94.1 L 93.7 L (98-107) mmol/L Carbon Dioxide 25 26 (22-30) mmol/L BUN 21 H 22 H (7-17) mg/dL Creatinine 1.8 H 2.1 H (0.7-1.2) mg/dL Glucose 503 H* 414 H (65-100) mg/dL Calcium 9.0 8.8 (8.4-10.2) mg/dL - Imaging and Cardiology EKG: image reviewed
[2018-04-23] MEDS: PERCOCET 5/325 PO PRN (10:52)
--- NOTE | 2018-04-23 11:27 | Consultation ---
History of Present Illness - Reason for Consult Consult date: 04/23/18 - History of Present Illness Very pleasant 48-year-old obese female with a past medical history significant for chronic kidney disease stage III in the setting of poorly controlled diabetes, hypertension, and HIV disease, presents to the emergency department with worsening shortness of breath and lower extremity edema and anasarca. She does have a history of chronic diastolic heart failure and has been evaluated by cardiology during this admission. Nephrology is being consulted for an acute elevation in creatinine above her baseline. Per patient she had a recent extensive hospitalization at [facility] secondary to a pneumonia and what seems like a complication of acute renal failure likely secondary to acute tubular necrosis. She did end up requiring renal replacement therapy in the hospital and apparently was dialyzed for 1-1/2 months. She was eventually weaned off dialysis and was discharged from [facility] in early April without any more chronic dialysis needs. She states that over the past 2-3 weeks she has noticed progressive decrease in urine output along with the aforementioned lower extremity edema. She is on torsemide at home and states that she has been compliant with her medications. Her blood sugars have been significantly elevated here in the hospital and she states that overall her diabetic control has been suboptimal. She unfortunately does not check her blood sugars at home on a regular basis. She is also been complaining of increased fatigue, weakness, nausea and vomiting, along with decreased by mouth intake. She has a Nunez catheter in place and is receiving Lasix 40 mg IV twice a day. She is nonoliguric and responding well to the current diuretic regimen. Serum creatin ine is slightly elevated today from her baseline since admission. Past History Past Medical History: diabetes, heart failure, HIV/AIDS, hypertension, hyperlipidemia Past Surgical History: cholecystectomy, Social history: no significant social history, lives with family Family history: diabetes, hypertension Medications and Allergies Allergies Allergy/AdvReac Type Severity Reaction Status Date / Time aspirin Allergy Swelling Verified 05/10/16 05:48 lisinopril AdvReac Angioedema Verified 04/23/18 03:38 Home Medications Medication Instructions Recorded Confirmed Last Taken Type Abacavir [Ziagen TAB] 600 mg PO DAILY 11/28/17 04/22/18 11/27/17 History Gabapentin [Neurontin] 600 mg PO Q8H 11/28/17 04/22/18 11/27/17 History Insulin Detemir [Levemir VIAL] 45 unit SQ QHS 11/28/17 04/23/18 Unknown History Metoprolol [Lopressor TAB] 100 mg PO DAILY 11/28/17 04/23/18 11/27/17 History Sertraline [Zoloft] 100 mg PO QDAY 11/28/17 04/22/18 11/27/17 History hydrALAZINE [Apresoline TAB] 50 mg PO Q8HR 11/28/17 04/23/18 Unknown History lamiVUDine [Lamivudine] 150 mg PO DAILY 11/28/17 04/22/18 11/27/17 History traZODone [Desyrel] 150 mg PO QHS 11/28/17 04/22/18 11/27/17 History Losartan [Cozaar] 12.5 mg PO QDAY #30 tablet 11/30/17 04/23/18 Unknown Rx Torsemide [Demadex] 20 mg PO DAILY #30 tablet 11/30/17 04/23/18 Unknown Rx oxyCODONE /ACETAMINOPHEN [Percocet 1 tab PO Q6HR PRN #20 tablet 11/30/17 04/22/18 Unknown Rx 5/325 mg] Active Meds: Active Medications Abacavir Sulfate (Ziagen) 600 mg PO DAILY [facility] Last Admin: 04/23/18 10:35 Dose: 600 mg Documented by: Acetaminophen (Tylenol) 650 mg PO Q4H PRN PRN Reason: Pain MILD(1-3)/Fever >100.5/EDWARD Dextrose (D50w (25gm) Syringe) 50 ml IV PRN PRN PRN Reason: Hypoglycemia Furosemide (Lasix) 40 mg IV BID@0600,1800 [facility] Last Admin: 04/23/18 05:43 Dose: 40 mg Documented by: Gabapentin (Neurontin) 600 mg PO Q8HR [facility] Last Admin: 04/23/18 05:43 Dose: 600 mg Documented by: Hydralazine HCl (Apresoline) 50 mg PO Q8HR [facility] Last Admin: 04/23/18 05:43 Dose: Not Given Documented by: Insulin Glargine (Lantus) 45 units SUB-Q QHS [facility] Last Admin: 04/22/18 23:20 Dose: Not Given Documented by: Insulin Glargine (Lantus) 20 units SUB-Q ONCE ONE Stop: 04/24/18 09:31 Insulin Human Lispro (Humalog) 0 unit SUB-Q ACHS [facility]; Protocol Last Admin: 04/23/18 10:36 Dose: 10 unit Documented by: Insulin Human Lispro (Humalog) 10 unit SUB-Q AC [facility] Last Admin: 04/23/18 10:36 Dose: 10 unit Documented by: Lamivudine (Epivir) 150 mg PO DAILY [facility] Last Admin: 04/23/18 10:35 Dose: 150 mg Documented by: Metoprolol Tartrate (Lopressor) 100 mg PO DAILY [facility] Last Admin: 04/23/18 10:34 Dose: 100 mg Documented by: Morphine Sulfate (Morphine) 1 mg IV Q4H PRN PRN Reason: Pain , Severe (7-10) Stop: 05/02/18 13:51 Last Admin: 04/23/18 10:40 Dose: 1 mg Documented by: Ondansetron HCl (Zofran) 4 mg IV Q8H PRN PRN Reason: Nausea And Vomiting Last Admin: 04/22/18 08:20 Dose: 4 mg Documented by: Oxycodone/Acetaminophen (Percocet 5/325) 1 tab PO Q6HR PRN PRN Reason: Pain, Moderate (4-6) Last Admin: 04/23/18 10:52 Dose: 1 tab Documented by: Sertraline HCl (Zoloft) 100 mg PO QDAY [facility] Last Admin: 04/23/18 10:34 Dose: 100 mg Documented by: Sodium Chloride (Sodium Chloride Flush Syringe 10 Ml) 10 ml IV BID [facility] Last Admin: 04/23/18 10:37 Dose: 10 ml Documented by: Sodium Chloride (Sodium Chloride Flush Syringe 10 Ml) 10 ml IV PRN PRN PRN Reason: LINE FLUSH Trazodone HCl (Desyrel) 150 mg PO QHS [facility] Last Admin: 04/22/18 21:17 Dose: 150 mg Documented by: Review of Systems All systems: negative Constitutional: fatigue, weakness, malaise, poor appetite Cardiovascular: edema, shortness of breath Gastrointestinal: nausea, vomiting Exam - Vital Signs Vital signs: Vital Signs Pulse Ox 100 04/21/18 21:48 - General Appearance General appearance: well-nourished, appears stated age, obese, fatigue, other (ill-appearing) EENT: ATNC, PERRL Neck: Present: neck supple, trachea midline Respiratory: Clear to Ascultation, Normal Exam Heart: regular, normal heart rate, S1S2 Gastrointestinal: Present: normal, normoactive bowel sounds Integumentary: no rash, warm and dry Neurologic: no focal deficit, no asterixis, alert and oriented x3 Musculoskeletal: Present: other (edema in lower extremities, mild pitting) Psychiatric: mood/affect appropriate, cooperative Results - Lab Results 04/21/18 22:37 04/23/18 08:59 Most recent lab results Calcium 8.8 mg/dL (8.4-10.2) 04/23/18 08:59 Magnesium 2.20 mg/dL (1.7-2.3) 04/21/18 22:37 Assessment and Plan - Patient Problems (1) Gwkul-kh-kogfcuc kidney injury Current Visit: Yes Status: Acute Qualifiers: Chronic kidney disease stage: stage 3 (moderate) Plan to address problem: Likely multifactorial in regards to the etiology of her acute kidney injury. May be secondary to element of fluid overload and cardiorenal syndrome. But also patient has significantly elevated blood sugars and likely evidence of osmotic diuresis leading to prerenal injury on top of her significant chronic k idney disease. I discussed with patient at length the importance of getting her blood sugar and diabetic management under control as I believe this is the primary reason why she has had nephrotic range proteinuria in the past along with the aforementioned edema and hypoalbuminemia. Careful avoidance of nephrotoxins needed at this time. Agree with Nunez catheter for careful fluid monitoring to ensure that she remains nonoliguric. We'll continue to trend her renal function daily. We'll also obtain a urinalysis and repeat a urine protein to creatinine ratio. She had a previous renal ultrasound done from her previous admission. 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 She needs adequate control of her diabetes at this time. We will defer management of diabetes to her primary attending. (3) Fluid overload Current Visit: No Status: Acute Plan to address problem: Patient being diuresed adequately with Lasix 40 mg IV twice a day. We'll have to closely monitor patient's urine output. Ensure that she remains nonoliguric. Have to monitor her overall hemodynamics given that she has significant risk for prerenal injury due to osmotic diuresis from uncontrolled blood sugars, hyperglycemia. (4) Hypertensive chronic kidney disease with stage 1 through stage 4 chronic kidney disease, or unspecified chronic kidney disease Current Visit: Yes Status: Acute Plan to address problem: Continue current regimen at this time. We'll closely monitor. (5) HIV (human immunodeficiency virus infection) Current Visit: No Status: Acute Plan to address problem: Management per ID recommendations. (6) Hyperkalemia Current Visit: No Status: Acute Plan to address problem: Potassium levels are better controlled this morning. May also be secondary to her overall uncontrolled diabetes with hyperglycemia. We need to ensure that the patient is on low potassium diet. (7) Proteinuria Current Visit: No Status: Chronic Plan to address problem: We'll assess urine analysis as well as a urine protein to creatinine ratio at this time. (8) Chronic diastolic (congestive) heart failure Current Visit: Yes Status: Chronic Plan to address problem: Cardiology note reviewed and per cardiology note evidence of acute exacerbation of her chronic diastolic heart failure. Chest x-ray also reviewed without any acute cardiopulmonary process. Patient being diuresed adequately with Lasix 40 mg IV twice a day. We'll have to closely monitor patient's urine output. Ensure that she remains nonoliguric. Have to monitor her overall hemodynamics given that she has significant risk for prerenal injury due to osmotic diuresis from uncontrolled blood sugars, hyperglycemia. We'll need to monitor volume status very carefully.
[2018-04-23] MEDS ORDERED: LANTUS SUB-Q ONE (13:00)
[2018-04-23] MEDS: ZOFRAN IV PRN (13:16)
[2018-04-23] MEDS ORDERED: ALUM-MAG HYDROX-SIMETH 200-200-20MG/5ML PO PRN (14:01)
[2018-04-23] MEDS: REGLAN IV PRN (14:40)
[2018-04-23] MEDS: DESYREL PO SCH (21:59)
[2018-04-23] MEDS: LANTUS SUB-Q SCH (22:00)
[2018-04-24] MEDS: NEURONTIN PO SCH ×3 (05:19→23:11)
[2018-04-24] MEDS: APRESOLINE PO SCH ×3 (05:19→23:13)
[2018-04-24] MEDS: MORPHINE IV PRN ×3 (05:21→23:12)
[2018-04-24] MEDS: LASIX IV SCH (05:21)
[2018-04-24 06:17] LABS: Calcium 8.5 mg/dL (8.4-10.2)
--- NOTE | 2018-04-24 09:19 | Progress Note ---
Assessment and Plan Shortness of breath - reason for admission and consultation CXR - [facility] Anasarca secondary to renal failure and nephrotic range proteinuria (documented by 24 hour urine protein 05/2016) Acute on chronic renal failure Creatinine was 1.0 in 2017 Chronically elevated non-specific troponin Chronic diastolic heart failure with no evidence of acute exacerbation Hyperkalemia Hypertriglyceridemia Uncontrolled blood sugar Lactic acidosis on admisison Hyponatremia History of HIV Recommendations: Given risk factors, coronary angiography is warranted once renal function has recovered and electrolyte abnormalities have been corrected. This is not urgent and can be performed electively as outpatient Renal follow-up for worsening renal function Subjective Date of service: 04/24/18 Principal diagnosis: Shortness of breath Interval history: Patient denies chest pain or shortness of breath this morning Objective Vital Signs Temp Pulse Resp BP Pulse Ox 04/24/18 08:09 98.1 F 81 16 97/51 97 04/24/18 05:14 87 18 131/69 97 04/24/18 05:00 78 04/24/18 00:11 98.4 F 83 20 112/61 98 04/23/18 22:00 18 04/23/18 21:13 97 04/23/18 20:23 98.3 F 82 20 148/77 97 04/23/18 17:26 98.3 F 77 16 151/85 96 04/23/18 13:15 79 124/71 04/23/18 13:11 98.1 F 79 16 124/71 98 04/23/18 11:44 97 04/23/18 10:40 20 04/23/18 10:00 20 04/23/18 09:24 97.8 F 94 H 16 152/77 97 - Physical Examination HEENT: Positive: PERRL Neck: Positive: neck supple, trachea midline Cardiac: Positive: Reg Rate and Rhythm Lungs: Positive: Normal Exam Neuro: Positive: Grossly Intact Extremities: Absent: edema - Labs and Meds Comprehensive Metabolic Panel 04/23/18 04/24/18 Range/Units 08:59 05:08 Sodium 133 L 137 (137-145) mmol/L Potassium 4.7 3.7 D (3.6-5.0) mmol/L Chloride 93.7 L 96.3 L (98-107) mmol/L Carbon Dioxide 26 30 (22-30) mmol/L BUN 22 H 30 H (7-17) mg/dL Creatinine 2.1 H 2.9 H (0.7-1.2) mg/dL Glucose 414 H 166 H (65-100) mg/dL Calcium 8.8 8.5 (8.4-10.2) mg/dL - Imaging and Cardiology EKG: image reviewed
[2018-04-24] MEDS ORDERED: LANTUS SUB-Q ONE (09:30)
[2018-04-24] MEDS: HumaLOG SUB-Q SCH ×6 (09:35→23:22)
[2018-04-24] MEDS: LANTUS SUB-Q SCH ×2 (09:37→23:18)
[2018-04-24] MEDS: ZIAGEN PO SCH (09:44)
[2018-04-24] MEDS: EPIVIR PO SCH (09:44)
[2018-04-24] MEDS: ZOLOFT PO SCH (09:45)
[2018-04-24] MEDS: SODIUM CHLORIDE FLUSH SYRINGE 10 ML IV SCH ×2 (09:45→23:23)
[2018-04-24] MEDS: LOPRESSOR PO SCH (09:51)
--- NOTE | 2018-04-24 11:38 | Progress Note ---
Assessment and Plan - Patient Problems (1) Ziydk-ja-ukxmegy kidney injury Current Visit: Yes Status: Acute Qualifiers: Chronic kidney disease stage: stage 3 (moderate) Plan to address problem: Likely multifactorial in regards to the etiology of her acute kidney injury. May be secondary to element of fluid overload and cardiorenal syndrome. But also patient has significantly elevated blood sugars and likely evidence of osmotic diuresis leading to prerenal injury on top of her significant chronic kidney disease. I discussed with patient at length the importance of getting her blood sugar and diabetic management under control as I believe this is the primary reason why she has had nephrotic range proteinuria in the past along with the aforementioned edema and hypoalbuminemia. Careful avoidance of nephrotoxins needed at this time. Given her worsening renal function, will favor to hold off on second dose of lasix and start patient on gentle IVF with NS @ 50cc/hr. Patient likely has significant baseline CKD that will make patient prone to acute kidney injuries in future. In regards to recent episode, there may be element of pre-renal injury given her poor oral intake/nausea in the setting of uncontrolled diabetes with hyperglycemia with concomitant IV diuresis. Will monitor closely. 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 She needs adequate control of her diabetes at this time. We will defer management of diabetes to her primary attending. (3) Fluid overload Current Visit: No Status: Acute Plan to address problem: Patient being diuresed adequately with Lasix 40 mg IV twice a day. Edema has improved since admission. In the setting of her worsening renal function, will hold second dose of lasix and add her on gently IVF at 50cc/hr. (4) Hypertensive chronic kidney disease with stage 1 through stage 4 chronic kidney disease, or unspecified chronic kidney disease Current Visit: Yes Status: Acute Plan to address problem: Continue current regimen at this time. We'll closely monitor. (5) HIV (human immunodeficiency virus infection) Current Visit: No Status: Acute Plan to address problem: Management per ID recommendations. (6) Hyperkalemia Current Visit: No Status: Acute Plan to address problem: Potassium levels are better controlled this morning. May also be secondary to her overall uncontrolled diabetes with hyperglycemia. We need to ensure that the patient is on low potassium diet. (7) Proteinuria Current Visit: No Status: Chronic Plan to address problem: We'll assess urine analysis as well as a urine protein to creatinine ratio at this time. (8) Chronic diastolic (congestive) heart failure Current Visit: Yes Status: Chronic Plan to address problem: Cardiology note reviewed and per cardiology note evidence of acute exacerbation of her chronic diastolic heart failure. Chest x-ray also reviewed without any acute cardiopulmonary process. Patient being diuresed adequately with Lasix 40 mg IV twice a day. We'll have to closely monitor patient's urine output. Ensure that she remains nonoliguric. Have to monitor her overall hemodynamics given that she has significant risk for prerenal injury due to osmotic diuresis from uncontrolled blood sugars, hyperglycemia. We'll need to monitor volume status very carefully. Will hold second dose of lasix and add on gently IVF hydration at 50 cc/hr as her overall PO intake slowly improves. Subjective Date of service: 04/24/18 Principal diagnosis: Shortness of breath Interval history: No acute changes overnight. Labs noted with worsening of renal function noted. She has been diuresed with lasix 40 mg IV BID and her swelling and edema have improved since admission. She had been nauseous yesterday with oral intake that is slowly improving at this time, which does prone patient to have acute kidney injury secondary to pre-renal azotemia. Discussed with patient and primary attending, and would recommend that we hold off on second dose of lasix today and start her on gentle IVF hydration with NS @ 50 cc/hr. Objective - Vital Signs Vital signs: Vital Signs - 12hr 04/24/18 04/24/18 04/24/18 00:11 05:00 05:14 Temperature 98.4 F Pulse Rate 83 78 87 Respiratory 20 18 Rate Blood Pressure 112/61 131/69 O2 Sat by Pulse 98 97 Oximetry 04/24/18 04/24/18 04/24/18 08:09 09:51 10:00 Temperature 98.1 F Pulse Rate 81 89 Respiratory 16 Rate Blood Pressure 97/51 97/51 O2 Sat by Pulse 97 97 Oximetry - General Appearance General appearance: appears stated age, obese, chronically ill EENT: ATNC, PERRL Neck: no JVD, no thyromegaly Respiratory: Present: Clear to Ascultation Cardiology: regular, S1S2 Gastrointestinal: normal, normoactive bowel sounds Integumentary: no rash, warm and dry Neurologic: no focal deficit, no asterixis, alert and oriented x3 Musculoskeletal: other (edema, mild, improving since admission ) Psychiatric: mood/affect appropriate, cooperative - Lab 04/21/18 22:37 04/24/18 05:08 Most recent lab results Calcium 8.5 mg/dL (8.4-10.2) 04/24/18 05:08 Phosphorus 3.90 mg/dL (2.5-4.5) 04/24/18 05:08 Magnesium 2.30 mg/dL (1.7-2.3) 04/24/18 05:08 - Allied health notes Allied health notes reviewed: nursing Medications & Allergies - Medications Allergies/Adverse Reactions: Allergies aspirin Allergy (Verified 05/10/16 05:48) Swelling lisinopril Adverse Reaction (Verified 04/23/18 03:38) Angioedema Home Medications: Home Medications Medication Instructions Recorded Confirmed Last Taken Type Abacavir [Ziagen TAB] 600 mg PO DAILY 11/28/17 04/22/18 11/27/17 History Gabapentin [Neurontin] 600 mg PO Q8H 11/28/17 04/22/18 11/27/17 History Insulin Detemir [Levemir VIAL] 45 unit SQ QHS 11/28/17 04/23/18 Unknown History Metoprolol [Lopressor TAB] 100 mg PO DAILY 11/28/17 04/23/18 11/27/17 History Sertraline [Zoloft] 100 mg PO QDAY 11/28/17 04/22/18 11/27/17 History hydrALAZINE [Apresoline TAB] 50 mg PO Q8HR 11/28/17 04/23/18 Unknown History lamiVUDine [Lamivudine] 150 mg PO DAILY 11/28/17 04/22/18 11/27/17 History traZODone [Desyrel] 150 mg PO QHS 11/28/17 04/22/18 11/27/17 History Losartan [Cozaar] 12.5 mg PO QDAY #30 tablet 11/30/17 04/23/18 Unknown Rx Torsemide [Demadex] 20 mg PO DAILY #30 tablet 11/30/17 04/23/18 Unknown Rx oxyCODONE /ACETAMINOPHEN [Percocet 1 tab PO Q6HR PRN #20 tablet 11/30/17 04/22/18 Unknown Rx 5/325 mg] Active Medications: Generic Name Dose Route Start Last Admin Trade Name Freq PRN Reason Stop Dose Admin Abacavir Sulfate 600 mg 04/22/18 10:00 04/24/18 09:44 Ziagen PO 600 mg DAILY [facility]ENT Administration Acetaminophen 650 mg 04/22/18 05:06 Tylenol PO Q4H PRN Pain MILD(1-3)/Fever >100.5/EDWARD Al Hydrox/Mg Hydrox/Simethicone 15 ml 04/23/18 14:01 04/23/18 14:36 Alum-Mag Hydrox-Simeth [id number]/5ml PO 15 ml Q4H PRN Administration Indigestion Dextrose 50 ml 04/22/18 05:07 D50w (25gm) Syringe IV PRN PRN Hypoglycemia Furosemide 40 mg 04/24/18 18:00 Lasix IV 0600,1800 V[facility]ENT Gabapentin 600 mg 04/22/18 06:00 04/24/18 05:19 Neurontin PO 600 mg Q8HR [facility]ENT Administration Hydralazine HCl 50 mg 04/22/18 06:00 04/24/18 05:19 Apresoline PO 50 mg Q8HR [facility]ENT Administration Insulin Glargine 20 units 04/23/18 22:00 04/24/18 09:37 Lantus SUB-Q 20 units BID [facility] Administration Insulin Human Lispro 0 unit 04/22/18 07:30 04/24/18 09:35 Humalog SUB-Q 4 unit ACHS [facility] Administration Protocol Insulin Human Lispro 10 unit 04/22/18 11:30 04/24/18 09:35 Humalog SUB-Q 10 unit AC VINECNT Administration Lamivudine 150 mg 04/22/18 10:00 04/24/18 09:44 Epivir PO 150 mg DAILY [facility] Administration Metoclopramide HCl 5 mg 04/23/18 13:59 04/23/18 14:40 Reglan IV 5 mg Q6H PRN Administration Vomiting Metoprolol Tartrate 100 mg 04/22/18 10:00 04/24/18 09:51 Lopressor PO Not Given DAILY [facility] Morphine Sulfate 1 mg 04/23/18 12:23 04/24/18 05:21 Morphine IV 05/02/18 13:51 1 mg Q8H PRN Administration Pain , Severe (7-10) Ondansetron HCl 4 mg 04/22/18 05:06 04/23/18 13:16 Zofran IV 4 mg Q8H PRN Administration Nausea And Vomiting Oxycodone/Acetaminophen 1 tab 04/22/18 04:48 04/23/18 10:52 Percocet 5/325 PO 1 tab Q6HR PRN Administration Pain, Moderate (4-6) Sertraline HCl 100 mg 04/22/18 10:00 04/24/18 09:45 Zoloft PO 100 mg QDAY [facility] Administration Sodium Chloride 10 ml 04/22/18 10:00 04/24/18 09:45 Sodium Chloride Flush Syringe 10 Ml IV 10 ml BID [facility]ENT Administration Sodium Chloride 10 ml 04/22/18 05:06 Sodium Chloride Flush Syringe 10 Ml IV PRN PRN LINE FLUSH Trazodone HCl 150 mg 04/22/18 22:00 04/23/18 21:59 Desyrel PO 150 mg QHS [facility] Administration
[2018-04-24] MEDS: NACL 0.9% 1000 ML 1,000 ML IV SCH (12:57)
[2018-04-24] MEDS ORDERED: LASIX IV SCH (18:00)
[2018-04-24] MEDS ORDERED: CHLORASEPTIC MM PRN (18:03)
[2018-04-24] MEDS ORDERED: CEPACOL X STRENGTH MM PRN (18:03)
[2018-04-24 18:18] LABS: Bacteria,Urine 3+ /HPF (Negative); Bilirubin,Urine NEG (Negative); Blood,Urine NEG (Negative); Color,Urine Amber (Yellow); Mucus,Urine FEW /HPF; Protein,Urine >500 mg/dL (Negative); Urobilinogen,Urine < 2.0 mg/dL (<2.0)
[2018-04-24 18:26] LABS: Chloride, Urine 13.5 mmolL (110-250); Creatinine,Urine 263.2 mg/dL (0.1-20.0)
[2018-04-24 18:39] LABS: Protein/Creatinine Ratio,Urine 1.89
--- NOTE | 2018-04-24 19:00 | Progress Note ---
Assessment and Plan Assessment and plan: 48-year-old female patient morbidly obese with history of HIV who was admitted through emergency room with worsening shortness of breath Generalized weakness productive cough as well as chest pain , patient was evaluated by cardiology medications were optimized Today patient's blood sugars are uncontrolled as patient refused her medications Lantus last night --Acute kidney injury; vasomotor nephropathy, worsening renal function Nephrology following, avoid nephrotoxins and closely monitor renal function --Uncontrolled diabetes mellitus; secondary to noncompliance Change regimen to Lantus 20 subcutaneous twice a day, Accu-Chek sliding scale coverage [place] diet diabetic education and nutrition consult Patient is counseled on the importance of adhering to this treatment plan --Atypical chest pain; probably noncardiac Air Pollution Engineer following, possible stress test to rule out reversible ischemia --Non-ST elevation ME; possible stress test versus, cardiology following --Hyperkalemia; managed with calcium gluconate and Kayexalate Potassium levels normal range today --History of cyst; has been having this for the last 4 years, patient advised to see SQL APPLICATION DEVELOPER as an outpatient For further evaluation and management --hypertension; moderate control, continue current antihypertensives and when necessary medications --Dyslipidemia; stable on statin --Hyponatremia; probably pseudohyponatremia due to elevated sugars Closely monitor electrolytes --History of diabetic neuropathy; continue gabapentin --History of depression; on antidepression medications Consider psych evaluation if no improvement --DVT prophylaxis; Lovenox History Interval history: Patient seen and examined medical records reviewed No new events reported by the nursing Alert awake oriented 3 Vital signs noted Worsening renal function Hospitalist Physical - Constitutional Vitals: Temp Pulse Resp BP Pulse Ox 98.1 F 89 15 122/70 96 04/24/18 08:09 04/24/18 13:23 04/24/18 13:58 04/24/18 13:23 04/24/18 13:20 General appearance: Present: no acute distress, well-nourished, obese (morbidly obese) - EENT Eyes: Present: PERRL, EOM intact - Neck Neck: Present: supple, normal ROM - Respiratory Respiratory effort: normal Respiratory: bilateral: diminished, rales, negative: rhonchi, wheezing - Cardiovascular Rhythm: regular Heart Sounds: Present: S1 & S2 - Extremities Extremities: no ischemia Extremity abnormal: edema - Abdominal General gastrointestinal: soft, non-tender, non-distended, normal bowel sounds - Integumentary Integumentary: Present: clear, warm - Psychiatric Psychiatric: appropriate mood/affect, cooperative - Neurologic Neurologic: moves all extremities Results - Labs CBC & Chem 7: 04/21/18 22:37 04/24/18 05:08 Labs: Laboratory Last Values WBC 8.7 K/mm3 (4.5-11.0) 04/21/18 22:37 RBC 3.53 M/mm3 (3.65-5.03) L 04/21/18 22:37 Hgb 11.3 gm/dl (10.1-14.3) 04/21/18 22:37 Hct 35.0 % (30.3-42.9) 04/21/18 22:37 MCV 99 fl (79-97) H 04/21/18 22:37 MCH 32 pg (28-32) 04/21/18 22:37 MCHC 32 % (30-34) 04/21/18 22:37 RDW 13.9 % (13.2-15.2) 04/21/18 22:37 Plt Count 306 K/mm3 (140-440) 04/21/18 22:37 Lymph % (Auto) 28.7 % (13.4-35.0) 04/21/18 22:37 [place] % (Auto) 6.3 % (0.0-7.3) 04/21/18 22:37 Eos % (Auto) 1.8 % (0.0-4.3) 04/21/18 22:37 Baso % (Auto) 1.0 % (0.0-1.8) 04/21/18 22:37 Lymph # 2.6 K/mm3 (1.2-5.4) 04/21/18 22:37 [place] # 0.6 K/mm3 (0.0-0.8) 04/21/18 22:37 Eos # 0.2 K/mm3 (0.0-0.4) 04/21/18 22:37 Baso # 0.1 K/mm3 (0.0-0.1) 04/21/18 22:37 Total Counted Cancelled 04/21/18 22:37 Seg Neutrophils % 62.2 % (40.0-70.0) 04/21/18 22:37 Seg Neuts % (Manual) Cancelled 04/21/18 22:37 Band Neutrophils % Cancelled 04/21/18 22:37 Lymphocytes % (Manual) Cancelled 04/21/18 22:37 Reactive Lymphs % (Man) Cancelled 04/21/18 22:37 Monocytes % (Manual) Cancelled 04/21/18 22:37 Eosinophils % (Manual) Cancelled 04/21/18 22:37 Basophils % (Manual) Cancelled 04/21/18 22:37 Metamyelocytes % Cancelled 04/21/18 22:37 Myelocytes % Cancelled 04/21/18 22:37 Promyelocytes % Cancelled 04/21/18 22:37 Blast Cells % Cancelled 04/21/18 22:37 Nucleated RBC % Cancelled 04/21/18 22:37 Seg Neutrophils # 5.6 K/mm3 (1.8-7.7) 04/21/18 22:37 Seg Neutrophils # Man Cancelled 04/21/18 22:37 Band Neutrophils # Cancelled 04/21/18 22:37 Lymphocytes # (Manual) Cancelled 04/21/18 22:37 Abs React Lymphs (Man) Cancelled 04/21/18 22:37 Monocytes # (Manual) Cancelled 04/21/18 22:37 Eosinophils # (Manual) Cancelled 04/21/18 22:37 Basophils # (Manual) Cancelled 04/21/18 22:37 Metamyelocytes # Cancelled 04/21/18 22:37 Myelocytes # Cancelled 04/21/18 22:37 Promyelocytes # Cancelled 04/21/18 22:37 Blast Cells # Cancelled 04/21/18 22:37 WBC Morphology Cancelled 04/21/18 22:37 Hypersegmented Neuts Cancelled 04/21/18 22:37 Hyposegmented Neuts Cancelled 04/21/18 22:37 Hypogranular Neuts Cancelled 04/21/18 22:37 Hypersegmented Polys Cancelled 04/21/18 22:37 Smudge Cells Cancelled 04/21/18 22:37 Toxic Granulation Cancelled 04/21/18 22:37 Toxic Vacuolation Cancelled 04/21/18 22:37 Dohle Bodies Cancelled 04/21/18 22:37 Pelger-Huet Anomaly Cancelled 04/21/18 22:37 Kennedi Rods Cancelled 04/21/18 22:37 Platelet Estimate Cancelled 04/21/18 22:37 Clumped Platelets Cancelled 04/21/18 22:37 Plt Clumps, EDTA Cancelled 04/21/18 22:37 Large Platelets Cancelled 04/21/18 22:37 Giant Platelets Cancelled 04/21/18 22:37 Platelet Satelliting Cancelled 04/21/18 22:37 Plt Morphology Comment Cancelled 04/21/18 22:37 RBC Morphology Cancelled 04/21/18 22:37 Dimorphic RBCs Cancelled 04/21/18 22:37 Polychromasia Cancelled 04/21/18 22:37 Hypochromasia Cancelled 04/21/18 22:37 Poikilocytosis Cancelled 04/21/18 22:37 Basophilic Stippling Cancelled 04/21/18 22:37 Anisocytosis Cancelled 04/21/18 22:37 Microcytosis Cancelled 04/21/18 22:37 Macrocytosis Cancelled 04/21/18 22:37 Spherocytes Cancelled 04/21/18 22:37 Pappenheimer Bodies Cancelled 04/21/18 22:37 Sickle Cells Cancelled 04/21/18 22:37 Target Cells Cancelled 04/21/18 22:37 Tear Drop Cells Cancelled 04/21/18 22:37 Ovalocytes Cancelled 04/21/18 22:37 Stomatocytes Cancelled 04/21/18 22:37 Helmet Cells Cancelled 04/21/18 22:37 [place] Bodies Cancelled 04/21/18 22:[address] Flat Rings Cancelled 04/21/18 22:37 [place] Cells Cancelled 04/21/18 22:37 Bite Cells Cancelled 04/21/18 22:37 Crenated Cell Cancelled 04/21/18 22:37 Elliptocytes Cancelled 04/21/18 22:37 Acanthocytes (Spur) Cancelled 04/21/18 22:37 Rouleaux Cancelled 04/21/18 22:37 Hemoglobin C Crystals Cancelled 04/21/18 22:37 Schistocytes Cancelled 04/21/18 22:37 Malaria parasites Cancelled 04/21/18 22:37 Ezequiel Bodies Cancelled 04/21/18 22:37 Hem Pathologist Commnt Cancelled 04/21/18 22:37 PT 12.4 Sec. (12.2-14.9) 04/21/18 22:37 INR 0.87 (0.87-1.13) 04/21/18 22:37 VBG pH 7.361 (7.320-7.420) 04/21/18 22:37 Sodium 137 mmol/L (137-145) 04/24/18 05:08 Potassium 3.7 mmol/L (3.6-5.0) D 04/24/18 05:08 Chloride 96.3 mmol/L (98-107) L 04/24/18 05:08 Carbon Dioxide 30 mmol/L (22-30) 04/24/18 05:08 Anion Gap 14 mmol/L 04/24/18 05:08 BUN 30 mg/dL (7-17) H 04/24/18 05:08 Creatinine 2.9 mg/dL (0.7-1.2) H 04/24/18 05:08 Estimated GFR 21 ml/min 04/24/18 05:08 BUN/Creatinine Ratio 10 % 04/24/18 05:08 Glucose 166 mg/dL (65-100) H 04/24/18 05:08 POC Glucose 157 (70-105) H 04/24/18 16:21 Osmolality 309 Mosm/kg 04/22/18 00:03 Lactic Acid 1.80 mmol/L (0.7-2.0) 04/22/18 00:03 Uric Acid 7.1 mg/dL (3.5-7.6) 04/22/18 00:03 Calcium 8.5 mg/dL (8.4-10.2) 04/24/18 05:08 Phosphorus 3.90 mg/dL (2.5-4.5) 04/24/18 05:08 Magnesium 2.30 mg/dL (1.7-2.3) 04/24/18 05:08 Total Bilirubin < 0.20 mg/dL (0.1-1.2) 04/21/18 22:37 AST 11 units/L (5-40) 04/21/18 22:37 ALT 14 units/L (7-56) 04/21/18 22:37 Alkaline Phosphatase 128 units/L (35-129) 04/21/18 22:37 Lactate Dehydrogenase 238 units/L (91-180) H 04/21/18 22:37 Total Creatine Kinase 134 units/L (30-135) 04/22/18 10:41 CK-MB (CK-2) 2.9 ng/mL (0.0-4.0) 04/22/18 10:41 CK-MB (CK-2) Rel Index 2.1 (0-4) 04/22/18 10:41 Troponin T 0.034 ng/mL (0.00-0.029) H 04/22/18 10:41 NT-Pro-B Natriuret Pep 3037 pg/mL (0-450) H 04/22/18 00:03 Total Protein 7.2 g/dL (6.3-8.2) 04/21/18 22:37 Albumin 2.8 g/dL (3.9-5) L 04/21/18 22:37 Albumin/Globulin Ratio 0.6 % 04/21/18 22:37 Triglycerides 637 mg/dL (2-149) H 04/21/18 22:37 Cholesterol 260 mg/dL (50-199) H 04/21/18 22:37 LDL Cholesterol Direct TNR 04/21/18 22:37 HDL Cholesterol 35 mg/dL (40-59) L 04/21/18 22:37 Cholesterol/HDL Ratio 7.42 % 04/21/18 22:37 HCG, Qual Negative (Negative) 04/21/18 22:37 Urine Color [place] (Yellow) 04/23/18 Unknown Urine Turbidity Cloudy (Clear) 04/23/18 Unknown Urine pH 5.0 (5.0-7.0) 04/23/18 Unknown Ur Specific [place] 1.019 (1.003-1.030) 04/23/18 Unknown Urine Protein >500 mg/dL (Negative) 04/23/18 Unknown Urine Glucose (UA) 50 mg/dL (Negative) 04/23/18 Unknown Urine Ketones Neg mg/dL (Negative) 04/23/18 Unknown Urine Blood Neg (Negative) 04/23/18 Unknown Urine Nitrite Neg (Negative) 04/23/18 Unknown Urine Bilirubin Neg (Negative) 04/23/18 Unknown Urine Urobilinogen < 2.0 mg/dL (<2.0) 04/23/18 Unknown Ur Leukocyte Esterase Mod (Negative) 04/23/18 Unknown Urine WBC (Auto) 136.0 /HPF (0.0-6.0) H 04/23/18 Unknown Urine RBC (Auto) 16.0 /HPF (0.0-6.0) 04/23/18 Unknown U Epithel Cells (Auto) 26.0 /HPF (0-13.0) H 04/23/18 Unknown Urine Bacteria (Auto) 3+ /HPF (Negative) 04/23/18 Unknown Urine WBC Clumps 2+ /HPF 04/23/18 Unknown Urine Mucus Few /HPF 04/23/18 Unknown Urine Yeast (Budding) 2+ /HPF 04/23/18 Unknown Urine Creatinine 263.2 mg/dL (0.1-20.0) H 04/23/18 Unknown Protein/Creatinin Ratio 1.89 04/23/18 Unknown Urine Sodium 17 mmol/L 04/23/18 Unknown Urine Potassium 40.93 mmol/L 04/23/18 Unknown Urine Chloride 13.5 mmolL (110-250) L 04/23/18 Unknown Urine Total Protein 498 mg/dL (5-11.8) H 04/23/18 Unknown
[2018-04-24] MEDS: DESYREL PO SCH (23:19)
[2018-04-25] MEDS: APRESOLINE PO SCH ×3 (06:26→21:30)
[2018-04-25] MEDS: NEURONTIN PO SCH ×3 (06:29→21:30)
--- NOTE | 2018-04-25 08:07 | Progress Note ---
Assessment and Plan - Patient Problems (1) ANDREWS (acute kidney injury) Current Visit: No Status: Acute Plan to address problem: azotemia secondary to diuretics. Diuretics on hold with gentle volume repletion ongoing. Labs pending this morning. Follow-up electrolytes and renal function. (2) Chronic kidney disease, stage III (moderate) Current Visit: Yes Status: Acute Plan to address problem: Probable stage III vs IV chronic kidney disease secondary to diabetic nephropathy/hypertensive nephrosclerosis. Stressed importance of long-term control of diabetes and hypertension to delay progression of chronic kidney disease (3) Edema Current Visit: Yes Status: Acute Plan to address problem: Improved. Diuretics on hold because of worsening kidney function. (4) Hypertensive chronic kidney disease with stage 1 through stage 4 chronic kidney disease, or unspecified chronic kidney disease Current Visit: Yes Status: Acute Plan to address problem: Follow blood pressure on current medications (5) Type 2 diabetes mellitus with diabetic chronic kidney disease Current Visit: Yes Status: Acute Qualifiers: Diabetes mellitus assistant terminal manager insulin use: with halfway use Chronic kidney disease stage: stage 3 (moderate) Qualified Code(s): E11.22 - Type 2 diabetes mellitus with diabetic chronic kidney disease; N18.3 - Chronic kidney disease, stage 3 (moderate); 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 Moderate protein intake. History of allergy to MATEO inhibitor. Will benefit from spironolactone if potassium is stable and kidney function stabilizes Subjective Date of service: 04/25/18 Principal diagnosis: Shortness of breath Interval history: Patient seen lying in bed. She has no complaints today. "I am breathing better ". No chest pain. No nausea or vomiting. Objective - Exam Narrative Exam: Middle-aged female lying in bed in no acute distress HEENT: NCAT, pink oral mucous membrane Neck: Supple, no venous distention CVS: S1S2 RRR with no murmur, rub or gallop Chest: Clear to auscultation though breath sounds a bit diminished Abdomen: Protuberant, soft, nontender, no organomegaly, bowel sounds are present Extremities: Mild edema Neuro: Awake, alert no focal deficits - Vital Signs Vital signs: Vital Signs - 12hr 04/24/18 04/24/18 04/24/18 21:58 22:00 23:13 Temperature 98.1 F Pulse Rate 89 90 Respiratory 20 20 Rate Blood Pressure 153/92 169/91 O2 Sat by Pulse 95 95 Oximetry 04/25/18 04/25/18 04:54 06:26 Temperature 97.6 F Pulse Rate 82 82 Respiratory 20 Rate Blood Pressure 116/56 116/56 O2 Sat by Pulse 92 Oximetry - Lab 04/21/18 22:37 04/24/18 05:08 Most recent lab results Calcium 8.5 mg/dL (8.4-10.2) 04/24/18 05:08 Phosphorus 3.90 mg/dL (2.5-4.5) 04/24/18 05:08 Magnesium 2.30 mg/dL (1.7-2.3) 04/24/18 05:08 Urine Creatinine 263.2 mg/dL (0.1-20.0) H 04/23/18 Unknown Urine Sodium 17 mmol/L 04/23/18 Unknown Urine Total Protein 498 mg/dL (5-11.8) H 04/23/18 Unknown Medications & Allergies - Medications Allergies/Adverse Reactions: Allergies aspirin Allergy (Verified 05/10/16 05:48) Swelling lisinopril Adverse Reaction (Verified 04/23/18 03:38) Angioedema Home Medications: Home Medications Medication Instructions Recorded Confirmed Last Taken Type Abacavir [Ziagen TAB] 600 mg PO DAILY 11/28/17 04/22/18 11/27/17 History Gabapentin [Neurontin] 600 mg PO Q8H 11/28/17 04/22/18 11/27/17 History Insulin Detemir [Levemir VIAL] 45 unit SQ QHS 11/28/17 04/23/18 Unknown History Metoprolol [Lopressor TAB] 100 mg PO DAILY 11/28/17 04/23/18 11/27/17 History Sertraline [Zoloft] 100 mg PO QDAY 11/28/17 04/22/18 11/27/17 History hydrALAZINE [Apresoline TAB] 50 mg PO Q8HR 11/28/17 04/23/18 Unknown History lamiVUDine [Lamivudine] 150 mg PO DAILY 11/28/17 04/22/18 11/27/17 History traZODone [Desyrel] 150 mg PO QHS 11/28/17 04/22/18 11/27/17 History Losartan [Cozaar] 12.5 mg PO QDAY #30 tablet 11/30/17 04/23/18 Unknown Rx Torsemide [Demadex] 20 mg PO DAILY #30 tablet 11/30/17 04/23/18 Unknown Rx oxyCODONE /ACETAMINOPHEN [Percocet 1 tab PO Q6HR PRN #20 tablet 11/30/17 04/22/18 Unknown Rx 5/325 mg] Active Medications: Generic Name Dose Route Start Last Admin Trade Name Freq PRN Reason Stop Dose Admin Abacavir Sulfate 600 mg 04/22/18 10:00 04/24/18 09:44 Ziagen PO 600 mg DAILY VINCENT Administration Acetaminophen 650 mg 04/22/18 05:06 Tylenol PO Q4H PRN Pain MILD(1-3)/Fever >100.5/EDWARD Al Hydrox/Mg Hydrox/Simethicone 15 ml 04/23/18 14:01 04/23/18 14:36 Alum-Mag Hydrox-Simeth 589-405-39gp/5ml PO 15 ml Q4H PRN Administration Indigestion Benzocaine/Menthol 1 each 04/24/18 18:03 04/24/18 18:36 Cepacol X Strength MM 1 each Q2HR PRN Administration Sore Throat Dextrose 50 ml 04/22/18 05:07 D50w (25gm) Syringe IV PRN PRN Hypoglycemia Gabapentin 600 mg 04/22/18 06:00 04/25/18 06:29 Neurontin PO 600 mg Q8HR VINCENT Administration Hydralazine HCl 50 mg 04/22/18 06:00 04/25/18 06:26 Apresoline PO 50 mg Q8HR VINCENT Administration Sodium Chloride 1,000 mls @ 50 mls/hr 04/24/18 12:00 04/24/18 12:57 Nacl 0.9% 1000 Ml IV 50 mls/hr DIRECT VINCENT Administration Insulin Glargine 20 units 04/23/18 22:00 04/24/18 23:18 Lantus SUB-Q 20 units BID VINCENT Administration Insulin Human Lispro 0 unit 04/22/18 07:30 04/24/18 23:22 Humalog SUB-Q 8 unit ACHS VINCENT Administration Protocol Lamivudine 150 mg 04/22/18 10:00 04/24/18 09:44 Epivir PO 150 mg DAILY VINCENT Administration Metoclopramide HCl 5 mg 04/23/18 13:59 04/23/18 14:40 Reglan IV 5 mg Q6H PRN Administration Vomiting Metoprolol Tartrate 100 mg 04/22/18 10:00 04/24/18 09:51 Lopressor PO Not Given DAILY VINCENT Morphine Sulfate 1 mg 04/23/18 12:23 04/24/18 23:12 Morphine IV 05/02/18 13:51 1 mg Q8H PRN Administration Pain , Severe (7-10) Ondansetron HCl 4 mg 04/22/18 05:06 04/23/18 13:16 Zofran IV 4 mg Q8H PRN Administration Nausea And Vomiting Oxycodone/Acetaminophen 1 tab 04/22/18 04:48 04/23/18 10:52 Percocet 5/325 PO 1 tab Q6HR PRN Administration Pain, Moderate (4-6) Phenol 1 spray 04/24/18 18:03 Chloraseptic MM PRN PRN Sore Throat Sertraline HCl 100 mg 04/22/18 10:00 04/24/18 09:45 Zoloft PO 100 mg QDAY VINCENT Administration Sodium Chloride 10 ml 04/22/18 10:00 04/24/18 23:23 Sodium Chloride Flush Syringe 10 Ml IV 10 ml BID VINCENT Administration Sodium Chloride 10 ml 04/22/18 05:06 Sodium Chloride Flush Syringe 10 Ml IV PRN PRN LINE FLUSH Trazodone HCl 150 mg 04/22/18 22:00 04/24/18 23:19 Desyrel PO 150 mg QHS VINCENT Administration
--- NOTE | 2018-04-25 09:15 | Progress Note ---
Addendum entered and electronically signed by JUAN MANUEL MCMILLAN MD 04/25/18 18:54: Patient has worsening renal failure, creatinine currently 2.9, increased from an admission baseline of 1.5. Previous cardiac workup including an echocardiogram and thallium stress test were both unremarkable. We'll continue a conservative cardiac approach to management. Original Note: Assessment and Plan Shortness of breath Diabetes, uncontrolled Abdominal pain Hyperkalemia Hyponatremia Lactic acidosis Chronic renal failure Hx of HIV Hypertension Anasarca secondary to renal failure and nephrotic range proteinuria (documented by 24 hour urine protein 05/2016) Chronic diastolic heart failure with no evidence of acute exacerbation Chronically elevated non-specific troponin Hypertriglyceridemia Lactic acidosis -on admission Normal MPI 06/2016 Normal LVEF 55-60% by echo 11/2017 Conservative cardiac management. Subjective Date of service: 04/25/18 Principal diagnosis: Shortness of breath Interval history: No cardiac complaints. Objective Vital Signs Temp Pulse Resp BP Pulse Ox 04/25/18 06:26 82 116/56 04/25/18 04:54 97.6 F 82 20 116/56 92 04/24/18 23:13 90 169/91 04/24/18 22:00 20 95 04/24/18 21:58 98.1 F 89 20 153/92 95 04/24/18 19:42 98 04/24/18 13:58 15 04/24/18 13:28 16 04/24/18 13:23 89 122/70 04/24/18 13:20 90 16 122/70 96 04/24/18 13:00 89 04/24/18 11:00 16 04/24/18 10:00 97 04/24/18 09:51 89 97/51 - Physical Examination General: No Apparent Distress HEENT: Positive: PERRL Neck: Positive: trachea midline Cardiac: Positive: Reg Rate and Rhythm Lungs: Positive: Decreased Breath Sounds Neuro: Positive: Grossly Intact Extremities: Absent: edema - Imaging and Cardiology EKG: image reviewed - Allied health notes Allied health notes reviewed: nursing
[2018-04-25] MEDS: NACL 0.9% 1000 ML 1,000 ML IV SCH (09:21)
[2018-04-25] MEDS: MORPHINE IV PRN ×2 (09:21→21:28)
[2018-04-25] MEDS: ZOFRAN IV PRN (09:21)
[2018-04-25] MEDS: ZIAGEN PO SCH (09:22)
[2018-04-25] MEDS: EPIVIR PO SCH (09:22)
[2018-04-25] MEDS: ZOLOFT PO SCH (09:22)
[2018-04-25] MEDS: REGLAN IV PRN (09:22)
[2018-04-25] MEDS: LOPRESSOR PO SCH (09:22)
[2018-04-25] MEDS: SODIUM CHLORIDE FLUSH SYRINGE 10 ML IV SCH ×2 (09:23→21:29)
[2018-04-25] MEDS: HumaLOG SUB-Q SCH ×4 (09:29→22:20)
[2018-04-25 10:05] LABS: Calcium 8.5 mg/dL (8.4-10.2)
--- NOTE | 2018-04-25 10:45 | Progress Note ---
Assessment and Plan Assessment and plan: 48-year-old female patient morbidly obese with history of HIV who was admitted through emergency room with worsening shortness of breath Generalized weakness productive cough as well as chest pain , patient was evaluated by cardiology medications were optimized Today patient's blood sugars are uncontrolled as patient refused her medications Lantus last night --Acute kidney injury; vasomotor nephropathy, gradually improving Creatinine improved from 2.9-2.3, nephrology following, avoid nephrotoxins --Uncontrolled diabetes mellitus; secondary to noncompliance, mild improvement Change regimen to Lantus 20 subcutaneous twice a day, Accu-Chek sliding scale coverage Diabetic diet, diabetic education and nutrition consult Strongly advised to adhere to the treatment , diet plan follow-up visits --Atypical chest pain; probably noncardiac Guide [place] following, possible stress test to rule out reversible ischemia --Non-ST elevation [place]; possible stress test back discharge --Hyperkalemia; resolved --History of ovarian cyst; patient is having this for the last 4 years, patient advised to see DIRECTOR OF CONSTRUCTION as an outpatient,For further evaln and management --hypertension; moderate control, continue current antihypertensives and when necessary medications --Dyslipidemia; stable on statin --Hyponatremia; resolved --History of diabetic neuropathy; continue gabapentin --History of depression; on antidepression medications Consider psych evaluation if no improvement --DVT prophylaxis; Lovenox Possible discharge in 1-2 days if stable Plan of care is reviewed with the patient and her nurse History Interval history: Patient seen and examined medical records reviewed Patient feels slightly better blood sugars since controlled Alert awake and oriented 3 Vital signs noted Hospitalist Physical - Constitutional Vitals: Temp Pulse Resp BP Pulse Ox 97.6 F 82 20 116/56 92 04/25/18 04:54 04/25/18 06:26 04/25/18 04:54 04/25/18 06:26 04/25/18 04:54 General appearance: Present: no acute distress, well-nourished, obese (morbidly obese) - EENT Eyes: Present: PERRL, EOM intact - Neck Neck: Present: supple, normal ROM - Respiratory Respiratory effort: normal Respiratory: bilateral: diminished, negative: rales, rhonchi, wheezing - Cardiovascular Rhythm: regular Heart Sounds: Present: S1 & S2 - Extremities Extremities: no ischemia Extremity abnormal: edema - Abdominal General gastrointestinal: soft, non-tender, non-distended, normal bowel sounds - Integumentary Integumentary: Present: clear, warm - Psychiatric Psychiatric: appropriate mood/affect, cooperative - Neurologic Neurologic: CNII-XII intact, moves all extremities Results - Labs CBC & Chem 7: 04/21/18 22:37 04/25/18 09:01 Labs: Laboratory Last Values WBC 8.7 K/mm3 (4.5-11.0) 04/21/18 22:37 RBC 3.53 M/mm3 (3.65-5.03) L 04/21/18 22:37 Hgb 11.3 gm/dl (10.1-14.3) 04/21/18 22:37 Hct 35.0 % (30.3-42.9) 04/21/18 22:37 MCV 99 fl (79-97) H 04/21/18 22:37 MCH 32 pg (28-32) 04/21/18 22:37 MCHC 32 % (30-34) 04/21/18 22:37 RDW 13.9 % (13.2-15.2) 04/21/18 22:37 Plt Count 306 K/mm3 (140-440) 04/21/18 22:37 Lymph % (Auto) 28.7 % (13.4-35.0) 04/21/18 22:37 [place] % (Auto) 6.3 % (0.0-7.3) 04/21/18 22:37 Eos % (Auto) 1.8 % (0.0-4.3) 04/21/18 22:37 Baso % (Auto) 1.0 % (0.0-1.8) 04/21/18 22:37 Lymph # 2.6 K/mm3 (1.2-5.4) 04/21/18 22:37 [place] # 0.6 K/mm3 (0.0-0.8) 04/21/18 22:37 Eos # 0.2 K/mm3 (0.0-0.4) 04/21/18 22:37 Baso # 0.1 K/mm3 (0.0-0.1) 04/21/18 22:37 Total Counted Cancelled 04/21/18 22:37 Seg Neutrophils % 62.2 % (40.0-70.0) 04/21/18 22:37 Seg Neuts % (Manual) Cancelled 04/21/18 22:37 Band Neutrophils % Cancelled 04/21/18 22:37 Lymphocytes % (Manual) Cancelled 04/21/18 22:37 Reactive Lymphs % (Man) Cancelled 04/21/18 22:37 Monocytes % (Manual) Cancelled 04/21/18 22:37 Eosinophils % (Manual) Cancelled 04/21/18 22:37 Basophils % (Manual) Cancelled 04/21/18 22:37 Metamyelocytes % Cancelled 04/21/18 22:37 Myelocytes % Cancelled 04/21/18 22:37 Promyelocytes % Cancelled 04/21/18 22:37 Blast Cells % Cancelled 04/21/18 22:37 Nucleated RBC % Cancelled 04/21/18 22:37 Seg Neutrophils # 5.6 K/mm3 (1.8-7.7) 04/21/18 22:37 Seg Neutrophils # Man Cancelled 04/21/18 22:37 Band Neutrophils # Cancelled 04/21/18 22:37 Lymphocytes # (Manual) Cancelled 04/21/18 22:37 Abs React Lymphs (Man) Cancelled 04/21/18 22:37 Monocytes # (Manual) Cancelled 04/21/18 22:37 Eosinophils # (Manual) Cancelled 04/21/18 22:37 Basophils # (Manual) Cancelled 04/21/18 22:37 Metamyelocytes # Cancelled 04/21/18 22:37 Myelocytes # Cancelled 04/21/18 22:37 Promyelocytes # Cancelled 04/21/18 22:37 Blast Cells # Cancelled 04/21/18 22:37 WBC Morphology Cancelled 04/21/18 22:37 Hypersegmented Neuts Cancelled 04/21/18 22:37 Hyposegmented Neuts Cancelled 04/21/18 22:37 Hypogranular Neuts Cancelled 04/21/18 22:37 Hypersegmented Polys Cancelled 04/21/18 22:37 Smudge Cells Cancelled 04/21/18 22:37 Toxic Granulation Cancelled 04/21/18 22:37 Toxic Vacuolation Cancelled 04/21/18 22:37 Dohle Bodies Cancelled 04/21/18 22:37 Pelger-Huet Anomaly Cancelled 04/21/18 22:37 Kennedi Rods Cancelled 04/21/18 22:37 Platelet Estimate Cancelled 04/21/18 22:37 Clumped Platelets Cancelled 04/21/18 22:37 Plt Clumps, EDTA Cancelled 04/21/18 22:37 Large Platelets Cancelled 04/21/18 22:37 Giant Platelets Cancelled 04/21/18 22:37 Platelet Satelliting Cancelled 04/21/18 22:37 Plt Morphology Comment Cancelled 04/21/18 22:37 RBC Morphology Cancelled 04/21/18 22:37 Dimorphic RBCs Cancelled 04/21/18 22:37 Polychromasia Cancelled 04/21/18 22:37 Hypochromasia Cancelled 04/21/18 22:37 Poikilocytosis Cancelled 04/21/18 22:37 Basophilic Stippling Cancelled 04/21/18 22:37 Anisocytosis Cancelled 04/21/18 22:37 Microcytosis Cancelled 04/21/18 22:37 Macrocytosis Cancelled 04/21/18 22:37 Spherocytes Cancelled 04/21/18 22:37 Pappenheimer Bodies Cancelled 04/21/18 22:37 Sickle Cells Cancelled 04/21/18 22:37 Target Cells Cancelled 04/21/18 22:37 Tear Drop Cells Cancelled 04/21/18 22:37 Ovalocytes Cancelled 04/21/18 22:37 Stomatocytes Cancelled 04/21/18 22:37 Helmet Cells Cancelled 04/21/18 22:37 Grossman-[place] Bodies Cancelled 04/21/18 22:37 [place] Rings Cancelled 04/21/18 22:37 Jamie Cells Cancelled 04/21/18 22:37 Bite Cells Cancelled 04/21/18 22:37 Crenated Cell Cancelled 04/21/18 22:37 Elliptocytes Cancelled 04/21/18 22:37 Acanthocytes (Spur) Cancelled 04/21/18 22:37 Rouleaux Cancelled 04/21/18 22:37 Hemoglobin C Crystals Cancelled 04/21/18 22:37 Schistocytes Cancelled 04/21/18 22:37 Malaria parasites Cancelled 04/21/18 22:37 Ezequiel Bodies Cancelled 04/21/18 22:37 Hem Pathologist Commnt Cancelled 04/21/18 22:37 PT 12.4 Sec. (12.2-14.9) 04/21/18 22:37 INR 0.87 (0.87-1.13) 04/21/18 22:37 VBG pH 7.361 (7.320-7.420) 04/21/18 22:37 Sodium 137 mmol/L (137-145) 04/25/18 09:01 Potassium 3.8 mmol/L (3.6-5.0) 04/25/18 09:01 Chloride 96.5 mmol/L (98-107) L 04/25/18 09:01 Carbon Dioxide 28 mmol/L (22-30) 04/25/18 09:01 Anion Gap 16 mmol/L 04/25/18 09:01 BUN 33 mg/dL (7-17) H 04/25/18 09:01 Creatinine 2.3 mg/dL (0.7-1.2) H 04/25/18 09:01 Estimated GFR 27 ml/min 04/25/18 09:01 BUN/Creatinine Ratio 14 % 04/25/18 09:01 Glucose 167 mg/dL (65-100) H 04/25/18 09:01 POC Glucose 150 (70-105) H 04/25/18 08:12 Osmolality 309 Mosm/kg 04/22/18 00:03 Lactic Acid 1.80 mmol/L (0.7-2.0) 04/22/18 00:03 Uric Acid 7.1 mg/dL (3.5-7.6) 04/22/18 00:03 Calcium 8.5 mg/dL (8.4-10.2) 04/25/18 09:01 Phosphorus 3.90 mg/dL (2.5-4.5) 04/24/18 05:08 Magnesium 2.20 mg/dL (1.7-2.3) 04/25/18 09:01 Total Bilirubin < 0.20 mg/dL (0.1-1.2) 04/21/18 22:37 AST 11 units/L (5-40) 04/21/18 22:37 ALT 14 units/L (7-56) 04/21/18 22:37 Alkaline Phosphatase 128 units/L (35-129) 04/21/18 22:37 Lactate Dehydrogenase 238 units/L (91-180) H 04/21/18 22:37 Total Creatine Kinase 134 units/L (30-135) 04/22/18 10:41 CK-MB (CK-2) 2.9 ng/mL (0.0-4.0) 04/22/18 10:41 CK-MB (CK-2) Rel Index 2.1 (0-4) 04/22/18 10:41 Troponin T 0.034 ng/mL (0.00-0.029) H 04/22/18 10:41 NT-Pro-B Natriuret Pep 3037 pg/mL (0-450) H 04/22/18 00:03 Total Protein 7.2 g/dL (6.3-8.2) 04/21/18 22:37 Albumin 2.8 g/dL (3.9-5) L 04/21/18 22:37 Albumin/Globulin Ratio 0.6 % 04/21/18 22:37 Triglycerides 637 mg/dL (2-149) H 04/21/18 22:37 Cholesterol 260 mg/dL (50-199) H 04/21/18 22:37 LDL Cholesterol Direct TNR 04/21/18 22:37 HDL Cholesterol 35 mg/dL (40-59) L 04/21/18 22:37 Cholesterol/HDL Ratio 7.42 % 04/21/18 22:37 HCG, Qual Negative (Negative) 04/21/18 22:37 Urine Color [place] (Yellow) 04/23/18 Unknown Urine Turbidity Cloudy (Clear) 04/23/18 Unknown Urine pH 5.0 (5.0-7.0) 04/23/18 Unknown Ur Specific [place] 1.019 (1.003-1.030) 04/23/18 Unknown Urine Protein >500 mg/dL (Negative) 04/23/18 Unknown Urine Glucose (UA) 50 mg/dL (Negative) 04/23/18 Unknown Urine Ketones Neg mg/dL (Negative) 04/23/18 Unknown Urine Blood Neg (Negative) 04/23/18 Unknown Urine Nitrite Neg (Negative) 04/23/18 Unknown Urine Bilirubin Neg (Negative) 04/23/18 Unknown Urine Urobilinogen < 2.0 mg/dL (<2.0) 04/23/18 Unknown Ur Leukocyte Esterase Mod (Negative) 04/23/18 Unknown Urine WBC (Auto) 136.0 /HPF (0.0-6.0) H 04/23/18 Unknown Urine RBC (Auto) 16.0 /HPF (0.0-6.0) 04/23/18 Unknown U Epithel Cells (Auto) 26.0 /HPF (0-13.0) H 04/23/18 Unknown Urine Bacteria (Auto) 3+ /HPF (Negative) 04/23/18 Unknown Urine WBC Clumps 2+ /HPF 04/23/18 Unknown Urine Mucus Few /HPF 04/23/18 Unknown Urine Yeast (Budding) 2+ /HPF 04/23/18 Unknown Urine Creatinine 263.2 mg/dL (0.1-20.0) H 04/23/18 Unknown Protein/Creatinin Ratio 1.89 04/23/18 Unknown Urine Sodium 17 mmol/L 04/23/18 Unknown Urine Potassium 40.93 mmol/L 04/23/18 Unknown Urine Chloride 13.5 mmolL (110-250) L 04/23/18 Unknown Urine Total Protein 498 mg/dL (5-11.8) H 04/23/18 Unknown
[2018-04-25] MEDS: LANTUS SUB-Q SCH ×2 (10:48→21:52)
[2018-04-25] MEDS: DESYREL PO SCH (21:30)
[2018-04-26] MEDS: NEURONTIN PO SCH ×2 (05:46→13:53)
[2018-04-26] MEDS: APRESOLINE PO SCH ×2 (05:47→13:53)
[2018-04-26 06:51] LABS: Calcium 8.4 mg/dL (8.4-10.2)
--- NOTE | 2018-04-26 08:24 | Progress Note ---
Assessment and Plan - Patient Problems (1) ANDREWS (acute kidney injury) Current Visit: No Status: Acute Plan to address problem: azotemia secondary to diuretics. Diuretics on hold with gentle volume repletion ongoing. Kidney function marginally better. Follow-up electrolytes and renal function. Patient can be discharged home from renal standpoint with early follow-up in the renal clinic in 1-2 weeks (2) Chronic kidney disease, stage III (moderate) Current Visit: Yes Status: Acute Plan to address problem: Probable stage III vs IV chronic kidney disease secondary to diabetic nephropathy/hypertensive nephrosclerosis. Stressed importance of long-term control of diabetes and hypertension to delay progression of chronic kidney disease (3) Edema Current Visit: Yes Status: Acute Plan to address problem: A bit worse. DC IV fluids. (4) Hypertensive chronic kidney disease with stage 1 through stage 4 chronic kidney disease, or unspecified chronic kidney disease Current Visit: Yes Status: Acute Plan to address problem: Follow blood pressure on current medications (5) Type 2 diabetes mellitus with diabetic chronic kidney disease Current Visit: Yes Status: Acute Qualifiers: Diabetes mellitus intermodal customer service insulin use: with retirement use Chronic kidney disease stage: stage 3 (moderate) Qualified Code(s): E11.22 - Type 2 diabetes mellitus with diabetic chronic kidney disease; N18.3 - Chronic kidney disease, stage 3 (moderate); Z79.4 - [facility] (current) use of insulin Plan to address problem: Blood sugar management by primary attending (6) Chronic diastolic (congestive) heart failure Current Visit: Yes Status: Chronic Plan to address problem: Being managed by household cook (7) HIV (human immunodeficiency virus infection) Current Visit: No Status: Acute Plan to address problem: Continue management by infectious disease (8) Proteinuria Current Visit: No Status: Chronic Plan to address problem: Non-nephrotic range proteinuria. Moderate protein intake. History of allergy to MATEO inhibitor. Will benefit from spironolactone if potassium is stable and kidney function stabilizes. Will challenge on follow-up as an outpatient if stable Subjective Date of service: 04/26/18 Principal diagnosis: Shortness of breath Interval history: Patient seen lying in bed. She has no complaints today. She wants to go home. Denies shortness of breath or chest pain. No nausea or vomiting. Objective - Exam Narrative Exam: Middle-aged female lying in bed in no acute distress HEENT: NCAT, pink oral mucous membrane Neck: Supple, no venous distention CVS: S1S2 RRR with no murmur, rub or gallop Chest: Clear to auscultation though breath sounds a bit diminished Abdomen: Protuberant, soft, nontender, no organomegaly, bowel sounds are present Extremities: Mild edema Neuro: Awake, alert no focal deficits - Vital Signs Vital signs: Vital Signs - 12hr 04/25/18 04/25/18 04/26/18 22:00 23:17 05:43 Temperature 98.0 F 97.7 F Pulse Rate 76 78 Respiratory 16 16 Rate Blood Pressure 117/67 108/54 O2 Sat by Pulse 97 95 97 Oximetry - Lab 04/21/18 22:37 04/26/18 03:51 Most recent lab results Calcium 8.4 mg/dL (8.4-10.2) 04/26/18 03:51 Phosphorus 3.90 mg/dL (2.5-4.5) 04/24/18 05:08 Magnesium 2.20 mg/dL (1.7-2.3) 04/25/18 09:01 Urine Creatinine 263.2 mg/dL (0.1-20.0) H 04/23/18 Unknown Urine Sodium 17 mmol/L 04/23/18 Unknown Urine Total Protein 498 mg/dL (5-11.8) H 04/23/18 Unknown Medications & Allergies - Medications Allergies/Adverse Reactions: Allergies aspirin Allergy (Verified 05/10/16 05:48) Swelling lisinopril Adverse Reaction (Verified 04/23/18 03:38) Angioedema Home Medications: Home Medications Medication Instructions Recorded Confirmed Last Taken Type Abacavir [Ziagen TAB] 600 mg PO DAILY 11/28/17 04/22/18 11/27/17 History Gabapentin [Neurontin] 600 mg PO Q8H 11/28/17 04/22/18 11/27/17 History Insulin Detemir [Levemir VIAL] 45 unit SQ QHS 11/28/17 04/23/18 Unknown History Metoprolol [Lopressor TAB] 100 mg PO DAILY 11/28/17 04/23/18 11/27/17 History Sertraline [Zoloft] 100 mg PO QDAY 11/28/17 04/22/18 11/27/17 History hydrALAZINE [Apresoline TAB] 50 mg PO Q8HR 11/28/17 04/23/18 Unknown History lamiVUDine [Lamivudine] 150 mg PO DAILY 11/28/17 04/22/18 11/27/17 History traZODone [Desyrel] 150 mg PO QHS 11/28/17 04/22/18 11/27/17 History Losartan [Cozaar] 12.5 mg PO QDAY #30 tablet 11/30/17 04/23/18 Unknown Rx Torsemide [Demadex] 20 mg PO DAILY #30 tablet 11/30/17 04/23/18 Unknown Rx oxyCODONE /ACETAMINOPHEN [Percocet 1 tab PO Q6HR PRN #20 tablet 11/30/17 04/22/18 Unknown Rx 5/325 mg] Active Medications: Generic Name Dose Route Start Last Admin Trade Name Freq PRN Reason Stop Dose Admin Abacavir Sulfate 600 mg 04/22/18 10:00 04/25/18 09:22 Ziagen PO 600 mg DAILY VINCENT Administration Acetaminophen 650 mg 04/22/18 05:06 Tylenol PO Q4H PRN Pain MILD(1-3)/Fever >100.5/EDWARD Al Hydrox/Mg Hydrox/Simethicone 15 ml 04/23/18 14:01 04/23/18 14:36 Alum-Mag Hydrox-Simeth 350-840-10ca/5ml PO 15 ml Q4H PRN Administration Indigestion Benzocaine/Menthol 1 each 04/24/18 18:03 04/24/18 18:36 Cepacol X Strength MM 1 each Q2HR PRN Administration Sore Throat Dextrose 50 ml 04/22/18 05:07 D50w (25gm) Syringe IV PRN PRN Hypoglycemia Gabapentin 600 mg 04/22/18 06:00 04/26/18 05:46 Neurontin PO 600 mg Q8HR VINCENT Administration Hydralazine HCl 50 mg 04/22/18 06:00 04/26/18 05:47 Apresoline PO Not Given Q8HR VINCENT Sodium Chloride 1,000 mls @ 50 mls/hr 04/24/18 12:00 04/25/18 09:21 Nacl 0.9% 1000 Ml IV 50 mls/hr DIRECT VINCENT Administration Insulin Glargine 20 units 04/23/18 22:00 04/25/18 21:52 Lantus SUB-Q 20 units BID VINCENT Administration Insulin Human Lispro 0 unit 04/22/18 07:30 04/25/18 22:20 Humalog SUB-Q 6 unit ACHS VINCENT Administration Protocol Lamivudine 150 mg 04/22/18 10:00 04/25/18 09:22 Epivir PO 150 mg DAILY VINCENT Administration Metoclopramide HCl 5 mg 04/23/18 13:59 04/25/18 09:22 Reglan IV 5 mg Q6H PRN Administration Vomiting Metoprolol Tartrate 100 mg 04/22/18 10:00 04/25/18 09:22 Lopressor PO 100 mg DAILY VINCENT Administration Morphine Sulfate 1 mg 04/23/18 12:23 04/25/18 21:28 Morphine IV 05/02/18 13:51 1 mg Q8H PRN Administration Pain , Severe (7-10) Ondansetron HCl 4 mg 04/22/18 05:06 04/25/18 09:21 Zofran IV 4 mg Q8H PRN Administration Nausea And Vomiting Oxycodone/Acetaminophen 1 tab 04/22/18 04:48 04/23/18 10:52 Percocet 5/325 PO 1 tab Q6HR PRN Administration Pain, Moderate (4-6) Phenol 1 spray 04/24/18 18:03 Chloraseptic MM PRN PRN Sore Throat Sertraline HCl 100 mg 04/22/18 10:00 04/25/18 09:22 Zoloft PO 100 mg QDAY VINCENT Administration Sodium Chloride 10 ml 04/22/18 10:00 04/25/18 21:29 Sodium Chloride Flush Syringe 10 Ml IV 10 ml BID VINCENT Administration Sodium Chloride 10 ml 04/22/18 05:06 Sodium Chloride Flush Syringe 10 Ml IV PRN PRN LINE FLUSH Trazodone HCl 150 mg 04/22/18 22:00 04/25/18 21:30 Desyrel PO 150 mg QHS VINCENT Administration
[2018-04-26] MEDS: MORPHINE IV PRN (09:14)
--- NOTE | 2018-04-26 09:14 | Progress Note ---
Assessment and Plan Shortness of breath Diabetes, uncontrolled Abdominal pain Hyperkalemia Hyponatremia Lactic acidosis Chronic renal failure Hx of HIV Hypertension Anasarca secondary to renal failure and nephrotic range proteinuria (documented by 24 hour urine protein 05/2016) Chronic diastolic heart failure with no evidence of acute exacerbation Chronically elevated non-specific troponin Hypertriglyceridemia Lactic acidosis -on admission Normal MPI 06/2016 Normal LVEF 55-60% by echo 11/2017 Conservative cardiac management. Subjective Date of service: 04/26/18 Principal diagnosis: Shortness of breath Interval history: Patient reports she is feeling somewhat better. No cardiac complaints. Objective Vital Signs Temp Pulse Resp BP Pulse Ox 04/26/18 05:43 97.7 F 78 16 108/54 97 04/25/18 23:17 98.0 F 76 16 117/67 95 04/25/18 22:00 97 04/25/18 17:07 98.5 F 69 16 122/74 97 04/25/18 11:36 98.1 F 74 16 109/61 97 04/25/18 10:00 20 97 - Physical Examination General: No Apparent Distress HEENT: Positive: PERRL Neck: Positive: trachea midline Cardiac: Positive: Reg Rate and Rhythm Lungs: Positive: Decreased Breath Sounds Neuro: Positive: Grossly Intact Extremities: Present: +1 Edema - Labs and Meds Comprehensive Metabolic Panel 04/25/18 04/26/18 Range/Units 09:01 03:51 Sodium 137 135 L (137-145) mmol/L Potassium 3.8 3.7 (3.6-5.0) mmol/L Chloride 96.5 L 94.4 L (98-107) mmol/L Carbon Dioxide 28 28 (22-30) mmol/L BUN 33 H 42 H (7-17) mg/dL Creatinine 2.3 H 2.2 H (0.7-1.2) mg/dL Glucose 167 H 163 H (65-100) mg/dL Calcium 8.5 8.4 (8.4-10.2) mg/dL - Allied health notes Allied health notes reviewed: nursing
[2018-04-26] MEDS: LOPRESSOR PO SCH (09:15)
[2018-04-26] MEDS: ZOLOFT PO SCH (09:15)
[2018-04-26] MEDS: EPIVIR PO SCH (09:17)
[2018-04-26] MEDS: LANTUS SUB-Q SCH (09:18)
[2018-04-26] MEDS: HumaLOG SUB-Q SCH ×2 (09:18→13:54)
[2018-04-26] MEDS: ZIAGEN PO SCH (09:18)
[2018-04-26] MEDS: SODIUM CHLORIDE FLUSH SYRINGE 10 ML IV SCH (09:19)
[2018-04-26 13:53] VITALS: BP 147/84
--- NOTE | 2018-04-26 14:02 | Discharge Summary ---
Providers - Providers Date of Admission: 04/22/18 05:06 Date of discharge: 04/26/18 Attending physician: JENNIFER NG 04/22/18 05:04 Consult to Physician [CONS] Routine Comment: Consulting Provider: JUAN MANUEL MCMILLAN Physician Instructions: Reason For Exam: edema, cp 04/22/18 10:51 Consult to Physician [CONS] Routine Comment: Consulting Provider: ASIF PALOMINO Physician Instructions: Reason For Exam: el on ckd, patient previously followed by him [facility] Reason for admission: generalized weakness chest pain and shortness of breath Condition: Fair Pertinent studies: CT abdomen/pelvis CXR Hospital course: 48-year-old female patient morbidly obese with history of HIV who was admitted through emergency room with worsening shortness of breath Generalized weakness productive cough, as well as chest pain , patient was evaluated by cardiology medications were optimized Today patient's blood sugars are uncontrolled as patient refused her medications Lantus last night Discharge diagnosis and management: --Acute kidney injury; vasomotor nephropathy, gradually improving Creatinine improved from 2.9-2.3, nephrology following, avoid nephrotoxins --Uncontrolled diabetes mellitus; secondary to noncompliance, mild improvement Change regimen to Lantus 20 subcutaneous twice a day, Accu-Chek sliding scale coverage Diabetic diet, diabetic education and nutrition consult Strongly advised to adhere to the treatment , diet plan follow-up visits --Atypical chest pain; probably noncardiac Wooling Machine Operator following, possible stress test to rule out reversible ischemia --Non-ST elevation [place]; possible stress test back discharge --Hyperkalemia; resolved --History of HIV; continue antiretrovirals, patient will follow-up with her primary ID upon discharge --History of ovarian cyst; patient is having this for the last 4 years, patient advised to see PILE DRIVING SETTER as an outpatient,For further evaln and management --hypertension; moderate control, continue current antihypertensives and when necessary medications --Dyslipidemia; stable on statin --Hyponatremia; resolved --History of diabetic neuropathy; continue gabapentin --History of depression; on antidepression medications f/u psych upon discharge Disposition: TO HOME OR SELFCARE Time spent for discharge: 32 min Core Measure Documentation - Palliative Care Palliative Care/ Comfort Measures: Not Applicable - Core Measures Any of the following diagnoses?: none Exam - Constitutional Vitals: Temp Pulse Resp BP Pulse Ox 98.7 F 78 20 147/84 98 04/26/18 12:42 04/26/18 09:15 04/26/18 12:42 04/26/18 13:53 04/26/18 09:13 General appearance: Present: no acute distress, well-nourished - EENT Eyes: Present: PERRL, EOM intact - Neck Neck: Present: supple, normal ROM - Respiratory Respiratory effort: normal Respiratory: bilateral: diminished, negative: rales, rhonchi, wheezing - Cardiovascular Rhythm: regular Heart Sounds: Present: S1 & S2 - Extremities Extremities: no ischemia, No edema - Abdominal General gastrointestinal: Present: soft, non-tender, non-distended, normal bowel sounds - Integumentary Integumentary: Present: clear, warm - Musculoskeletal Musculoskeletal: strength equal bilaterally - Psychiatric Psychiatric: appropriate mood/affect, cooperative - Neurologic Neurologic: moves all extremities Plan Activity: advance as tolerated, fall precautions Diet: low salt, diabetic Additional Instructions: continue s/c Levamir insulin 22 units AM and 22 units PM. f/u Private PILE DRIVING SETTER for further evaln and management of ovarian cyst Follow up with: [facility] MD WILVER [Primary Care Provider] - 3-5 Days SUKHWINDER ELIZABETH MD [Staff Physician] - 7 Days JUAN MANUEL MCMILLAN MD [Staff Physician] - 7 Days MITCHELL INGRAM MD [Staff Physician] - 7 Days Prescriptions: guaiFENesin/DEXTROMETHORPHAN [Robitussin Yyzfr-Odutu-Vsmh Dm] 1 each PO TID PRN #30 capsule PRN Reason: Cough
== END 2018-04-26 16:30 | disposition home or self-care (01) | DRG 280 ==
LOC: ED 21:33 → 4A 04-22 05:06 → 3A 04-24 16:24
PROVIDERS: ADMIT Internal Medicine; ATTEND Internal Medicine
DX: I21.4 Non-ST elevation (NSTEMI) myocardial infarction (principal); N17.0 Acute kidney failure with tubular necrosis; E87.1 Hypo-osmolality and hyponatremia; I13.0 Hypertensive heart and chronic kidney disease with heart failure and stage 1 through stage 4 chronic kidney disease, or unspecified chronic kidney disease; I50.32 Chronic diastolic (congestive) heart failure; B20 Human immunodeficiency virus [HIV] disease; Z68.42 Body mass index [BMI] 45.0-49.9, adult; E87.2 Acidosis; R07.89 Other chest pain; E87.5 Hyperkalemia; E87.70 Fluid overload, unspecified; N18.3 Chronic kidney disease, stage 3 (moderate); Z88.6 Allergy status to analgesic agent; Z88.8 Allergy status to other drugs, medicaments and biological substances; W18.39XA Other fall on same level, initial encounter; Y93.89 Activity, other specified; Y92.89 Other specified places as the place of occurrence of the external cause; Y99.8 Other external cause status; E11.22 Type 2 diabetes mellitus with diabetic chronic kidney disease; Z90.49 Acquired absence of other specified parts of digestive tract; Z79.4 Long term (current) use of insulin; Z82.49 Family history of ischemic heart disease and other diseases of the circulatory system; E78.1 Pure hyperglyceridemia; F32.9 Major depressive disorder, single episode, unspecified; E11.40 Type 2 diabetes mellitus with diabetic neuropathy, unspecified; E66.01 Morbid (severe) obesity due to excess calories; Z71.3 Dietary counseling and surveillance; Z91.19 Patient's noncompliance with other medical treatment and regimen; Z83.3 Family history of diabetes mellitus
CPT/HCPCS: 36415; 71045; 74176; 80048; 80053; 80061; 81001; 82140; 82436; 82550; 82553; 82570; 82805; 82962; 83615; 83735; 83880; 83930; 84100; 84133; 84156; 84300; 84484; 84550; 84703; 85025; 85610; 87040; 93005; 93010; 94640; 94760; 96374; 99291; G0378; J0610; J1815; J1940; J2270; J2405; J2765; J7030

== ENCOUNTER 2018-05-02 11:59 | Emergency (ER) | payer OTHER ==
[2018-05-02] MEDS ORDERED: LASIX IV ONE (12:43)
[2018-05-02] MEDS ORDERED: NORMODYNE IV ONE (12:43)
--- NOTE | 2018-05-02 12:47 | Emergency Department Report ---
ED Shortness of Breath HPI - General Chief Complaint: Dyspnea/Respdistress Stated Complaint: KYLEE Time Seen by Provider: 05/02/18 12:32 Source: patient, EMS Mode of arrival: Stretcher Limitations: No Limitations - History of Present Illness Initial Comments: Ms. Rodríguez is a 48 yo female with hx of HTN, diastolic CHF, DM, HIV, CKD who presents with shortness of breath and leg swelling for the past week. Gradual onset of symptoms. Torsemide 40 mg daily does not appear to be working. She is depressed and frustrated Denies SI although she has hx of previous suicide attempt. Denies chest pain, back pain. Has had chronic abdominal pain due to ovarian cyst. CUrrently, does not have a PCP. last year, she did require dialysis for a brief time due to CKD. But no longer requires HD Medications: Torsemide Carvedilol Naproxen Amlodipine HCTZ Sertraline Tivicay Abacavir Torsemide Hydralazine Complaint: shortness of breath -: Gradual, week(s) (1) Severity: moderate Consistency: constant Improves With: nothing Worsens With: lying flat, exertion Known History Of: congestive heart failure Context: other (recent hospitalization this month) - Related Data Home Medications Medication Instructions Recorded Confirmed Last Taken Abacavir [Ziagen TAB] 600 mg PO DAILY 11/28/17 04/22/18 11/27/17 Gabapentin [Neurontin] 600 mg PO Q8H 11/28/17 04/22/18 11/27/17 Insulin Detemir [Levemir VIAL] 45 unit SQ QHS 11/28/17 04/23/18 Unknown Metoprolol [Lopressor TAB] 100 mg PO DAILY 11/28/17 04/23/18 11/27/17 Sertraline [Zoloft] 100 mg PO QDAY 11/28/17 04/22/18 11/27/17 hydrALAZINE [Apresoline TAB] 50 mg PO Q8HR 11/28/17 04/23/18 Unknown lamiVUDine [Lamivudine] 150 mg PO DAILY 11/28/17 04/22/18 11/27/17 traZODone [Desyrel] 150 mg PO QHS 11/28/17 04/22/18 11/27/17 Previous Rx's Medication Instructions Recorded Last Taken Type oxyCODONE /ACETAMINOPHEN [Percocet 1 tab PO Q6HR PRN #20 tablet 11/30/17 Unknown Rx 5/325 mg] guaiFENesin/DEXTROMETHORPHAN 1 each PO TID PRN #30 capsule 04/26/18 Unknown Rx [Robitussin Tokdu-Kzorc-Wkbj Dm] Allergies Allergy/AdvReac Type Severity Reaction Status Date / Time aspirin Allergy Swelling Verified 05/10/16 05:48 lisinopril AdvReac Angioedema Verified 04/23/18 03:38 ED Review of Systems ROS: Stated complaint: KYLEE Other details as noted in HPI Comment: All other systems reviewed and negative Constitutional: denies: fever, malaise Respiratory: shortness of breath. denies: cough Cardiovascular: denies: chest pain ED Past Medical Hx - Past Medical History Previous Medical History?: Yes Hx Hypertension: Yes Hx Congestive Heart Failure: Yes Hx Diabetes: Yes Hx Renal Disease: Yes (chronic renal insufficiency/renal failure) Hx HIV: Yes Additional medical history: Gastroparesis, neuropathy. dialysis d/c'd x1 yr- "numbers got better" - Surgical History Past Surgical History?: Yes Hx Cholecystectomy: Yes Additional Surgical History: C-Sec x 5 - Social History Smoking Status: Never Smoker Substance Use Type: None - Medications Home Medications: Home Medications Medication Instructions Recorded Confirmed Last Taken Type Abacavir [Ziagen TAB] 600 mg PO DAILY 11/28/17 04/22/18 11/27/17 History Gabapentin [Neurontin] 600 mg PO Q8H 11/28/17 04/22/18 11/27/17 History Insulin Detemir [Levemir VIAL] 45 unit SQ QHS 11/28/17 04/23/18 Unknown History Metoprolol [Lopressor TAB] 100 mg PO DAILY 11/28/17 04/23/18 11/27/17 History Sertraline [Zoloft] 100 mg PO QDAY 11/28/17 04/22/18 11/27/17 History hydrALAZINE [Apresoline TAB] 50 mg PO Q8HR 11/28/17 04/23/18 Unknown History lamiVUDine [Lamivudine] 150 mg PO DAILY 11/28/17 04/22/18 11/27/17 History traZODone [Desyrel] 150 mg PO QHS 11/28/17 04/22/18 11/27/17 History oxyCODONE /ACETAMINOPHEN [Percocet 1 tab PO Q6HR PRN #20 tablet 11/30/17 0 04/22/18 Unknown Rx 5/325 mg] guaiFENesin/DEXTROMETHORPHAN 1 each PO TID PRN #30 capsule 04/26/18 Unknown Rx [Robitussin Iwsot-Sdypr-Kobu Dm] ED Physical Exam - General Limitations: No Limitations General appearance: alert, in no apparent distress - Head Head exam: Present: atraumatic, normocephalic - Eye Eye exam: Present: normal appearance - ENT ENT exam: Present: mucous membranes moist - Neck Neck exam: Present: normal inspection - Respiratory Respiratory exam: Present: normal lung sounds bilaterally. Absent: respiratory distress - Cardiovascular Cardiovascular Exam: Present: normal rhythm, tachycardia, normal heart sounds. Absent: systolic murmur, diastolic murmur, rubs, gallop - GI/Abdominal GI/Abdominal exam: Present: soft, normal bowel sounds. Absent: distended, tenderness, guarding, rebound - Extremities Exam Extremities exam: Present: pedal edema, other (edema pitting to knee) - Back Exam Back exam: Present: normal inspection - Neurological Exam Neurological exam: Present: alert, oriented X3 - Psychiatric Psychiatric exam: Present: normal affect, anxious - Skin Skin exam: Present: warm, dry, intact, normal color. Absent: rash ED Course Vital Signs 05/02/18 05/02/18 05/02/18 12:10 12:15 12:30 Temperature 97.9 F Pulse Rate 111 H 117 H Respiratory 15 16 Rate Blood Pressure 169/92 O2 Sat by Pulse 98 98 98 Oximetry 05/02/18 13:20 Temperature Pulse Rate 115 H Respiratory Rate Blood Pressure O2 Sat by Pulse Oximetry ED Medical Decision Making - Lab Data Result diagrams: 05/02/18 12:53 05/02/18 13:05 Laboratory Results - last 24 hr 05/02/18 05/02/18 05/02/18 12:53 13:05 13:05 WBC 13.4 H RBC 2.90 L Hgb 9.8 L Hct 29.3 L MCV 101 H MCH 34 H MCHC 33 RDW 14.5 Plt Count 320 Lymph % (Auto) 15.3 Jack % (Auto) 4.6 Eos % (Auto) 1.4 Baso % (Auto) 0.9 Lymph # 2.1 Jack # 0.6 Eos # 0.2 Baso # 0.1 Seg Neutrophils % 77.8 H Seg Neutrophils # 10.4 H Sodium 132 L Potassium 5.2 H Chloride 94.9 L Carbon Dioxide 22 Anion Gap 20 BUN 53 H Creatinine 2.3 H Estimated GFR 27 BUN/Creatinine Ratio 23 Glucose 393 H Calcium 8.7 Troponin T 0.043 H NT-Pro-B Natriuret Pep 2657 H Triglycerides 190 H Cholesterol 197 LDL Cholesterol Direct 131 H HDL Cholesterol 54 Cholesterol/HDL Ratio 3.64 - EKG Data 05/02/18 12:46 EKG obtained 12:17 sinus tachycardia 110 bpm normal axis prolonged QT no ST elevation lateral T wave inversions - Radiology Data Radiology results: report reviewed, image reviewed AP portable chest: No acute process possible atelectasis, cardiomegaly - Medical Decision Making Ms. Rodríguez presents with symptoms of CHF exacerbation. After treatment in the ED, Repeat vital signs include blood pressure 112/56, heart rate 85, respiratory rate 13. Pulse ox 97% on room air. She appears well with exception of mild lower extremity edema. She appeared comfortable. I explained that she did not have an emergent need for inpatient hospitalization. I do not suspect acute viral syndrome or pulmonary embolism. I've encouraged her to follow-up with [facility] to which she was referred on previous occasion. She does admit to depression. However she denies suicidal ideation or plan to harm herself. I have reviewed labs. BNP has decreased. No elevation of troponin above baseline. Critical care attestation.: If time is entered above; I have spent that time in minutes in the direct care of this critically ill patient, excluding procedure time. ED Disposition Clinical Impression: CHF exacerbation Disposition: - TO HOME OR SELFCARE Is pt being admited?: No Does the pt Need Aspirin: No Condition: Stable Instructions: Heart Failure (ED) Referrals: [facility] [Outside] - 3-5 Days
[2018-05-02 13:26] LABS: Basophils # (Auto) 0.1 K/mm3 (0.0-0.1); Basophils % (Auto) 0.9 % (0.0-1.8); Eosinophils # (Auto) 0.2 K/mm3 (0.0-0.4); Eosinophils % (Auto) 1.4 % (0.0-4.3); Hematocrit 29.3 % (30.3-42.9); Hemoglobin 9.8 gm/dl (10.1-14.3); Lymphocytes # (Auto) 2.1 K/mm3 (1.2-5.4); Lymphocytes % (Auto) 15.3 % (13.4-35.0); Mean Corpuscular HGB Conc 33 % (30-34); Mean Corpuscular Volume 101 fl (79-97); Monocytes # (Auto) 0.6 K/mm3 (0.0-0.8); Monocytes % (Auto) 4.6 % (0.0-7.3); Red Cell Distribution Width 14.5 % (13.2-15.2)
[2018-05-02 13:31] LABS: Platelet Count 320 K/mm3 (140-440)
[2018-05-02 13:38] LABS: Calcium 8.7 mg/dL (8.4-10.2)
[2018-05-02 14:14] LABS: Chol/HDL Ratio 3.64 %
--- NOTE | 2018-05-02 14:22 | XRay Report ---
FINAL REPORT EXAM: XR CHEST 1V AP HISTORY: Dyspnea COMPARISON: Chest radiograph performed on 04/21/2018 TECHNIQUE: Single frontal view of the chest FINDINGS: The cardiomediastinal silhouette is normal in appearance Low lung volumes with streaky bibasilar opacities. No pleural effusion or pneumothorax. No acute bony or soft tissue abnormality. IMPRESSION: Low lung volumes with streaky bibasilar opacities that may reflect atelectasis.
[2018-05-02 14:44] VITALS: BP 137/71
== END 2018-05-02 14:55 | disposition home or self-care (01) ==
LOC: ED 11:59
DX: R10.9 Unspecified abdominal pain (principal); I13.0 Hypertensive heart and chronic kidney disease with heart failure and stage 1 through stage 4 chronic kidney disease, or unspecified chronic kidney disease; E13.22 Other specified diabetes mellitus with diabetic chronic kidney disease; N18.9 Chronic kidney disease, unspecified; Z79.4 Long term (current) use of insulin; Z88.6 Allergy status to analgesic agent
CPT/HCPCS: 36415; 71045; 80048; 80061; 83880; 84484; 85025; 93005; 93010; 96374; 96375; 99284; J1940

== ENCOUNTER 2018-12-22 22:19 | Inpatient (IN) | payer OTHER ==
--- NOTE | 2018-12-22 23:08 | Emergency Department Report ---
ED Chest Pain HPI - General Chief Complaint: Chest Pain Stated Complaint: CHEST PAIN Time Seen by Provider: 12/22/18 22:54 Source: patient, EMS Mode of arrival: Stretcher Limitations: Physical Limitation - History of Present Illness Initial Comments: 48-year-old female presents to the emergency department with complaint of some left-sided chest pain and burning sensation with radiation down the left arm. She initially had this on Wednesday, 4 days ago, and went to [place] emergency department. She was discharged home and the symptoms had resolved at that time. They restarted this evening. It is associated with some mild shortness of breath. She denies any fever, nausea, vomiting. She has a past medical history of congestive heart failure, diabetes, HIV, hypertension, stage IV chronic kidney disease, gastroparesis. Her primary care physician is a Dr. gotti. 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 No recent travel or sick contacts at home. She denies any tobacco or illicit drug use. - Related Data Home Medications Medication Instructions Recorded Confirmed Last Taken Abacavir [Ziagen TAB] 600 mg PO DAILY 11/28/17 12/23/18 11/27/17 Gabapentin [Neurontin] 600 mg PO Q8H 11/28/17 12/23/18 11/27/17 Insulin Detemir [Levemir VIAL] 45 unit SQ QHS 11/28/17 12/23/18 Unknown Metoprolol [Lopressor TAB] 100 mg PO DAILY 11/28/17 12/23/18 11/27/17 Sertraline [Zoloft] 100 mg PO QDAY 11/28/17 12/23/18 11/27/17 hydrALAZINE [Apresoline TAB] 50 mg PO Q8HR 11/28/17 12/23/18 Unknown lamiVUDine [Lamivudine] 150 mg PO DAILY 11/28/17 12/23/18 11/27/17 traZODone [Desyrel] 150 mg PO QHS 11/28/17 12/23/18 11/27/17 Previous Rx's Medication Instructions Recorded Last Taken Type oxyCODONE /ACETAMINOPHEN [Percocet 1 tab PO Q6HR PRN #20 tablet 11/30/17 Unknown Rx 5/325 mg] Allergies Allergy/AdvReac Type Severity Reaction Status Date / Time aspirin Allergy Swelling Verified 05/10/16 05:48 lisinopril AdvReac Angioedema Verified 04/23/18 03:38 Heart Score - HEART Score History: Moderately suspicious EKG: Non-specific Age: 45-65 Risk factors: > 3 risk factors or hx of atherosclerotic disease Troponin: < normal limit HEART Score: 5 - Critical Actions Critical Actions: 4-6 pts:12-16.6% risk of adverse cardiac event. Should be admitted ED Review of Systems ROS: Stated complaint: CHEST PAIN Other details as noted in HPI Comment: All other systems reviewed and negative Constitutional: denies: chills, fever Eyes: denies: eye pain, vision change ENT: denies: ear pain, throat pain Respiratory: shortness of breath. denies: cough Cardiovascular: chest pain. denies: palpitations Gastrointestinal: denies: abdominal pain, vomiting Genitourinary: denies: dysuria, discharge Musculoskeletal: denies: back pain, arthralgia Skin: denies: rash, lesions Neurological: denies: headache, weakness ED Past Medical Hx - Past Medical History Previous Medical History?: Yes Hx Hypertension: Yes Hx Congestive Heart Failure: Yes Hx Diabetes: Yes Hx Renal Disease: Yes (chronic renal insufficiency/renal failure) Hx HIV: Yes Additional medical history: Gastroparesis, neuropathy. dialysis d/c'd x1 yr- "numbers got better" - Surgical History Hx Cholecystectomy: Yes Additional Surgical History: C-Sec x 5 - Social History Smoking Status: Never Smoker Substance Use Type: None - Medications Home Medications: Home Medications Medication Instructions Recorded Confirmed Last Taken Type Abacavir [Ziagen TAB] 600 mg PO DAILY 11/28/17 12/23/18 11/27/17 History Gabapentin [Neurontin] 600 mg PO Q8H 11/28/17 12/23/18 11/27/17 History Insulin Detemir [Levemir VIAL] 45 unit SQ QHS 11/28/17 12/23/18 Unknown History Metoprolol [Lopressor TAB] 100 mg PO DAILY 11/28/17 12/23/18 11/27/17 History Sertraline [Zoloft] 100 mg PO QDAY 11/28/17 12/23/18 11/27/17 History hydrALAZINE [Apresoline TAB] 50 mg PO Q8HR 11/28/17 12/23/18 Unknown History lamiVUDine [Lamivudine] 150 mg PO DAILY 11/28/17 12/23/18 11/27/17 History traZODone [Desyrel] 150 mg PO QHS 11/28/17 12/23/18 11/27/17 History oxyCODONE /ACETAMINOPHEN [Percocet 1 tab PO Q6HR PRN #20 tablet 11/30/17 Unknown Rx 5/325 mg] ED Physical Exam - General Limitations: Physical Limitation - Other Other exam information: GENERAL: The patient is well-developed well-nourished. HENT: Normocephalic. Atraumatic. Patient has moist mucous membranes. EYES: Extraocular motions are intact. Pupils equal reactive to light bilaterally. NECK: Supple. Trachea is midline. CHEST/LUNGS: Coarse breath sounds. No tachypnea or accessory muscle use. There is no respiratory distress noted. There is some reproducible chest pain to palpation. HEART/CARDIOVASCULAR: Regular. There is no tachycardia. There is no murmur. ABDOMEN: Abdomen is soft, nontender. Patient has normal bowel sounds. Obese habitus. SKIN: Skin is warm and dry. NEURO: The patient is awake, alert, and oriented. The patient is cooperative. The patient has no focal neurologic deficits. Normal speech. MUSCULOSKELETAL: There is no tenderness or deformity. There is no evidence of acute injury. ED Course Vital Signs 12/22/18 12/22/18 12/22/18 22:28 22:30 22:46 Temperature 97.6 F Pulse Rate 79 75 73 Respiratory 15 20 19 Rate Blood Pressure 100/57 100/61 100/61 O2 Sat by Pulse 98 97 97 Oximetry 12/22/18 12/22/18 12/23/18 23:00 23:30 00:00 Temperature Pulse Rate 74 74 74 Respiratory 15 16 15 Rate Blood Pressure 99/66 108/66 109/63 O2 Sat by Pulse 99 98 98 Oximetry 12/23/18 12/23/18 12/23/18 00:08 00:30 01:00 Temperature Pulse Rate 74 75 74 Respiratory 15 14 12 Rate Blood Pressure 109/63 107/63 102/62 O2 Sat by Pulse 98 97 97 Oximetry 12/23/18 01:30 Temperature Pulse Rate 78 Respiratory 16 Rate Blood Pressure 119/69 O2 Sat by Pulse Oximetry NEEMA score - Neema Score Age > 65: (0) No Aspirin use within the Past 7 Days: (0) No 3 or more CAD Risk Factors: (1) Yes 2 or more Angina events in past 24 hrs: (1) Yes Known CAD with more than 50% Stenosis: (0) No Elevated Cardiac Markers: (1) Yes ST Deviation Greater than 0.5mm: (0) No NEEMA Score: 3 ED Medical Decision Making - Lab Data Result diagrams: 12/22/18 22:58 12/22/18 22:58 - EKG Data -: EKG Interpreted by Me EKG shows normal: sinus rhythm, axis (left axis deviation), intervals, QRS complexes, ST-T waves (T-wave inversions to the lateral leads) Rate: normal - EKG Data When compared to previous EKG there are: changes noted (new T-wave inversions to leads V4 through V6) Interpretation: other (sinus rhythm, left axis deviation, T-wave inversions to the lateral leads) - Radiology Data Radiology results: report reviewed, image reviewed interpreted by me: Chest x-ray shows some pulmonary vascular congestion. No obvious pneumonia. NM lung scan perf/vent INDICATION / CLINICAL INFORMATION: CP, elevated dimer. TECHNIQUE: Dose / Agent / Route: 4.1mCi technetium 99m MAA IV and 15.7mci xenon- 133 inhaled COMPARISON: Portable chest x-ray 03/24/2018 Findings: No segmental or subsegmental perfusion defects. Ventilation images are normal IMPRESSION: 1. Low probability for pulmonary embolus. - Medical Decision Making This patient presents to the emergency department with some acute chest pain that started this evening, however it is similar to the chest pain she had last Wednesday. Her last stress test was about 2 years ago. EKG does not show any signs of ST elevation LA but does show some new T-wave inversions. Labs show her renal insufficiency. She has an elevated d-dimer level and elevated troponin. She always appears to have an elevated troponin level but this is higher than usual. Patient was given an aspirin, and some pain medication. Chest x-ray shows some pulmonary vascular congestion and she has an elevated BNP level. She was given some Lasix for diuresis. Patient has a moderate heart score and NEEMA score and will be admitted to the hospital for further evaluation and treatment and was accepted for admission by the hospitalist, Dr. Ennis. - Differential Diagnosis LA, PE, CHF, Pneumonia Critical Care Time: No Critical care attestation.: If time is entered above; I have spent that time in minutes in the direct care of this critically ill patient, excluding procedure time. ED Disposition Clinical Impression: Acute chest pain, Elevated troponin CHF exacerbation Qualifiers: Heart failure type: unspecified Qualified Code(s): I50.9 - Heart failure, unspecified HIV (human immunodeficiency virus infection) Qualifiers: HIV symptom status: unspecified Qualified Code(s): B20 - Human immunodeficiency virus [HIV] disease CKD (chronic kidney disease) Qualifiers: Chronic kidney disease stage: unspecified stage Qualified Code(s): N18.9 - Chronic kidney disease, unspecified Disposition: 09 OP ADMIT IP TO THIS HOSP Is pt being admited?: Yes Condition: Fair Instructions: Chest Pain (ED) Referrals: PRIMARY CARE, [Primary Care Provider] - 3-5 Days Time of Disposition: 02:13
[2018-12-22 23:13] LABS: Basophils # (Auto) 0.2 K/mm3 (0.0-0.1); Basophils % (Auto) 1.7 % (0.0-1.8); Eosinophils # (Auto) 0.3 K/mm3 (0.0-0.4); Eosinophils % (Auto) 2.1 % (0.0-4.3); Hematocrit 29.7 % (30.3-42.9); Hemoglobin 9.9 gm/dl (10.1-14.3); Lymphocytes # (Auto) 2.3 K/mm3 (1.2-5.4); Lymphocytes % (Auto) 18.5 % (13.4-35.0); Mean Corpuscular HGB Conc 33 % (30-34); Mean Corpuscular Volume 99 fl (79-97); Monocytes # (Auto) 0.9 K/mm3 (0.0-0.8); Red Blood Count 3.01 M/mm3 (3.65-5.03); Red Cell Distribution Width 14.5 % (13.2-15.2)
[2018-12-22 23:48] LABS: Calcium 9.1 mg/dL (8.4-10.2)
--- NOTE | 2018-12-23 00:14 | XRay Report ---
CHEST 1 VIEW INDICATION / CLINICAL INFORMATION: CP. COMPARISON: To 2018 FINDINGS: SUPPORT DEVICES: None. HEART / MEDIASTINUM: Heart size is within normal limits. Pulmonary vascularity is slightly prominent, similar to the comparison study. LUNGS / PLEURA: No significant pulmonary or pleural abnormality. No pneumothorax. ADDITIONAL FINDINGS: No significant additional findings. IMPRESSION: 1. Pulmonary venous hypertension. Signer Name: Darwin Trores MD Signed: 12/23/2018 12:09 AM Workstation Name: [email or web address]
[2018-12-23] MEDS ORDERED: PEPCID IV ONE (00:15)
[2018-12-23] MEDS ORDERED: ZOFRAN IV ONE (00:15)
[2018-12-23] MEDS ORDERED: MORPHINE IV ONE (00:15)
--- NOTE | 2018-12-23 02:12 | Nuclear Medicine Report ---
NM lung scan perf/vent INDICATION / CLINICAL INFORMATION: CP, elevated dimer. TECHNIQUE: Dose / Agent / Route: 4.1mCi technetium 99m MAA IV and 15.7mci xenon-133 inhaled COMPARISON: Portable chest x-ray 03/24/2018 Findings: No segmental or subsegmental perfusion defects. Ventilation images are normal IMPRESSION: 1. Low probability for pulmonary embolus. Signer Name: Darwin Torres MD Signed: 12/23/2018 2:08 AM Workstation Name: [id number]
[2018-12-23] MEDS ORDERED: LASIX IV ONE (02:13)
[2018-12-23 02:16] LABS: Platelet Count 308 K/mm3 (140-440)
[2018-12-23] MEDS ORDERED: NITROSTAT SL PRN (03:02)
[2018-12-23] MEDS ORDERED: TYLENOL PO PRN (03:03)
[2018-12-23] MEDS ORDERED: ZOFRAN IV PRN (03:03)
[2018-12-23] MEDS ORDERED: D50W (25GM) Syringe IV PRN ×2 (03:11→11:00)
[2018-12-23 03:43] LABS: Hematocrit 29.8 % (30.3-42.9)
[2018-12-23] MEDS ORDERED: HEPARIN 10,000 UNITS/10 ML IV ONE (03:57)
[2018-12-23 04:11] LABS: INR 1.03 (0.87-1.13)
[2018-12-23] MEDS: MORPHINE IV PRN ×4 (04:20→22:20)
[2018-12-23] MEDS: HEPARIN/ 0.45% NACL-25,000 UNIT/500 ML 25,000 UNIT/500 ML BAG IV SCH (04:28)
[2018-12-23 04:33] LABS: Partial Thromboplastin Time < 24.2 Sec. (24.2-36.6)
[2018-12-23] MEDS: HumuLIN R SUB-Q SCH ×5 (04:33→22:24)
[2018-12-23 04:43] LABS: Chol/HDL Ratio 7.63 %
--- NOTE | 2018-12-23 04:45 | History and Physical Report ---
CHIEF COMPLAINT: Chest pain. HISTORY OF PRESENT ILLNESS: The patient is a 48-year-old female, who says she has been having sharp chest pain going on for about 4 days. Pain is located in the retrosternal and precordial area and is associated with tingling sensation in the left upper extremity. There was no history of shortness of breath or dizziness, but there is history of nausea and no vomiting. Also, the patient denied history of diaphoresis and went to [place] [facility], where she was initially evaluated and discharged home with the pain resolving and then started in the evening prior to coming to the Emergency Room here in [facility]. Pain is relieved with the morphine. PAST MEDICAL HISTORY: Pertinent for hypertension, congestive heart failure, diabetes mellitus, chronic kidney disease, HIV infection, gastroparesis, neuropathy and also, the patient had a past medical history of dialysis that was discontinued about one year ago. PAST SURGICAL HISTORY: Pertinent for cholecystectomy and x 5. FAMILY HISTORY: Noncontributory. SOCIAL HISTORY: The patient does not smoke, does not drink alcohol, and does not use illicit drugs. MEDICATIONS: The patient is on abacavir 600 mg by mouth daily, gabapentin 600 mg by mouth every 8 hours, Levemir insulin 45 units subcutaneous at bedtime, Lopressor 100 mg by mouth daily, Zoloft 100 mg by mouth daily, hydralazine 50 mg by mouth every 8 hours, lamivudine 150 mg by mouth daily, trazodone 150 mg by mouth at bedtime, Percocet 5/325 mg 1 by mouth every 6 hours as needed for pain. ALLERGIES: The patient is allergic to ASPIRIN and LISINOPRIL. REVIEW OF SYSTEMS: CONSTITUTIONAL: There is no fever, no chills, and no diaphoresis. HEENT: There is no headache or sore throat. CARDIOVASCULAR SYSTEM: Chest pain is present. No orthopnea. RESPIRATORY SYSTEM: There is no cough and no shortness of breath. GASTROINTESTINAL SYSTEM: Nausea is present. No vomiting, no abdominal pain, diarrhea, or constipation. NEUROLOGICAL SYSTEM: There is no numbness, no dizziness, and no altered mental status. MUSCULOSKELETAL SYSTEM: There is no joint pain or swelling. DERMATOLOGICAL SYSTEM: There is no skin rash or itching. GENITOURINARY SYSTEM: There is no dysuria, hematuria, or flank pain. Rest of the system review is normal. PHYSICAL EXAMINATION: VITAL SIGNS: At the time of initial presentation, the patient's vital shows temperature of 97.6 degrees Fahrenheit, pulse of 79, respiration of 15, blood pressure 100/57, and O2 sat of 98% on the room air. HEENT: Show pupils to be equal, round, and reactive to light and accommodating. The extraocular muscles are intact. NECK: Supple with no JVD or carotid bruit. CARDIOVASCULAR SYSTEM: Showed normal first and second heart sounds with no gallops or murmurs. RESPIRATORY SYSTEM: Showed good air entry on both sides of the lungs with no abnormal breath sounds. GASTROINTESTINAL SYSTEM: Show abdomen to be full, soft, and nontender with no organomegaly or rigidity. NEUROLOGIC: Shows no focal deficit. MUSCULOSKELETAL SYSTEM: Show no joint swelling or tenderness. DERMATOLOGICAL SYSTEM: Show no skin rash. GENITOURINARY SYSTEM: Showing no costovertebral angle tenderness. PERTINENT LABORATORY AND IMAGING STUDIES: The patient has CBC done with elevated white count of 12,300 with low hemoglobin of 9.9 and low hematocrit of 29.7 with the CBC differential showing high segmented neutrophil count of 70.7%. Also, the patient's coagulation studies show high D-dimer level of 897 and patient's chemistry shows slight decrease in sodium level of 137 with the elevated BUN of 42 and high creatinine level of 3.4 consistent with chronic kidney disease. The patient's troponin level is elevated with a value of 0.093 and brain natriuretic peptide level is high with a value of 1522. IMAGING STUDIES: The patient had chest x-ray done that shows pulmonary venous hypertension and patient has pulmonary perfusion test done that shows low probability for pulmonary embolism. DIAGNOSES: 1. Chest pain. 2. Elevated troponin level. 3. Congestive heart failure exacerbation. 4. Chronic kidney disease. PLAN OF CARE: 1. The patient will be admitted to telemetry as inpatient. 2. The patient will have serial cardiac enzymes involving troponin, total CK, and CK-MB checked every 6 hours x 2 levels. 3. The patient will have complete echocardiogram done this morning because of congestive heart failure exacerbation. 4. The patient will have Cardiology consult with Dr. Porter because of chest pain with elevated troponin level. 5. The patient will have Nephrology consult with Dr. Rowley because of chronic kidney disease. 6. The patient will remain n.p.o. and will have Lexiscan stress test done this morning. 7. The patient will be on IV morphine 2 mg every 3 hours as needed for pain and IV Zofran 4 mg every 8 hours as needed for nausea or vomiting. 8. The patient will be on nitro paste half inch to anterior chest wall q.i.d. and Nitrostat 0.4 mg sublingual every 5 minutes as needed for breakthrough chest pain. 9. The patient will be on p.r.n. medications like Tylenol 650 mg by mouth every 4 hours as needed for fever and headache and will be on her home medication as shown in the medication reconciliation section. 10. The patient will be on IV Lasix 40 mg daily as part of treatment of congestive heart failure exacerbation. 11. The patient will be on Accu-Chek q. 4 hours followed by a low-dose sliding scale using the regular insulin coverage. JOB# [id number] OCN/NTS
[2018-12-23] MEDS ORDERED: APRESOLINE PO SCH (06:00)
[2018-12-23 06:09] LABS: Creatine Kinase MB 4.6 ng/mL (0.0-4.0)
[2018-12-23] MEDS: GABAPENTIN PO SCH ×2 (06:37→17:28)
[2018-12-23] MEDS: NITRO-BID 2% TP SCH ×3 (06:38→13:20)
[2018-12-23] MEDS: METOPROLOL PO SCH (08:12)
[2018-12-23] MEDS: ZIAGEN PO SCH (10:00)
[2018-12-23] MEDS ORDERED: LASIX IV SCH (10:00)
--- NOTE | 2018-12-23 10:44 | Consultation ---
History of Present Illness Consult date: 12/23/18 Consult reason: chest pain, elevated troponin History of present illness: 48-year old woman multiple medical problems including hypertension, diabetes, HIV and chronic renal disease. She has a history of heart failure with a preserved ejection fraction. She is admitted to this hospital with chest pain. Ventilation perfusion scan reports low probability for pulmonary embolism. Initial cardiac enzymes shows mild elevation of tropnin. Chest x-ray reports no interstitial edema. EKG was sinus rhythm with no acute ischemic changes. Her latest ischemic cardiac workup was a stress thallium test, done in 2016, that reports no ischemia. An echocardiogram, done in November at [place], reports a normal left ventricular ejection fraction. A cardiac consultation has been requested for further evaluation. Medications and Allergies Allergies Allergy/AdvReac Type Severity Reaction Status Date / Time aspirin Allergy Swelling Verified 05/10/16 05:48 lisinopril AdvReac Angioedema Verified 04/23/18 03:38 Home Medications Medication Instructions Recorded Confirmed Last Taken Type Abacavir [Ziagen TAB] 600 mg PO DAILY 11/28/17 12/23/18 11/27/17 History Gabapentin [Neurontin] 600 mg PO Q8H 11/28/17 12/23/18 11/27/17 History Insulin Detemir [Levemir VIAL] 45 unit SQ QHS 11/28/17 12/23/18 Unknown History Metoprolol [Lopressor TAB] 100 mg PO DAILY 11/28/17 12/23/18 11/27/17 History Sertraline [Zoloft] 100 mg PO QDAY 11/28/17 12/23/18 11/27/17 History hydrALAZINE [Apresoline TAB] 50 mg PO Q8HR 11/28/17 12/23/18 Unknown History lamiVUDine [Lamivudine] 150 mg PO DAILY 11/28/17 12/23/18 11/27/17 History traZODone [Desyrel] 150 mg PO QHS 11/28/17 12/23/18 11/27/17 History oxyCODONE /ACETAMINOPHEN [Percocet 1 tab PO Q6HR PRN #20 tablet 11/30/17 12/23/18 Unknown Rx 5/325 mg] Active Meds: Active Medications Abacavir Sulfate (Ziagen) 600 mg PO DAILY [facility] Acetaminophen (Tylenol) 650 mg PO Q4H PRN PRN Reason: Headache Dextrose (D50w (25gm) Syringe) 50 ml IV Q1H PRN PRN Reason: Hypoglycemia Furosemide (Lasix) 40 mg IV QDAY [facility] Gabapentin (Neurontin) 600 mg PO Q8H [facility] Last Admin: 12/23/18 06:37 Dose: 600 mg Documented by: Hydralazine HCl (Apresoline) 50 mg PO Q8HR [facility] Last Admin: 12/23/18 06:37 Dose: 50 mg Documented by: Heparin Sodium/Sodium Chloride (Heparin/ 0.45% Nacl-25,000 Unit/500 Ml) 25,000 unit in 500 mls @ 20 mls/hr IV TITRATE [facility]; Protocol Last Admin: 12/23/18 04:28 Dose: 1,000 units/hr, 20 mls/hr Documented by: Insulin Human Regular (Humulin R) 0 units SUB-Q Q4H [facility]; Protocol Last Admin: 12/23/18 04:33 Dose: Not Given Documented by: Lamivudine (Epivir) 150 mg PO DAILY [facility] Metoprolol Tartrate (Lopressor) 100 mg PO DAILY@0800 [facility] Last Admin: 12/23/18 08:12 Dose: 100 mg Documented by: Morphine Sulfate (Morphine) 2 mg IV Q3H PRN PRN Reason: Pain, Moderate (4-6) Last Admin: 12/23/18 08:13 Dose: 2 mg Documented by: Nitroglycerin (Nitro-Bid 2%) 0.5 inch TP QIDNTG [facility]; Protocol Last Admin: 12/23/18 06:38 Dose: 0.5 inch Documented by: Nitroglycerin (Nitrostat) 0.4 mg SL .Q5MIN PRN PRN Reason: Chest Pain Ondansetron HCl (Zofran) 4 mg IV Q8H PRN PRN Reason: Nausea And Vomiting Sertraline HCl (Zoloft) 100 mg PO QDAY [facility] Trazodone HCl (Desyrel) 150 mg PO QHS [facility] Physical Examination Vital Signs Temp Pulse Resp BP Pulse Ox 97.6 F 79 15 100/57 98 12/22/18 22:28 12/22/18 22:28 12/22/18 22:28 12/22/18 22:28 12/22/18 22:28 General appearance: no acute distress HEENT: Positive: PERRL Neck: Positive: trachea midline Cardiac: Positive: Reg Rate and Rhythm Lungs: Positive: Normal Breath Sounds Neuro: Positive: Grossly Intact Results 12/23/18 03:22 12/22/18 22:58 Cardiac Enzymes 12/23/18 Range/Units 05:23 CK-MB (CK-2) 4.6 H (0.0-4.0) ng/mL Coagulation 12/23/18 Range/Units 03:22 PT 13.2 (12.2-14.9) Sec. INR 1.03 (0.87-1.13) APTT < 24.2 L (24.2-36.6) Sec. Lipids 12/23/18 Range/Units 03:22 Triglycerides 325 H (2-149) mg/dL Cholesterol 252 H (50-199) mg/dL HDL Cholesterol 33 L (40-59) mg/dL Cholesterol/HDL Ratio 7.63 % CBC 12/22/18 12/23/18 Range/Units 22:58 03:22 WBC 12.3 H (4.5-11.0) K/mm3 RBC 3.01 L (3.65-5.03) M/mm3 Hgb 9.9 L 10.0 L (10.1-14.3) gm/dl Hct 29.7 L 29.8 L (30.3-42.9) % Plt Count 308 257 (140-440) K/mm3 Lymph # 2.3 (1.2-5.4) K/mm3 [place] # 0.9 H (0.0-0.8) K/mm3 Eos # 0.3 (0.0-0.4) K/mm3 Baso # 0.2 H (0.0-0.1) K/mm3 Comprehensive Metabolic Panel 12/22/18 Range/Units 22:58 Sodium 135 L (137-145) mmol/L Potassium 3.7 (3.6-5.0) mmol/L Chloride 98.6 (98-107) mmol/L Carbon Dioxide 22 (22-30) mmol/L BUN 42 H (7-17) mg/dL Creatinine 3.4 H (0.7-1.2) mg/dL Glucose 146 H (65-100) mg/dL Calcium 9.1 (8.4-10.2) mg/dL Assessment and Plan Chest pain Mild elevated troponin Chronic renal failure Diabetes Hypertension HIV disease Hx of heart failure with preserved ejection fraction no evidence of acute exacerbation Recommend: Ischemic cardiac workup with a Persantin thallium stress test before discharge.
[2018-12-23] MEDS: EPIVIR PO SCH (11:00)
[2018-12-23] MEDS: ZOLOFT PO SCH (11:01)
--- NOTE | 2018-12-23 11:55 | Consultation ---
History of Present Illness - History of Present Illness My assessment and plan are as follows End-stage renal disease: Patient will continue with hemodialysis treatment on scheduled as tolerated, monitor dialysis related labs patient will need hemodialysis treatment at least 3 times a week Anemia and end-stage renal disease: To monitor and follow, erythropoietin as required goal hemoglobin dialysis patients usually occurring 10 and 12, we will follow Secondary hyperparathyroidism: Monitor phosphorus and PTH periodically and a djust binders as needed Diet and nutrition: Fluid restriction 1200 mL per day, high-protein diet may benefit from nutrition consultation , patient is protein intake should be 1.5 g per KG body weight Hypertension and volume continue to monitor, educated about fluid restriction sodium restriction Patient does exhibit good understanding of the renal related issues Patient has been adequately counseled and educated regarding all the renal related issues Renal care plan was discussed with patient Prognosis remains guarded at this time We'll continue to follow and make recommendation from renal standpoint She have any questions please feel free to contact me at [phone] Angel Nunez M.D. [facility], [address] [phone] History of presenting illness 48-year-old female admitted here with multiple health issues, currently dialysis dependent Patient was admitted here with left-sided chest pain radiating to her left arm which had started since last 4-5 days ago, she was also experiencing some shortness of breath has had issues with uncontrolled hypertension patient also does suffer from HIV Blood pressure is currently much better controlled after medications were changed yesterday She has received one hemodialysis treatment here Past medical history: Stage renal disease Anemia and end-stage renal disease Secondary hyperparathyroidism HIV disease Current allergies: Aspirin and lisinopril Home medication present medication: Reviewed Social history family history: Reviewed Review of systems: Positive for all other review of systems were negative Physical examination: General: No acute distress HEENT: Oral mucosa moist no icterus, no facial swelling Neck: Supple no thyromegaly no lymphadenopathy no JVD Chest: Clear to auscultation no crackles rales or wheezes Heart: Regular rate and rhythm S1-S2 heard no S3-S4 Abdomen: Soft nontender no organomegaly no masses palpable no renal bruit no suprapubic masses no CVA tenderness Dermatology: No skin rashes noted Extremity: Less than 1+ peripheral edema, dry skin no petechial rashes Musculoskeletal: No joint effusion noted in knee and ankle area Psych: No evidence of agitation and aggression noted Neurological: Alert awake follows commands no tremors no myoclonus Back: No CVA tenderness Medications and Allergies Allergies Allergy/AdvReac Type Severity Reaction Status Date / Time aspirin Allergy Swelling Verified 05/10/16 05:48 lisinopril AdvReac Angioedema Verified 04/23/18 03:38 Home Medications Medication Instructions Recorded Confirmed Last Taken Type Abacavir [Ziagen TAB] 600 mg PO DAILY 11/28/17 12/23/18 11/27/17 History Gabapentin [Neurontin] 600 mg PO Q8H 11/28/17 12/23/18 11/27/17 History Insulin Detemir [Levemir VIAL] 45 unit SQ QHS 11/28/17 12/23/18 Unknown History Metoprolol [Lopressor TAB] 100 mg PO DAILY 11/28/17 12/23/18 11/27/17 History Sertraline [Zoloft] 100 mg PO QDAY 11/28/17 12/23/18 11/27/17 History hydrALAZINE [Apresoline TAB] 50 mg PO Q8HR 11/28/17 12/23/18 Unknown History lamiVUDine [Lamivudine] 150 mg PO DAILY 11/28/17 12/23/18 11/27/17 History traZODone [Desyrel] 150 mg PO QHS 11/28/17 12/23/18 11/27/17 History oxyCODONE /ACETAMINOPHEN [Percocet 1 tab PO Q6HR PRN #20 tablet 11/30/17 12/23/18 Unknown Rx 5/325 mg] Active Meds: Active Medications Abacavir Sulfate (Ziagen) 600 mg PO DAILY [facility] Last Admin: 12/23/18 10:00 Dose: 600 mg Documented by: Acetaminophen (Tylenol) 650 mg PO Q4H PRN PRN Reason: Headache Dextrose (D50w (25gm) Syringe) 50 ml IV Q1H PRN PRN Reason: Hypoglycemia Furosemide (Lasix) 40 mg IV QDAY [facility] Last Admin: 12/23/18 11:01 Dose: 40 mg Documented by: Gabapentin (Neurontin) 600 mg PO Q8H [facility] Last Admin: 12/23/18 06:37 Dose: 600 mg Documented by: Hydralazine HCl (Apresoline) 50 mg PO Q8HR [facility] Last Admin: 12/23/18 06:37 Dose: 50 mg Documented by: Heparin Sodium/Sodium Chloride (Heparin/ 0.45% Nacl-25,000 Unit/500 Ml) 25,000 unit in 500 mls @ 20 mls/hr IV TITRATE [facility]; Protocol Last Admin: 12/23/18 04:28 Dose: 1,000 units/hr, 20 mls/hr Documented by: Insulin Human Regular (Humulin R) 0 units SUB-Q Q4H [facility]; Protocol Last Admin: 12/23/18 10:24 Dose: Not Given Documented by: Lamivudine (Epivir) 150 mg PO DAILY [facility] Last Admin: 12/23/18 11:00 Dose: 150 mg Documented by: Metoprolol Tartrate (Lopressor) 100 mg PO DAILY@0800 [facility] Last Admin: 12/23/18 08:12 Dose: 100 mg Documented by: Morphine Sulfate (Morphine) 2 mg IV Q3H PRN PRN Reason: Pain, Moderate (4-6) Last Admin: 12/23/18 08:13 Dose: 2 mg Documented by: Nitroglycerin (Nitro-Bid 2%) 0.5 inch TP QIDNTG [facility]; Protocol Last Admin: 12/23/18 11:01 Dose: 0.5 inch Documented by: Nitroglycerin (Nitrostat) 0.4 mg SL .Q5MIN PRN PRN Reason: Chest Pain Ondansetron HCl (Zofran) 4 mg IV Q8H PRN PRN Reason: Nausea And Vomiting Sertraline HCl (Zoloft) 100 mg PO QDAY [facility] Last Admin: 12/23/18 11:01 Dose: 100 mg Documented by: Trazodone HCl (Desyrel) 150 mg PO QHS [facility] Exam - Vital Signs Vital signs: Vital Signs Temp Pulse Resp BP Pulse Ox 97.6 F 79 15 100/57 98 12/22/18 22:28 12/22/18 22:28 12/22/18 22:28 12/22/18 22:28 12/22/18 22:28 Results - Lab Results 12/23/18 03:22 12/22/18 22:58 Most recent lab results Calcium 9.1 mg/dL (8.4-10.2) 12/22/18 22:58
--- NOTE | 2018-12-23 12:43 | Progress Note ---
Assessment and Plan Chest Pain/unstable angina/NSTEMI - Abnormal troponin with slight trend w/o change in EKG in the light of CKD - cont heparin drip, NTG, BB, statin, plavix - plan for cardiac cath when renal function improves Chronic diastolic heart failure - HFpEF (normal LVEF with elevated filling pressures on echo) - monitor ins/os, renal outpt Acute on chronic renal failure - primary bio medical technician planning to re-establish HD as outpatient - started iv fluid, mucomyst po per renal HIV on HAART, supportive care Type II DM, consistent carb diet, insulin coverage Essential hypertension, monitor BP, cont current meds Anemia of chronic disease, monitor H/h Morbid obesity, diet and exercise recommendation as appropriate when clinically stable DVT Px, on heparin drip Transfer out to ICU for close monitoring The high probability of a clinically significant, sudden or life threatening deterioration of the system(s) required my full and direct attention, intervention and personal management. The aggregate critical care time was [35] minutes. This time is in addition to time spent performing reported procedures but includes the following: [x] Data Review and interpretation [x] Patient assessment and monitoring of vital signs [x] Documentation [x] Medication orders and management Subjective Date of service: 12/23/18 Interval history: Patient seen and examined. Medical records and medication list reviewed. No acute event overnight noted by the RN. Patient continue to complaints of chest pain. Patient is tolerating diet. Discussed plan of care at bedside with patient. Objective - Exam Narrative Exam: GENERAL: well-developed morbidly obese female lying on bed appeared to be in no discomfort. HEENT: Normocephalic. Atraumatic. No conjunctival congestion or icterus. Patient has moist mucous membranes. NECK: Supple. Trachea midline. CHEST/LUNGS: Clear to auscultated bilaterally, breathing nonlabored. No wheezes crackles or rhonchi. HEART/CARDIOVASCULAR: Regular in rate and rhythm. S1 and S2 positive. ABDOMEN: Abdomen is soft, nontender. Patient has normal bowel sounds. SKIN: There is no rash. Warm and dry. NEURO: No focal motor deficit. Follows command. MUSCULOSKELETAL: No joint effusion or tenderness. EXTRIMITY: No edema, no cyanosis or clubbing. PSYCH: Cooperative. - Constitutional Vitals: Vital Signs - 12hr 12/23/18 12/23/18 12/23/18 01:00 01:30 02:08 Temperature Pulse Rate 74 78 Respiratory 12 16 Rate Blood Pressure 102/62 119/69 119/69 O2 Sat by Pulse 97 98 Oximetry 12/23/18 12/23/18 12/23/18 02:30 03:00 03:30 Temperature Pulse Rate 73 73 76 Respiratory 13 11 L 13 Rate Blood Pressure 136/80 137/83 138/86 O2 Sat by Pulse 97 97 98 Oximetry 12/23/18 12/23/18 12/23/18 04:00 04:30 05:00 Temperature Pulse Rate 74 76 71 Respiratory 11 L 11 L 10 L Rate Blood Pressure 126/82 138/81 138/83 O2 Sat by Pulse 96 97 Oximetry 12/23/18 12/23/18 12/23/18 06:37 06:38 07:57 Temperature 98.3 F Pulse Rate 76 76 Respiratory 18 Rate Blood Pressure 138/81 138/81 149/89 O2 Sat by Pulse Oximetry 12/23/18 12/23/18 08:12 11:01 Temperature Pulse Rate 76 76 Respiratory Rate Blood Pressure 149/89 149/89 O2 Sat by Pulse Oximetry - Labs CBC & Chem 7: 12/23/18 03:22 12/24/18 Unknown Labs: Abnormal lab results 12/22/18 12/22/18 12/22/18 Range/Units 22:58 22:58 22:58 WBC 12.3 H (4.5-11.0) K/mm3 RBC 3.01 L (3.65-5.03) M/mm3 Hgb 9.9 L (10.1-14.3) gm/dl Hct 29.7 L (30.3-42.9) % MCV 99 H (79-97) fl MCH 33 H (28-32) pg [place] # 0.9 H (0.0-0.8) K/mm3 Baso # 0.2 H (0.0-0.1) K/mm3 Seg Neutrophils % 70.7 H (40.0-70.0) % Seg Neutrophils # 8.7 H (1.8-7.7) K/mm3 APTT (24.2-36.6) Sec. D-Dimer (0-234) ng/mlDDU Sodium 135 L (137-145) mmol/L BUN 42 H (7-17) mg/dL Creatinine 3.4 H (0.7-1.2) mg/dL Glucose 146 H (65-100) mg/dL POC Glucose (70-105) Total Creatine Kinase (30-135) units/L CK-MB (CK-2) (0.0-4.0) ng/mL Troponin T 0.093 H (0.00-0.029) ng/mL NT-Pro-B Natriuret Pep 1522 H (0-450) pg/mL Triglycerides (2-149) mg/dL Cholesterol (50-199) mg/dL LDL Cholesterol Direct (50-130) mg/dL HDL Cholesterol (40-59) mg/dL 12/22/18 12/23/18 12/23/18 Range/Units 23:07 03:22 03:22 WBC (4.5-11.0) K/mm3 RBC (3.65-5.03) M/mm3 Hgb 10.0 L (10.1-14.3) gm/dl Hct 29.8 L (30.3-42.9) % MCV (79-97) fl MCH (28-32) pg [place] # (0.0-0.8) K/mm3 Baso # (0.0-0.1) K/mm3 Seg Neutrophils % (40.0-70.0) % Seg Neutrophils # (1.8-7.7) K/mm3 APTT (24.2-36.6) Sec. D-Dimer 897.35 H (0-234) ng/mlDDU Sodium (137-145) mmol/L BUN (7-17) mg/dL Creatinine (0.7-1.2) mg/dL Glucose (65-100) mg/dL POC Glucose (70-105) Total Creatine Kinase (30-135) units/L CK-MB (CK-2) (0.0-4.0) ng/mL Troponin T 0.080 H (0.00-0.029) ng/mL NT-Pro-B Natriuret Pep (0-450) pg/mL Triglycerides 325 H (2-149) mg/dL Cholesterol 252 H (50-199) mg/dL LDL Cholesterol Direct 174 H (50-130) mg/dL HDL Cholesterol 33 L (40-59) mg/dL 12/23/18 12/23/18 12/23/18 Range/Units 03:22 05:23 11:29 WBC (4.5-11.0) K/mm3 RBC (3.65-5.03) M/mm3 Hgb (10.1-14.3) gm/dl Hct (30.3-42.9) % MCV (79-97) fl MCH (28-32) pg [place] # (0.0-0.8) K/mm3 Baso # (0.0-0.1) K/mm3 Seg Neutrophils % (40.0-70.0) % Seg Neutrophils # (1.8-7.7) K/mm3 APTT < 24.2 L (24.2-36.6) Sec. D-Dimer (0-234) ng/mlDDU Sodium (137-145) mmol/L BUN (7-17) mg/dL Creatinine (0.7-1.2) mg/dL Glucose (65-100) mg/dL POC Glucose 239 H (70-105) Total Creatine Kinase 167 H (30-135) units/L CK-MB (CK-2) 4.6 H (0.0-4.0) ng/mL Troponin T 0.084 H (0.00-0.029) ng/mL NT-Pro-B Natriuret Pep (0-450) pg/mL Triglycerides (2-149) mg/dL Cholesterol (50-199) mg/dL LDL Cholesterol Direct (50-130) mg/dL HDL Cholesterol (40-59) mg/dL 12/23/18 Range/Units 11:41 WBC (4.5-11.0) K/mm3 RBC (3.65-5.03) M/mm3 Hgb (10.1-14.3) gm/dl Hct (30.3-42.9) % MCV (79-97) fl MCH (28-32) pg [place] # (0.0-0.8) K/mm3 Baso # (0.0-0.1) K/mm3 Seg Neutrophils % (40.0-70.0) % Seg Neutrophils # (1.8-7.7) K/mm3 APTT (24.2-36.6) Sec. D-Dimer (0-234) ng/mlDDU Sodium (137-145) mmol/L BUN (7-17) mg/dL Creatinine (0.7-1.2) mg/dL Glucose (65-100) mg/dL POC Glucose (70-105) Total Creatine Kinase 145 H (30-135) units/L CK-MB (CK-2) (0.0-4.0) ng/mL Troponin T 0.107 H* D (0.00-0.029) ng/mL NT-Pro-B Natriuret Pep (0-450) pg/mL Triglycerides (2-149) mg/dL Cholesterol (50-199) mg/dL LDL Cholesterol Direct (50-130) mg/dL HDL Cholesterol (40-59) mg/dL
[2018-12-23] MEDS ORDERED: NITRO DUR TD ONE (13:43)
[2018-12-23] MEDS ORDERED: PLAVIX PO ONE (14:00)
--- NOTE | 2018-12-23 14:29 | Event Note ---
Date: 12/23/18 48-year-old woman with a history of hypertension, gastroparesis and chronic kidney disease. Her creatinine on the current presentation is 3.4. Not on dialysis. She presents with somewhat atypical chest pain, intermittent for 4 days. ECG is normal sinus rhythm, left ventricular hypertrophy with some repolarization abnormalities of LVH, unchanged from her chronic EKG, no acute changes. Cardiac enzymes show a normal CK-MB and a troponin of 0.8-1.0, unchanged on multiple measurements, in the setting of advanced renal disease. Recommendations: 1. Patient's chest pain is atypical, troponin levels are somewhat nonspecific in the setting of advanced renal disease, and she has chronic epigastric and chest discomfort from gastroparesis. EKG with chest pain shows no acute changes of coronary ischemia. 2. She is at extremely high risk for for contrast nephropathy and acute tubular necrosis. We will therefore not proceed with contrast angiography at this time. 3. Recommend aggressive medical management, patient will be transferred to the CCU, placed on intravenous nitrates, beta blockers and oral antiplatelets. 4. We will also recommend high-dose PPI for gastric disease. 5. We will start intravenous saline at 75 mL an hour. Nephrology consultation and management is in progress. 6. Cardiac catheterization will be performed electively, when patient's risk of acute contrast nephropathy is better attenuated, or she is transitioned to a commitment to begin hemodialysis.
[2018-12-23] MEDS ORDERED: TRIDIL DRIP 50MG/250ML 50 MG/250 ML BOTTLE IV SCH (15:00)
--- NOTE | 2018-12-23 15:21 | Consultation ---
History of Present Illness Consult date: 12/23/18 Requesting physician: BETTE SUERO Reason for consult: other (AcuteCoronary syndrome) History of present illness: PULMONARY/CCM CONSULT NOTE (Full dictation # [id number]) Please see dictated notes for full details Medications and Allergies Allergies Allergy/AdvReac Type Severity Reaction Status Date / Time aspirin Allergy Swelling Verified 05/10/16 05:48 lisinopril AdvReac Angioedema Verified 04/23/18 03:38 Home Medications Medication Instructions Recorded Confirmed Last Taken Type Abacavir [Ziagen TAB] 600 mg PO DAILY 11/28/17 12/23/18 11/27/17 History Gabapentin [Neurontin] 600 mg PO Q8H 11/28/17 12/23/18 11/27/17 History Insulin Detemir [Levemir VIAL] 45 unit SQ QHS 11/28/17 12/23/18 Unknown History Metoprolol [Lopressor TAB] 100 mg PO DAILY 11/28/17 12/23/18 11/27/17 History Sertraline [Zoloft] 100 mg PO QDAY 11/28/17 12/23/18 11/27/17 History hydrALAZINE [Apresoline TAB] 50 mg PO Q8HR 11/28/17 12/23/18 Unknown History lamiVUDine [Lamivudine] 150 mg PO DAILY 11/28/17 12/23/18 11/27/17 History traZODone [Desyrel] 150 mg PO QHS 11/28/17 12/23/18 11/27/17 History oxyCODONE /ACETAMINOPHEN [Percocet 1 tab PO Q6HR PRN #20 tablet 11/30/17 12/23/18 Unknown Rx 5/325 mg] Active Meds: Active Medications Abacavir Sulfate (Ziagen) 600 mg PO DAILY [facility] Last Admin: 12/23/18 10:00 Dose: 600 mg Documented by: Acetaminophen (Tylenol) 650 mg PO Q4H PRN PRN Reason: Headache Acetylcysteine (Mucomyst Oral) 600 mg PO Q12HR [facility] Clopidogrel Bisulfate (Plavix) 75 mg PO QDAY [facility] Dextrose (D50w (25gm) Syringe) 50 ml IV Q1H PRN PRN Reason: Hypoglycemia Gabapentin (Neurontin) 600 mg PO Q8H [facility] Last Admin: 10/18/19 06:37 Dose: 600 mg Documented by: Heparin Sodium/Sodium Chloride (Heparin/ 0.45% Nacl-25,000 Unit/500 Ml) 25,000 unit in 500 mls @ 20 mls/hr IV TITRATE [facility]; Protocol Last Admin: 12/23/18 04:28 Dose: 1,000 units/hr, 20 mls/hr Documented by: Sodium Chloride (Nacl 0.9% 1000 Ml) 1,000 mls @ 75 mls/hr IV DIRECT [facility] Nitroglycerin/Dextrose (Tridil Drip 50mg/250ml) 50 mg in 250 mls @ 3 mls/hr IV TITR [facility]; Protocol Insulin Human Regular (Humulin R) 0 units SUB-Q Q4H [facility]; Protocol Last Admin: 12/23/18 13:04 Dose: 3 units Documented by: Lamivudine (Epivir) 150 mg PO DAILY [facility] Last Admin: 12/23/18 11:00 Dose: 150 mg Documented by: Metoprolol Tartrate (Lopressor) 100 mg PO DAILY@0800 [facility] Last Admin: 12/23/18 08:12 Dose: 100 mg Documented by: Miscellaneous Medication (Insulin Detemir [Levemir Vial]) 10 unit SQ QHS [facility] Morphine Sulfate (Morphine) 2 mg IV Q3H PRN PRN Reason: Pain, Moderate (4-6) Last Admin: 12/23/18 08:13 Dose: 2 mg Documented by: Nitroglycerin (Nitrostat) 0.4 mg SL .Q5MIN PRN PRN Reason: Chest Pain Ondansetron HCl (Zofran) 4 mg IV Q8H PRN PRN Reason: Nausea And Vomiting Oxycodone/Acetaminophen (Percocet 5/325) 1 tab PO Q6HR PRN PRN Reason: Pain, Moderate (4-6) Pantoprazole Sodium (Protonix) 40 mg PO QDAY [facility] Pravastatin Sodium (Pravachol) 40 mg PO QHS [facility] Sertraline HCl (Zoloft) 100 mg PO QDAY [facility] Last Admin: 12/23/18 11:01 Dose: 100 mg Documented by: Trazodone HCl (Desyrel) 150 mg PO QHS [facility] Physical Examination Vital signs: Vital Signs Temp Pulse Resp BP Pulse Ox 97.6 F 79 15 100/57 98 12/22/18 22:28 12/22/18 22:28 12/22/18 22:28 12/22/18 22:28 12/22/18 22:28 Results - Laboratory Findings CBC and BMP: 12/23/18 03:22 12/23/18 14:56 PT/INR, D-dimer PT 13.2 Sec. (12.2-14.9) 12/23/18 03:22 INR 1.03 (0.87-1.13) 12/23/18 03:22 D-Dimer 897.35 ng/mlDDU (0-234) H 12/22/18 23:07 Abnormal lab findings: Abnormal Labs 12/22/18 12/22/18 12/22/18 22:58 22:58 22:58 WBC 12.3 H RBC 3.01 L Hgb 9.9 L Hct 29.7 L MCV 99 H MCH 33 H Bonner # 0.9 H Baso # 0.2 H Seg Neutrophils % 70.7 H Seg Neutrophils # 8.7 H APTT D-Dimer Sodium 135 L BUN 42 H Creatinine 3.4 H Glucose 146 H POC Glucose Total Creatine Kinase CK-MB (CK-2) Troponin T 0.093 H NT-Pro-B Natriuret Pep 1522 H Triglycerides Cholesterol LDL Cholesterol Direct HDL Cholesterol 12/22/18 12/23/18 12/23/18 23:07 03:22 03:22 WBC RBC Hgb 10.0 L Hct 29.8 L MCV MCH Bonner # Baso # Seg Neutrophils % Seg Neutrophils # APTT D-Dimer 897.35 H Sodium BUN Creatinine Glucose POC Glucose Total Creatine Kinase CK-MB (CK-2) Troponin T 0.080 H NT-Pro-B Natriuret Pep Triglycerides 325 H Cholesterol 252 H LDL Cholesterol Direct 174 H HDL Cholesterol 33 L 12/23/18 12/23/18 12/23/18 03:22 05:23 11:29 WBC RBC Hgb Hct MCV MCH Bonner # Baso # Seg Neutrophils % Seg Neutrophils # APTT < 24.2 L D-Dimer Sodium BUN Creatinine Glucose POC Glucose 239 H Total Creatine Kinase 167 H CK-MB (CK-2) 4.6 H Troponin T 0.084 H NT-Pro-B Natriuret Pep Triglycerides Cholesterol LDL Cholesterol Direct HDL Cholesterol 12/23/18 11:41 WBC RBC Hgb Hct MCV MCH Bonner # Baso # Seg Neutrophils % Seg Neutrophils # APTT D-Dimer Sodium BUN Creatinine Glucose POC Glucose Total Creatine Kinase 145 H CK-MB (CK-2) Troponin T 0.107 H* D NT-Pro-B Natriuret Pep Triglycerides Cholesterol LDL Cholesterol Direct HDL Cholesterol
[2018-12-23 15:35] LABS: Calcium 9.5 mg/dL (8.4-10.2)
[2018-12-23] MEDS: PROTONIX PO SCH (15:41)
[2018-12-23] MEDS: NACL 0.9% 1000 ML 1,000 ML IV SCH (15:43)
[2018-12-23] MEDS ORDERED: PROVENTIL IH PRN (15:43)
--- NOTE | 2018-12-23 16:05 | Consultation ---
History of Present Illness - History of Present Illness Thank you for the consultation Patient was evaluated today My assessment and plan are as follows Advanced renal failure in a patient who has been followed by a plastic printer at [place], her current creatinine is around 3.4 and needs to be monitored closely She has been told that she is approaching dialysis by her plastic printer at [place], Dr. Reyes She is high risk for radiocontrast nephropathy, possibly may require renal replacement therapy post contrast if renal function continues to worsen, this has been discussed with patient and she is in agreement for renal replacement t herapy to be initiated if required Abnormal cardiac enzyme currently being followed by cardiology service patient may require cardiac catheterization pending evaluation today, her troponin has been relatively stable times 30.09 0.08 and 0.08 Hyperlipidemia total cholesterol 252 LDL 174 Mild hypo-natremia to follow Anemia likely due to chronic kidney disease current hemoglobin 9.9 and normal platelet count 308,000 Patient is not a suitable candidate for anh inhibitors or angiotensin receptor barb History of HIV disease, depression, chronic pain issues, chronic kidney disease, congestive heart failure with preserved ejection fraction Patient was adequately counseled and educated regarding all the renal related issues Renal prognosis remains guarded at this time Patient will need to make a follow-up appointment in the office upon discharge within a week or two Labs were discussed with patient explained and simple German does have good understanding off renal related issues, Will continue to follow and make recommendation from renal standpoint Source of information; History of presenting illness; Patient is a 47-year-old female who is currently being followed by Dr. Reyes in nephrology at [place], patient has been told that she has chronic kidney disease and has been having progression over time and that she is predialysis now, and she should be considered for fistula and near future. Patient has been admitted here with chest pain and abnormal cardiac enzyme and is currently being followed by cardiology service She jo been experiencing some nausea appetite has been poor she has no swelling in both lower extremity, Past medical history is significant for Chronic kidney disease, nearing dialysis per patient Hypertension HIV Hypertension Congestive heart failure Current allergies: Reviewed Home medication present medication: Reviewed Social history/family history: Reviewed Review of system: Positive for occasional poor appetite and nausea chest pain and no swelling in legs advanced renal failure All other review of systems negative Review of system is positive for All other review of systems negative Labs and x-rays: Were reviewed from the current chart Physical examination General: No acute distress HEENT: Oral mucosa moist no pharyngeal erythema no pallor or icterus no uremic order Neck: Supple no evidence of any thyromegaly trachea midline no JVD Chest: Clear to auscultation no crackles are also wheezes anteriorly Heart: Regular rate and rhythm S1-S2 heard no S3-S4 Abdomen: Soft nontender no renal bruit no CVA tenderness no suprapubic fullness no organomegaly Extremity: Minimal edema dry skin no peripheral cyanosis pulses palpable Neurological: Alert awake follows command grossly nonfocal examination Back: Nontender thoracolumbar spine Musculoskeletal: No joint effusion noted Skin: No petechial rash/noted If you have any questions please feel free to contact me at [phone] Medications and Allergies Allergies Allergy/AdvReac Type Severity Reaction Status Date / Time aspirin Allergy Swelling Verified 05/10/16 05:48 lisinopril AdvReac Angioedema Verified 04/23/18 03:38 Home Medications Medication Instructions Recorded Confirmed Last Taken Type Abacavir [Ziagen TAB] 600 mg PO DAILY 11/28/17 12/23/18 11/27/17 History Gabapentin [Neurontin] 600 mg PO Q8H 11/28/17 12/23/18 11/27/17 History Insulin Detemir [Levemir VIAL] 45 unit SQ QHS 11/28/17 12/23/18 Unknown History Metoprolol [Lopressor TAB] 100 mg PO DAILY 11/28/17 12/23/18 11/27/17 History Sertraline [Zoloft] 100 mg PO QDAY 11/28/17 12/23/18 11/27/17 History hydrALAZINE [Apresoline TAB] 50 mg PO Q8HR 11/28/17 12/23/18 Unknown History lamiVUDine [Lamivudine] 150 mg PO DAILY 11/28/17 12/23/18 11/27/17 History traZODone [Desyrel] 150 mg PO QHS 11/28/17 12/23/18 11/27/17 History oxyCODONE /ACETAMINOPHEN [Percocet 1 tab PO Q6HR PRN #20 tablet 11/30/17 12/23/18 Unknown Rx 5/325 mg] Active Meds: Active Medications Abacavir Sulfate (Ziagen) 600 mg PO DAILY [facility] Last Admin: 12/23/18 10:00 Dose: 600 mg Documented by: Acetaminophen (Tylenol) 650 mg PO Q4H PRN PRN Reason: Headache Acetylcysteine (Mucomyst Oral) 600 mg PO Q12HR [facility] Albuterol (Proventil) 2.5 mg IH Q4HRT PRN PRN Reason: Shortness Of Breath Clopidogrel Bisulfate (Plavix) 75 mg PO QDAY [facility] Dextrose (D50w (25gm) Syringe) 50 ml IV Q1H PRN PRN Reason: Hypoglycemia Gabapentin (Neurontin) 600 mg PO Q8H [facility] Last Admin: 12/23/18 06:37 Dose: 600 mg Documented by: Heparin Sodium/Sodium Chloride (Heparin/ 0.45% Nacl-25,000 Unit/500 Ml) 25,000 unit in 500 mls @ 20 mls/hr IV TITRATE [facility]; Protocol Last Admin: 12/23/18 04:28 Dose: 1,000 units/hr, 20 mls/hr Documented by: Sodium Chloride (Nacl 0.9% 1000 Ml) 1,000 mls @ 75 mls/hr IV DIRECT [facility] Last Admin: 12/23/18 15:43 Dose: 75 mls/hr Documented by: Nitroglycerin/Dextrose (Tridil Drip 50mg/250ml) 50 mg in 250 mls @ 3 mls/hr IV TITR [facility]; Protocol Last Admin: 12/23/18 15:41 Dose: 10 mcg/min, 3 mls/hr Documented by: Insulin Glargine (Lantus) 10 units SUB-Q QHS [facility] Insulin Human Regular (Humulin R) 0 units SUB-Q Q4H [facility]; Protocol Last Admin: 12/23/18 13:04 Dose: 3 units Documented by: Lamivudine (Epivir) 150 mg PO DAILY [facility] Last Admin: 12/23/18 11:00 Dose: 150 mg Documented by: Metoprolol Tartrate (Lopressor) 100 mg PO DAILY@0800 [facility] Last Admin: 12/23/18 08:12 Dose: 100 mg Documented by: Morphine Sulfate (Morphine) 2 mg IV Q3H PRN PRN Reason: Pain, Moderate (4-6) Last Admin: 12/23/18 15:42 Dose: 2 mg Documented by: Nitroglycerin (Nitrostat) 0.4 mg SL .Q5MIN PRN PRN Reason: Chest Pain Ondansetron HCl (Zofran) 4 mg IV Q8H PRN PRN Reason: Nausea And Vomiting Oxycodone/Acetaminophen (Percocet 5/325) 1 tab PO Q6HR PRN PRN Reason: Pain, Moderate (4-6) Pantoprazole Sodium (Protonix) 40 mg PO QDAY [facility] Last Admin: 12/23/18 15:41 Dose: 40 mg Documented by: Pravastatin Sodium (Pravachol) 40 mg PO QHS [facility] Quetiapine Fumarate (Seroquel) 100 mg PO QHS [facility] Quetiapine Fumarate (Seroquel) 100 mg PO QAM [facility] Sertraline HCl (Zoloft) 100 mg PO QDAY [facility] Last Admin: 12/23/18 11:01 Dose: 100 mg Documented by: Trazodone HCl (Desyrel) 150 mg PO QHS [facility] Exam - Vital Signs Vital signs: Vital Signs Temp Pulse Resp BP Pulse Ox 97.6 F 79 15 100/57 98 12/22/18 22:28 12/22/18 22:28 12/22/18 22:28 12/22/18 22:28 12/22/18 22:28 Results - Lab Results 12/23/18 03:22 12/23/18 14:56 Most recent lab results Calcium 9.5 mg/dL (8.4-10.2) 12/23/18 14:56
[2018-12-23] MEDS: PERCOCET 5/325 PO PRN (17:27)
[2018-12-23] MEDS: MUCOMYST ORAL PO SCH ×2 (17:30→22:27)
[2018-12-23] MEDS ORDERED: LANTUS SUB-Q SCH (22:00)
[2018-12-23] MEDS ORDERED: INSULIN DETEMIR 10 UNIT SQ SCH (22:00)
[2018-12-23] MEDS: DESYREL PO SCH (22:26)
[2018-12-23] MEDS: PRAVACHOL PO SCH (22:27)
--- NOTE | 2018-12-24 01:54 | Consultation ---
PULMONARY CRITICAL CARE CONSULTATION NOTE CONSULTING PHYSICIAN: Dr. Pena. REASON FOR CONSULTATION: Acute coronary syndrome, non-ST elevation myocardial infarction. CHIEF COMPLAINT AND HISTORY OF PRESENT ILLNESS: As follows: The patient is a 48-year-old female, obese, past medical history significant amongst other things according to her congestive heart failure diagnosis as well as being HIV positive, has been dealing with on and off chest pain, which she has tried to ignore over the past few days. Yesterday, the pain intensity was significantly increased. She came into the Emergency Room because she felt it was mostly left-sided chest pain. She complained of a burning sensation that is retrosternal, but she also complained of some radiation down to the left arm. She denied nausea or vomiting. She denies any history of tobacco use or abuse whatsoever. She has had a deep venous thrombosis in her left upper extremity in the past she tells me, but never diagnosed with a pulmonary embolus. She denied any orthopnea, paroxysmal nocturnal dyspnea, but she did admit that occasionally it seemed to have a pleuritic component. She denies a history of gastroesophageal reflux disease. In the Emergency Room, she was evaluated and initially the plan was to admit her to, I believe, the step-down unit for closer monitoring. She was seen by the speeder machine operator and the symptoms though atypical in some respects considering the comorbidities, it was felt likely a more appropriate thing, especially as a left heart catheterization could not be done emergently based on the risk of contrast nephropathy for her chronic kidney disease for which she had been on dialysis in the past, but the appropriate thing was to bring her down to the Critical Care Unit, begin her on IV nitrates and maximal acute coronary syndrome therapies while we work out the rest of the symptoms and signs. When I stopped by to see her, she was sitting up in bed, stated that the pain was not a whole lot better. Still denied any nausea at the time, but certainly complain of the chest pain. She denied any chest wall trauma. This really is as much of the history of presentation as I have. PAST MEDICAL HISTORY: According to the records, a history of congestive heart failure, history of hypertension. She is obese. There is a history of diabetes. She is HIV positive. She has chronic kidney disease, has history of gastroparesis. PAST SURGICAL HISTORY: She has had sections x 5. MEDICATIONS: She was on at the time I stopped by to see were reviewed, pertinent medications include the following: Ziagen 600 mg p.o. daily, Tylenol 650 mg p.o. q. 4 hours p.r.n. headache, Mucomyst 600 mg p.o. q.12 hours, Plavix 75 mg p.o. daily, Neurontin 600 mg p.o. q.8 hours. IV heparin therapy. Lantus insulin 10 units subcutaneous at bedtime, Epivir 150 mg p.o. daily, insulin via sliding scale, metoprolol 100 mg p.o. daily, morphine sulfate 2 mg IV q.3 hours p.r.n. moderate pain, nitroglycerin drip to begin at 10 mcg per minute, Zofran 4 mg IV q. 8 hours p.r.n. nausea and vomiting, Percocet 5/325 mg 1 tablet p.o. q.6 hours p.r.n. moderate pain, Protonix 40 mg p.o. daily, Pravachol 40 mg p.o. at bedtime, Zoloft 100 mg p.o. daily, trazodone 150 mg p.o. at bedtime. ALLERGIES: ASPIRIN AND LISINOPRIL, nature of this allergy is unknown. DIET: Obese lady. Denies acute weight loss or gain in the preceding few weeks to months. FAMILY AND SOCIAL HISTORY: Lives in the community. She is a never smoker. No current alcohol, tobacco, or illicit drug use or abuse. FAMILY HISTORY: Otherwise, noncontributory. REVIEW OF SYSTEMS: No loss of consciousness. No new onset seizures. No new onset focal weakness. Denies gross hematochezia or melena. Denies gross hematuria or dysuria. Denies any bleeding diathesis. Denies polydipsia or polyuria. Denies any heat or cold intolerance. Denies periods of unexplained sadness and/or elation as may be consistent with psychiatric type disorders. I do believe she does mention also, I should say, history of bipolar disease. Complete 13-system review of systems obtained. Pertinent positives and/or negatives as in body of history above, otherwise they are noncontributory. PHYSICAL EXAMINATION: VITAL SIGNS: At presentation, she was afebrile, temperature 97.6 degrees Fahrenheit, pulse of 79, respiratory rate of 15, blood pressure 100/57, O2 sats were 98%, inspired oxygen concentration at that time was not recorded. When I stopped by to see her, O2 sats were 97% that was on room air. GENERAL: Middle-aged obese female, normocephalic, atraumatic, talking to me in slightly interrupted sentences with mildly increased respiratory effort at rest, no accessory muscle use. HEAD, EYES, EARS, NOSE, AND THROAT: Anicteric, no conjunctival erythema. Oropharynx is moist. Mallampati #4 oropharynx. No gross jugular venous distention. She does have a large neck circumference. No thyromegaly. Grossly, no palpable lymph nodes in the supraclavicular or submandibular lymph node chains. LUNGS: Auscultation of both lung regan significant for distant sounding breath sounds and inspiratory crackles in the bases. No active wheezing. HEART: Heart sounds 1 and 2 are heard, regular in rate and rhythm at the time of my evaluation without overt rubs or murmurs. ABDOMEN: Soft, full, bowel sounds are positive, nontender, no palpable hepatosplenomegaly. She is tender to palpation over the sternum and costochondral joints. EXTREMITIES: Without overt digital clubbing, no cyanosis, no pedal edema. Pedal pulses are 2+ bilaterally. NEUROLOGIC: Pupils are equal, round, about 3-4 mm, reactive to light. Extraocular muscle movements are intact. She moves all 4 extremities spontaneously. SKIN: Normal turgor without overt cellulitis or rash. LABORATORY DATA: From my review, white cell count 12,300, hemoglobin 9.9, hematocrit 29.7, platelet count 308, D-dimer elevated at 897. Serum sodium was 135, potassium was 3.7, chloride 99, bicarbonate 22, BUN 42, creatinine of 3.4, glucose 146. Troponin was up at 0.093 and has gone up to 0.107. LDL cholesterol 174. No microbiology studies. Chest x-ray essentially does show borderline cardiomegaly, increased interstitial markings bilaterally with basilar predominance, consistence with mild interstitial edema. A nuclear medicine V/Q scan was also done, it was reported as a low probability V/Q scan. ASSESSMENT: 1. Acute respiratory distress secondary to acute coronary syndrome. 2. Non-ST elevation myocardial infarction, 12-lead EKG has been reviewed. 3. Obesity. 4. Hyperlipidemia. 5. Diabetes. 6. Acute pulmonary edema. 7. Chronic kidney disease. 8. Leukocytosis. 9. Human immunodeficiency virus positive. 10. Chest pain. PLAN: I do agree with maximal medical therapy for an acute coronary syndrome. We will continue gentle hydration as ordered and I will defer to the appeals manager in terms of the need for dialysis. We certainly will also be watching for signs of overt volume overload. At this time she is on room air. Oxygen will be weaned as necessary to keep sats greater than or equal to about 90%. She will continue the nitroglycerin drip. P.r.n. analgesia. NSAIDs may have been of benefit for possible costochondritis. Unfortunately, her renal function makes this not recommended. Aspiration precautions will be maintained. I will put her on p.r.n. bronchodilators. She is appropriately on GI prophylaxis. She will continue on antiplatelet therapy. Flu and pneumonia vaccination will be addressed per protocol. She probably does have an element of obstructive sleep apnea. I will order BiPAP on a p.r.n. basis for shortness of breath and increased work of breathing. Thank you very much for the consult, Dr. Pena. We will follow along and make further recommendations as picture progresses/becomes clearer. She is critically ill on life-sustaining interventions including the nitroglycerin drip and at high risk of deterioration including the risk of . She will be observed in the Critical Care Unit with a short leash to intubation, always adding other resuscitative efforts as may be needed at this time. I spent about 35-40 minutes of critical care time. I should mention weight loss has been counseled and she will benefit from an outpatient sleep study. JOB# [id number] JOSE ED JESUS/MAX PEREZ
[2018-12-24] MEDS: HumuLIN R SUB-Q SCH ×7 (02:50→21:42)
[2018-12-24] MEDS: GABAPENTIN PO SCH ×5 (02:52→21:48)
[2018-12-24] MEDS: PERCOCET 5/325 PO PRN (02:52)
[2018-12-24] MEDS ORDERED: APRESOLINE IV PRN (04:25)
[2018-12-24] MEDS: MORPHINE IV PRN ×5 (05:25→22:43)
[2018-12-24] MEDS: NACL 0.9% 1000 ML 1,000 ML IV SCH (05:26)
[2018-12-24] MEDS: HEPARIN/ 0.45% NACL-25,000 UNIT/500 ML 25,000 UNIT/500 ML BAG IV SCH (05:26)
[2018-12-24] MEDS ORDERED: NITRO DUR TD SCH (06:00)
[2018-12-24 07:22] LABS: Calcium 9.3 mg/dL (8.4-10.2)
[2018-12-24] MEDS: ZOLOFT PO SCH (09:01)
[2018-12-24] MEDS: PLAVIX PO SCH (09:02)
[2018-12-24] MEDS: PROTONIX PO SCH (09:02)
[2018-12-24] MEDS: METOPROLOL PO SCH (09:02)
[2018-12-24] MEDS: EPIVIR PO SCH (09:03)
[2018-12-24] MEDS: ZIAGEN PO SCH (09:03)
[2018-12-24] MEDS: MUCOMYST ORAL PO SCH ×2 (09:04→21:44)
--- NOTE | 2018-12-24 11:11 | Progress Note ---
Assessment and Plan 1. With current and persistent chest pains at rest 2. Chronic kidney disease stage IV 3. Type 2 diabetes mellitus 4. Essential hypertension 5. HIV disease Plan. Patient continues to have chest pains at rest requiring narcotics. She is on IV nitroglycerin but despite chest pain of such high intensity she has no changes in high EKG or pulse rate. She'll be scheduled for a diagnostic cardiac catheterization on Wednesday. Will continue present medication Subjective Date of service: 12/24/18 Interval history: Patient is still having chest pains states her pain is 9/10. Objective Vital Signs Temp Pulse Resp BP Pulse Ox 12/24/18 08:00 97.8 F 12/24/18 06:31 90 9 L 161/82 95 12/24/18 06:15 90 9 L 143/87 95 12/24/18 06:00 92 H 8 L 162/75 97 12/24/18 05:45 87 9 L 163/80 12/24/18 05:30 85 10 L 178/93 97 12/24/18 05:24 85 169/92 12/24/18 05:15 84 7 L 169/92 95 12/24/18 05:01 91 H 11 L 176/89 95 12/24/18 04:45 87 8 L 158/87 99 12/24/18 04:31 78 6 L 158/87 97 12/24/18 04:15 80 6 L 173/97 98 12/24/18 04:05 10 L 100 12/24/18 04:01 85 10 L 174/98 95 12/24/18 03:47 82 8 L 99 12/24/18 03:31 77 8 L 160/81 97 12/24/18 03:15 79 8 L 170/93 12/24/18 03:09 98.2 F 12/24/18 03:01 91 H 14 196/97 97 12/24/18 02:45 83 10 L 180/97 98 12/24/18 02:31 75 7 L 158/96 97 12/24/18 02:15 82 9 L 205/105 98 12/24/18 02:01 90 11 L 180/97 100 12/24/18 01:45 82 10 L 156/87 99 12/24/18 01:31 84 8 L 160/89 98 12/24/18 01:24 83 8 L 132/79 100 12/24/18 01:15 78 8 L 117/80 100 12/24/18 01:00 77 8 L 117/80 100 12/24/18 00:45 76 8 L 119/76 99 12/24/18 00:30 75 8 L 121/74 100 12/24/18 00:15 75 6 L 120/67 97 12/24/18 00:10 14 92 12/24/18 00:01 76 5 L 124/72 97 12/24/18 00:00 82 12/23/18 23:45 81 6 L 145/82 99 12/23/18 23:44 98.4 F 12/23/18 23:31 86 7 L 161/85 98 12/23/18 23:15 86 10 L 156/87 81 L 12/23/18 23:01 88 12 148/88 92 12/23/18 22:45 87 14 134/86 88 12/23/18 22:31 85 18 157/84 91 12/23/18 22:15 83 13 151/83 89 12/23/18 22:01 85 14 152/82 93 12/23/18 21:45 87 16 157/76 94 12/23/18 21:31 89 25 H 138/78 12/23/18 21:15 88 15 138/78 12/23/18 21:01 86 13 138/78 12/23/18 20:45 84 15 138/78 12/23/18 20:31 85 10 L 138/78 12/23/18 20:15 87 14 164/89 12/23/18 20:01 82 10 L 161/92 12/23/18 20:00 73 99 12/23/18 19:59 83 14 161/92 12/23/18 19:47 98.3 F 12/23/18 19:46 85 12 164/89 12/23/18 19:30 80 14 151/87 12/23/18 19:16 80 11 L 147/85 12/23/18 19:00 81 13 161/92 12/23/18 18:50 83 16 161/92 12/23/18 18:40 92 H 23 161/92 12/23/18 18:30 84 15 156/92 94 12/23/18 18:20 85 14 156/92 95 12/23/18 18:10 82 17 156/92 96 10/18/19 18:00 80 15 161/93 96 12/23/18 17:50 82 14 161/93 96 12/23/18 17:40 83 18 161/93 91 12/23/18 17:30 77 11 L 149/83 94 12/23/18 17:27 18 12/23/18 17:20 78 13 149/83 95 12/23/18 17:10 81 20 127/79 93 12/23/18 17:00 78 13 127/79 94 12/23/18 16:52 100 12/23/18 16:50 75 14 127/79 95 12/23/18 16:40 76 13 132/76 92 12/23/18 16:30 74 13 132/76 92 12/23/18 16:20 73 15 132/76 95 12/23/18 16:12 18 12/23/18 16:10 73 14 132/76 93 12/23/18 16:00 98.2 F 73 13 152/88 93 12/23/18 15:59 73 13 152/88 94 12/23/18 15:42 16 12/23/18 13:20 149/89 12/23/18 12:24 98.0 F 18 135/76 - Physical Examination General: Appears Well HEENT: Positive: PERRL Neck: Positive: trachea midline. Negative: JVD/HJR Cardiac: Positive: Reg Rate and Rhythm, Regular Rate Lungs: Positive: Normal Exam, Normal Breath Sounds, No Wheeze, Rales, Rhonchi Neuro: Positive: Grossly Intact Abdomen: Positive: Unremarkable, Active Bowel Sounds Extremities: Absent: edema - Labs and Meds Cardiac Enzymes 12/23/18 Range/Units 11:41 CK-MB (CK-2) 4.0 (0.0-4.0) ng/mL Comprehensive Metabolic Panel 12/23/18 12/24/18 Range/Units 14:56 Unknown Sodium 132 L 136 L (137-145) mmol/L Potassium 5.6 H D 4.5 (3.6-5.0) mmol/L Chloride 99.2 100.7 (98-107) mmol/L Carbon Dioxide 16 L 21 L (22-30) mmol/L BUN 46 H 39 H (7-17) mg/dL Creatinine 3.2 H 2.6 H (0.7-1.2) mg/dL Glucose 263 H 279 H (65-100) mg/dL Calcium 9.5 9.3 (8.4-10.2) mg/dL - Telemetry EKG Rhythm: Sinus Rhythm
--- NOTE | 2018-12-24 11:26 | Progress Note ---
Subjective Interval history: Patient was seen today for follow-up on multiple renal related issues Events of this hospitalization were noted was transferred yesterday to ICU I did had a long discussion with cardiology service yesterday Catheterization has been put on hold Potassium is better today Interdisciplinary notes were also reviewed Vitals intake output medications were reviewed Past medical history: Reviewed Family, social history: Reviewed Allergies: Reviewed Physical examination General: No acute distress Vitals: Reviewed HEENT: Oral mucosa moist no icterus Neck: Supple no thyromegaly nodular mass or JVD Chest: Clear to auscultation anteriorly Heart: Regular rate and rhythm S1-S2 heard no S3-S4 Abdomen: Soft nontender no suprapubic masses no organomegaly Extremity: Dry skin less than 1+ edema Psych: No evidence of any agitation and aggression noted Derm: No petechial rash Assessment and plan: Renal failure: Patient's renal function continues to improve her creatinine is currently 2.6 which was 3.4 earlier Metabolic acidosis appears to be improving requires ongoing correction Diabetes mellitus appears to be poorly controlled blood sugar has been within 2- 300 High risk for radiocontrast nephropathy Hyperkalemia has improved: Requires correction of metabolic acidosis Await stabilization of renal function unless emergent indication arises patient is aware of the risk, including CASE, need for dialysis etc. a long discussion with cardiology service at this time we'll continue to monitor her renal function closely Patient has been adequately counseled and educated regarding all the renal related issues We'll continue to follow and make recommendation from renal standpoint All renal related issues were discussed with the patient, patient does exhibit good understanding, lab results were also discussed with patient in simple Hebrew Prognosis: Guarded We'll continue to follow and make recommendation from renal standpoint Objective - Vital Signs Vital signs: Vital Signs - 12hr 12/23/18 12/23/18 12/23/18 23:31 23:44 23:45 Temperature 98.4 F Pulse Rate 86 81 Respiratory 7 L 6 L Rate Blood Pressure 161/85 145/82 O2 Sat by Pulse 98 99 Oximetry 12/24/18 12/24/18 12/24/18 00:00 00:01 00:10 Temperature Pulse Rate 82 76 Respiratory 5 L 14 Rate Blood Pressure 124/72 O2 Sat by Pulse 97 92 Oximetry 12/24/18 12/24/18 12/24/18 00:15 00:30 00:45 Temperature Pulse Rate 75 75 76 Respiratory 6 L 8 L 8 L Rate Blood Pressure 120/67 121/74 119/76 O2 Sat by Pulse 97 100 99 Oximetry 12/24/18 12/24/18 12/24/18 01:00 01:15 01:24 Temperature Pulse Rate 77 78 83 Respiratory 8 L 8 L 8 L Rate Blood Pressure 117/80 117/80 132/79 O2 Sat by Pulse 100 100 100 Oximetry 12/24/18 12/24/18 12/24/18 01:31 01:45 02:01 Temperature Pulse Rate 84 82 90 Respiratory 8 L 10 L 11 L Rate Blood Pressure 160/89 156/87 180/97 O2 Sat by Pulse 98 99 100 Oximetry 12/24/18 12/24/18 12/24/18 02:15 02:31 02:45 Temperature Pulse Rate 82 75 83 Respiratory 9 L 7 L 10 L Rate Blood Pressure 205/105 158/96 180/97 O2 Sat by Pulse 98 97 98 Oximetry 12/24/18 12/24/18 12/24/18 03:01 03:09 03:15 Temperature 98.2 F Pulse Rate 91 H 79 Respiratory 14 8 L Rate Blood Pressure 196/97 170/93 O2 Sat by Pulse 97 Oximetry 12/24/18 12/24/18 12/24/18 03:31 03:47 04:01 Temperature Pulse Rate 77 82 85 Respiratory 8 L 8 L 10 L Rate Blood Pressure 160/81 174/98 O2 Sat by Pulse 97 99 95 Oximetry 12/24/18 12/24/18 12/24/18 04:05 04:15 04:31 Temperature Pulse Rate 80 78 Respiratory 10 L 6 L 6 L Rate Blood Pressure 173/97 158/87 O2 Sat by Pulse 100 98 97 Oximetry 12/24/18 12/24/18 12/24/18 04:45 05:01 05:15 Temperature Pulse Rate 87 91 H 84 Respiratory 8 L 11 L 7 L Rate Blood Pressure 158/87 176/89 169/92 O2 Sat by Pulse 99 95 95 Oximetry 12/24/18 12/24/18 12/24/18 05:24 05:30 05:45 Temperature Pulse Rate 85 85 87 Respiratory 10 L 9 L Rate Blood Pressure 169/92 178/93 163/80 O2 Sat by Pulse 97 Oximetry 12/24/18 12/24/18 12/24/18 06:00 06:15 06:31 Temperature Pulse Rate 92 H 90 90 Respiratory 8 L 9 L 9 L Rate Blood Pressure 162/75 143/87 161/82 O2 Sat by Pulse 97 95 95 Oximetry 12/24/18 08:00 Temperature 97.8 F Pulse Rate Respiratory Rate Blood Pressure O2 Sat by Pulse Oximetry - Lab 12/23/18 03:22 12/24/18 Unknown Most recent lab results Calcium 9.3 mg/dL (8.4-10.2) 12/24/18 Unknown Medications & Allergies - Medications Allergies/Adverse Reactions: Allergies aspirin Allergy (Verified 05/10/16 05:48) Swelling lisinopril Adverse Reaction (Verified 04/23/18 03:38) Angioedema Home Medications: Home Medications Medication Instructions Recorded Confirmed Last Taken Type Abacavir [Ziagen TAB] 600 mg PO DAILY 11/28/17 12/23/18 11/27/17 History Gabapentin [Neurontin] 600 mg PO Q8H 11/28/17 12/23/18 11/27/17 History Insulin Detemir [Levemir VIAL] 45 unit SQ QHS 11/28/17 12/23/18 Unknown History Metoprolol [Lopressor TAB] 100 mg PO DAILY 11/28/17 12/23/18 11/27/17 History Sertraline [Zoloft] 100 mg PO QDAY 11/28/17 12/23/18 11/27/17 History hydrALAZINE [Apresoline TAB] 50 mg PO Q8HR 11/28/17 12/23/18 Unknown History lamiVUDine [Lamivudine] 150 mg PO DAILY 11/28/17 12/23/18 11/27/17 History traZODone [Desyrel] 150 mg PO QHS 11/28/17 12/23/18 11/27/17 History oxyCODONE /ACETAMINOPHEN [Percocet 1 tab PO Q6HR PRN #20 tablet 11/30/17 12/23/18 Unknown Rx 5/325 mg] Dolutegravir [Tivicay] 50 mg PO DAILY 12/24/18 12/24/18 12/22/18 History Active Medications: Generic Name Dose Route Start Last Admin Trade Name Freq PRN Reason Stop Dose Admin Abacavir Sulfate 600 mg 12/23/18 10:00 12/24/18 09:03 Ziagen PO 600 mg DAILY VINCENT Administration Acetaminophen 650 mg 12/23/18 03:03 Tylenol PO Q4H PRN Headache Acetylcysteine 600 mg 12/23/18 14:00 12/24/18 09:04 Mucomyst Oral PO 600 mg Q12HR VINCENT Administration Albuterol 2.5 mg 12/23/18 15:43 Proventil IH Q4HRT PRN Shortness Of Breath Clopidogrel Bisulfate 75 mg 12/24/18 10:00 12/24/18 09:02 Plavix PO 75 mg QDAY VINCENT Administration Dextrose 50 ml 12/23/18 11:00 D50w (25gm) Syringe IV Q1H PRN Hypoglycemia Gabapentin 600 mg 12/23/18 06:00 12/24/18 07:07 Neurontin PO 600 mg Q8H VINCENT Administration Hydralazine HCl 5 mg 12/24/18 04:25 12/24/18 05:24 Apresoline IV 5 mg Q6H PRN Administration SBP >160 Heparin Sodium/Sodium Chloride 25,000 unit in 500 mls @ 20 mls/hr 12/23/18 04:00 12/24/18 05:26 Heparin/ 0.45% Nacl-25,000 Unit/500 Ml IV 1,000 units/hr TITRATE VINCENT 20 mls/hr Administration Protocol 1,000 UNITS/HR Sodium Chloride 1,000 mls @ 75 mls/hr 12/23/18 15:00 12/24/18 05:26 Nacl 0.9% 1000 Ml IV 75 mls/hr DIRECT VINCENT Administration Nitroglycerin/Dextrose 50 mg in 250 mls @ 3 mls/hr 12/23/18 15:00 12/24/18 02:45 Tridil Drip 50mg/250ml IV 70 mcg/min TITR VINCENT 21 mls/hr Titration Protocol 10 MCG/MIN Insulin Glargine 10 units 12/23/18 22:00 12/23/18 22:24 Lantus SUB-Q 10 units QHS VINCENT Administration Insulin Human Regular 0 units 12/23/18 04:00 12/24/18 09:06 Humulin R SUB-Q 2 units Q4H VINCENT Administration Protocol Lamivudine 150 mg 12/23/18 10:00 12/24/18 09:03 Epivir PO 150 mg DAILY VINCENT Administration Metoprolol Tartrate 100 mg 12/23/18 08:00 12/24/18 09:02 Lopressor PO 100 mg DAILY@0800 VINCENT Administration Morphine Sulfate 2 mg 12/23/18 03:03 12/24/18 09:04 Morphine IV 2 mg Q3H PRN Administration Pain, Moderate (4-6) Nitroglycerin 0.4 mg 12/23/18 03:02 Nitrostat SL .Q5MIN PRN Chest Pain Ondansetron HCl 4 mg 12/23/18 03:03 Zofran IV Q8H PRN Nausea And Vomiting Oxycodone/Acetaminophen 1 tab 12/23/18 15:17 12/24/18 02:52 Percocet 5/325 PO 1 tab Q6HR PRN Administration Pain, Moderate (4-6) Pantoprazole Sodium 40 mg 12/23/18 15:00 12/24/18 09:02 Protonix PO 40 mg QDAY [facility] Administration Pravastatin Sodium 40 mg 12/23/18 22:00 12/23/18 22:27 Pravachol PO 40 mg QHS VINCENT Administration Quetiapine Fumarate 100 mg 12/23/18 22:00 12/23/18 22:27 Seroquel PO 100 mg QHS VINCENT Administration Quetiapine Fumarate 100 mg 12/24/18 10:00 12/24/18 09:03 Seroquel PO 100 mg QAM [facility]INCENT Administration Sertraline HCl 100 mg 12/23/18 10:00 12/24/18 09:01 Zoloft PO 100 mg QDAY VINCENT Administration Trazodone HCl 150 mg 12/23/18 22:00 12/23/18 22:26 Desyrel PO 150 mg QHS VINCENT Administration
--- NOTE | 2018-12-24 12:04 | Progress Note ---
Assessment and Plan Acute respiratory distress secondary to acute coronary syndrome. Non-ST elevation myocardial infarction, 12-lead EKG has been reviewed. Obesity. Hyperlipidemia. Diabetes. Acute pulmonary edema. Chronic kidney disease. Leukocytosis. Human immunodeficiency virus positive. Chest pain - continue supplemental oxygen to keep O2 sat's > 90% - continue IV tridil drip and titrate for symptom control - continue BIPAP scheduled qhs with prn daytime use - continue IV heparin drip per ACS protocol - continue ART for HIV infection - continue G.I. prophylaxis - mobility protocols for pressure ulcer prophylaxis - PT/OT as tolerated - continue other care per attending / other consultants ... re-evaluate in am & prn The high probability of a clinically significant, sudden or life-threatening deterioration of the [cardiac and renal] system(s) required my full and direct attention, intervention and personal management. The aggregate critical care time was [35] minutes without overlap. Time includes spent on; [x] Data Review and interpretation [x] Patient assessment and monitoring of vital signs [x] Documentation [x] Medication orders and management Subjective Date of service: 12/24/18 Principal diagnosis: Ac. resp distress; NSTEMI; ; Ac. Pulm edema; DM II; CKD; HIV +ve Interval history: Patient is seen today for: Ac. resp distress; NSTEMI; Obesity; Hyperlipidemia; Diabetes type II; Acute pulmonary edema; Chronic kidney disease; HIV +ve Seen and examined at bedside; 24hour events reviewed; nursing and respiratory care staff consulted; no adverse overnight events reported to me; resting peacefully in bed; feels better; remains on tridil drip at 50 mics/min; seen by cardiology and nephrology; still with chest pain requiring IV morphine at times Objective Vital Signs - 12hr 12/24/18 12/24/18 12/24/18 00:01 00:10 00:15 Temperature Pulse Rate 76 75 Respiratory 5 L 14 6 L Rate Blood Pressure 124/72 120/67 O2 Sat by Pulse 97 92 97 Oximetry 12/24/18 12/24/18 12/24/18 00:30 00:45 01:00 Temperature Pulse Rate 75 76 77 Respiratory 8 L 8 L 8 L Rate Blood Pressure 121/74 119/76 117/80 O2 Sat by Pulse 100 99 100 Oximetry 12/24/18 12/24/18 12/24/18 01:15 01:24 01:31 Temperature Pulse Rate 78 83 84 Respiratory 8 L 8 L 8 L Rate Blood Pressure 117/80 132/79 160/89 O2 Sat by Pulse 100 100 98 Oximetry 12/24/18 12/24/18 12/24/18 01:45 02:01 02:15 Temperature Pulse Rate 82 90 82 Respiratory 10 L 11 L 9 L Rate Blood Pressure 156/87 180/97 205/105 O2 Sat by Pulse 99 100 98 Oximetry 12/24/18 12/24/18 12/24/18 02:31 02:45 03:01 Temperature Pulse Rate 75 83 91 H Respiratory 7 L 10 L 14 Rate Blood Pressure 158/96 180/97 196/97 O2 Sat by Pulse 97 98 97 Oximetry 12/24/18 12/24/18 12/24/18 03:09 03:15 03:31 Temperature 98.2 F Pulse Rate 79 77 Respiratory 8 L 8 L Rate Blood Pressure 170/93 160/81 O2 Sat by Pulse 97 Oximetry 12/24/18 12/24/18 12/24/18 03:47 04:01 04:05 Temperature Pulse Rate 82 85 Respiratory 8 L 10 L 10 L Rate Blood Pressure 174/98 O2 Sat by Pulse 99 95 100 Oximetry 12/24/18 12/24/18 12/24/18 04:15 04:31 04:45 Temperature Pulse Rate 80 78 87 Respiratory 6 L 6 L 8 L Rate Blood Pressure 173/97 158/87 158/87 O2 Sat by Pulse 98 97 99 Oximetry 12/24/18 12/24/18 12/24/18 05:01 05:15 05:24 Temperature Pulse Rate 91 H 84 85 Respiratory 11 L 7 L Rate Blood Pressure 176/89 169/92 169/92 O2 Sat by Pulse 95 95 Oximetry 12/24/18 12/24/18 12/24/18 05:30 05:45 06:00 Temperature Pulse Rate 85 87 92 H Respiratory 10 L 9 L 8 L Rate Blood Pressure 178/93 163/80 162/75 O2 Sat by Pulse 97 97 Oximetry 12/24/18 12/24/18 12/24/18 06:15 06:31 08:00 Temperature 97.8 F Pulse Rate 90 90 Respiratory 9 L 9 L Rate Blood Pressure 143/87 161/82 O2 Sat by Pulse 95 95 Oximetry Constitutional: no acute distress, alert, other (middle aged obese female, normocephalic with mildly increased resp effort at rest) Eyes: non-icteric ENT: oropharynx moist, other (mallampati 4) Neck: supple, no lymphadenopathy, no JVD, other (large neck circumference) Effort: mildly labored Ascultation: Bilateral: clear, diminished breath sounds Percussion: Bilateral: not dull Cardiovascular: regular rate and rhythm (S1S2, RRR) Gastrointestinal: normoactive bowel sounds, soft, non-tender, non-distended, other (protuberant) Integumentary: normal Extremities: no cyanosis, pink and warm, pulses normal, no ischemia or petechiae, edema (trace) Neurologic: normal mental status, non-focal exam, pupils equal and round, CN II- XII normal Psychiatric: anxious CBC and BMP: 12/25/18 04:44 12/25/18 04:44 ABG, PT/INR, D-dimer: PT/INR, D-dimer PT 13.2 Sec. (12.2-14.9) 12/23/18 03:22 INR 1.03 (0.87-1.13) 12/23/18 03:22 D-Dimer 897.35 ng/mlDDU (0-234) H 12/22/18 23:07 Abnormal lab findings: Abnormal Labs 12/22/18 12/22/18 12/22/18 22:58 22:58 22:58 WBC 12.3 H RBC 3.01 L Hgb 9.9 L Hct 29.7 L MCV 99 H MCH 33 H [place] # 0.9 H Baso # 0.2 H Seg Neutrophils % 70.7 H Seg Neutrophils # 8.7 H APTT D-Dimer Heparin Anti-Xa Level Sodium 135 L Potassium Carbon Dioxide BUN 42 H Creatinine 3.4 H Glucose 146 H POC Glucose Total Creatine Kinase CK-MB (CK-2) Troponin T 0.093 H NT-Pro-B Natriuret Pep 1522 H Triglycerides Cholesterol LDL Cholesterol Direct HDL Cholesterol 12/22/18 12/23/18 12/23/18 23:07 03:22 03:22 WBC RBC Hgb 10.0 L Hct 29.8 L MCV MCH [place] # Baso # Seg Neutrophils % Seg Neutrophils # APTT D-Dimer 897.35 H Heparin Anti-Xa Level Sodium Potassium Carbon Dioxide BUN Creatinine Glucose POC Glucose Total Creatine Kinase CK-MB (CK-2) Troponin T 0.080 H NT-Pro-B Natriuret Pep Triglycerides 325 H Cholesterol 252 H LDL Cholesterol Direct 174 H HDL Cholesterol 33 L 12/23/18 12/23/18 12/23/18 03:22 05:23 11:29 WBC RBC Hgb Hct MCV MCH [place] # Baso # Seg Neutrophils % Seg Neutrophils # APTT < 24.2 L D-Dimer Heparin Anti-Xa Level Sodium Potassium Carbon Dioxide BUN Creatinine Glucose POC Glucose 239 H Total Creatine Kinase 167 H CK-MB (CK-2) 4.6 H Troponin T 0.084 H NT-Pro-B Natriuret Pep Triglycerides Cholesterol LDL Cholesterol Direct HDL Cholesterol 12/23/18 12/23/18 12/23/18 11:41 14:56 17:14 WBC RBC Hgb Hct MCV MCH [place] # Baso # Seg Neutrophils % Seg Neutrophils # APTT D-Dimer Heparin Anti-Xa Level Sodium 132 L Potassium 5.6 H D Carbon Dioxide 16 L BUN 46 H Creatinine 3.2 H Glucose 263 H POC Glucose 282 H Total Creatine Kinase 145 H CK-MB (CK-2) Troponin T 0.107 H* D NT-Pro-B Natriuret Pep Triglycerides Cholesterol LDL Cholesterol Direct HDL Cholesterol 12/23/18 12/24/18 12/24/18 21:26 02:49 05:49 WBC RBC Hgb Hct MCV MCH [place] # Baso # Seg Neutrophils % Seg Neutrophils # APTT D-Dimer Heparin Anti-Xa Level Sodium Potassium Carbon Dioxide BUN Creatinine Glucose POC Glucose 318 H 324 H 340 H Total Creatine Kinase CK-MB (CK-2) Troponin T NT-Pro-B Natriuret Pep Triglycerides Cholesterol LDL Cholesterol Direct HDL Cholesterol 12/24/18 12/24/18 12/24/18 08:23 11:05 Unknown WBC RBC Hgb Hct MCV MCH [place] # Baso # Seg Neutrophils % Seg Neutrophils # APTT D-Dimer Heparin Anti-Xa Level 0.21 L Sodium 136 L Potassium Carbon Dioxide 21 L BUN 39 H Creatinine 2.6 H Glucose 279 H POC Glucose 246 H Total Creatine Kinase CK-MB (CK-2) Troponin T NT-Pro-B Natriuret Pep Triglycerides Cholesterol LDL Cholesterol Direct HDL Cholesterol Chest x-ray: image reviewed (cardiomegaly; mild interstitial edema) Allied health notes reviewed: nursing
[2018-12-24] MEDS: TIVICAY PO SCH (12:40)
--- NOTE | 2018-12-24 13:16 | Progress Note ---
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 resp distress; NSTEMI; ; Ac. Pulm edema; DM II; CKD; HIV +ve Interval history: Patient seen and examined. Medical records and medication list reviewed. No acute event overnight noted by the RN. Patient continue to complaints of intermittent chest pain. Patient is tolerating diet. Discussed plan of care at bedside with patient. Objective - Exam Narrative Exam: GENERAL: well-developed morbidly obese female lying on bed appeared to be in no discomfort. HEENT: Normocephalic. Atraumatic. No conjunctival congestion or icterus. Patient has moist mucous membranes. NECK: Supple. Trachea midline. CHEST/LUNGS: Clear to auscultated bilaterally, breathing nonlabored. No wheezes crackles or rhonchi. HEART/CARDIOVASCULAR: Regular in rate and rhythm. S1 and S2 positive. ABDOMEN: Abdomen is soft, nontender. Patient has normal bowel sounds. SKIN: There is no rash. Warm and dry. NEURO: No focal motor deficit. Follows command. MUSCULOSKELETAL: No joint effusion or tenderness. EXTRIMITY: No edema, no cyanosis or clubbing. PSYCH: Cooperative. - Constitutional Vitals: Vital Signs - 12hr 12/24/18 12/24/18 12/24/18 01:24 01:31 01:45 Temperature Pulse Rate 83 84 82 Respiratory 8 L 8 L 10 L Rate Blood Pressure 132/79 160/89 156/87 O2 Sat by Pulse 100 98 99 Oximetry 12/24/18 12/24/18 12/24/18 02:01 02:15 02:31 Temperature Pulse Rate 90 82 75 Respiratory 11 L 9 L 7 L Rate Blood Pressure 180/97 205/105 158/96 O2 Sat by Pulse 100 98 97 Oximetry 12/24/18 12/24/18 12/24/18 02:45 03:01 03:09 Temperature 98.2 F Pulse Rate 83 91 H Respiratory 10 L 14 Rate Blood Pressure 180/97 196/97 O2 Sat by Pulse 98 97 Oximetry 12/24/18 12/24/18 12/24/18 03:15 03:31 03:47 Temperature Pulse Rate 79 77 82 Respiratory 8 L 8 L 8 L Rate Blood Pressure 170/93 160/81 O2 Sat by Pulse 97 99 Oximetry 12/24/18 12/24/18 12/24/18 04:01 04:05 04:15 Temperature Pulse Rate 85 80 Respiratory 10 L 10 L 6 L Rate Blood Pressure 174/98 173/97 O2 Sat by Pulse 95 100 98 Oximetry 12/24/18 12/24/18 12/24/18 04:31 04:45 05:01 Temperature Pulse Rate 78 87 91 H Respiratory 6 L 8 L 11 L Rate Blood Pressure 158/87 158/87 176/89 O2 Sat by Pulse 97 99 95 Oximetry 12/24/18 12/24/18 12/24/18 05:15 05:24 05:30 Temperature Pulse Rate 84 85 85 Respiratory 7 L 10 L Rate Blood Pressure 169/92 169/92 178/93 O2 Sat by Pulse 95 97 Oximetry 12/24/18 12/24/18 12/24/18 05:45 06:00 06:15 Temperature Pulse Rate 87 92 H 90 Respiratory 9 L 8 L 9 L Rate Blood Pressure 163/80 162/75 143/87 O2 Sat by Pulse 97 95 Oximetry 12/24/18 12/24/18 12/24/18 06:31 06:45 07:01 Temperature Pulse Rate 90 90 92 H Respiratory 9 L 13 12 Rate Blood Pressure 161/82 143/87 143/87 O2 Sat by Pulse 95 97 98 Oximetry 12/24/18 12/24/18 12/24/18 07:15 07:30 07:45 Temperature Pulse Rate 94 H 96 H 96 H Respiratory 12 10 L 13 Rate Blood Pressure 161/82 176/91 176/91 O2 Sat by Pulse 96 96 96 Oximetry 12/24/18 12/24/18 12/24/18 08:00 08:15 08:30 Temperature 97.8 F Pulse Rate 100 H 100 H 96 H Respiratory 13 19 10 L Rate Blood Pressure 155/78 155/78 148/80 O2 Sat by Pulse 94 95 94 Oximetry 12/24/18 12/24/18 12/24/18 08:45 09:00 09:15 Temperature Pulse Rate 97 H 99 H 102 H Respiratory 9 L 16 12 Rate Blood Pressure 148/80 133/74 133/74 O2 Sat by Pulse 94 94 98 Oximetry 12/24/18 12/24/18 12/24/18 09:30 09:45 10:00 Temperature Pulse Rate 101 H 104 H 104 H Respiratory 14 13 16 Rate Blood Pressure 144/80 144/80 156/78 O2 Sat by Pulse 96 96 95 Oximetry 12/24/18 12/24/18 12/24/18 10:15 10:30 10:45 Temperature Pulse Rate 102 H 105 H 97 H Respiratory 10 L 16 7 L Rate Blood Pressure 156/78 154/80 154/80 O2 Sat by Pulse 92 82 L 99 Oximetry 12/24/18 12/24/18 12/24/18 11:00 11:15 11:31 Temperature Pulse Rate 103 H 105 H 103 H Respiratory 7 L 11 L 7 L Rate Blood Pressure 154/94 154/94 136/76 O2 Sat by Pulse 99 100 98 Oximetry 12/24/18 12/24/18 12/24/18 11:45 12:00 12:15 Temperature 98.0 F Pulse Rate 101 H 105 H 111 H Respiratory 7 L 19 12 Rate Blood Pressure 136/76 129/80 129/80 O2 Sat by Pulse 99 99 100 Oximetry 12/24/18 12/24/18 12/24/18 12:30 12:45 13:01 Temperature Pulse Rate 106 H 106 H 108 H Respiratory 10 L 14 14 Rate Blood Pressure 148/97 148/97 148/97 O2 Sat by Pulse 98 99 96 Oximetry - Labs CBC & Chem 7: 12/25/18 04:44 12/25/18 04:44 Labs: Abnormal lab results 12/23/18 12/23/18 12/23/18 Range/Units 14:56 17:14 21:26 Heparin Anti-Xa Level (0.3-0.7) U.I./ml Sodium 132 L (137-145) mmol/L Potassium 5.6 H D (3.6-5.0) mmol/L Carbon Dioxide 16 L (22-30) mmol/L BUN 46 H (7-17) mg/dL Creatinine 3.2 H (0.7-1.2) mg/dL Glucose 263 H (65-100) mg/dL POC Glucose 282 H 318 H (70-105) 12/24/18 12/24/18 12/24/18 Range/Units 02:49 05:49 08:23 Heparin Anti-Xa Level (0.3-0.7) U.I./ml Sodium (137-145) mmol/L Potassium (3.6-5.0) mmol/L Carbon Dioxide (22-30) mmol/L BUN (7-17) mg/dL Creatinine (0.7-1.2) mg/dL Glucose (65-100) mg/dL POC Glucose 324 H 340 H 246 H (70-105) 12/24/18 12/24/18 12/24/18 Range/Units 11:05 12:03 Unknown Heparin Anti-Xa Level 0.21 L (0.3-0.7) U.I./ml Sodium 136 L (137-145) mmol/L Potassium (3.6-5.0) mmol/L Carbon Dioxide 21 L (22-30) mmol/L BUN 39 H (7-17) mg/dL Creatinine 2.6 H (0.7-1.2) mg/dL Glucose 279 H (65-100) mg/dL POC Glucose 283 H (70-105)
[2018-12-24] MEDS: SODIUM BICARBONATE 150 MEQ in STERILE WATER 1,000 ML IV SCH (15:49)
[2018-12-24] MEDS: DESYREL PO SCH (21:43)
[2018-12-24] MEDS: PRAVACHOL PO SCH (21:44)
[2018-12-24] MEDS: LANTUS SUB-Q SCH (21:46)
[2018-12-24] MEDS ORDERED: HEPARIN 10,000 UNITS/10 ML IV ONE (22:05)
[2018-12-25] MEDS: HumuLIN R SUB-Q SCH ×9 (02:00→20:51)
[2018-12-25] MEDS: HEPARIN/ 0.45% NACL-25,000 UNIT/500 ML 25,000 UNIT/500 ML BAG IV SCH ×2 (03:26→20:33)
[2018-12-25 05:26] LABS: Hematocrit 31.9 % (30.3-42.9); Hemoglobin 10.5 gm/dl (10.1-14.3)
[2018-12-25 05:47] LABS: Calcium 9.1 mg/dL (8.4-10.2)
[2018-12-25] MEDS: GABAPENTIN PO SCH ×3 (05:54→21:52)
[2018-12-25] MEDS: METOPROLOL PO SCH (08:11)
--- NOTE | 2018-12-25 10:08 | Progress Note ---
Assessment and Plan 1. Atypical chest pains resolved off IV NTG. 2. Chronic kidney disease stage IV 3. Type 2 diabetes mellitus 4. Essential hypertension 5. HIV disease Plan. Recommend stress MPI in the morning cancel LHC. Subjective Date of service: 12/25/18 Principal diagnosis: Ac. resp distress; NSTEMI; ; Ac. Pulm edema; DM II; CKD; HIV +ve Interval history: Patient is feeling better today denies any chest pains she has been weaned off IV NTG Objective Vital Signs Temp Pulse Resp BP Pulse Ox 12/25/18 09:45 82 5 L 103/71 98 12/25/18 09:31 81 5 L 103/71 98 12/25/18 09:15 82 5 L 103/71 99 12/25/18 09:00 82 6 L 103/71 96 12/25/18 08:45 87 9 L 113/71 99 12/25/18 08:31 88 8 L 113/71 99 12/25/18 08:15 84 5 L 113/71 97 12/25/18 08:11 84 113/71 12/25/18 08:01 84 6 L 171/100 98 12/25/18 08:00 97.8 F 12/25/18 07:45 88 9 L 147/87 99 12/25/18 07:31 91 H 11 L 147/87 96 12/25/18 07:15 84 7 L 147/87 99 12/25/18 07:00 83 7 L 147/87 100 12/25/18 06:45 79 5 L 142/74 96 12/25/18 06:31 78 6 L 142/74 98 12/25/18 06:15 79 5 L 142/74 97 12/25/18 06:00 78 5 L 142/74 98 12/25/18 05:45 82 6 L 155/82 95 12/25/18 05:31 87 7 L 155/82 96 12/25/18 05:15 81 6 L 155/82 100 12/25/18 05:01 84 9 L 155/82 96 12/25/18 04:45 83 8 L 174/93 96 12/25/18 04:31 79 6 L 174/93 99 12/25/18 04:15 81 6 L 174/93 99 12/25/18 04:03 84 10 L 99 12/25/18 04:00 98.6 F 82 8 L 162/99 100 12/25/18 03:45 80 7 L 144/76 99 12/25/18 03:30 79 8 L 144/76 97 12/25/18 03:15 79 9 L 157/86 99 12/25/18 03:00 78 5 L 152/86 99 12/25/18 02:45 79 8 L 149/98 99 12/25/18 02:30 78 5 L 157/86 98 12/25/18 02:15 77 4 L 149/98 99 12/25/18 02:00 76 6 L 149/98 99 12/25/18 01:45 75 5 L 147/88 100 12/25/18 01:30 73 4 L 142/78 100 12/25/18 01:15 73 5 L 147/88 100 12/25/18 01:01 74 6 L 147/88 99 12/25/18 00:59 75 10 L 123/77 100 12/25/18 00:45 73 5 L 123/77 99 12/25/18 00:30 75 6 L 123/77 99 12/25/18 00:15 74 6 L 138/76 97 12/25/18 00:00 75 7 L 138/76 95 12/24/18 23:47 98.1 F 12/24/18 23:45 75 5 L 134/83 96 12/24/18 23:30 74 7 L 134/83 96 12/24/18 23:25 77 7 L 165/93 95 12/24/18 23:15 78 7 L 165/93 97 12/24/18 23:01 84 12 165/93 98 12/24/18 22:45 85 14 110/80 95 12/24/18 22:30 84 15 108/78 93 12/24/18 22:15 74 6 L 110/80 96 12/24/18 22:00 76 12 110/80 99 12/24/18 21:45 77 6 L 137/77 98 12/24/18 21:30 74 5 L 128/82 96 12/24/18 21:16 80 12 137/77 99 12/24/18 21:00 79 8 L 137/77 99 12/24/18 20:45 74 9 L 121/71 97 12/24/18 20:30 74 9 L 121/71 95 12/24/18 20:15 75 13 123/76 97 12/24/18 20:00 97.8 F 74 11 L 123/76 99 12/24/18 19:45 76 11 L 150/93 96 12/24/18 19:30 78 6 L 150/93 98 12/24/18 19:15 77 7 L 132/89 98 12/24/18 19:00 81 11 L 132/89 98 12/24/18 18:45 144/69 85 12/24/18 18:31 144/69 90 12/24/18 18:15 144/69 93 12/24/18 18:01 82 19 144/69 99 12/24/18 17:45 78 12 144/69 100 12/24/18 17:31 79 14 144/69 98 12/24/18 17:15 82 16 128/71 99 12/24/18 17:00 128/71 12/24/18 16:45 81 7 L 147/66 98 12/24/18 16:30 84 8 L 147/66 98 12/24/18 16:15 79 10 L 142/73 97 12/24/18 16:00 80 7 L 142/73 96 12/24/18 15:54 98.2 F 12/24/18 15:45 84 9 L 155/88 98 12/24/18 15:31 88 12 155/88 97 12/24/18 15:15 81 8 L 118/61 90 12/24/18 15:00 74 5 L 118/61 96 12/24/18 14:45 75 5 L 121/70 97 12/24/18 14:31 80 7 L 121/70 95 12/24/18 14:15 88 11 L 151/64 97 12/24/18 14:00 94 H 13 151/64 92 12/24/18 13:45 95 H 8 L 143/64 92 12/24/18 13:30 105 H 18 143/64 95 12/24/18 13:15 103 H 14 148/97 96 12/24/18 13:01 108 H 14 148/97 96 12/24/18 12:45 106 H 14 148/97 99 12/24/18 12:30 106 H 10 L 148/97 98 12/24/18 12:15 111 H 12 129/80 100 12/24/18 12:00 98.0 F 105 H 19 129/80 99 12/24/18 11:45 101 H 7 L 136/76 99 12/24/18 11:31 103 H 7 L 136/76 98 12/24/18 11:15 105 H 11 L 154/94 100 12/24/18 11:00 103 H 7 L 154/94 99 12/24/18 10:45 97 H 7 L 154/80 99 12/24/18 10:30 105 H 16 154/80 82 L 12/24/18 10:15 102 H 10 L 156/78 92 - Physical Examination General: Appears Well HEENT: Positive: PERRL Neck: Positive: trachea midline. Negative: JVD/HJR Cardiac: Positive: Regular Rate, S1/S2, PMI, Laterally Displaced. Negative: S3, S4 Lungs: Positive: clear to auscultation, No Wheeze, Rales, Rhonchi Neuro: Positive: Grossly Intact Abdomen: Positive: Unremarkable, Active Bowel Sounds Extremities: Absent: edema - Labs and Meds CBC 12/25/18 Range/Units 04:44 Hgb 10.5 (10.1-14.3) gm/dl Hct 31.9 (30.3-42.9) % Plt Count 319 (140-440) K/mm3 Comprehensive Metabolic Panel 12/25/18 Range/Units 04:44 Sodium 137 (137-145) mmol/L Potassium 4.5 (3.6-5.0) mmol/L Chloride 100.8 (98-107) mmol/L Carbon Dioxide 22 (22-30) mmol/L BUN 38 H (7-17) mg/dL Creatinine 3.4 H (0.7-1.2) mg/dL Glucose 207 H (65-100) mg/dL Calcium 9.1 (8.4-10.2) mg/dL - Allied health notes Allied health notes reviewed: nursing
[2018-12-25] MEDS: PROTONIX PO SCH (10:59)
[2018-12-25] MEDS: PERCOCET 5/325 PO PRN ×2 (11:00→20:39)
[2018-12-25] MEDS: ZOLOFT PO SCH (11:00)
[2018-12-25] MEDS: TIVICAY PO SCH (11:00)
[2018-12-25] MEDS: PLAVIX PO SCH (11:00)
[2018-12-25] MEDS: EPIVIR PO SCH (11:01)
[2018-12-25] MEDS: MUCOMYST ORAL PO SCH (11:01)
[2018-12-25] MEDS: ZIAGEN PO SCH (11:01)
[2018-12-25] MEDS: SODIUM BICARBONATE 150 MEQ in STERILE WATER 1,000 ML IV SCH (12:00)
--- NOTE | 2018-12-25 12:21 | Progress Note ---
Assessment and Plan Chest Pain/unstable angina/NSTEMI - Abnormal troponin with slight trend w/o change in EKG in the light of CKD - cont heparin drip, NTG, BB, statin, plavix - cardiac cath when renal function improves per cardiology due to High risk for radiocontrast nephropathy - Planned for MPi stress test silvana am Chronic diastolic heart failure, compensated - HFpEF (normal LVEF with elevated filling pressures on echo) - monitor ins/os, renal outpt Acute on chronic renal failure - vasomotor nephropathy vs ATN vs progression of underlying CKD - primary articulation officer planning to re-establish HD as outpatient - cont iv fluid, mucomyst po per renal HIV on HAART, supportive care, cont home meds Type II DM, consistent carb diet, adjust insulin coverage to improve BG level Essential hypertension, monitor BP, cont current meds Anemia of chronic disease, monitor H/h DVT Px, on heparin drip Subjective Date of service: 12/25/18 Principal diagnosis: Ac. resp distress; NSTEMI; ; Ac. Pulm edema; DM II; CKD; HIV +ve Interval history: Patient seen and examined. Medical records and medication list reviewed. No acute event overnight noted by the RN. Patient continue to complaints of intermittent chest pain. Patient is tolerating diet. Discussed plan of care at bedside with patient. Objective - Exam Narrative Exam: GENERAL: well-developed morbidly obese female lying on bed appeared to be in no discomfort. HEENT: Normocephalic. Atraumatic. No conjunctival congestion or icterus. Patient has moist mucous membranes. NECK: Supple. Trachea midline. CHEST/LUNGS: Clear to auscultated bilaterally, breathing nonlabored. No wheezes crackles or rhonchi. HEART/CARDIOVASCULAR: Regular in rate and rhythm. S1 and S2 positive. ABDOMEN: Abdomen is soft, nontender. Patient has normal bowel sounds. SKIN: There is no rash. Warm and dry. NEURO: No focal motor deficit. Follows command. MUSCULOSKELETAL: No joint effusion or tenderness. EXTRIMITY: No edema, no cyanosis or clubbing. PSYCH: Cooperative. - Constitutional Vitals: Vital Signs - 12hr 12/25/18 12/25/18 12/25/18 00:30 00:45 00:59 Temperature Pulse Rate 75 73 75 Respiratory 6 L 5 L 10 L Rate Blood Pressure 123/77 123/77 123/77 O2 Sat by Pulse 99 99 100 Oximetry 12/25/18 12/25/18 12/25/18 01:01 01:15 01:30 Temperature Pulse Rate 74 73 73 Respiratory 6 L 5 L 4 L Rate Blood Pressure 147/88 147/88 142/78 O2 Sat by Pulse 99 100 100 Oximetry 12/25/18 12/25/18 12/25/18 01:45 02:00 02:15 Temperature Pulse Rate 75 76 77 Respiratory 5 L 6 L 4 L Rate Blood Pressure 147/88 149/98 149/98 O2 Sat by Pulse 100 99 99 Oximetry 12/25/18 12/25/18 12/25/18 02:30 02:45 03:00 Temperature Pulse Rate 78 79 78 Respiratory 5 L 8 L 5 L Rate Blood Pressure 157/86 149/98 152/86 O2 Sat by Pulse 98 99 99 Oximetry 12/25/18 12/25/18 12/25/18 03:15 03:30 03:45 Temperature Pulse Rate 79 79 80 Respiratory 9 L 8 L 7 L Rate Blood Pressure 157/86 144/76 144/76 O2 Sat by Pulse 99 97 99 Oximetry 12/25/18 12/25/18 12/25/18 04:00 04:03 04:15 Temperature 98.6 F Pulse Rate 82 84 81 Respiratory 8 L 10 L 6 L Rate Blood Pressure 162/99 174/93 O2 Sat by Pulse 100 99 99 Oximetry 12/25/18 12/25/18 12/25/18 04:31 04:45 05:01 Temperature Pulse Rate 79 83 84 Respiratory 6 L 8 L 9 L Rate Blood Pressure 174/93 174/93 155/82 O2 Sat by Pulse 99 96 96 Oximetry 12/25/18 12/25/18 12/25/18 05:15 05:31 05:45 Temperature Pulse Rate 81 87 82 Respiratory 6 L 7 L 6 L Rate Blood Pressure 155/82 155/82 155/82 O2 Sat by Pulse 100 96 95 Oximetry 12/25/18 12/25/18 12/25/18 06:00 06:15 06:31 Temperature Pulse Rate 78 79 78 Respiratory 5 L 5 L 6 L Rate Blood Pressure 142/74 142/74 142/74 O2 Sat by Pulse 98 97 98 Oximetry 12/25/18 12/25/18 12/25/18 06:45 07:00 07:15 Temperature Pulse Rate 79 83 84 Respiratory 5 L 7 L 7 L Rate Blood Pressure 142/74 147/87 147/87 O2 Sat by Pulse 96 100 99 Oximetry 12/25/18 12/25/18 12/25/18 07:31 07:45 08:00 Temperature 97.8 F Pulse Rate 91 H 88 Respiratory 11 L 9 L Rate Blood Pressure 147/87 147/87 O2 Sat by Pulse 96 99 Oximetry 12/25/18 12/25/18 12/25/18 08:01 08:11 08:15 Temperature Pulse Rate 84 84 84 Respiratory 6 L 5 L Rate Blood Pressure 171/100 113/71 113/71 O2 Sat by Pulse 98 97 Oximetry 12/25/18 12/25/18 12/25/18 08:31 08:45 09:00 Temperature Pulse Rate 88 87 82 Respiratory 8 L 9 L 6 L Rate Blood Pressure 113/71 113/71 103/71 O2 Sat by Pulse 99 99 96 Oximetry 12/25/18 12/25/18 12/25/18 09:15 09:31 09:45 Temperature Pulse Rate 82 81 82 Respiratory 5 L 5 L 5 L Rate Blood Pressure 103/71 103/71 103/71 O2 Sat by Pulse 99 98 98 Oximetry 12/25/18 12/25/18 12/25/18 10:00 10:31 11:00 Temperature Pulse Rate 85 97 H 93 H Respiratory 8 L 15 13 Rate Blood Pressure 105/74 105/74 115/73 O2 Sat by Pulse 99 98 100 Oximetry 12/25/18 11:30 Temperature Pulse Rate 91 H Respiratory 14 Rate Blood Pressure 115/73 O2 Sat by Pulse 100 Oximetry - Labs CBC & Chem 7: 12/25/18 04:44 12/26/18 04:20 Labs: Abnormal lab results 12/24/18 12/24/18 12/24/18 Range/Units 15:55 19:07 20:03 Heparin Anti-Xa Level < 0.10 L (0.3-0.7) U.I./ml BUN (7-17) mg/dL Creatinine (0.7-1.2) mg/dL Glucose (65-100) mg/dL POC Glucose 292 H 313 H (70-105) 12/24/18 12/25/18 12/25/18 Range/Units 23:33 04:44 04:44 Heparin Anti-Xa Level 0.29 L (0.3-0.7) U.I./ml BUN 38 H (7-17) mg/dL Creatinine 3.4 H (0.7-1.2) mg/dL Glucose 207 H (65-100) mg/dL POC Glucose 240 H (70-105) 12/25/18 12/25/18 12/25/18 Range/Units 04:52 07:31 11:57 Heparin Anti-Xa Level (0.3-0.7) U.I./ml BUN (7-17) mg/dL Creatinine (0.7-1.2) mg/dL Glucose (65-100) mg/dL POC Glucose 222 H 204 H 160 H (70-105)
--- NOTE | 2018-12-25 12:23 | Progress Note ---
Subjective Principal diagnosis: Ac. resp distress; NSTEMI; ; Ac. Pulm edema; DM II; CKD; HIV +ve Interval history: Patient was seen today for follow-up on multiple renal related issues Events of this hospitalization were noted was transferred yesterday to ICU I did had a long discussion with cardiology service yesterday Catheterization has been put on hold Potassium is better today Interdisciplinary notes were also reviewed Vitals intake output medications were reviewed Past medical history: Reviewed Family, social history: Reviewed Allergies: Reviewed Physical examination General: No acute distress Vitals: Reviewed HEENT: Oral mucosa moist no icterus Neck: Supple no thyromegaly nodular mass or JVD Chest: Clear to auscultation anteriorly Heart: Regular rate and rhythm S1-S2 heard no S3-S4 Abdomen: Soft nontender no suprapubic masses no organomegaly Extremity: Dry skin less than 1+ edema Psych: No evidence of any agitation and aggression noted Derm: No petechial rash Assessment and plan: Chronic kidney disease patient's creatinine mostly has been around between 3.2- 3.4 yesterday we have had a creatinine of 2.6 which could be lab error, Given that the renal function has been stable at this point I would like to do a 24-hour urinary study for protein creatinine and creatinine clearance in a controlled setting She does have multiple risk factor for progression of renal failure over time including elevated BMI, diabetes HIV diet and lifestyle etc. This will also give us clarity about the staging of her renal failure Patient has been followed by [facility] but now chooses to follow up with our group, due to distance involved Hyperkalemia currently doing much better potassium is 4.5 Metabolic acidosis: Slowly improving Patient must follow a proper renal diet Abnormal cardiac enzyme: Risk for radiocontrast nephropathy is very high in her case She has been adequately counseled and educated regarding all the renal related issues We'll continue to follow and make recommendation from renal standpoint Will order for renal imaging, order immunofixation hepatitis profile as well as a and kisha All renal related issues were discussed with the patient, patient does exhibit good understanding, lab results were also discussed with patient in simple [place] Prognosis: Guarded We'll continue to follow and make recommendation from renal standpoint Objective - Vital Signs Vital signs: Vital Signs - 12hr 12/25/18 12/25/18 12/25/18 00:30 00:45 00:59 Temperature Pulse Rate 75 73 75 Respiratory 6 L 5 L 10 L Rate Blood Pressure 123/77 123/77 123/77 O2 Sat by Pulse 99 99 100 Oximetry 12/25/18 12/25/18 12/25/18 01:01 01:15 01:30 Temperature Pulse Rate 74 73 73 Respiratory 6 L 5 L 4 L Rate Blood Pressure 147/88 147/88 142/78 O2 Sat by Pulse 99 100 100 Oximetry 12/25/18 12/25/18 12/25/18 01:45 02:00 02:15 Temperature Pulse Rate 75 76 77 Respiratory 5 L 6 L 4 L Rate Blood Pressure 147/88 149/98 149/98 O2 Sat by Pulse 100 99 99 Oximetry 12/25/18 12/25/18 12/25/18 02:30 02:45 03:00 Temperature Pulse Rate 78 79 78 Respiratory 5 L 8 L 5 L Rate Blood Pressure 157/86 149/98 152/86 O2 Sat by Pulse 98 99 99 Oximetry 12/25/18 12/25/18 12/25/18 03:15 03:30 03:45 Temperature Pulse Rate 79 79 80 Respiratory 9 L 8 L 7 L Rate Blood Pressure 157/86 144/76 144/76 O2 Sat by Pulse 99 97 99 Oximetry 12/25/18 12/25/18 12/25/18 04:00 04:03 04:15 Temperature 98.6 F Pulse Rate 82 84 81 Respiratory 8 L 10 L 6 L Rate Blood Pressure 162/99 174/93 O2 Sat by Pulse 100 99 99 Oximetry 12/25/18 12/25/18 12/25/18 04:31 04:45 05:01 Temperature Pulse Rate 79 83 84 Respiratory 6 L 8 L 9 L Rate Blood Pressure 174/93 174/93 155/82 O2 Sat by Pulse 99 96 96 Oximetry 12/25/18 12/25/18 12/25/18 05:15 05:31 05:45 Temperature Pulse Rate 81 87 82 Respiratory 6 L 7 L 6 L Rate Blood Pressure 155/82 155/82 155/82 O2 Sat by Pulse 100 96 95 Oximetry 12/25/18 12/25/18 12/25/18 06:00 06:15 06:31 Temperature Pulse Rate 78 79 78 Respiratory 5 L 5 L 6 L Rate Blood Pressure 142/74 142/74 142/74 O2 Sat by Pulse 98 97 98 Oximetry 12/25/18 12/25/18 12/25/18 06:45 07:00 07:15 Temperature Pulse Rate 79 83 84 Respiratory 5 L 7 L 7 L Rate Blood Pressure 142/74 147/87 147/87 O2 Sat by Pulse 96 100 99 Oximetry 12/25/18 12/25/18 12/25/18 07:31 07:45 08:00 Temperature 97.8 F Pulse Rate 91 H 88 Respiratory 11 L 9 L Rate Blood Pressure 147/87 147/87 O2 Sat by Pulse 96 99 Oximetry 12/25/18 12/25/18 12/25/18 08:01 08:11 08:15 Temperature Pulse Rate 84 84 84 Respiratory 6 L 5 L Rate Blood Pressure 171/100 113/71 113/71 O2 Sat by Pulse 98 97 Oximetry 12/25/18 12/25/18 12/25/18 08:31 08:45 09:00 Temperature Pulse Rate 88 87 82 Respiratory 8 L 9 L 6 L Rate Blood Pressure 113/71 113/71 103/71 O2 Sat by Pulse 99 99 96 Oximetry 12/25/18 12/25/18 12/25/18 09:15 09:31 09:45 Temperature Pulse Rate 82 81 82 Respiratory 5 L 5 L 5 L Rate Blood Pressure 103/71 103/71 103/71 O2 Sat by Pulse 99 98 98 Oximetry 12/25/18 12/25/18 12/25/18 10:00 10:31 11:00 Temperature Pulse Rate 85 97 H 93 H Respiratory 8 L 15 13 Rate Blood Pressure 105/74 105/74 115/73 O2 Sat by Pulse 99 98 100 Oximetry 12/25/18 11:30 Temperature Pulse Rate 91 H Respiratory 14 Rate Blood Pressure 115/73 O2 Sat by Pulse 100 Oximetry - Lab 12/25/18 04:44 12/25/18 04:44 Most recent lab results Calcium 9.1 mg/dL (8.4-10.2) 12/25/18 04:44 Medications & Allergies - Medications Allergies/Adverse Reactions: Allergies aspirin Allergy (Verified 05/10/16 05:48) Swelling lisinopril Adverse Reaction (Verified 04/23/18 03:38) Angioedema Home Medications: Home Medications Medication Instructions Recorded Confirmed Last Taken Type Abacavir [Ziagen TAB] 600 mg PO DAILY 11/28/17 12/23/18 11/27/17 History Gabapentin [Neurontin] 600 mg PO Q8H 11/28/17 12/23/18 11/27/17 History Insulin Detemir [Levemir VIAL] 45 unit SQ QHS 11/28/17 12/23/18 Unknown History Metoprolol [Lopressor TAB] 100 mg PO DAILY 11/28/17 12/23/18 11/27/17 History Sertraline [Zoloft] 100 mg PO QDAY 11/28/17 12/23/18 11/27/17 History hydrALAZINE [Apresoline TAB] 50 mg PO Q8HR 11/28/17 12/23/18 Unknown History lamiVUDine [Lamivudine] 150 mg PO DAILY 11/28/17 12/23/18 11/27/17 History traZODone [Desyrel] 150 mg PO QHS 11/28/17 12/23/18 11/27/17 History oxyCODONE /ACETAMINOPHEN [Percocet 1 tab PO Q6HR PRN #20 tablet 11/30/17 12/23/18 Unknown Rx 5/325 mg] Dolutegravir [Tivicay] 50 mg PO DAILY 12/24/18 12/24/18 12/22/18 History Active Medications: Generic Name Dose Route Start Last Admin Trade Name Freq PRN Reason Stop Dose Admin Abacavir Sulfate 600 mg 12/23/18 10:00 12/25/18 11:01 Ziagen PO 600 mg DAILY VINCENT Administration Acetaminophen 650 mg 12/23/18 03:03 Tylenol PO Q4H PRN Headache Acetylcysteine 600 mg 12/23/18 14:00 12/25/18 11:01 Mucomyst Oral PO 12/25/18 14:00 600 mg Q12HR VINCENT Administration Albuterol 2.5 mg 12/23/18 15:43 Proventil IH Q4HRT PRN Shortness Of Breath Clopidogrel Bisulfate 75 mg 12/24/18 10:00 12/25/18 11:00 Plavix PO 75 mg QDAY VINCENT Administration Dextrose 50 ml 12/23/18 11:00 D50w (25gm) Syringe IV Q1H PRN Hypoglycemia Gabapentin 600 mg 12/23/18 06:00 12/25/18 05:54 Neurontin PO 600 mg Q8H VINCENT Administration Hydralazine HCl 5 mg 12/24/18 04:25 12/24/18 05:24 Apresoline IV 5 mg Q6H PRN Administration SBP >160 Heparin Sodium/Sodium Chloride 25,000 unit in 500 mls @ 20 mls/hr 12/23/18 04:00 12/25/18 05:53 Heparin/ 0.45% Nacl-25,000 Unit/500 Ml IV 1,500 units/hr TITRATE VINCENT 30 mls/hr Titration Protocol 1,000 UNITS/HR Nitroglycerin/Dextrose 50 mg in 250 mls @ 3 mls/hr 12/23/18 15:00 12/24/18 12:15 Tridil Drip 50mg/250ml IV Infused TITR VINCENT Titration Protocol 10 MCG/MIN Sodium Bicarbonate 150 meq/ 1,150 mls @ 65 mls/hr 12/24/18 12:00 12/25/18 12:00 Sterile Water IV 65 mls/hr DIRECT VINCENT Administration Insulin Glargine 15 units 12/24/18 22:00 12/24/18 21:46 Lantus SUB-Q 15 units QHS VINCENT Administration Insulin Human Regular 0 units 12/23/18 04:00 12/25/18 11:54 Humulin R SUB-Q 1 units Q4H VINCENT Administration Protocol Insulin Human Regular 5 units 12/24/18 16:30 12/25/18 11:54 Humulin R SUB-Q 5 units AC VINCENT Administration Lamivudine 150 mg 12/23/18 10:00 12/25/18 11:01 Epivir PO 150 mg DAILY VINCENT Administration Metoprolol Tartrate 100 mg 12/23/18 08:00 12/25/18 08:11 Lopressor PO 100 mg DAILY@0800 VINCENT Administration Morphine Sulfate 2 mg 12/23/18 03:03 12/24/18 22:43 Morphine IV 2 mg Q3H PRN Administration Pain, Moderate (4-6) Nitroglycerin 0.4 mg 12/23/18 03:02 Nitrostat SL .Q5MIN PRN Chest Pain Ondansetron HCl 4 mg 12/23/18 03:03 12/24/18 14:08 Zofran IV 4 mg Q8H PRN Administration Nausea And Vomiting Oxycodone/Acetaminophen 1 tab 12/23/18 15:17 12/25/18 11:00 Percocet 5/325 PO 1 tab Q6HR PRN Administration Pain, Moderate (4-6) Pantoprazole Sodium 40 mg 12/23/18 15:00 12/25/18 10:59 Protonix PO 40 mg QDAY VINCENT Administration Pravastatin Sodium 40 mg 12/23/18 22:00 12/24/18 21:44 Pravachol PO 40 mg QHS VINCENT Administration Quetiapine Fumarate 100 mg 12/23/18 22:00 12/24/18 21:44 Seroquel PO 100 mg QHS VINCENT Administration Quetiapine Fumarate 100 mg 12/24/18 10:00 12/25/18 11:00 Seroquel PO 100 mg QAM VINCENT Administration Sertraline HCl 100 mg 12/23/18 10:00 12/25/18 11:00 Zoloft PO 100 mg QDAY VINCENT Administration Trazodone HCl 150 mg 12/23/18 22:00 12/24/18 21:43 Desyrel PO 150 mg QHS VINCENT Administration
[2018-12-25 14:18] LABS: Hepatitis B Surface Antigen Non-Reactive (Negative); Hepatitis C Virus Antibody Non-Reactive (NonReactive)
--- NOTE | 2018-12-25 14:42 | Progress Note ---
Assessment and Plan Acute respiratory distress secondary to acute coronary syndrome. Non-ST elevation myocardial infarction, 12-lead EKG has been reviewed. Obesity. Hyperlipidemia. Diabetes. Acute pulmonary edema. Chronic kidney disease. Leukocytosis. Human immunodeficiency virus positive. Chest pain - for LHCath in am - continue supplemental oxygen to keep O2 sat's > 90% - prn tridil for chest pains - continue BIPAP scheduled qhs with prn daytime use - continue IV heparin drip per ACS protocol - continue ART for HIV infection - continue G.I. prophylaxis - mobility protocols for pressure ulcer prophylaxis - PT/OT as tolerated (Once ACS is cleared) - weight loss counseled - continue other care per attending / other consultants - needs outpatient PSG ... re-evaluate in am & prn I have spent ( >35 ) minutes with the patient w/ >50% of the time spent counseling and/or coordinating care for this patient. Counseling topics and/or how time was spent coordinating patient's care is outlined in the impression and plan above. Subjective Date of service: 12/25/18 Principal diagnosis: Ac. resp distress; NSTEMI; ; Ac. Pulm edema; DM II; CKD; HIV +ve Interval history: Patient is seen today for: Ac. resp distress; NSTEMI; Obesity; Hyperlipidemia; Diabetes type II; Acute pulmonary edema; Chronic kidney disease; HIV +ve Seen and examined at bedside; 24hour events reviewed; nursing and respiratory care staff consulted; no adverse overnight events reported to me; resting peacefully in bed; doing better; off IV NTG; no acute chest pains; No N/V/F/C Objective Vital Signs - 12hr 12/25/18 12/25/18 12/25/18 02:45 03:00 03:15 Temperature Pulse Rate 79 78 79 Respiratory 8 L 5 L 9 L Rate Blood Pressure 149/98 152/86 157/86 O2 Sat by Pulse 99 99 99 Oximetry 12/25/18 12/25/18 12/25/18 03:30 03:45 04:00 Temperature 98.6 F Pulse Rate 79 80 82 Respiratory 8 L 7 L 8 L Rate Blood Pressure 144/76 144/76 162/99 O2 Sat by Pulse 97 99 100 Oximetry 12/25/18 12/25/18 12/25/18 04:03 04:15 04:31 Temperature Pulse Rate 84 81 79 Respiratory 10 L 6 L 6 L Rate Blood Pressure 174/93 174/93 O2 Sat by Pulse 99 99 99 Oximetry 12/25/18 12/25/18 12/25/18 04:45 05:01 05:15 Temperature Pulse Rate 83 84 81 Respiratory 8 L 9 L 6 L Rate Blood Pressure 174/93 155/82 155/82 O2 Sat by Pulse 96 96 100 Oximetry 12/25/18 12/25/18 12/25/18 05:31 05:45 06:00 Temperature Pulse Rate 87 82 78 Respiratory 7 L 6 L 5 L Rate Blood Pressure 155/82 155/82 142/74 O2 Sat by Pulse 96 95 98 Oximetry 12/25/18 12/25/18 12/25/18 06:15 06:31 06:45 Temperature Pulse Rate 79 78 79 Respiratory 5 L 6 L 5 L Rate Blood Pressure 142/74 142/74 142/74 O2 Sat by Pulse 97 98 96 Oximetry 12/25/18 12/25/18 12/25/18 07:00 07:15 07:31 Temperature Pulse Rate 83 84 91 H Respiratory 7 L 7 L 11 L Rate Blood Pressure 147/87 147/87 147/87 O2 Sat by Pulse 100 99 96 Oximetry 12/25/18 12/25/18 12/25/18 07:45 08:00 08:01 Temperature 97.8 F Pulse Rate 88 84 Respiratory 9 L 6 L Rate Blood Pressure 147/87 171/100 O2 Sat by Pulse 99 98 Oximetry 12/25/18 12/25/18 12/25/18 08:11 08:15 08:31 Temperature Pulse Rate 84 84 88 Respiratory 5 L 8 L Rate Blood Pressure 113/71 113/71 113/71 O2 Sat by Pulse 97 99 Oximetry 12/25/18 12/25/18 12/25/18 08:45 09:00 09:15 Temperature Pulse Rate 87 82 82 Respiratory 9 L 6 L 5 L Rate Blood Pressure 113/71 103/71 103/71 O2 Sat by Pulse 99 96 99 Oximetry 12/25/18 12/25/18 12/25/18 09:31 09:45 10:00 Temperature Pulse Rate 81 82 85 Respiratory 5 L 5 L 8 L Rate Blood Pressure 103/71 103/71 105/74 O2 Sat by Pulse 98 98 99 Oximetry 10/20/19 10/20/19 10/20/19 10:31 11:00 11:30 Temperature Pulse Rate 97 H 93 H 91 H Respiratory 15 13 14 Rate Blood Pressure 105/74 115/73 115/73 O2 Sat by Pulse 98 100 100 Oximetry 12/25/18 12/25/18 12/25/18 12:00 12:31 12:58 Temperature 98.4 F Pulse Rate 94 H 102 H Respiratory 12 22 Rate Blood Pressure 143/76 143/76 O2 Sat by Pulse 98 98 Oximetry 12/25/18 12/25/18 13:00 13:31 Temperature Pulse Rate 88 85 Respiratory 10 L 7 L Rate Blood Pressure 138/69 138/69 O2 Sat by Pulse 100 100 Oximetry Constitutional: no acute distress, alert, other (middle aged obese female, normocephalic with mildly increased resp effort at rest) Eyes: non-icteric ENT: oropharynx moist, other (mallampati 4) Neck: supple, no lymphadenopathy, no JVD, other (large neck circumference) Effort: mildly labored Ascultation: Bilateral: clear, diminished breath sounds Percussion: Bilateral: not dull Cardiovascular: regular rate and rhythm (S1S2, RRR) Gastrointestinal: normoactive bowel sounds, soft, non-tender, non-distended, other (protuberant) Integumentary: normal Extremities: no cyanosis, pink and warm, pulses normal, no ischemia or petechiae, edema (trace) Neurologic: normal mental status, non-focal exam, pupils equal and round, CN II- XII normal Psychiatric: anxious CBC and BMP: 12/25/18 04:44 12/26/18 04:20 ABG, PT/INR, D-dimer: PT/INR, D-dimer PT 13.2 Sec. (12.2-14.9) 12/23/18 03:22 INR 1.03 (0.87-1.13) 12/23/18 03:22 D-Dimer 897.35 ng/mlDDU (0-234) H 12/22/18 23:07 Abnormal lab findings: Abnormal Labs 12/22/18 12/22/18 12/22/18 22:58 22:58 22:58 WBC 12.3 H RBC 3.01 L Hgb 9.9 L Hct 29.7 L MCV 99 H MCH 33 H Moca # 0.9 H Baso # 0.2 H Seg Neutrophils % 70.7 H Seg Neutrophils # 8.7 H APTT D-Dimer Heparin Anti-Xa Level Sodium 135 L Potassium Carbon Dioxide BUN 42 H Creatinine 3.4 H Glucose 146 H POC Glucose Total Creatine Kinase CK-MB (CK-2) Troponin T 0.093 H NT-Pro-B Natriuret Pep 1522 H Triglycerides Cholesterol LDL Cholesterol Direct HDL Cholesterol 12/22/18 12/23/18 12/23/18 23:07 03:22 03:22 WBC RBC Hgb 10.0 L Hct 29.8 L MCV MCH Moca # Baso # Seg Neutrophils % Seg Neutrophils # APTT D-Dimer 897.35 H Heparin Anti-Xa Level Sodium Potassium Carbon Dioxide BUN Creatinine Glucose POC Glucose Total Creatine Kinase CK-MB (CK-2) Troponin T 0.080 H NT-Pro-B Natriuret Pep Triglycerides 325 H Cholesterol 252 H LDL Cholesterol Direct 174 H HDL Cholesterol 33 L 12/23/18 12/23/18 12/23/18 03:22 05:23 11:29 WBC RBC Hgb Hct MCV MCH Moca # Baso # Seg Neutrophils % Seg Neutrophils # APTT < 24.2 L D-Dimer Heparin Anti-Xa Level Sodium Potassium Carbon Dioxide BUN Creatinine Glucose POC Glucose 239 H Total Creatine Kinase 167 H CK-MB (CK-2) 4.6 H Troponin T 0.084 H NT-Pro-B Natriuret Pep Triglycerides Cholesterol LDL Cholesterol Direct HDL Cholesterol 12/23/18 12/23/18 12/23/18 11:41 14:56 17:14 WBC RBC Hgb Hct MCV MCH Moca # Baso # Seg Neutrophils % Seg Neutrophils # APTT D-Dimer Heparin Anti-Xa Level Sodium 132 L Potassium 5.6 H D Carbon Dioxide 16 L BUN 46 H Creatinine 3.2 H Glucose 263 H POC Glucose 282 H Total Creatine Kinase 145 H CK-MB (CK-2) Troponin T 0.107 H* D NT-Pro-B Natriuret Pep Triglycerides Cholesterol LDL Cholesterol Direct HDL Cholesterol 12/23/18 12/24/18 12/24/18 21:26 02:49 05:49 WBC RBC Hgb Hct MCV MCH Moca # Baso # Seg Neutrophils % Seg Neutrophils # APTT D-Dimer Heparin Anti-Xa Level Sodium Potassium Carbon Dioxide BUN Creatinine Glucose POC Glucose 318 H 324 H 340 H Total Creatine Kinase CK-MB (CK-2) Troponin T NT-Pro-B Natriuret Pep Triglycerides Cholesterol LDL Cholesterol Direct HDL Cholesterol 12/24/18 12/24/18 12/24/18 08:23 11:05 12:03 WBC RBC Hgb Hct MCV MCH Moca # Baso # Seg Neutrophils % Seg Neutrophils # APTT D-Dimer Heparin Anti-Xa Level 0.21 L Sodium Potassium Carbon Dioxide BUN Creatinine Glucose POC Glucose 246 H 283 H Total Creatine Kinase CK-MB (CK-2) Troponin T NT-Pro-B Natriuret Pep Triglycerides Cholesterol LDL Cholesterol Direct HDL Cholesterol 12/24/18 12/24/18 12/24/18 15:55 19:07 20:03 WBC RBC Hgb Hct MCV MCH Moca # Baso # Seg Neutrophils % Seg Neutrophils # APTT D-Dimer Heparin Anti-Xa Level < 0.10 L Sodium Potassium Carbon Dioxide BUN Creatinine Glucose POC Glucose 292 H 313 H Total Creatine Kinase CK-MB (CK-2) Troponin T NT-Pro-B Natriuret Pep Triglycerides Cholesterol LDL Cholesterol Direct HDL Cholesterol 12/24/18 12/24/18 12/25/18 23:33 Unknown 04:44 WBC RBC Hgb Hct MCV MCH Moca # Baso # Seg Neutrophils % Seg Neutrophils # APTT D-Dimer Heparin Anti-Xa Level Sodium 136 L Potassium Carbon Dioxide 21 L BUN 39 H 38 H Creatinine 2.6 H 3.4 H Glucose 279 H 207 H POC Glucose 240 H Total Creatine Kinase CK-MB (CK-2) Troponin T NT-Pro-B Natriuret Pep Triglycerides Cholesterol LDL Cholesterol Direct HDL Cholesterol 12/25/18 12/25/18 12/25/18 04:44 04:52 07:31 WBC RBC Hgb Hct MCV MCH Moca # Baso # Seg Neutrophils % Seg Neutrophils # APTT D-Dimer Heparin Anti-Xa Level 0.29 L Sodium Potassium Carbon Dioxide BUN Creatinine Glucose POC Glucose 222 H 204 H Total Creatine Kinase CK-MB (CK-2) Troponin T NT-Pro-B Natriuret Pep Triglycerides Cholesterol LDL Cholesterol Direct HDL Cholesterol 12/25/18 11:57 WBC RBC Hgb Hct MCV MCH Moca # Baso # Seg Neutrophils % Seg Neutrophils # APTT D-Dimer Heparin Anti-Xa Level Sodium Potassium Carbon Dioxide BUN Creatinine Glucose POC Glucose 160 H Total Creatine Kinase CK-MB (CK-2) Troponin T NT-Pro-B Natriuret Pep Triglycerides Cholesterol LDL Cholesterol Direct HDL Cholesterol Allied health notes reviewed: nursing
--- NOTE | 2018-12-25 15:45 | Ultrasound Report ---
ULTRASOUND RENAL INDICATION: renal failure. COMPARISON: No relevant prior imaging study available. FINDINGS: RIGHT KIDNEY: Size: 12.1 cm. Echogenicity: Normal. Cortical thickness: 1.4. Hydronephrosis: None. Cyst or mass: None. Stones: None. LEFT KIDNEY: Size: 11.8 cm. Echogenicity: Normal. Cortical thickness: 2.4. Hydronephrosis: None. Cyst or mass: None. Stones: Possible 5 mm stone.. Urinary Bladder: No significant abnormality. Free Fluid: None. Additional Findings: None. IMPRESSION 1. No acute sonographic abnormality of the kidneys. Signer Name: Solomon Adler MD Signed: 12/25/2018 3:41 PM Workstation Name: [id number]
[2018-12-25] MEDS: MORPHINE IV PRN (18:35)
[2018-12-25] MEDS: DESYREL PO SCH (21:51)
[2018-12-25] MEDS: PRAVACHOL PO SCH (21:52)
[2018-12-25] MEDS: LANTUS SUB-Q SCH (21:53)
[2018-12-26] MEDS: HumuLIN R SUB-Q SCH ×9 (00:21→21:47)
[2018-12-26 05:51] LABS: Calcium 8.5 mg/dL (8.4-10.2)
[2018-12-26] MEDS: GABAPENTIN PO SCH ×3 (05:57→21:46)
[2018-12-26] MEDS: METOPROLOL PO SCH (08:00)
--- NOTE | 2018-12-26 08:30 | XRay Report ---
CHEST 1 VIEW INDICATION: renal failure. COMPARISON: 12/22/2018 FINDINGS: Support devices: None. Heart: Within normal limits. Lungs/Pleura: No acute air space or interstitial disease. Low lung volumes. Additional findings: None. IMPRESSION: No acute findings. Signer Name: Jose Antonio Russell Jr, MD Signed: 12/26/2018 8:26 AM Workstation Name: [id number]
--- NOTE | 2018-12-26 09:43 | Progress Note ---
Assessment and Plan - Patient Problems (1) ANDREWS (acute kidney injury) Current Visit: No Status: Acute Plan to address problem: Acute kidney injury on Chronic kidney disease : baseline creatinine : 2.3mg/dl current creatinine 3.9mg/dl admitted with ACS urine studies pending I reivewed renal US with right kidney 12.1cm and left kidney 11.8cm , 5mm left kidney stone Will stop bicarb infusion Will give Lasix 60mg IV x1 [facility] . (2) Acute CHF (congestive heart failure) Current Visit: No Status: Acute Plan to address problem: Acute CHF i reviewed echocardiogram with EF: 65% , diastolic dysfunction, dilated atria Will give Lasix. (3) Type 2 diabetes mellitus with diabetic chronic kidney disease Current Visit: No Status: Acute Qualifiers: Diabetes mellitus long-term insulin use: with long-term use Chronic kidney disease stage: stage 3 (moderate) Qualified Code(s): E11.22 - Type 2 diabetes mellitus with diabetic chronic kidney disease; N18.3 - Chronic kidney disease, stage 3 (moderate); Z79.4 - residential (current) use of insulin (4) HTN (hypertension) Current Visit: No Status: Chronic Qualifiers: Hypertension type: essential hypertension Qualified Code(s): I10 - Essential (primary) hypertension Plan to address problem: HTN: controlled continue current medications. (5) ACS (acute coronary syndrome) Current Visit: No Status: Acute Plan to address problem: ACS: - concern for elevated troponin on admission - was seen by cardiology . Subjective Principal diagnosis: Ac. resp distress; NSTEMI; ; Ac. Pulm edema; DM II; CKD; HIV +ve Interval history: 48 year old with medical history of CHF , HTN, CKD , HIV admitted with chest pain . Patient on BIPAP in the ICU has peripheral edema worsening renal function she is drowsy review of systems unobtainable. Objective - Vital Signs Vital signs: Vital Signs - 12hr 12/25/18 12/25/18 12/25/18 21:44 22:00 22:31 Temperature Pulse Rate 91 H 96 H 88 Respiratory 8 L 13 7 L Rate Blood Pressure 150/99 150/99 147/80 O2 Sat by Pulse 97 100 97 Oximetry 12/25/18 12/25/18 12/26/18 23:01 23:31 00:00 Temperature 196 F H Pulse Rate 86 88 98 H Respiratory 9 L 8 L Rate Blood Pressure 118/66 118/66 O2 Sat by Pulse 96 98 Oximetry 12/26/18 12/26/18 12/26/18 00:01 00:31 01:00 Temperature Pulse Rate 93 H 90 87 Respiratory 13 10 L 5 L Rate Blood Pressure 118/66 129/77 108/63 O2 Sat by Pulse 100 99 98 Oximetry 12/26/18 12/26/18 12/26/18 01:31 01:35 02:00 Temperature Pulse Rate 85 85 85 Respiratory 7 L 10 L 12 Rate Blood Pressure 108/63 113/66 O2 Sat by Pulse 99 99 Oximetry 12/26/18 12/26/18 12/26/18 02:30 03:00 03:31 Temperature Pulse Rate 87 88 88 Respiratory 4 L 6 L 10 L Rate Blood Pressure 113/66 124/60 124/60 O2 Sat by Pulse 99 100 97 Oximetry 12/26/18 12/26/18 12/26/18 04:00 04:01 04:31 Temperature 99.9 F H Pulse Rate 90 90 89 Respiratory 9 L 10 L 7 L Rate Blood Pressure 111/70 111/70 111/70 O2 Sat by Pulse 99 98 Oximetry 12/26/18 12/26/18 12/26/18 05:00 05:31 06:00 Temperature Pulse Rate 91 H 91 H 92 H Respiratory 10 L 13 11 L Rate Blood Pressure 118/65 118/65 123/56 O2 Sat by Pulse 97 98 92 Oximetry 12/26/18 12/26/18 12/26/18 06:31 07:00 07:31 Temperature Pulse Rate 90 92 H 89 Respiratory 5 L 13 7 L Rate Blood Pressure 123/56 124/74 124/74 O2 Sat by Pulse 99 98 99 Oximetry 12/26/18 12/26/18 12/26/18 08:00 08:31 09:00 Temperature 100.4 F H Pulse Rate 90 90 89 Respiratory 8 L 11 L 5 L Rate Blood Pressure 119/66 119/66 114/66 O2 Sat by Pulse 99 99 95 Oximetry - General Appearance General appearance: well-developed, well-nourished EENT: ATNC, PERRL, mucous membranes moist Neck: no JVD Respiratory: Present: Decreased Breath Sounds Cardiology: regular, S1S2 Gastrointestinal: normal, normoactive bowel sounds Integumentary: no rash Neurologic: obtunded Musculoskeletal: other (edema. ) Psychiatric: other (unable to assess. ) - Lab 12/25/18 04:44 12/26/18 04:20 Most recent lab results Calcium 8.5 mg/dL (8.4-10.2) 12/26/18 04:20 - Imaging Chest x-ray: image reviewed (i reviewed CXR with patchy haziness noted. low lung volumes. ) Medications & Allergies - Medications Allergies/Adverse Reactions: Allergies aspirin Allergy (Verified 05/10/16 05:48) Swelling lisinopril Adverse Reaction (Verified 04/23/18 03:38) Angioedema Home Medications: Home Medications Medication Instructions Recorded Confirmed Last Taken Type Abacavir [Ziagen TAB] 600 mg PO DAILY 11/28/17 12/23/18 11/27/17 History Gabapentin [Neurontin] 600 mg PO Q8H 11/28/17 12/23/18 11/27/17 History Insulin Detemir [Levemir VIAL] 45 unit SQ QHS 11/28/17 12/23/18 Unknown History Metoprolol [Lopressor TAB] 100 mg PO DAILY 11/28/17 12/23/18 11/27/17 History Sertraline [Zoloft] 100 mg PO QDAY 11/28/17 12/23/18 11/27/17 History hydrALAZINE [Apresoline TAB] 50 mg PO Q8HR 11/28/17 12/23/18 Unknown History lamiVUDine [Lamivudine] 150 mg PO DAILY 11/28/17 12/23/18 11/27/17 History traZODone [Desyrel] 150 mg PO QHS 11/28/17 12/23/18 11/27/17 History oxyCODONE /ACETAMINOPHEN [Percocet 1 tab PO Q6HR PRN #20 tablet 11/30/17 12/23/18 Unknown Rx 5/325 mg] Dolutegravir [Tivicay] 50 mg PO DAILY 12/24/18 12/24/18 12/22/18 History Active Medications: Generic Name Dose Route Start Last Admin Trade Name Freq PRN Reason Stop Dose Admin Abacavir Sulfate 600 mg 12/23/18 10:00 12/25/18 11:01 Ziagen PO 600 mg DAILY VINCENT Administration Acetaminophen 650 mg 12/23/18 03:03 Tylenol PO Q4H PRN Headache Albuterol 2.5 mg 12/23/18 15:43 Proventil IH Q4HRT PRN Shortness Of Breath Clopidogrel Bisulfate 75 mg 12/24/18 10:00 12/25/18 11:00 Plavix PO 75 mg QDAY VINCENT Administration Dextrose 50 ml 12/23/18 11:00 D50w (25gm) Syringe IV Q1H PRN Hypoglycemia Gabapentin 600 mg 12/23/18 06:00 12/26/18 05:57 Neurontin PO 600 mg Q8H VINCENT Administration Hydralazine HCl 5 mg 12/24/18 04:25 12/24/18 05:24 Apresoline IV 5 mg Q6H PRN Administration SBP >160 Heparin Sodium/Sodium Chloride 25,000 unit in 500 mls @ 20 mls/hr 12/23/18 04:00 12/26/18 00:14 Heparin/ 0.45% Nacl-25,000 Unit/500 Ml IV 1,400 units/hr TITRATE VINCENT 28 mls/hr Titration Protocol 1,000 UNITS/HR Nitroglycerin/Dextrose 50 mg in 250 mls @ 3 mls/hr 12/23/18 15:00 12/24/18 12:15 Tridil Drip 50mg/250ml IV Infused TITR VINCENT Titration Protocol 10 MCG/MIN Sodium Bicarbonate 150 meq/ 1,150 mls @ 65 mls/hr 12/24/18 12:00 12/25/18 1 2:00 Sterile Water IV 65 mls/hr DIRECT VINCENT Administration Insulin Glargine 15 units 12/24/18 22:00 12/25/18 21:53 Lantus SUB-Q 15 units QHS VINCENT Administration Insulin Human Regular 5 units 12/24/18 16:30 12/25/18 16:54 Humulin R SUB-Q 5 units AC VINCENT Administration Insulin Human Regular 0 units 12/26/18 11:30 Humulin R SUB-Q ACHS VINCENT Protocol Lamivudine 150 mg 12/23/18 10:00 12/25/18 11:01 Epivir PO 150 mg DAILY VINCENT Administration Metoprolol Tartrate 100 mg 12/23/18 08:00 12/25/18 08:11 Lopressor PO 100 mg DAILY@0800 VINCENT Administration Morphine Sulfate 2 mg 12/23/18 03:03 12/25/18 18:35 Morphine IV 2 mg Q3H PRN Administration Pain, Moderate (4-6) Nitroglycerin 0.4 mg 12/23/18 03:02 Nitrostat SL .Q5MIN PRN Chest Pain Ondansetron HCl 4 mg 12/23/18 03:03 12/24/18 14:08 Zofran IV 4 mg Q8H PRN Administration Nausea And Vomiting Oxycodone/Acetaminophen 1 tab 12/23/18 15:17 12/25/18 20:39 Percocet 5/325 PO 1 tab Q6HR PRN Administration Pain, Moderate (4-6) Pantoprazole Sodium 40 mg 12/23/18 15:00 12/25/18 10:59 Protonix PO 40 mg QDAY VINCENT Administration Pravastatin Sodium 40 mg 12/23/18 22:00 12/25/18 21:52 Pravachol PO 40 mg QHS VINCENT Administration Quetiapine Fumarate 100 mg 12/23/18 22:00 12/25/18 21:52 Seroquel PO 100 mg QHS VINCENT Administration Quetiapine Fumarate 100 mg 12/24/18 10:00 12/25/18 11:00 Seroquel PO 100 mg QAM VINCENT Administration Sertraline HCl 100 mg 12/23/18 10:00 12/25/18 11:00 Zoloft PO 100 mg QDAY VINCENT Administration Trazodone HCl 150 mg 12/23/18 22:00 12/25/18 21:51 Desyrel PO 150 mg QHS VINCENT Administration
[2018-12-26] MEDS: ZOLOFT PO SCH (10:00)
[2018-12-26] MEDS: EPIVIR PO SCH (10:00)
[2018-12-26] MEDS: PLAVIX PO SCH (10:00)
[2018-12-26] MEDS: PROTONIX PO SCH (10:00)
[2018-12-26] MEDS ORDERED: LASIX IV ONE (10:00)
[2018-12-26] MEDS: ZIAGEN PO SCH (10:00)
[2018-12-26] MEDS: TIVICAY PO SCH (10:00)
--- NOTE | 2018-12-26 11:30 | Progress Note ---
Assessment and Plan Acute respiratory distress secondary to acute coronary syndrome. Non-ST elevation myocardial infarction, 12-lead EKG has been reviewed. Obesity. Hyperlipidemia. Diabetes. Acute pulmonary edema. Chronic kidney disease. Leukocytosis. Human immunodeficiency virus positive. Chest pain - for stress testing - continue supplemental oxygen to keep O2 sat's > 90% - prn tridil for chest pains - continue BIPAP scheduled qhs with prn daytime use - continue IV heparin drip per ACS protocol - continue ART for HIV infection - continue G.I. prophylaxis - mobility protocols for pressure ulcer prophylaxis - PT/OT as tolerated (Once ACS is cleared) - weight loss counseled - continue other care per attending / other consultants - needs outpatient PSG ... transfer to telemetry ... re-evaluate in am & prn I have spent ( >35 ) minutes with the patient w/ >50% of the time spent counseling and/or coordinating care for this patient. Counseling topics and/or how time was spent coordinating patient's care is outlined in the impression and plan above. Subjective Date of service: 12/26/18 Principal diagnosis: Ac. resp distress; NSTEMI; ; Ac. Pulm edema; DM II; CKD; HIV +ve Interval history: Patient is seen today for: Ac. resp distress; NSTEMI; Obesity; Hyperlipidemia; Diabetes type II; Acute pulmonary edema; Chronic kidney disease; HIV +ve Seen and examined at bedside; 24hour events reviewed; nursing and respiratory care staff consulted; no adverse overnight events reported to me; resting peacefully in bed; renal failure is not improving and LHCath held; for stress testing now; remains chest pain free; tolerating BIPAP; No N/V/F/C Objective Vital Signs - 12hr 12/25/18 12/26/18 12/26/18 23:31 00:00 00:01 Temperature 196 F H Pulse Rate 88 98 H 93 H Respiratory 8 L 13 Rate Blood Pressure 118/66 118/66 O2 Sat by Pulse 98 100 Oximetry 12/26/18 12/26/18 12/26/18 00:31 01:00 01:31 Temperature Pulse Rate 90 87 85 Respiratory 10 L 5 L 7 L Rate Blood Pressure 129/77 108/63 108/63 O2 Sat by Pulse 99 98 99 Oximetry 12/26/18 12/26/18 12/26/18 01:35 02:00 02:30 Temperature Pulse Rate 85 85 87 Respiratory 10 L 12 4 L Rate Blood Pressure 113/66 113/66 O2 Sat by Pulse 99 99 Oximetry 12/26/18 12/26/18 12/26/18 03:00 03:31 04:00 Temperature 99.9 F H Pulse Rate 88 88 90 Respiratory 6 L 10 L 9 L Rate Blood Pressure 124/60 124/60 111/70 O2 Sat by Pulse 100 97 99 Oximetry 12/26/18 12/26/18 12/26/18 04:01 04:31 05:00 Temperature Pulse Rate 90 89 91 H Respiratory 10 L 7 L 10 L Rate Blood Pressure 111/70 111/70 118/65 O2 Sat by Pulse 98 97 Oximetry 12/26/18 12/26/18 12/26/18 05:31 06:00 06:31 Temperature Pulse Rate 91 H 92 H 90 Respiratory 13 11 L 5 L Rate Blood Pressure 118/65 123/56 123/56 O2 Sat by Pulse 98 92 99 Oximetry 12/26/18 12/26/18 12/26/18 07:00 07:31 08:00 Temperature 100.4 F H Pulse Rate 92 H 89 91 H Respiratory 13 7 L 8 L Rate Blood Pressure 124/74 124/74 129/72 O2 Sat by Pulse 98 99 99 Oximetry 12/26/18 12/26/18 08:31 09:00 Temperature Pulse Rate 90 89 Respiratory 11 L 5 L Rate Blood Pressure 119/66 114/66 O2 Sat by Pulse 99 95 Oximetry Constitutional: no acute distress, alert, other (middle aged obese female, normocephalic with mildly increased resp effort at rest) Eyes: non-icteric ENT: oropharynx moist, other (mallampati 4) Neck: supple, no lymphadenopathy, no JVD, other (large neck circumference) Effort: mildly labored Ascultation: Bilateral: clear, diminished breath sounds Percussion: Bilateral: not dull Cardiovascular: regular rate and rhythm (S1S2, RRR) Gastrointestinal: normoactive bowel sounds, soft, non-tender, non-distended, other (protuberant) Integumentary: normal Extremities: no cyanosis, pink and warm, pulses normal, no ischemia or petechiae, edema (trace) Neurologic: normal mental status, non-focal exam, pupils equal and round, CN II-XII normal Psychiatric: anxious CBC and BMP: 12/25/18 04:44 12/26/18 04:20 ABG, PT/INR, D-dimer: PT/INR, D-dimer PT 13.2 Sec. (12.2-14.9) 12/23/18 03:22 INR 1.03 (0.87-1.13) 12/23/18 03:22 D-Dimer 897.35 ng/mlDDU (0-234) H 12/22/18 23:07 Abnormal lab findings: Abnormal Labs 12/22/18 12/22/18 12/22/18 22:58 22:58 22:58 WBC 12.3 H RBC 3.01 L Hgb 9.9 L Hct 29.7 L MCV 99 H MCH 33 H Rowan # 0.9 H Baso # 0.2 H Seg Neutrophils % 70.7 H Seg Neutrophils # 8.7 H APTT D-Dimer Heparin Anti-Xa Level Sodium 135 L Potassium Chloride Carbon Dioxide BUN 42 H Creatinine 3.4 H Glucose 146 H POC Glucose Total Creatine Kinase CK-MB (CK-2) Troponin T 0.093 H NT-Pro-B Natriuret Pep 1522 H Triglycerides Cholesterol LDL Cholesterol Direct HDL Cholesterol 12/22/18 12/23/18 12/23/18 23:07 03:22 03:22 WBC RBC Hgb 10.0 L Hct 29.8 L MCV MCH Rowan # Baso # Seg Neutrophils % Seg Neutrophils # APTT D-Dimer 897.35 H Heparin Anti-Xa Level Sodium Potassium Chloride Carbon Dioxide BUN Creatinine Glucose POC Glucose Total Creatine Kinase CK-MB (CK-2) Troponin T 0.080 H NT-Pro-B Natriuret Pep Triglycerides 325 H Cholesterol 252 H LDL Cholesterol Direct 174 H HDL Cholesterol 33 L 12/23/18 12/23/18 12/23/18 03:22 05:23 11:29 WBC RBC Hgb Hct MCV MCH Rowan # Baso # Seg Neutrophils % Seg Neutrophils # APTT < 24.2 L D-Dimer Heparin Anti-Xa Level Sodium Potassium Chloride Carbon Dioxide BUN Creatinine Glucose POC Glucose 239 H Total Creatine Kinase 167 H CK-MB (CK-2) 4.6 H Troponin T 0.084 H NT-Pro-B Natriuret Pep Triglycerides Cholesterol LDL Cholesterol Direct HDL Cholesterol 12/23/18 12/23/18 12/23/18 11:41 14:56 17:14 WBC RBC Hgb Hct MCV MCH Rowan # Baso # Seg Neutrophils % Seg Neutrophils # APTT D-Dimer Heparin Anti-Xa Level Sodium 132 L Potassium 5.6 H D Chloride Carbon Dioxide 16 L BUN 46 H Creatinine 3.2 H Glucose 263 H POC Glucose 282 H Total Creatine Kinase 145 H CK-MB (CK-2) Troponin T 0.107 H* D NT-Pro-B Natriuret Pep Triglycerides Cholesterol LDL Cholesterol Direct HDL Cholesterol 12/23/18 12/24/18 12/24/18 21:26 02:49 05:49 WBC RBC Hgb Hct MCV MCH Rowan # Baso # Seg Neutrophils % Seg Neutrophils # APTT D-Dimer Heparin Anti-Xa Level Sodium Potassium Chloride Carbon Dioxide BUN Creatinine Glucose POC Glucose 318 H 324 H 340 H Total Creatine Kinase CK-MB (CK-2) Troponin T NT-Pro-B Natriuret Pep Triglycerides Cholesterol LDL Cholesterol Direct HDL Cholesterol 12/24/18 12/24/18 12/24/18 08:23 11:05 12:03 WBC RBC Hgb Hct MCV MCH Rowan # Baso # Seg Neutrophils % Seg Neutrophils # APTT D-Dimer Heparin Anti-Xa Level 0.21 L Sodium Potassium Chloride Carbon Dioxide BUN Creatinine Glucose POC Glucose 246 H 283 H Total Creatine Kinase CK-MB (CK-2) Troponin T NT-Pro-B Natriuret Pep Triglycerides Cholesterol LDL Cholesterol Direct HDL Cholesterol 12/24/18 12/24/18 12/24/18 15:55 19:07 20:03 WBC RBC Hgb Hct MCV MCH Rowan # Baso # Seg Neutrophils % Seg Neutrophils # APTT D-Dimer Heparin Anti-Xa Level < 0.10 L Sodium Potassium Chloride Carbon Dioxide BUN Creatinine Glucose POC Glucose 292 H 313 H Total Creatine Kinase CK-MB (CK-2) Troponin T NT-Pro-B Natriuret Pep Triglycerides Cholesterol LDL Cholesterol Direct HDL Cholesterol 12/24/18 12/24/18 12/25/18 23:33 Unknown 04:44 WBC RBC Hgb Hct MCV MCH Rowan # Baso # Seg Neutrophils % Seg Neutrophils # APTT D-Dimer Heparin Anti-Xa Level Sodium 136 L Potassium Chloride Carbon Dioxide 21 L BUN 39 H 38 H Creatinine 2.6 H 3.4 H Glucose 279 H 207 H POC Glucose 240 H Total Creatine Kinase CK-MB (CK-2) Troponin T NT-Pro-B Natriuret Pep Triglycerides Cholesterol LDL Cholesterol Direct HDL Cholesterol 12/25/18 12/25/18 12/25/18 04:44 04:52 07:31 WBC RBC Hgb Hct MCV MCH Rowan # Baso # Seg Neutrophils % Seg Neutrophils # APTT D-Dimer Heparin Anti-Xa Level 0.29 L Sodium Potassium Chloride Carbon Dioxide BUN Creatinine Glucose POC Glucose 222 H 204 H Total Creatine Kinase CK-MB (CK-2) Troponin T NT-Pro-B Natriuret Pep Triglycerides Cholesterol LDL Cholesterol Direct HDL Cholesterol 12/25/18 12/25/18 12/25/18 11:57 15:29 16:02 WBC RBC Hgb Hct MCV MCH Rowan # Baso # Seg Neutrophils % Seg Neutrophils # APTT D-Dimer Heparin Anti-Xa Level 0.87 H Sodium Potassium Chloride Carbon Dioxide BUN Creatinine Glucose POC Glucose 160 H 180 H Total Creatine Kinase CK-MB (CK-2) Troponin T NT-Pro-B Natriuret Pep Triglycerides Cholesterol LDL Cholesterol Direct HDL Cholesterol 12/25/18 12/25/18 12/26/18 20:46 23:34 03:47 WBC RBC Hgb Hct MCV MCH Rowan # Baso # Seg Neutrophils % Seg Neutrophils # APTT D-Dimer Heparin Anti-Xa Level Sodium Potassium Chloride Carbon Dioxide BUN Creatinine Glucose POC Glucose 238 H 196 H 108 H Total Creatine Kinase CK-MB (CK-2) Troponin T NT-Pro-B Natriuret Pep Triglycerides Cholesterol LDL Cholesterol Direct HDL Cholesterol 12/26/18 12/26/18 12/26/18 04:20 08:07 10:00 WBC RBC Hgb Hct MCV MCH Rowan # Baso # Seg Neutrophils % Seg Neutrophils # APTT D-Dimer Heparin Anti-Xa Level Sodium 136 L Potassium Chloride 93.8 L Carbon Dioxide BUN 38 H Creatinine 3.9 H Glucose 168 H POC Glucose 168 H Total Creatine Kinase CK-MB (CK-2) Troponin T NT-Pro-B Natriuret Pep 2098 H Triglycerides Cholesterol LDL Cholesterol Direct HDL Cholesterol Allied health notes reviewed: nursing
[2018-12-26 12:39] LABS: Bacteria,Urine 4+ /HPF (Negative); Bilirubin,Urine NEG (Negative); Blood,Urine NEG (Negative); Color,Urine Yellow (Yellow); Urobilinogen,Urine < 2.0 mg/dL (<2.0)
[2018-12-26 12:40] LABS: Protein,Urine >2000 mg dL mg/dL (Negative)
--- NOTE | 2018-12-26 12:43 | Progress Note ---
Assessment and Plan Chest pain, atypical Elevated troponin, nonspecific in the setting of renal failure Chronic renal failure Diabetes Hypertension HIV disease Hx of gastroparesis Hx of heart failure with preserved ejection fraction no evidence of acute exacerbation Subjective Date of service: 12/26/18 Principal diagnosis: Ac. resp distress; NSTEMI; ; Ac. Pulm edema; DM II; CKD; HIV +ve Interval history: Patient is on BIPAP in the ICU. Objective Vital Signs Temp Pulse Resp BP Pulse Ox 12/26/18 09:00 89 5 L 114/66 95 12/26/18 08:31 90 11 L 119/66 99 12/26/18 08:00 100.4 F H 91 H 8 L 129/72 99 12/26/18 07:31 89 7 L 124/74 99 12/26/18 07:00 92 H 13 124/74 98 12/26/18 06:31 90 5 L 123/56 99 12/26/18 06:00 92 H 11 L 123/56 92 12/26/18 05:31 91 H 13 118/65 98 12/26/18 05:00 91 H 10 L 118/65 97 12/26/18 04:31 89 7 L 111/70 98 12/26/18 04:01 90 10 L 111/70 12/26/18 04:00 99.9 F H 90 9 L 111/70 99 12/26/18 03:31 88 10 L 124/60 97 12/26/18 03:00 88 6 L 124/60 100 12/26/18 02:30 87 4 L 113/66 99 12/26/18 02:00 85 12 113/66 99 12/26/18 01:35 85 10 L 12/26/18 01:31 85 7 L 108/63 99 12/26/18 01:00 87 5 L 108/63 98 12/26/18 00:31 90 10 L 129/77 99 12/26/18 00:01 93 H 13 118/66 100 12/26/18 00:00 196 F H 98 H 12/25/18 23:31 88 8 L 118/66 98 12/25/18 23:01 86 9 L 118/66 96 12/25/18 22:31 88 7 L 147/80 97 12/25/18 22:00 96 H 13 150/99 100 12/25/18 21:44 91 H 8 L 150/99 97 12/25/18 21:31 91 H 7 L 150/99 99 12/25/18 21:00 93 H 8 L 150/99 98 12/25/18 20:31 95 H 8 L 132/64 100 12/25/18 20:00 99.0 F 88 6 L 156/89 98 12/25/18 19:31 90 7 L 151/95 99 12/25/18 19:01 98 H 12 156/89 98 12/25/18 18:31 101 H 12 147/86 100 12/25/18 18:00 100 H 12 151/95 12/25/18 17:31 101 H 13 147/86 100 12/25/18 17:01 90 12 147/86 99 12/25/18 16:31 90 6 L 158/95 99 12/25/18 16:01 84 5 L 158/95 100 12/25/18 16:00 98.4 F 12/25/18 15:31 88 5 L 158/95 100 12/25/18 15:00 92 H 9 L 158/95 99 12/25/18 14:31 95 H 12 156/86 100 12/25/18 14:01 88 10 L 138/69 100 12/25/18 13:31 85 7 L 138/69 100 12/25/18 13:00 88 10 L 138/69 100 12/25/18 12:58 98.4 F - Physical Examination General: No Apparent Distress HEENT: Positive: PERRL Neck: Positive: trachea midline Cardiac: Positive: Reg Rate and Rhythm Lungs: Positive: Decreased Breath Sounds Neuro: Positive: Grossly Intact Extremities: Absent: edema - Labs and Meds Comprehensive Metabolic Panel 12/26/18 Range/Units 04:20 Sodium 136 L (137-145) mmol/L Potassium 4.8 (3.6-5.0) mmol/L Chloride 93.8 L (98-107) mmol/L Carbon Dioxide 23 (22-30) mmol/L BUN 38 H (7-17) mg/dL Creatinine 3.9 H (0.7-1.2) mg/dL Glucose 168 H (65-100) mg/dL Calcium 8.5 (8.4-10.2) mg/dL - Allied health notes Allied health notes reviewed: nursing
[2018-12-26] MEDS: HEPARIN/ 0.45% NACL-25,000 UNIT/500 ML 25,000 UNIT/500 ML BAG IV SCH ×2 (15:14→16:43)
[2018-12-26 15:37] LABS: Creatinine,Urine 216.1 mg/dL (0.1-20.0)
--- NOTE | 2018-12-26 15:38 | Progress Note ---
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 resp distress; NSTEMI; ; Ac. Pulm edema; DM II; CKD; HIV +ve Interval history: Patient seen and examined. Medical records and medication list reviewed. No acute event overnight noted by the RN. Patient continue to complaints of intermittent chest pain. Patient is tolerating diet. Discussed plan of care at bedside with patient. Objective - Exam Narrative Exam: GENERAL: well-developed morbidly obese female lying on bed appeared to be in no discomfort. HEENT: Normocephalic. Atraumatic. No conjunctival congestion or icterus. Patient has moist mucous membranes. NECK: Supple. Trachea midline. CHEST/LUNGS: Clear to auscultated bilaterally, breathing nonlabored. No wheezes crackles or rhonchi. HEART/CARDIOVASCULAR: Regular in rate and rhythm. S1 and S2 positive. ABDOMEN: Abdomen is soft, nontender. Patient has normal bowel sounds. SKIN: There is no rash. Warm and dry. NEURO: No focal motor deficit. Follows command. MUSCULOSKELETAL: No joint effusion or tenderness. EXTRIMITY: No edema, no cyanosis or clubbing. PSYCH: Cooperative. - Constitutional Vitals: Vital Signs - 12hr 12/26/18 12/26/18 12/26/18 04:00 04:01 04:31 Temperature 99.9 F H Pulse Rate 90 90 89 Respiratory 9 L 10 L 7 L Rate Blood Pressure 111/70 111/70 111/70 O2 Sat by Pulse 99 98 Oximetry 12/26/18 12/26/18 12/26/18 05:00 05:31 06:00 Temperature Pulse Rate 91 H 91 H 92 H Respiratory 10 L 13 11 L Rate Blood Pressure 118/65 118/65 123/56 O2 Sat by Pulse 97 98 92 Oximetry 12/26/18 12/26/18 12/26/18 06:31 07:00 07:31 Temperature Pulse Rate 90 92 H 89 Respiratory 5 L 13 7 L Rate Blood Pressure 123/56 124/74 124/74 O2 Sat by Pulse 99 98 99 Oximetry 12/26/18 12/26/18 12/26/18 08:00 08:31 09:00 Temperature 100.4 F H Pulse Rate 91 H 90 89 Respiratory 8 L 11 L 5 L Rate Blood Pressure 129/72 119/66 114/66 O2 Sat by Pulse 99 99 95 Oximetry 12/26/18 12/26/18 12/26/18 09:31 10:00 10:31 Temperature Pulse Rate 88 88 89 Respiratory 8 L 7 L 7 L Rate Blood Pressure 114/66 120/63 120/63 O2 Sat by Pulse 99 98 95 Oximetry 12/26/18 12/26/18 12/26/18 11:00 11:31 12:00 Temperature 99.0 F Pulse Rate 92 H 99 H 99 H Respiratory 13 12 14 Rate Blood Pressure 129/72 129/72 136/77 O2 Sat by Pulse 98 97 94 Oximetry 12/26/18 12/26/18 12/26/18 12:31 13:00 13:31 Temperature Pulse Rate 101 H 95 H 94 H Respiratory 14 14 12 Rate Blood Pressure 136/77 126/64 126/64 O2 Sat by Pulse 95 98 99 Oximetry 12/26/18 12/26/18 14:00 14:31 Temperature Pulse Rate 89 91 H Respiratory 8 L 10 L Rate Blood Pressure 120/62 120/62 O2 Sat by Pulse 98 86 Oximetry - Labs CBC & Chem 7: 12/25/18 04:44 12/26/18 04:20 Labs: Abnormal lab results 12/25/18 12/25/18 12/25/18 Range/Units 15:29 16:02 20:46 Heparin Anti-Xa Level 0.87 H (0.3-0.7) U.I./ml Sodium (137-145) mmol/L Chloride (98-107) mmol/L BUN (7-17) mg/dL Creatinine (0.7-1.2) mg/dL Glucose (65-100) mg/dL POC Glucose 180 H 238 H (70-105) NT-Pro-B Natriuret Pep (0-450) pg/mL Urine WBC (Auto) (0.0-6.0) /HPF 12/25/18 12/26/18 12/26/18 Range/Units 23:34 03:47 04:20 Heparin Anti-Xa Level (0.3-0.7) U.I./ml Sodium 136 L (137-145) mmol/L Chloride 93.8 L (98-107) mmol/L BUN 38 H (7-17) mg/dL Creatinine 3.9 H (0.7-1.2) mg/dL Glucose 168 H (65-100) mg/dL POC Glucose 196 H 108 H (70-105) NT-Pro-B Natriuret Pep (0-450) pg/mL Urine WBC (Auto) (0.0-6.0) /HPF 12/26/18 12/26/18 12/26/18 Range/Units 04:20 08:07 10:00 Heparin Anti-Xa Level (0.3-0.7) U.I./ml Sodium (137-145) mmol/L Chloride (98-107) mmol/L BUN (7-17) mg/dL Creatinine (0.7-1.2) mg/dL Glucose (65-100) mg/dL POC Glucose 168 H (70-105) NT-Pro-B Natriuret Pep 2049 H 2098 H (0-450) pg/mL Urine WBC (Auto) (0.0-6.0) /HPF 12/26/18 Range/Units 11:30 Heparin Anti-Xa Level (0.3-0.7) U.I./ml Sodium (137-145) mmol/L Chloride (98-107) mmol/L BUN (7-17) mg/dL Creatinine (0.7-1.2) mg/dL Glucose (65-100) mg/dL POC Glucose (70-105) NT-Pro-B Natriuret Pep (0-450) pg/mL Urine WBC (Auto) 13.0 H (0.0-6.0) /HPF
[2018-12-26 16:01] LABS: Creatinine 24 Hour,Urine 1.3 (0.8-2.8)
[2018-12-26 16:20] LABS: Creatinine,Urine 216.1 mg/dL (0.1-20.0)
[2018-12-26 16:43] LABS: Creatinine,Urine 216.1 mg/dL (0.1-20.0); Protein/Creatinine Ratio,Urine 1.07
[2018-12-26] MEDS: PRAVACHOL PO SCH (21:41)
[2018-12-26] MEDS: LANTUS SUB-Q SCH (21:54)
[2018-12-26] MEDS: DESYREL PO SCH (23:39)
[2018-12-27] MEDS: GABAPENTIN PO SCH ×3 (06:11→22:21)
[2018-12-27 07:43] LABS: Basophils # (Auto) 0.1 K/mm3 (0.0-0.1); Basophils % (Auto) 1.3 % (0.0-1.8); Eosinophils # (Auto) 0.2 K/mm3 (0.0-0.4); Eosinophils % (Auto) 2.4 % (0.0-4.3); Hematocrit 29.3 % (30.3-42.9); Hemoglobin 9.8 gm/dl (10.1-14.3); Lymphocytes # (Auto) 3.1 K/mm3 (1.2-5.4); Lymphocytes % (Auto) 32.4 % (13.4-35.0); Mean Corpuscular HGB Conc 34 % (30-34); Mean Corpuscular Volume 99 fl (79-97); Monocytes # (Auto) 0.8 K/mm3 (0.0-0.8); Monocytes % (Auto) 7.9 % (0.0-7.3); Platelet Count 275 K/mm3 (140-440); Red Blood Count 2.95 M/mm3 (3.65-5.03); Red Cell Distribution Width 14.3 % (13.2-15.2)
[2018-12-27 07:48] LABS: Calcium 9.1 mg/dL (8.4-10.2)
--- NOTE | 2018-12-27 09:43 | Progress Note ---
Assessment and Plan Chest pain, atypical Elevated troponin, nonspecific in the setting of renal failure Chronic renal failure Diabetes Hypertension HIV disease Hx of gastroparesis Hx of heart failure with preserved ejection fraction no evidence of acute exacerbation Pre-discharge persantine thallium stress test. This will be done tomorrow morning. Subjective Date of service: 12/27/18 Principal diagnosis: Ac. resp distress; NSTEMI; ; Ac. Pulm edema; DM II; CKD; HIV +ve Interval history: Patient denies chest pain and shortness of breath. Wants to go home. Objective Vital Signs Temp Pulse Pulse Resp Resp BP Pulse Ox 12/27/18 08:23 98.5 F 98 H 18 170/86 99 12/27/18 03:31 99.2 F 92 H 22 122/81 94 12/27/18 02:39 75 10 L 12/26/18 23:21 99.1 F 94 H 20 154/81 94 12/26/18 22:00 22 12/26/18 21:55 90 22 98 12/26/18 21:01 57 L 12 92 12/26/18 19:58 92 H 12/26/18 19:22 98.0 F 94 H 20 149/95 85 12/26/18 16:16 99.5 F 89 18 155/91 96 12/26/18 16:00 83 12/26/18 15:00 86 5 L 128/64 94 12/26/18 14:31 91 H 10 L 120/62 86 12/26/18 14:00 89 8 L 120/62 98 12/26/18 13:31 94 H 12 126/64 99 12/26/18 13:00 95 H 14 126/64 98 12/26/18 12:31 101 H 14 136/77 95 12/26/18 12:00 99.0 F 99 H 14 136/77 94 12/26/18 11:31 99 H 12 129/72 97 12/26/18 11:00 92 H 13 129/72 98 12/26/18 10:31 89 7 L 120/63 95 12/26/18 10:00 88 7 L 120/63 98 - Physical Examination General: No Apparent Distress HEENT: Positive: PERRL Neck: Positive: trachea midline Cardiac: Positive: Reg Rate and Rhythm Lungs: Positive: Decreased Breath Sounds Neuro: Positive: Grossly Intact Abdomen: Positive: Unremarkable, Active Bowel Sounds Extremities: Absent: edema - Labs and Meds CBC 12/27/18 Range/Units 06:30 WBC 9.6 (4.5-11.0) K/mm3 RBC 2.95 L (3.65-5.03) M/mm3 Hgb 9.8 L (10.1-14.3) gm/dl Hct 29.3 L (30.3-42.9) % Plt Count 275 (140-440) K/mm3 Lymph # 3.1 (1.2-5.4) K/mm3 [place] # 0.8 (0.0-0.8) K/mm3 Eos # 0.2 (0.0-0.4) K/mm3 Baso # 0.1 (0.0-0.1) K/mm3 Comprehensive Metabolic Panel 12/27/18 Range/Units 06:30 Sodium 136 L (137-145) mmol/L Potassium 4.5 (3.6-5.0) mmol/L Chloride 97.0 L (98-107) mmol/L Carbon Dioxide 23 (22-30) mmol/L BUN 43 H (7-17) mg/dL Creatinine 3.3 H (0.7-1.2) mg/dL Glucose 158 H (65-100) mg/dL Calcium 9.1 (8.4-10.2) mg/dL - Allied health notes Allied health notes reviewed: nursing
--- NOTE | 2018-12-27 09:47 | Progress Note ---
Assessment and Plan Patient resting on 3 litres O2.O2 saturation 100%. No complaint of chest pain or shortness of breath at this time. Patient morbidly Obese. Complaining symptoms of sleep apnea. BIPAP standby in the room. Recommend sleep study as out patient. Patient afebrile. No leukocytosis. - Patient Problems (1) Acute chest pain Current Visit: Yes Status: Acute Plan to address problem: Management as per cardiology. (2) CHF exacerbation Current Visit: Yes Status: Acute Qualifiers: Heart failure type: unspecified Qualified Code(s): I50.9 - Heart failure, unspecified Plan to address problem: Management as per cardiology. (3) CKD (chronic kidney disease) Current Visit: Yes Status: Acute Qualifiers: Chronic kidney disease stage: unspecified stage Qualified Code(s): N18.9 - Chronic kidney disease, unspecified Plan to address problem: Management as per primary care and nephrology. (4) HIV (human immunodeficiency virus infection) Current Visit: Yes Status: Acute Qualifiers: HIV symptom status: unspecified Qualified Code(s): B20 - Human immunodeficiency virus [HIV] disease Plan to address problem: Management as per primary care and infectious diseases. (5) Morbid obesity with BMI of 50.0-59.9, adult Current Visit: Yes Status: Acute Plan to address problem: Recommend loose weight Recommend Exercise and Diet. V/Q scan reported low Probability for pulmonary emboli. (6) Sleep apnea Current Visit: Yes Status: Acute Plan to address problem: Recommend sleep study as out patient. Subjective Date of service: 12/27/18 Principal diagnosis: Ac. resp distress; NSTEMI; ; Ac. Pulm edema; DM II; CKD; HIV +ve Interval history: Patient resting on 3 litres O2.O2 saturation 100%. No complaint of chest pain or shortness of breath at this time. Patient morbidly Obese. Complaining symptoms of sleep apnea. BIPAP standby in the room. Recommend sleep study as out patient. Patient afebrile. No leukocytosis. Objective Vital Signs - 12hr 12/26/18 12/26/18 12/26/18 21:55 22:00 23:21 Temperature 99.1 F Pulse Rate 94 H Pulse Rate [ 90 Apical] Respiratory 22 20 Rate Respiratory 22 Rate [Back] Blood Pressure 154/81 O2 Sat by Pulse 98 94 Oximetry 1012/27/18 12/27/18 02:39 03:31 08:23 Temperature 99.2 F 98.5 F Pulse Rate 75 92 H 98 H Pulse Rate [ Apical] Respiratory 10 L 22 18 Rate Respiratory Rate [Back] Blood Pressure 122/81 170/86 O2 Sat by Pulse 94 99 Oximetry Constitutional: no acute distress, alert, other (middle aged obese female, normocephalic with mildly increased resp effort at rest) Eyes: non-icteric ENT: oropharynx moist, other (mallampati 4) Neck: supple, no lymphadenopathy, no JVD, other (large neck circumference) Effort: mildly labored Ascultation: Bilateral: diminished breath sounds Percussion: Bilateral: not dull Cardiovascular: regular rate and rhythm (S1S2, RRR) Gastrointestinal: normoactive bowel sounds, soft, non-tender, non-distended, other (protuberant) Integumentary: normal Extremities: no cyanosis, pink and warm, pulses normal, no ischemia or petechiae, edema (trace) Neurologic: normal mental status, non-focal exam, pupils equal and round, CN II- XII normal Psychiatric: anxious CBC and BMP: 12/27/18 06:30 12/27/18 06:30 ABG, PT/INR, D-dimer: PT/INR, D-dimer PT 13.2 Sec. (12.2-14.9) 12/23/18 03:22 INR 1.03 (0.87-1.13) 12/23/18 03:22 D-Dimer 897.35 ng/mlDDU (0-234) H 12/22/18 23:07 Abnormal lab findings: Abnormal Labs 12/22/18 12/22/18 12/22/18 22:58 22:58 22:58 WBC 12.3 H RBC 3.01 L Hgb 9.9 L Hct 29.7 L MCV 99 H MCH 33 H Hunt % (Auto) Hunt # 0.9 H Baso # 0.2 H Seg Neutrophils % 70.7 H Seg Neutrophils # 8.7 H APTT D-Dimer Heparin Anti-Xa Level Sodium 135 L Potassium Chloride Carbon Dioxide BUN 42 H Creatinine 3.4 H Glucose 146 H POC Glucose Total Creatine Kinase CK-MB (CK-2) Troponin T 0.093 H NT-Pro-B Natriuret Pep 1522 H Triglycerides Cholesterol LDL Cholesterol Direct HDL Cholesterol Urine WBC (Auto) Urine Creatinine Ur Total Protein 24 Hr Urine Total Protein 12/22/18 12/23/18 12/23/18 23:07 03:22 03:22 WBC RBC Hgb 10.0 L Hct 29.8 L MCV MCH Hunt % (Auto) Hunt # Baso # Seg Neutrophils % Seg Neutrophils # APTT D-Dimer 897.35 H Heparin Anti-Xa Level Sodium Potassium Chloride Carbon Dioxide BUN Creatinine Glucose POC Glucose Total Creatine Kinase CK-MB (CK-2) Troponin T 0.080 H NT-Pro-B Natriuret Pep Triglycerides 325 H Cholesterol 252 H LDL Cholesterol Direct 174 H HDL Cholesterol 33 L Urine WBC (Auto) Urine Creatinine Ur Total Protein 24 Hr Urine Total Protein 12/23/18 12/23/18 12/23/18 03:22 05:23 11:29 WBC RBC Hgb Hct MCV MCH Hunt % (Auto) Hunt # Baso # Seg Neutrophils % Seg Neutrophils # APTT < 24.2 L D-Dimer Heparin Anti-Xa Level Sodium Potassium Chloride Carbon Dioxide BUN Creatinine Glucose POC Glucose 239 H Total Creatine Kinase 167 H CK-MB (CK-2) 4.6 H Troponin T 0.084 H NT-Pro-B Natriuret Pep Triglycerides Cholesterol LDL Cholesterol Direct HDL Cholesterol Urine WBC (Auto) Urine Creatinine Ur Total Protein 24 Hr Urine Total Protein 12/23/18 12/23/18 12/23/18 11:41 14:56 17:14 WBC RBC Hgb Hct MCV MCH Hunt % (Auto) Hunt # Baso # Seg Neutrophils % Seg Neutrophils # APTT D-Dimer Heparin Anti-Xa Level Sodium 132 L Potassium 5.6 H D Chloride Carbon Dioxide 16 L BUN 46 H Creatinine 3.2 H Glucose 263 H POC Glucose 282 H Total Creatine Kinase 145 H CK-MB (CK-2) Troponin T 0.107 H* D NT-Pro-B Natriuret Pep Triglycerides Cholesterol LDL Cholesterol Direct HDL Cholesterol Urine WBC (Auto) Urine Creatinine Ur Total Protein 24 Hr Urine Total Protein 12/23/18 12/24/18 12/24/18 21:26 02:49 05:49 WBC RBC Hgb Hct MCV MCH Hunt % (Auto) Hunt # Baso # Seg Neutrophils % Seg Neutrophils # APTT D-Dimer Heparin Anti-Xa Level Sodium Potassium Chloride Carbon Dioxide BUN Creatinine Glucose POC Glucose 318 H 324 H 340 H Total Creatine Kinase CK-MB (CK-2) Troponin T NT-Pro-B Natriuret Pep Triglycerides Cholesterol LDL Cholesterol Direct HDL Cholesterol Urine WBC (Auto) Urine Creatinine Ur Total Protein 24 Hr Urine Total Protein 12/24/18 12/24/18 12/24/18 08:23 11:05 12:03 WBC RBC Hgb Hct MCV MCH Hunt % (Auto) Hunt # Baso # Seg Neutrophils % Seg Neutrophils # APTT D-Dimer Heparin Anti-Xa Level 0.21 L Sodium Potassium Chloride Carbon Dioxide BUN Creatinine Glucose POC Glucose 246 H 283 H Total Creatine Kinase CK-MB (CK-2) Troponin T NT-Pro-B Natriuret Pep Triglycerides Cholesterol LDL Cholesterol Direct HDL Cholesterol Urine WBC (Auto) Urine Creatinine Ur Total Protein 24 Hr Urine Total Protein 12/24/18 12/24/18 12/24/18 15:55 19:07 20:03 WBC RBC Hgb Hct MCV MCH Hunt % (Auto) Hunt # Baso # Seg Neutrophils % Seg Neutrophils # APTT D-Dimer Heparin Anti-Xa Level < 0.10 L Sodium Potassium Chloride Carbon Dioxide BUN Creatinine Glucose POC Glucose 292 H 313 H Total Creatine Kinase CK-MB (CK-2) Troponin T NT-Pro-B Natriuret Pep Triglycerides Cholesterol LDL Cholesterol Direct HDL Cholesterol Urine WBC (Auto) Urine Creatinine Ur Total Protein 24 Hr Urine Total Protein 12/24/18 12/24/18 12/25/18 23:33 Unknown 04:44 WBC RBC Hgb Hct MCV MCH Hunt % (Auto) Hunt # Baso # Seg Neutrophils % Seg Neutrophils # APTT D-Dimer Heparin Anti-Xa Level Sodium 136 L Potassium Chloride Carbon Dioxide 21 L BUN 39 H 38 H Creatinine 2.6 H 3.4 H Glucose 279 H 207 H POC Glucose 240 H Total Creatine Kinase CK-MB (CK-2) Troponin T NT-Pro-B Natriuret Pep Triglycerides Cholesterol LDL Cholesterol Direct HDL Cholesterol Urine WBC (Auto) Urine Creatinine Ur Total Protein 24 Hr Urine Total Protein 12/25/18 12/25/18 12/25/18 04:44 04:52 07:31 WBC RBC Hgb Hct MCV MCH Hunt % (Auto) Hunt # Baso # Seg Neutrophils % Seg Neutrophils # APTT D-Dimer Heparin Anti-Xa Level 0.29 L Sodium Potassium Chloride Carbon Dioxide BUN Creatinine Glucose POC Glucose 222 H 204 H Total Creatine Kinase CK-MB (CK-2) Troponin T NT-Pro-B Natriuret Pep Triglycerides Cholesterol LDL Cholesterol Direct HDL Cholesterol Urine WBC (Auto) Urine Creatinine Ur Total Protein 24 Hr Urine Total Protein 12/25/18 12/25/18 12/25/18 11:57 12:21 13:00 WBC RBC Hgb Hct MCV MCH Hunt % (Auto) Hunt # Baso # Seg Neutrophils % Seg Neutrophils # APTT D-Dimer Heparin Anti-Xa Level Sodium Potassium Chloride Carbon Dioxide BUN Creatinine Glucose POC Glucose 160 H Total Creatine Kinase CK-MB (CK-2) Troponin T NT-Pro-B Natriuret Pep Triglycerides Cholesterol LDL Cholesterol Direct HDL Cholesterol Urine WBC (Auto) Urine Creatinine 216.1 H 216.1 H Ur Total Protein 24 Hr 2832.00 H Urine Total Protein 472 H 12/25/18 12/25/18 12/25/18 15:29 16:02 20:46 WBC RBC Hgb Hct MCV MCH Hunt % (Auto) Hunt # Baso # Seg Neutrophils % Seg Neutrophils # APTT D-Dimer Heparin Anti-Xa Level 0.87 H Sodium Potassium Chloride Carbon Dioxide BUN Creatinine Glucose POC Glucose 180 H 238 H Total Creatine Kinase CK-MB (CK-2) Troponin T NT-Pro-B Natriuret Pep Triglycerides Cholesterol LDL Cholesterol Direct HDL Cholesterol Urine WBC (Auto) Urine Creatinine Ur Total Protein 24 Hr Urine Total Protein 12/25/18 12/26/18 12/26/18 23:34 03:47 04:20 WBC RBC Hgb Hct MCV MCH Hunt % (Auto) Hunt # Baso # Seg Neutrophils % Seg Neutrophils # APTT D-Dimer Heparin Anti-Xa Level Sodium 136 L Potassium Chloride 93.8 L Carbon Dioxide BUN 38 H Creatinine 3.9 H Glucose 168 H POC Glucose 196 H 108 H Total Creatine Kinase CK-MB (CK-2) Troponin T NT-Pro-B Natriuret Pep Triglycerides Cholesterol LDL Cholesterol Direct HDL Cholesterol Urine WBC (Auto) Urine Creatinine Ur Total Protein 24 Hr Urine Total Protein 12/26/18 12/26/18 12/26/18 04:20 08:07 10:00 WBC RBC Hgb Hct MCV MCH Hunt % (Auto) Hunt # Baso # Seg Neutrophils % Seg Neutrophils # APTT D-Dimer Heparin Anti-Xa Level Sodium Potassium Chloride Carbon Dioxide BUN Creatinine Glucose POC Glucose 168 H Total Creatine Kinase CK-MB (CK-2) Troponin T NT-Pro-B Natriuret Pep 2049 H 2098 H Triglycerides Cholesterol LDL Cholesterol Direct HDL Cholesterol Urine WBC (Auto) Urine Creatinine Ur Total Protein 24 Hr Urine Total Protein 12/26/18 12/26/18 12/26/18 11:30 11:30 12:30 WBC RBC Hgb Hct MCV MCH Hunt % (Auto) Hunt # Baso # Seg Neutrophils % Seg Neutrophils # APTT D-Dimer Heparin Anti-Xa Level Sodium Potassium Chloride Carbon Dioxide BUN Creatinine Glucose POC Glucose 206 H Total Creatine Kinase CK-MB (CK-2) Troponin T NT-Pro-B Natriuret Pep Triglycerides Cholesterol LDL Cholesterol Direct HDL Cholesterol Urine WBC (Auto) 13.0 H Urine Creatinine 216.1 H Ur Total Protein 24 Hr Urine Total Protein 232 H 12/26/18 12/26/18 12/27/18 17:43 21:54 06:30 WBC RBC 2.95 L Hgb 9.8 L Hct 29.3 L MCV 99 H MCH 33 H Hunt % (Auto) 7.9 H Hunt # Baso # Seg Neutrophils % Seg Neutrophils # APTT D-Dimer Heparin Anti-Xa Level Sodium Potassium Chloride Carbon Dioxide BUN Creatinine Glucose POC Glucose 139 H 180 H Total Creatine Kinase CK-MB (CK-2) Troponin T NT-Pro-B Natriuret Pep Triglycerides Cholesterol LDL Cholesterol Direct HDL Cholesterol Urine WBC (Auto) Urine Creatinine Ur Total Protein 24 Hr Urine Total Protein 12/27/18 12/27/18 06:30 08:31 WBC RBC Hgb Hct MCV MCH Hunt % (Auto) Hunt # Baso # Seg Neutrophils % Seg Neutrophils # APTT D-Dimer Heparin Anti-Xa Level Sodium 136 L Potassium Chloride 97.0 L Carbon Dioxide BUN 43 H Creatinine 3.3 H Glucose 158 H POC Glucose 152 H Total Creatine Kinase CK-MB (CK-2) Troponin T NT-Pro-B Natriuret Pep Triglycerides Cholesterol LDL Cholesterol Direct HDL Cholesterol Urine WBC (Auto) Urine Creatinine Ur Total Protein 24 Hr Urine Total Protein Chest x-ray: report reviewed (Reported no acute findings.), image reviewed Allied health notes reviewed: nursing
[2018-12-27] MEDS: PLAVIX PO SCH (10:19)
[2018-12-27] MEDS: PROTONIX PO SCH (10:19)
[2018-12-27] MEDS: METOPROLOL PO SCH (10:19)
[2018-12-27] MEDS: ZOLOFT PO SCH (10:19)
[2018-12-27] MEDS: LASIX IV SCH (10:20)
[2018-12-27] MEDS: HumuLIN R SUB-Q SCH ×7 (10:22→22:20)
--- NOTE | 2018-12-27 10:43 | Progress Note ---
Assessment and Plan - Patient Problems (1) ANDREWS (acute kidney injury) Current Visit: No Status: Acute Plan to address problem: Acute kidney injury on Chronic kidney disease : baseline creatinine : 2.3mg/dl peak creatinine 3.9mg/dl current creatinine :3.3mg/dl admitted with ACS urine studies pending I reivewed renal US with right kidney 12.1cm and left kidney 11.8cm , 5mm left kidney stone Will stop bicarb infusion Will give Lasix 40mg IV bID (2) Acute CHF (congestive heart failure) Current Visit: No Status: Acute Plan to address problem: Acute CHF i reviewed echocardiogram with EF: 65% , diastolic dysfunction, dilated atria Will give Lasix. Will add Lasix 40mg IV BID. (3) Type 2 diabetes mellitus with diabetic chronic kidney disease Current Visit: No Status: Acute Qualifiers: Diabetes mellitus long term care administrator insulin use: with long term care administrator use Chronic kidney disease stage: stage 3 (moderate) Qualified Code(s): E11.22 - Type 2 diabetes mellitus with diabetic chronic kidney disease; N18.3 - Chronic kidney disease, stage 3 (moderate); Z79.4 - correction (current) use of insulin Plan to address problem: DM type II with complications ensure medications monitor fingersticks. (4) HTN (hypertension) Current Visit: No Status: Chronic Qualifiers: Hypertension type: essential hypertension Qualified Code(s): I10 - Essential (primary) hypertension Plan to address problem: HTN: controlled continue current medications. (5) ACS (acute coronary syndrome) Current Visit: No Status: Acute Plan to address problem: ACS: - concern for elevated troponin on admission - was seen by cardiology . Subjective Principal diagnosis: Ac. resp distress; NSTEMI; ; Ac. Pulm edema; DM II; CKD; HIV +ve Interval history: 48 year old with medical history of CHF , HTN, CKD , HIV admitted with chest pain . Patient off BIPAP ,now transferred out of the ICU. has peripheral edema she is drowsy , still quite weak and fidgety was on Metolazone and torsemide 100mg bid. review of systems unobtainable. Objective - Vital Signs Vital signs: Vital Signs - 12hr 12/26/18 12/27/18 12/27/18 23:21 02:39 03:31 Temperature 99.1 F 99.2 F Pulse Rate 94 H 75 92 H Respiratory 20 10 L 22 Rate Blood Pressure 154/81 122/81 O2 Sat by Pulse 94 94 Oximetry 12/27/18 12/27/18 08:23 10:19 Temperature 98.5 F Pulse Rate 98 H 98 H Respiratory 18 Rate Blood Pressure 170/86 170/86 O2 Sat by Pulse 99 Oximetry - General Appearance General appearance: well-developed, well-nourished EENT: ATNC, PERRL, mucous membranes moist Neck: no JVD Respiratory: Present: Decreased Breath Sounds Cardiology: regular, S1S2 Gastrointestinal: normal, normoactive bowel sounds Integumentary: no rash Neurologic: alert and oriented x3, CN 3-12 intact Musculoskeletal: other (edema noted. ) - Lab 12/27/18 06:30 12/27/18 06:30 Most recent lab results Calcium 9.1 mg/dL (8.4-10.2) 12/27/18 06:30 Urine Creatinine 216.1 mg/dL (0.1-20.0) H 12/26/18 11:30 Ur Total Protein 24 Hr 2832.00 mg/dL (2-200) H 12/25/18 12:21 Urine Total Protein 232 mg/dL (5-11.8) H 12/26/18 11:30 - Imaging Chest x-ray: image reviewed (I reviewed CXR with some hazy opacities. ) Medications & Allergies - Medications Allergies/Adverse Reactions: Allergies aspirin Allergy (Verified 05/10/16 05:48) Swelling lisinopril Adverse Reaction (Verified 04/23/18 03:38) Angioedema Home Medications: Home Medications Medication Instructions Recorded Confirmed Last Taken Type Abacavir [Ziagen TAB] 600 mg PO DAILY 11/28/17 12/23/18 11/27/17 History Gabapentin [Neurontin] 600 mg PO Q8H 11/28/17 12/23/18 11/27/17 History Insulin Detemir [Levemir VIAL] 45 unit SQ QHS 11/28/17 12/23/18 Unknown History Metoprolol [Lopressor TAB] 100 mg PO DAILY 11/28/17 12/23/18 11/27/17 History Sertraline [Zoloft] 100 mg PO QDAY 11/28/17 12/23/18 11/27/17 History hydrALAZINE [Apresoline TAB] 50 mg PO Q8HR 11/28/17 12/23/18 Unknown History lamiVUDine [Lamivudine] 150 mg PO DAILY 11/28/17 12/23/18 11/27/17 History traZODone [Desyrel] 150 mg PO QHS 11/28/17 12/23/18 11/27/17 History oxyCODONE /ACETAMINOPHEN [Percocet 1 tab PO Q6HR PRN #20 tablet 11/30/17 12/23/18 Unknown Rx 5/325 mg] Dolutegravir [Tivicay] 50 mg PO DAILY 12/24/18 12/24/18 12/22/18 History Active Medications: Generic Name Dose Route Start Last Admin Trade Name Freq PRN Reason Stop Dose Admin Abacavir Sulfate 600 mg 12/23/18 10:00 12/26/18 10:00 Ziagen PO 600 mg DAILY VINCENT Administration Acetaminophen 650 mg 12/23/18 03:03 Tylenol PO Q4H PRN Headache Albuterol 2.5 mg 12/23/18 15:43 Proventil IH Q4HRT PRN Shortness Of Breath Clopidogrel Bisulfate 75 mg 12/24/18 10:00 12/27/18 10:19 Plavix PO 75 mg QDAY VINCENT Administration Dextrose 50 ml 12/23/18 11:00 D50w (25gm) Syringe IV Q1H PRN Hypoglycemia Furosemide 40 mg 12/27/18 10:00 12/27/18 10:20 Lasix IV 40 mg QDAY VINCENT Administration Gabapentin 600 mg 12/23/18 06:00 12/27/18 06:11 Neurontin PO 600 mg Q8H VINCENT Administration Hydralazine HCl 5 mg 12/24/18 04:25 12/24/18 05:24 Apresoline IV 5 mg Q6H PRN Administration SBP >160 Ceftriaxone Sodium 1 gm in 50 mls @ 100 mls/hr 12/27/18 10:00 Rocephin/Ns 1 Gm/50 Ml IV Q24HR [facility] Protocol Insulin Glargine 15 units 12/24/18 22:00 12/26/18 21:54 Lantus SUB-Q Not Given QHS [facility] Insulin Human Regular 5 units 12/24/18 16:30 12/27/18 10:22 Humulin R SUB-Q 5 units AC VINCENT Administration Insulin Human Regular 0 units 12/26/18 11:30 12/27/18 10:24 Humulin R SUB-Q 1 units ACHS VINCENT Administration Protocol Lamivudine 150 mg 12/23/18 10:00 12/26/18 10:00 Epivir PO 150 mg DAILY VINCENT Administration Metoprolol Tartrate 100 mg 12/23/18 08:00 12/27/18 10:19 Lopressor PO 100 mg DAILY@0800 VINCENT Administration Nitroglycerin 0.4 mg 12/23/18 03:02 Nitrostat SL .Q5MIN PRN Chest Pain Ondansetron HCl 4 mg 12/23/18 03:03 12/24/18 14:08 Zofran IV 4 mg Q8H PRN Administration Nausea And Vomiting Oxycodone/Acetaminophen 1 tab 12/23/18 15:17 12/25/18 20:39 Percocet 5/325 PO 1 tab Q6HR PRN Administration Pain, Moderate (4-6) Pantoprazole Sodium 40 mg 12/23/18 15:00 12/27/18 10:19 Protonix PO 40 mg QDAY VINCENT Administration Pravastatin Sodium 40 mg 12/23/18 22:00 12/26/18 21:41 Pravachol PO 40 mg QHS [facility]INCENT Administration Quetiapine Fumarate 100 mg 12/23/18 22:00 12/26/18 21:41 Seroquel PO 100 mg QHS VINCENT Administration Quetiapine Fumarate 100 mg 12/24/18 10:00 12/27/18 10:19 Seroquel PO 100 mg QAM VINCENT Administration Sertraline HCl 100 mg 12/23/18 10:00 12/27/18 10:19 Zoloft PO 100 mg QDAY VINCENT Administration Trazodone HCl 150 mg 12/23/18 22:00 12/26/18 23:39 Desyrel PO Not Given QHS VINCENT
[2018-12-27] MEDS: ZIAGEN PO SCH (11:15)
[2018-12-27] MEDS: TIVICAY PO SCH (11:15)
[2018-12-27] MEDS: EPIVIR PO SCH (11:15)
[2018-12-27] MEDS: ROCEPHIN/NS 1 GM/50 ML 1 GM/50 ML BAG IV SCH (11:16)
--- NOTE | 2018-12-27 15:53 | Progress Note ---
Assessment and Plan Assessment and plan: Patient is a 48 yo woman with a history of Morbid Obesity, BMI 50.8, HIV, gastroparesis, CHF, CKD 3, IDDM with peripheral neuropathy, depression, hypertension and BLAYNE not on cpap (lost insurance and never returned to get cpap set up) who presented with SOB. * Lung V/Q scan reported as low probability of PE * Renal US with right kidney 12.1cm and left kidney 11.8cm , 5mm left kidney stone * TTE Conclusions: The study quality is technically difficult. The ventricular chamber size is normal. Moderate to severe septal wall hypertrophy. Global left ventricular systolic function is normal. Estimated ejection fraction is 6065 percent. Left ventricular diastolic filling pattern is consistent with pseudonormalization. Left atrium is mildly dilated. Acute hypoxic respiratory failure, pulse ox dropped to 89%: treat with supplemental O2, will need home O2 eval prior to discharge. Chest pains, Unstable angina: treated with IV heparin >48 hours, stress test in AM, Cardiology is following. ARF/CKD 3 suspected due to ATN: Nephrology following, treat with IV lasix UTI: start IV rocephin, d/c bay, urine culture pending Acute on chronic diastolic heart failure: treat with IV lasix HIV on HAART, supportive care, cont home meds Type II DM with CKD and uncontrolled hyperglycemia: treat with consistent carb diet, adjust insulin coverage to improve BG level Essential hypertension, monitor BP, cont current meds Anemia of chronic disease, monitor H/h Morbid obesity, BMI 50.8: insurance counselor on lifestyle modifications H/O BLAYNE, non compliant with cpap: need outpatient Pulmonology evaluation DVT Px, stop heparin drip, use SQ heparin Disposition: continue inpatient care, diuresis, stress test in AM, urine culture pending History Interval history: Patient was seen and examined. Follow-up on current diagnosis SOB. No overnight events reported to me. Patient denies any chest pain, shortness breath, nausea/vomiting or severe headaches. Imaging, nursing note, chart, labs and old chart reviewed. Discussed with patient. Hospitalist Physical - Physical exam Narrative exam: Gen: WDWN, moderate increase accessory muscle, lethargic on cpap Orientated, bmi 50.8 HEENT: NCAT, EOMI, PERRL, OP Clear Neck: supple, no adenopathy, no thyromegaly, no JVD CVS/Heart: RRR, normal S1S2, pulses present bilaterally Chest/Lungs: diminished bs bilateral Symmetrical chest expansion, good air entry bilaterally GI/Abdomen: soft, NTND, good bowel sounds, no guarding or rebound /Bladder: no suprapubic tenderness, no CVA or paraspinal tenderness, d/c bay Extermity/Skin: dependent edema x 4, ble edema, puffy bilateral hands MSK: FROM x 4 Neuro: CN 2-12 grossly intact, no new focal deficits Psych: calm - Constitutional Vitals: Temp Pulse Resp BP Pulse Ox 98.5 F 99 H 18 142/77 89 12/27/18 08:23 12/27/18 11:45 12/27/18 08:23 12/27/18 11:45 12/27/18 11:45 General appearance: Present: no acute distress Results - Labs CBC & Chem 7: 12/27/18 06:30 12/27/18 06:30 Labs: Laboratory Last Values WBC 9.6 K/mm3 (4.5-11.0) 12/27/18 06:30 RBC 2.95 M/mm3 (3.65-5.03) L 12/27/18 06:30 Hgb 9.8 gm/dl (10.1-14.3) L 12/27/18 06:30 Hct 29.3 % (30.3-42.9) L 12/27/18 06:30 MCV 99 fl (79-97) H 12/27/18 06:30 MCH 33 pg (28-32) H 12/27/18 06:30 MCHC 34 % (30-34) 12/27/18 06:30 RDW 14.3 % (13.2-15.2) 12/27/18 06:30 Plt Count 275 K/mm3 (140-440) 12/27/18 06:30 Lymph % (Auto) 32.4 % (13.4-35.0) 12/27/18 06:30 [place] % (Auto) 7.9 % (0.0-7.3) H 12/27/18 06:30 Eos % (Auto) 2.4 % (0.0-4.3) 12/27/18 06:30 Baso % (Auto) 1.3 % (0.0-1.8) 12/27/18 06:30 Lymph # 3.1 K/mm3 (1.2-5.4) 12/27/18 06:30 [place] # 0.8 K/mm3 (0.0-0.8) 12/27/18 06:30 Eos # 0.2 K/mm3 (0.0-0.4) 12/27/18 06:30 Baso # 0.1 K/mm3 (0.0-0.1) 12/27/18 06:30 Seg Neutrophils % 56.0 % (40.0-70.0) 12/27/18 06:30 Seg Neutrophils # 5.4 K/mm3 (1.8-7.7) 12/27/18 06:30 PT 13.2 Sec. (12.2-14.9) 12/23/18 03:22 INR 1.03 (0.87-1.13) 12/23/18 03:22 APTT < 24.2 Sec. (24.2-36.6) L 12/23/18 03:22 D-Dimer 897.35 ng/mlDDU (0-234) H 12/22/18 23:07 Heparin Anti-Xa Level 0.49 U.I./ml (0.3-0.7) 12/26/18 22:30 Sodium 136 mmol/L (137-145) L 12/27/18 06:30 Potassium 4.5 mmol/L (3.6-5.0) 12/27/18 06:30 Chloride 97.0 mmol/L (98-107) L 12/27/18 06:30 Carbon Dioxide 23 mmol/L (22-30) 12/27/18 06:30 Anion Gap 21 mmol/L 12/27/18 06:30 BUN 43 mg/dL (7-17) H 12/27/18 06:30 Creatinine 3.3 mg/dL (0.7-1.2) H 12/27/18 06:30 Estimated GFR 18 ml/min 12/27/18 06:30 BUN/Creatinine Ratio 13 % 12/27/18 06:30 Glucose 158 mg/dL (65-100) H 12/27/18 06:30 POC Glucose 198 (70-105) H 12/27/18 11:54 Calcium 9.1 mg/dL (8.4-10.2) 12/27/18 06:30 Total Creatine Kinase 145 units/L (30-135) H 12/23/18 11:41 CK-MB (CK-2) 4.0 ng/mL (0.0-4.0) 12/23/18 11:41 CK-MB (CK-2) Rel Index 2.7 (0-4) 12/23/18 11:41 Troponin T 0.107 ng/mL (0.00-0.029) H* D 12/23/18 11:41 NT-Pro-B Natriuret Pep 2098 pg/mL (0-450) H 12/26/18 10:00 Triglycerides 325 mg/dL (2-149) H 12/23/18 03:22 Cholesterol 252 mg/dL (50-199) H 12/23/18 03:22 LDL Cholesterol Direct 174 mg/dL (50-130) H 12/23/18 03:22 HDL Cholesterol 33 mg/dL (40-59) L 12/23/18 03:22 Cholesterol/HDL Ratio 7.63 % 12/23/18 03:22 Urine Color Yellow (Yellow) 12/26/18 11:30 Urine Turbidity Cloudy (Clear) 12/26/18 11:30 Urine pH 5.0 (5.0-7.0) 12/26/18 11:30 Ur Specific [place] 1.017 (1.003-1.030) 12/26/18 11:30 Urine Protein >2000 mg dl mg/dL (Negative) 12/26/18 11:30 Urine Glucose (UA) 50 mg/dL (Negative) 12/26/18 11:30 Urine Ketones Neg mg/dL (Negative) 12/26/18 11:30 Urine Blood Neg (Negative) 12/26/18 11:30 Urine Nitrite Neg (Negative) 12/26/18 11:30 Urine Bilirubin Neg (Negative) 12/26/18 11:30 Urine Urobilinogen < 2.0 mg/dL (<2.0) 12/26/18 11:30 Ur Leukocyte Esterase Neg (Negative) 12/26/18 11:30 Urine WBC (Auto) 13.0 /HPF (0.0-6.0) H 12/26/18 11:30 Urine RBC (Auto) 6.0 /HPF (0.0-6.0) 12/26/18 11:30 U Epithel Cells (Auto) 1.0 /HPF (0-13.0) 12/26/18 11:30 Urine Bacteria (Auto) 4+ /HPF (Negative) 12/26/18 11:30 Urine Total Volume 600 ml 12/25/18 13:00 Urine Creatinine 216.1 mg/dL (0.1-20.0) H 12/26/18 11:30 Ur Creatinine 24 Hour 1.3 (0.8-2.8) 12/25/18 12:21 Height (in) 59.0 inches 12/25/18 13:00 Weight (lb) 228.0 lbs 12/25/18 13:00 Creatinine Clearance 23 12/25/18 13:00 Ur Total Protein 24 Hr 2832.00 mg/dL (2-200) H 12/25/18 12:21 Protein/Creatinin Ratio 1.07 12/26/18 11:30 Urine Total Protein 232 mg/dL (5-11.8) H 12/26/18 11:30 Hepatitis A IgM Ab Non-reactive (NonReactive) 12/25/18 13:00 Hep Bs Antigen Non-reactive (Negative) 12/25/18 13:00 Hep B Core IgM Ab Non-reactive (NonReactive) 12/25/18 13:00 Hepatitis C Antibody Non-reactive (NonReactive) 12/25/18 13:00 Active Medications - Current Medications Current Medications: Generic Name Dose Route Start Last Admin Trade Name Freq PRN Reason Stop Dose Admin Abacavir Sulfate 600 mg 12/23/18 10:00 12/27/18 11:15 Ziagen PO 600 mg DAILY VINCENT Administration Acetaminophen 650 mg 12/23/18 03:03 Tylenol PO Q4H PRN Headache Albuterol 2.5 mg 12/23/18 15:43 Proventil IH Q4HRT PRN Shortness Of Breath Clopidogrel Bisulfate 75 mg 12/24/18 10:00 12/27/18 10:19 Plavix PO 75 mg QDAY VINCENT Administration Dextrose 50 ml 12/23/18 11:00 D50w (25gm) Syringe IV Q1H PRN Hypoglycemia Furosemide 40 mg 12/27/18 10:00 12/27/18 10:20 Lasix IV 40 mg QDAY VINCENT Administration Gabapentin 600 mg 12/23/18 06:00 12/27/18 14:44 Neurontin PO 600 mg Q8H VINCENT Administration Hydralazine HCl 5 mg 12/24/18 04:25 12/24/18 05:24 Apresoline IV 5 mg Q6H PRN Administration SBP >160 Ceftriaxone Sodium 1 gm in 50 mls @ 100 mls/hr 12/27/18 10:00 12/27/18 11:16 Rocephin/Ns 1 Gm/50 Ml IV 100 mls/hr Q24HR VINCENT Administration Protocol Insulin Glargine 15 units 12/24/18 22:00 12/26/18 21:54 Lantus SUB-Q Not Given QHS VINCENT Insulin Human Regular 5 units 12/24/18 16:30 12/27/18 11:51 Humulin R SUB-Q 5 units AC VINCENT Administration Insulin Human Regular 0 units 12/26/18 11:30 12/27/18 11:50 Humulin R SUB-Q 2 units ACHS VINCENT Administration Protocol Lamivudine 150 mg 12/23/18 10:00 12/27/18 11:15 Epivir PO 150 mg DAILY VINCENT Administration Metoprolol Tartrate 100 mg 12/23/18 08:00 12/27/18 10:19 Lopressor PO 100 mg DAILY@0800 VINCENT Administration Nitroglycerin 0.4 mg 12/23/18 03:02 Nitrostat SL .Q5MIN PRN Chest Pain Ondansetron HCl 4 mg 12/23/18 03:03 12/24/18 14:08 Zofran IV 4 mg Q8H PRN Administration Nausea And Vomiting Oxycodone/Acetaminophen 1 tab 12/23/18 15:17 12/25/18 20:39 Percocet 5/325 PO 1 tab Q6HR PRN Administration Pain, Moderate (4-6) Pantoprazole Sodium 40 mg 12/23/18 15:00 12/27/18 10:19 Protonix PO 40 mg QDAY VINCENT Administration Pravastatin Sodium 40 mg 12/23/18 22:00 12/26/18 21:41 Pravachol PO 40 mg QHS VINCENT Administration Quetiapine Fumarate 100 mg 12/23/18 22:00 12/26/18 21:41 Seroquel PO 100 mg QHS VINCENT Administration Quetiapine Fumarate 100 mg 12/24/18 10:00 12/27/18 10:19 Seroquel PO 100 mg QAM VINCENT Administration Sertraline HCl 100 mg 12/23/18 10:00 12/27/18 10:19 Zoloft PO 100 mg QDAY VINCENT Administration Trazodone HCl 150 mg 12/23/18 22:00 12/26/18 23:39 Desyrel PO Not Given QHS VINCENT Nutrition/Malnutrition Assess - Dietary Evaluation Nutrition/Malnutrition Findings: Nutrition Notes Start: 12/23/18 13:13 Freq: Status: Active Protocol: Document 12/25/18 17:26 RM (Rec: 12/25/18 17:32 RM [id number]) Nutrition Notes Initial or Follow up Reassessment Current Diagnosis CKD(stage I-IV),Diabetes, Hypertension,Heart Failure Other Pertinent Diagnosis Gastroparesis, CP Current Diet Cardiac w/Glucerna chocolate 1 daily Labs/Tests Reviewed Pertinent Medications Zofran Height 4 ft 11 in Weight 103.6 kg [place] Body Weight (kg) 43.18 BMI 46.1 Subjective/Other Information Pt moved to ICU. Per pt nurse pt sometimes eats all of her meals and other times only some d/t preferences. Noted preferences. Pt stated she is drinking the Glucerna. Software Configuration Specialist recommened pt switch to lower K Glucerna flavor. Burn Absent Trauma Absent Minimum of two criteria Yes Energy Intake (non-severe) <75% Estimated Energy Requirement >7 days Fluid Accumulation Moderate to Severe (severe) #1 Nutrition Diagnosis Malnutrition Diagnosis Progress(for reassessment Continues documentation) Is patient on ventilator? No Is Patient Ambulatory and/or Out of Bed Yes [facility] [ 2042.119 [id number]] Kcal/Kg value to use for calculation 15 Approximate Energy Requirements Using 1554 kcal/Kg Calculation Used for Recommendations Kcal/kg Additional Notes Protein Needs: 108g (2.5/kg IBW) Fluid Needs: 1 ml/kcal Nutrition Intervention Change Diet Order: Continue current Add Supplement/Snack (indicate name/kcal Glucerna Butter Pecan 1 daily /protein ) Provides kCal: 220 Provides Protein (gm) 10 Goal #1 Meet at least 75% of calorie and protein needs via PO and ONS intakes Anticipated Discharge Needs: Cardiac/Consistent CHO diet Follow-Up By: 12/28/18 Additional Comments Follow for PO and ONS intakes
[2018-12-27] MEDS: LANTUS SUB-Q SCH (22:19)
[2018-12-27] MEDS: PRAVACHOL PO SCH (22:21)
[2018-12-27] MEDS: DESYREL PO SCH (22:22)
[2018-12-28] MEDS: GABAPENTIN PO SCH ×2 (06:44→13:20)
[2018-12-28] MEDS ORDERED: LEXISCAN IV ONE (07:56)
[2018-12-28] MEDS: HumuLIN R SUB-Q SCH ×6 (08:47→17:32)
[2018-12-28] MEDS: METOPROLOL PO SCH (08:48)
--- NOTE | 2018-12-28 10:21 | Progress Note ---
Assessment and Plan Chest pain, atypical MPI this admission is normal with LVEF 60% Elevated troponin, nonspecific in the setting of renal failure Chronic renal failure Diabetes Hypertension HIV disease Hx of gastroparesis Hx of heart failure with preserved ejection fraction no evidence of acute exacerbation Recommendations: Continue plavix for primary prevention (patient is allergic to aspirin) No further cardiac work-up is needed Subjective Date of service: 12/28/18 Principal diagnosis: Ac. resp distress; NSTEMI; ; Ac. Pulm edema; DM II; CKD; HIV +ve Interval history: Patient had a lexiscan this morning - no complications Objective Vital Signs Temp Pulse Resp BP Pulse Ox 12/28/18 09:21 162/90 12/28/18 09:19 167/90 12/28/18 09:18 168/91 12/28/18 09:17 162/91 12/28/18 09:16 151/84 12/28/18 09:13 177/92 12/28/18 09:08 172/94 12/28/18 09:06 170/91 12/28/18 09:02 175/97 12/28/18 04:21 98.0 F 75 20 137/71 99 12/28/18 04:18 75 12 98 12/27/18 23:26 77 12 96 12/27/18 23:09 98.0 F 18 124/72 12/27/18 19:59 100 12/27/18 19:17 98.0 F 77 18 138/69 97 12/27/18 16:02 97.9 F 76 18 122/73 87 12/27/18 11:45 99 H 142/77 89 - Physical Examination General: No Apparent Distress HEENT: Positive: PERRL Neck: Positive: trachea midline Cardiac: Positive: Reg Rate and Rhythm Lungs: Positive: Normal Exam Neuro: Positive: Grossly Intact Abdomen: Positive: Unremarkable, Active Bowel Sounds Extremities: Absent: edema - Allied health notes Allied health notes reviewed: nursing
[2018-12-28 10:25] VITALS: BP 166/86
[2018-12-28] MEDS: ROCEPHIN/NS 1 GM/50 ML 1 GM/50 ML BAG IV SCH (10:36)
[2018-12-28] MEDS: PROTONIX PO SCH (10:37)
[2018-12-28] MEDS: ZOLOFT PO SCH (10:37)
[2018-12-28] MEDS: PLAVIX PO SCH (10:37)
[2018-12-28] MEDS: LASIX IV SCH (10:38)
[2018-12-28] MEDS: EPIVIR PO SCH (10:38)
[2018-12-28] MEDS: ZIAGEN PO SCH (10:39)
[2018-12-28] MEDS: TIVICAY PO SCH (10:40)
[2018-12-28 13:32] LABS: Calcium 9.3 mg/dL (8.4-10.2)
--- NOTE | 2018-12-28 14:04 | Progress Note ---
Assessment and Plan - Patient Problems (1) ANDREWS (acute kidney injury) Current Visit: No Status: Acute Plan to address problem: Acute kidney injury on Chronic kidney disease : baseline creatinine : 2.3mg/dl peak creatinine 3.9mg/dl current creatinine :2.3mg/dl admitted with ACS urine studies pending I reivewed renal US with right kidney 12.1cm and left kidney 11.8cm , 5mm left kidney stone Will stop bicarb infusion Will give Lasix 40mg IV daily. will give additional dose of Lasix 40mg IV this afternoon. (2) Acute CHF (congestive heart failure) Current Visit: No Status: Acute Plan to address problem: Acute CHF i reviewed echocardiogram with EF: 65% , diastolic dysfunction, dilated atria Will give Lasix. continue Lasix 40mg IV daily (3) Type 2 diabetes mellitus with diabetic chronic kidney disease Current Visit: No Status: Acute Qualifiers: Diabetes mellitus usp insulin use: with usp use Chronic kidney disease stage: stage 3 (moderate) Qualified Code(s): E11.22 - Type 2 diabetes mellitus with diabetic chronic kidney disease; N18.3 - Chronic kidney disease, stage 3 (moderate); Z79.4 - USP (current) use of insulin Plan to address problem: DM type II with complications ensure medications monitor fingersticks. (4) HTN (hypertension) Current Visit: No Status: Chronic Qualifiers: Hypertension type: essential hypertension Qualified Code(s): I10 - Essential (primary) hypertension Plan to address problem: HTN: controlled continue current medications. (5) ACS (acute coronary syndrome) Current Visit: No Status: Acute Plan to address problem: ACS: - concern for elevated troponin on admission - was seen by cardiology . Subjective Principal diagnosis: Ac. resp distress; NSTEMI; ; Ac. Pulm edema; DM II; CKD; HIV +ve Interval history: 48 year old with medical history of CHF , HTN, CKD , HIV admitted with chest pain with prolonged hospital course neccesitating ICU stay. . She still has peripheral edema was on Metolazone and torsemide 100mg bid at home She feels well today ,anxious to be discharged home Objective - Vital Signs Vital signs: Vital Signs - 12hr 12/28/18 12/28/18 12/28/18 04:18 04:21 09:02 Temperature 98.0 F Pulse Rate 75 75 Respiratory 12 20 Rate Blood Pressure 137/71 175/97 Blood Pressure [Left] O2 Sat by Pulse 98 99 Oximetry 12/28/18 12/28/18 12/28/18 09:06 09:08 09:13 Temperature Pulse Rate Respiratory Rate Blood Pressure 170/91 172/94 177/92 Blood Pressure [Left] O2 Sat by Pulse Oximetry 12/28/18 12/28/18 12/28/18 09:16 09:17 09:18 Temperature Pulse Rate Respiratory Rate Blood Pressure 151/84 162/91 168/91 Blood Pressure [Left] O2 Sat by Pulse Oximetry 12/28/18 12/28/18 12/28/18 09:19 09:21 10:23 Temperature 97.8 F Pulse Rate 102 H Respiratory 20 Rate Blood Pressure 167/90 162/90 Blood Pressure 166/86 [Left] O2 Sat by Pulse 98 Oximetry 12/28/18 12/28/18 10:32 11:40 Temperature 98.6 F Pulse Rate 107 H Respiratory 18 Rate Blood Pressure 166/86 Blood Pressure [Left] O2 Sat by Pulse 93 94 Oximetry - General Appearance General appearance: well-developed, well-nourished EENT: ATNC, PERRL, mucous membranes moist Neck: no JVD Respiratory: Present: Clear to Ascultation Cardiology: regular, S1S2 Gastrointestinal: normal, normoactive bowel sounds Integumentary: no rash Neurologic: alert and oriented x3, CN 3-12 intact Psychiatric: mood/affect appropriate - Lab 12/27/18 06:30 12/28/18 12:32 Most recent lab results Calcium 9.3 mg/dL (8.4-10.2) 12/28/18 12:32 Urine Creatinine 216.1 mg/dL (0.1-20.0) H 12/26/18 11:30 Ur Total Protein 24 Hr 2832.00 mg/dL (2-200) H 12/25/18 12:21 Urine Total Protein 232 mg/dL (5-11.8) H 12/26/18 11:30 - Imaging Chest x-ray: image reviewed Medications & Allergies - Medications Allergies/Adverse Reactions: Allergies aspirin Allergy (Verified 05/10/16 05:48) Swelling lisinopril Adverse Reaction (Verified 04/23/18 03:38) Angioedema Home Medications: Home Medications Medication Instructions Recorded Confirmed Last Taken Type Abacavir [Ziagen TAB] 600 mg PO DAILY 11/28/17 12/23/18 11/27/17 History Gabapentin [Neurontin] 600 mg PO Q8H 11/28/17 12/23/18 11/27/17 History Insulin Detemir [Levemir VIAL] 45 unit SQ QHS 11/28/17 12/23/18 Unknown History Metoprolol [Lopressor TAB] 100 mg PO DAILY 11/28/17 12/23/18 11/27/17 History Sertraline [Zoloft] 100 mg PO QDAY 11/28/17 12/23/18 11/27/17 History hydrALAZINE [Apresoline TAB] 50 mg PO Q8HR 11/28/17 12/23/18 Unknown History lamiVUDine [Lamivudine] 150 mg PO DAILY 11/28/17 12/23/18 11/27/17 History traZODone [Desyrel] 150 mg PO QHS 11/28/17 12/23/18 11/27/17 History oxyCODONE /ACETAMINOPHEN [Percocet 1 tab PO Q6HR PRN #20 tablet 11/30/17 12/23/18 Unknown Rx 5/325 mg] Dolutegravir [Tivicay] 50 mg PO DAILY 12/24/18 12/24/18 12/22/18 History Active Medications: Generic Name Dose Route Start Last Admin Trade Name Freq PRN Reason Stop Dose Admin Abacavir Sulfate 600 mg 12/23/18 10:00 12/28/18 10:39 Ziagen PO 600 mg DAILY VINCENT Administration Acetaminophen 650 mg 12/23/18 03:03 Tylenol PO Q4H PRN Headache Albuterol 2.5 mg 12/23/18 15:43 Proventil IH Q4HRT PRN Shortness Of Breath Clopidogrel Bisulfate 75 mg 12/24/18 10:00 12/28/18 10:37 Plavix PO 75 mg QDAY VINCENT Administration Dextrose 50 ml 12/23/18 11:00 D50w (25gm) Syringe IV Q1H PRN Hypoglycemia Furosemide 40 mg 12/27/18 10:00 12/28/18 10:38 Lasix IV 40 mg QDAY VINCENT Administration Gabapentin 600 mg 12/23/18 06:00 12/28/18 13:20 Neurontin PO 600 mg Q8H VINCENT Administration Hydralazine HCl 5 mg 12/24/18 04:25 12/24/18 05:24 Apresoline IV 5 mg Q6H PRN Administration SBP >160 Ceftriaxone Sodium 1 gm in 50 mls @ 100 mls/hr 12/27/18 10:00 12/28/18 10:36 Rocephin/Ns 1 Gm/50 Ml IV 100 mls/hr Q24HR VINCENT Administration Protocol Insulin Glargine 15 units 12/24/18 22:00 12/27/18 22:19 Lantus SUB-Q 15 units QHS VINCENT Administration Insulin Human Regular 5 units 12/24/18 16:30 12/28/18 13:20 Humulin R SUB-Q 5 units AC VINCENT Administration Insulin Human Regular 0 units 12/26/18 11:30 12/28/18 13:22 Humulin R SUB-Q 2 units ACHS VINCENT Administration Protocol Lamivudine 150 mg 12/23/18 10:00 12/28/18 10:38 Epivir PO 150 mg DAILY VINCENT Administration Metoprolol Tartrate 100 mg 12/23/18 08:00 12/28/18 08:48 Lopressor PO Not Given DAILY@0800 [facility] Nitroglycerin 0.4 mg 12/23/18 03:02 Nitrostat SL .Q5MIN PRN Chest Pain Ondansetron HCl 4 mg 12/23/18 03:03 12/24/18 14:08 Zofran IV 4 mg Q8H PRN Administration Nausea And Vomiting Oxycodone/Acetaminophen 1 tab 12/23/18 15:17 12/25/18 20:39 Percocet 5/325 PO 1 tab Q6HR PRN Administration Pain, Moderate (4-6) Pantoprazole Sodium 40 mg 12/23/18 15:00 12/28/18 10:37 Protonix PO 40 mg QDAY VINCENT Administration Pravastatin Sodium 40 mg 12/23/18 22:00 12/27/18 22:21 Pravachol PO 40 mg QHS VINCENT Administration Quetiapine Fumarate 100 mg 12/23/18 22:00 12/27/18 22:21 Seroquel PO 100 mg QHS VINCENT Administration Quetiapine Fumarate 100 mg 12/24/18 10:00 12/28/18 10:42 Seroquel PO 100 mg QAM VINCENT Administration Sertraline HCl 100 mg 12/23/18 10:00 12/28/18 10:37 Zoloft PO 100 mg QDAY VINCENT Administration Trazodone HCl 150 mg 12/23/18 22:00 12/27/18 22:22 Desyrel PO Not Given QHS VINCENT
[2018-12-28] MEDS ORDERED: LASIX IV ONE (14:05)
--- NOTE | 2018-12-28 14:26 | Treadmill Report ---
INDICATION: Chest pain. ORDERING PHYSICIAN: Ankur Vasquez MD FINDINGS: There is no scintigraphic evidence of myocardial ischemia. The left ventricle is normal in size. The left ventricular ejection fraction is measured at 60%. There is normal wall motion and wall thickening noted on gated imaging. CONCLUSION: This is a normal perfusion scan. JOB# [id number] ANSON/MAX
--- NOTE | 2018-12-28 15:19 | Discharge Summary ---
Providers - Providers Date of Admission: 12/23/18 12:28 Date of discharge: 12/28/18 Attending physician: AWA REED 12/23/18 03:13 Consult to Physician [CONS] Routine Comment: Consulting Provider: RYAN BURRELL Physician Instructions: Reason For Exam: CKD 12/23/18 06:00 Consult to Physician [CONS] Routine Comment: Consulting Provider: CORA BANERJEE Physician Instructions: Reason For Exam: CHEST PAIN WITH ELEVATED TROPONIN 12/24/18 08:08 Consult to Physician [CONS] Urgent Comment: Consulting Provider: HANNAH JACINTO Physician Instructions: Reason For Exam: critical care management 12/27/18 08:01 Occupational Therapy Evaluate and Treat [CONS] Routine Comment: Reason For Exam: ADLs evaluation 12/27/18 08:02 Physical Therapy Evaluation and Treat [CONS] Routine Comment: Reason For Exam: gait evaluation/ambulatory dysfunction Primary care physician: RHIT Hospitalization Condition: Stable Hospital course: Patient is a 48 yo woman with a history of Morbid Obesity, BMI 50.8, HIV, gastroparesis, CHF, CKD 3, IDDM with peripheral neuropathy, depression, hypertension and BLAYNE not on cpap (lost insurance and never returned to get cpap set up) who presented with SOB. * Lung V/Q scan reported as low probability of PE * Renal US with right kidney 12.1cm and left kidney 11.8cm , 5mm left kidney stone * TTE Conclusions: The study quality is technically difficult. The ventricular chamber size is normal. Moderate to severe septal wall hypertrophy. Global left ventricular systolic function is normal. Estimated ejection fraction is 6065 percent. Left ventricular diastolic filling pattern is consistent with pseudonormalization. Left atrium is mildly dilated. Acute hypoxic respiratory failure, pulse ox dropped to 89%: treat with supplemental O2, will need home O2 eval prior to discharge. Chest pains, Unstable angina: treated with IV heparin >48 hours, stress test in AM, Cardiology is following. 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 lifestyle modifications H/O BLAYNE, non compliant with cpap: need outpatient Pulmonology evaluation DVT Px, stop heparin drip, use SQ heparin Disposition: continue inpatient care, diuresis, stress test negative, urine culture negative, will d/c home Disposition: DC- TO HOME OR SELFCARE Time spent for discharge: 35 minutes Core Measure Documentation - Palliative Care Palliative Care/ Comfort Measures: Not Applicable - Core Measures Any of the following diagnoses?: none - VTE Discharge Requirements Deep Vein Thrombosis/Pulmonary Embolism Present on Admission: No Has pt received <5 days of overlap therapy or INR<2.0: No Anticoagulant overlap therapy prescribed at discharge: No Contraindication No Overlap Therapy order at DC: Not Indicated Exam - Physical Exam Narrative exam: Gen: WDWN, moderate increase accessory muscle, lethargic on cpap Orientated, bmi 50.8 HEENT: NCAT, EOMI, PERRL, OP Clear Neck: supple, no adenopathy, no thyromegaly, no JVD CVS/Heart: RRR, normal S1S2, pulses present bilaterally Chest/Lungs: diminished bs bilateral Symmetrical chest expansion, good air entry bilaterally GI/Abdomen: soft, NTND, good bowel sounds, no guarding or rebound /Bladder: no suprapubic tenderness, no CVA or paraspinal tenderness, d/c bay Extermity/Skin: dependent edema x 4, ble edema, puffy bilateral hands MSK: FROM x 4 Neuro: CN 2-12 grossly intact, no new focal deficits Psych: calm - Constitutional Vitals: Temp Pulse Resp BP Pulse Ox 98.6 F 107 H 18 166/86 94 12/28/18 11:40 12/28/18 11:40 12/28/18 11:40 12/28/18 11:40 12/28/18 11:40 Plan Activity: other (no strenous activity unless cleared by PCP) Diet: low salt Additional Instructions: Need outpatient Sleep Study for CPAP, see Dr. Cordova Follow up with: PRIMARY CARE, [Primary Care Provider] - 3-5 Days RYAN BURRELL MD [Staff Physician] - 7 Days CORA BANERJEE MD [Staff Physician] - 7 Days NILSON SALEEM MD [Staff Physician] - 7 Days Prescriptions: Furosemide [Lasix TAB] 40 mg PO QDAY #30 tablet oxyCODONE /ACETAMINOPHEN [Percocet 5/325 mg] 1 tab PO Q6HR PRN #20 tablet PRN Reason: Pain , Severe (7-10) Pantoprazole [Protonix TAB] 40 mg PO QDAY #30 tablet
[2018-12-29 21:43] LABS: ANA Screen, IFA Positive (Negative)
== END 2018-12-28 17:38 | disposition home or self-care (01) | DRG 280 ==
LOC: ED 22:19 → 4A 12-23 02:57 → OBSVTOIN 12-23 12:28 → CC1 12-23 15:26 → 4A 12-26 15:49
PROVIDERS: ADMIT Internal Medicine; ATTEND Internal Medicine
PROC: 5A09357 Assistance with Respiratory Ventilation, Less than 24 Consecutive Hours, Continuous Positive Airway Pressure (ICD-10-PCS; principal; 2018-12-24)
PROC: 5A09357 Assistance with Respiratory Ventilation, Less than 24 Consecutive Hours, Continuous Positive Airway Pressure (ICD-10-PCS; 2018-12-25)
PROC: 5A09357 Assistance with Respiratory Ventilation, Less than 24 Consecutive Hours, Continuous Positive Airway Pressure (ICD-10-PCS; 2018-12-26)
PROC: 5A09357 Assistance with Respiratory Ventilation, Less than 24 Consecutive Hours, Continuous Positive Airway Pressure (ICD-10-PCS; 2018-12-27)
PROC: 5A09357 Assistance with Respiratory Ventilation, Less than 24 Consecutive Hours, Continuous Positive Airway Pressure (ICD-10-PCS; 2018-12-28)
DX: I21.4 Non-ST elevation (NSTEMI) myocardial infarction (principal); I50.33 Acute on chronic diastolic (congestive) heart failure; N17.0 Acute kidney failure with tubular necrosis; J96.01 Acute respiratory failure with hypoxia; I13.0 Hypertensive heart and chronic kidney disease with heart failure and stage 1 through stage 4 chronic kidney disease, or unspecified chronic kidney disease; E87.2 Acidosis; N18.4 Chronic kidney disease, stage 4 (severe); Z68.43 Body mass index [BMI] 50.0-59.9, adult; E11.22 Type 2 diabetes mellitus with diabetic chronic kidney disease; Z21 Asymptomatic human immunodeficiency virus [HIV] infection status; E66.01 Morbid (severe) obesity due to excess calories; E11.43 Type 2 diabetes mellitus with diabetic autonomic (poly)neuropathy; K31.84 Gastroparesis; D63.8 Anemia in other chronic diseases classified elsewhere; E87.5 Hyperkalemia; E11.42 Type 2 diabetes mellitus with diabetic polyneuropathy; N20.0 Calculus of kidney; I20.0 Unstable angina; E11.65 Type 2 diabetes mellitus with hyperglycemia; Z79.4 Long term (current) use of insulin
CPT/HCPCS: 36415; 71045; 76770; 78452; 78582; 80048; 80061; 80074; 81001; 82550; 82553; 82565; 82570; 82575; 82962; 83880; 84156; 84484; 85014; 85018; 85025; 85049; 85379; 85520; 85610; 85730; 86038; 86334; 87086; 87116; 93005; 93010; 93017; 93306; 94660; 94760; G0378; A9270-GY; A9502; A9540; A9558; J0360; J0696; J1644; J1815; J1940; J2270; J2405; J2785; J7030

== ENCOUNTER 2019-01-08 14:57 | Emergency (ER) | payer OTHER ==
[2019-01-08 15:31] VITALS: BP 199/112
== END 2019-01-08 17:20 | disposition left against medical advice (07) ==
LOC: ED 14:57
DX: R06.00 Dyspnea, unspecified (principal); Z53.21 Procedure and treatment not carried out due to patient leaving prior to being seen by health care provider